=== PATIENT | female | born 1955 | race Caucasian/White ===

== ENCOUNTER 2024-11-13 15:41 | Inpatient (IN) ==
[2024-11-13] MEDS: SODIUM CHLORIDE 0.9% 1,000 ML IV ONE (16:37)
[2024-11-13 16:41] LABS: Base Excess VBG -3.4 mEq/L; HCO3 VBG 21 mmol/L; Oxygen Saturation VBG < 60.0 %; PCO2 VBG 37 mmHg (38-50); PO2 VBG 31 mmHg; pH VBG 7.37 (7.36-7.41)
--- NOTE | 2024-11-13 16:41 | Emergency Department Note ---
Impression & Plan Hyperglycemia due to type 2 diabetes mellitus ED Provider Note Provider: Bhupendra Choe MD CHIEF COMPLAINT: High blood sugar, short of breath HISTORY OF PRESENT ILLNESS: Patient is a 69-year-old female past medical history of stroke, blood clot on Xarelto normally, diabetes on insulin presenting via ambulance from the [facility] due to elevated blood sugar. Patient evidently for the past 3 weeks has been having URI symptoms. Seen in the clinic. Patient reports she has been on 2 courses of prednisone and completed course of Augmentin. States he is having some dyspnea on exertion has been quite thirsty and drinking a lot of water recently. Has not been taking her insulin or other medications again but has been slowly advancing her diet more. Blood sugars have been reading high and they sent her here for further evaluation. States she has been having some dyspnea on exertion even going up a flight of stairs. Has not been using her continuous glucose monitor the past 2 days. Denies significant confusions or hallucinations to me. PAST MEDICAL HISTORY: As noted above MEDICATIONS: Reviewed no medications but not currently taking clear insulin. Has recently been Augmentin/prednisone finished yesterday SOCIAL HISTORY: Lives in her apartment by herself non-smoker PHYSICAL EXAM: GENERAL: alert and oriented in no acute distress on stretcher Head: normocephalic and atraumatic EYES: No injection, discharge or icterus. EOMI. NECK: Trachea midline. ENT: Mucous membranes pink and moist. LUNGS: Airway patent. No retractions. Breath sounds clear with good air entry bilaterally. HEART: Regular rate and rhythm. No chest wall tenderness ABDOMEN: Soft and non-tender, without guarding or rebound. SKIN: Acyanotic, warm, dry, without rashes EXTREMITIES: Without swelling, tenderness or deformity NEUROLOGICAL: No focal deficits moving all extremities. No aphasia. No facial droop or slurred speech.Ambulatory. EK beats minute normal sinus rhythm left axis. No PVC or PAC. No acute ST segment elevation or depression with QTc of 444. CONTINUOUS CARDIAC MONITORING: was ordered and showed a heart rate of 90s-100s bpm in normal sinus rhythm to sinus tachycardia Patient's laboratory studies and imaging reviewed. Differential includes Infection, dehydration, metabolic abnormality, hypo/hyperglycemia, electrolyte disturbance, anemia, hypoxia, cardiac sources, intracerebral event, toxicologic, neurologic, as well as other pathologies. IMPRESSION/MEDICAL DECISION MAKING: Likely combination of stopping her insulin with the prednisone has caused hyperglycemia and symptoms consistent without with polyuria and polydipsia. Electrolytes checked. Lives by herself. Does not appear febrile or tachypneic. Labs including VBG obtained. Chest x-ray as well as COVID swabs obtained to exclude pneumonia and evaluate for underlying viral illness. No significant focal deficits no trauma reported. Not having active chest pain lower suspicion for cardiac injury. Patient states given her history of clots she is post to be on Xarelto but again has not been taking this for several weeks. Blood work here without significant leukocytosis or anemia. No acidosis on VBG and doubt DKA. Normal lactate. Glucose and ketones in the urine with some concentration again receiving IV fluid hydration. Chest x-ray completed and reviewed by myself without findings of pneumonia or fluid overload. Chemistries with some pseudohyponatremia of 128 and no anion gap. No significant transaminitis. Normal troponin here today. Patient again has stopped all of her medications at home and does not know what her continuous blood sugar monitor is at home. Do of concerns about her ability to control and care for self at home specially in this acute setting at this time. Will start insulin drip in discussion with pharmacy for glycemic control. Discussed with patient. She was in agreement and I do have some concerns about ability to manage herself at home at this time. Discussed with the hospitalist team here for further care. Negative respiratory viral panel to explain her recent cough symptoms. Do not believe further antibiotics are indicated at this time. Patient should restart her home medications and anticoagulation but will defer this to the inpatient team. DIAGNOSIS: Hyperglycemia secondary to type 2 diabetes, TARIQ DISPOSITION: Hospitalist will evaluate Patient was agreeable with this plan. Critical Care I have personally spent 32 minutes of critical care time in the direct management of this patient. This includes bedside care, interpretation of diagnostic studies, and testing, discussion with consultants, patient, and other required patient management activities. These 32 minutes is in excess of all separately billable procedures. Past Med/Surg History Problem List (Updated 11/13/24 @ 19:00 by Angel Huynh DO) Moderate persistent asthma Depression Bipolar 1 disorder Insulin-requiring or dependent type II diabetes mellitus Paroxysmal atrial fibrillation Noncompliance with medication treatment due to difficulty with dosing Pseudohyponatremia Hyperglycemia due to type 2 diabetes mellitus (Acute) Social History Smoking Status: Never smoker Preferred Language: Cymro Feels Safe at Home: Yes Allergies Allergies Allergy/AdvReac Type Severity Reaction Status Date / Time apixaban [From Eliquis] Allergy Intermediate Hives Verified 11/13/24 18:26 Sulfa (Sulfonamide Allergy Intermediate Rash Verified 11/13/24 18:26 Antibiotics) codeine AdvReac Intermediate Hallucinati Verified 11/13/24 18:26 ng empagliflozin AdvReac Intermediate Migraine Verified 11/13/24 18:26 [From Jardiance] metformin AdvReac Intermediate Abdominal Verified 11/13/24 21:36 Pain Home Meds Home Medications Medication Instructions Recorded Confirmed atorvastatin 80 mg tablet 80 mg PO DAILY 11/13/24 11/13/24 bupropion HCl 150 mg tablet,12 hr 150 mg PO BID 11/13/24 11/13/24 sustained-release citalopram 40 mg tablet (Celexa) 40 mg PO QAM 11/13/24 11/13/24 ergocalciferol (vitamin D2) 1,250 50,000 unit PO WK 11/13/24 11/13/24 mcg (50,000 unit) capsule ezetimibe 10 mg tablet 10 mg PO DAILY 11/13/24 11/13/24 famotidine 20 mg tablet 20 mg PO DAILY 11/13/24 11/13/24 fluticasone furoate 100 1 inh inhalation DIRECTED 11/13/24 11/13/24 mcg/actuation blister powder for inhalation (Arnuity Ellipta) hydroxyzine HCl 25 mg tablet 25 mg PO DAILY PRN Other 11/13/24 11/13/24 insulin degludec 100 unit/mL (3 0 unit subcut DIRECTED 11/13/24 11/13/24 mL) subcutaneous pen (Tresiba FlexTouch U-100 insulin) loratadine 10 mg tablet 10 mg PO DAILY 11/13/24 11/13/24 omeprazole 40 mg capsule,delayed 40 mg PO DAILY 11/13/24 11/13/24 release semaglutide 2 mg/dose (8 mg/3 mL) 2 mg subcut WK 11/13/24 11/13/24 subcutaneous pen injector (Ozempic) Results & Data (ED) Vital Signs Vital Signs - 24 hr 11/13/24 15:50 11/13/24 16:07 11/13/24 16:19 Temperature 37 C Temperature Source Temporal Artery Scan Pulse Rate 100 H 100 H Pulse Rate from SpO2 Sensor Respiratory Rate 18 Respiratory Effort / Characteristics Non-Labored Spontaneous Respiratory Depth Normal Respiratory Pattern Regular Blood Pressure 163/94 H Blood Pressure Mean 117 Pulse Oximetry 97 98 Oxygen Delivery Method Room Air Room Air Sepsis Recent Fever Within 48 Hours No Sepsis New/Unexplained Change in Mental Status No Sepsis Action Taken by Nursing No Action Required 11/13/24 17:00 11/13/24 18:00 Temperature Temperature Source Pulse Rate 93 H 87 Pulse Rate from SpO2 Sensor 93 H 87 Respiratory Rate 21 21 Respiratory Effort / Characteristics Respiratory Depth Respiratory Pattern Blood Pressure 156/89 H 152/84 H Blood Pressure Mean 137 121 Pulse Oximetry 97 96 Oxygen Delivery Method Sepsis Recent Fever Within 48 Hours Sepsis New/Unexplained Change in Mental Status Sepsis Action Taken by Nursing Laboratory Data 11/13/24 16:25 11/13/24 16:25 Lab Results 11/13/24 11/13/24 11/13/24 Range/Units 15:53 16:12 16:14 WBC (4.8-10.8) K/ul RBC (4.20-5.40) M/uL Hgb (12.0-16.0) g/dl POC Hgb (12.0-16.0) g/dl Hct (37.0-47.0) % POC Hct (37-47) % MCV (80.0-100.0) fL MCH (25.0-34.0) pg MCHC (32.0-36.0) g/dL RDW Std Deviation (36.4-46.3) fL RDW Coeff of Lopez (11.5-14.5) % Plt Count (130-400) K/uL MPV (9.4-12.4) fL Immature Gran % (Auto) % Neut % (Auto) % Lymph % (Auto) % Johnson % (Auto) % Eos % (Auto) % Baso % (Auto) % Neut # (Auto) (1.40-6.50) K/uL Lymph # (Auto) (1.20-3.40) K/uL Johnson # (Auto) (0.11-0.59) K/uL Eos # (Auto) (0.00-0.50) K/uL Baso # (Auto) (0.00-0.20) K/uL Immature Gran # (Auto) (0.01-0.20) K/uL PT (9.0-12.0) Seconds INR (0.9-1.1) VBG pH (7.36-7.41) VBG pCO2 (38-50) mmHg VBG pO2 mmHg VBG HCO3 mmol/L VBG O2 Saturation % VBG Base Excess mEq/L POC Sodium (135-144) mmol/L Sodium (136-145) mmol/L POC Potassium (3.3-5.0) mmol/L Potassium (3.5-5.1) mmol/L POC Chloride (101-112) mmol/L Chloride (98-107) mmol/L Carbon Dioxide (21-32) mmol/L POC Total CO2 (24-31) mmol/L Anion Gap (3-11) POC Anion Gap (16-25) mmol/L POC BUN (7-18) mg/dl BUN (6-23) mg/dl Creatinine (0.6-1.2) mg/dl POC Creatinine (0.6-1.3) mg/dl Est Cr Clr Drug Dosing eGFR BUN/Creatinine Ratio (10-20) Glucose (70-99(Fasting)) mg/dl POC Glucose > 600 H* > 600 H* > 600 H* (70-99) mg/dl POC Glucose (other) (70-99) mg/dl Lactate (0.4-2.0) mmol/L Calcium (8.6-10.3) mg/dl POC Ioniz Calcium Dora (1.12-1.32) mmol/l Magnesium (1.7-2.4) mg/dl Total Bilirubin (0.2-1.0) mg/dl AST (13-39) U/L ALT (7-52) U/L Alkaline Phosphatase (34-104) U/L Troponin I High Sens (0-14) pg/ml Total Protein (6.0-8.3) gm/dl Albumin (3.4-5.0) gm/dl Globulin (2.5-4.0) gm/dl Albumin/Globulin Ratio (0.9-2) TSH (0.300-4.500) uIu/ml Urine Color Urine Appearance (Clear) Urine pH (4.5-7.5) Ur Specific Vanzant (1.000-1.030) Urine Protein (Negative) Urine Glucose (UA) (Negative) Urine Ketones (Negative) Urine Blood (Negative) Urine Nitrite (Negative) Urine Bilirubin (Negative) Urine Urobilinogen (Negative) Ur Leukocyte Esterase (Negative) Adenovirus (PCR) (NotDetected) B. pertussis DNA (PCR) (NotDetected) B.parapertussis DNA PCR (NotDetected) C. pneumoniae DNA (PCR) (NotDetected) Coronavirus OC43 (PCR) (NotDetected) Coronavirus HKU1 (PCR) (NotDetected) Coronavirus 229E (PCR) (NotDetected) SARS-CoV-2 (PCR) (NotDetected) Coronavirus NL63 (PCR) (NotDetected) Human Metapneumovir PCR (NotDetected) Influenza Type A (PCR) (NotDetected) Influenza Type B (PCR) (NotDetected) M. pneumoniae (PCR) (NotDetected) Parainfluenza 1 (PCR) (NotDetected) Parainfluenza 2 (PCR) (NotDetected) Parainfluenza 3 (PCR) (NotDetected) Parainfluenza 4 (PCR) (NotDetected) RSV (PCR) (NotDetected) Entero/Rhino (PCR) (NotDetected) 11/13/24 11/13/24 11/13/24 Range/Units 16:25 16:39 18:20 WBC 8.80 (4.8-10.8) K/ul RBC 4.20 (4.20-5.40) M/uL Hgb 13.3 (12.0-16.0) g/dl POC Hgb 13.9 (12.0-16.0) g/dl Hct 38.4 (37.0-47.0) % POC Hct 41 (37-47) % MCV 91.4 (80.0-100.0) fL MCH 31.7 (25.0-34.0) pg MCHC 34.6 (32.0-36.0) g/dL RDW Std Deviation 41.8 (36.4-46.3) fL RDW Coeff of Lopez 12.7 (11.5-14.5) % Plt Count 347 (130-400) K/uL MPV 10.2 (9.4-12.4) fL Immature Gran % (Auto) 1.0 % Neut % (Auto) 61.7 % Lymph % (Auto) 26.1 % Johnson % (Auto) 9.7 % Eos % (Auto) 0.8 % Baso % (Auto) 0.7 % Neut # (Auto) 5.43 (1.40-6.50) K/uL Lymph # (Auto) 2.30 (1.20-3.40) K/uL Johnson # (Auto) 0.85 H (0.11-0.59) K/uL Eos # (Auto) 0.07 (0.00-0.50) K/uL Baso # (Auto) 0.06 (0.00-0.20) K/uL Immature Gran # (Auto) 0.09 (0.01-0.20) K/uL PT 9.9 (9.0-12.0) Seconds INR 0.9 (0.9-1.1) VBG pH 7.37 (7.36-7.41) VBG pCO2 37 L (38-50) mmHg VBG pO2 31 mmHg VBG HCO3 21 mmol/L VBG O2 Saturation < 60.0 % VBG Base Excess -3.4 mEq/L POC Sodium 130 L (135-144) mmol/L Sodium 128 L (136-145) mmol/L POC Potassium 4.5 (3.3-5.0) mmol/L Potassium 4.4 (3.5-5.1) mmol/L POC Chloride 98 L (101-112) mmol/L Chloride 96 L (98-107) mmol/L Carbon Dioxide 21 (21-32) mmol/L POC Total CO2 21 L (24-31) mmol/L Anion Gap 11 (3-11) POC Anion Gap 16.0 (16-25) mmol/L POC BUN 15 (7-18) mg/dl BUN 16 (6-23) mg/dl Creatinine 0.76 (0.6-1.2) mg/dl POC Creatinine 0.6 (0.6-1.3) mg/dl Est Cr Clr Drug Dosing Not Reportable eGFR 85.30 BUN/Creatinine Ratio 21.1 H (10-20) Glucose 629 H* (70-99(Fasting)) mg/dl POC Glucose 406 H* (70-99) mg/dl POC Glucose (other) 615 H* (70-99) mg/dl Lactate 1.9 (0.4-2.0) mmol/L Calcium 9.5 (8.6-10.3) mg/dl POC Ioniz Calcium Dora 1.18 (1.12-1.32) mmol/l Magnesium 1.8 (1.7-2.4) mg/dl Total Bilirubin 0.4 (0.2-1.0) mg/dl AST 22 (13-39) U/L ALT 22 (7-52) U/L Alkaline Phosphatase 154 H (34-104) U/L Troponin I High Sens 3.9 (0-14) pg/ml Total Protein 6.9 (6.0-8.3) gm/dl Albumin 3.7 (3.4-5.0) gm/dl Globulin 3.2 (2.5-4.0) gm/dl Albumin/Globulin Ratio 1.2 (0.9-2) TSH 2.979 (0.300-4.500) uIu/ml Urine Color Yellow Urine Appearance Clear (Clear) Urine pH 5.0 (4.5-7.5) Ur Specific Vanzant 1.034 H (1.000-1.030) Urine Protein Negative (Negative) Urine Glucose (UA) 3+ H (Negative) Urine Ketones 2+ H (Negative) Urine Blood Negative (Negative) Urine Nitrite Negative (Negative) Urine Bilirubin Negative (Negative) Urine Urobilinogen Negative (Negative) Ur Leukocyte Esterase Negative (Negative) Adenovirus (PCR) Not Detected (NotDetected) B. pertussis DNA (PCR) Not Detected (NotDetected) B.parapertussis DNA PCR Not Detected (NotDetected) C. pneumoniae DNA (PCR) Not Detected (NotDetected) Coronavirus OC43 (PCR) Not Detected (NotDetected) Coronavirus HKU1 (PCR) Not Detected (NotDetected) Coronavirus 229E (PCR) Not Detected (NotDetected) SARS-CoV-2 (PCR) Not Detected (NotDetected) Coronavirus NL63 (PCR) Not Detected (NotDetected) Human Metapneumovir PCR Not Detected (NotDetected) Influenza Type A (PCR) Not Detected (NotDetected) Influenza Type B (PCR) Not Detected (NotDetected) M. pneumoniae (PCR) Not Detected (NotDetected) Parainfluenza 1 (PCR) Not Detected (NotDetected) Parainfluenza 2 (PCR) Not Detected (NotDetected) Parainfluenza 3 (PCR) Not Detected (NotDetected) Parainfluenza 4 (PCR) Not Detected (NotDetected) RSV (PCR) Not Detected (NotDetected) Entero/Rhino (PCR) Not Detected (NotDetected) 11/13/24 Range/Units 18:22 WBC (4.8-10.8) K/ul RBC (4.20-5.40) M/uL Hgb (12.0-16.0) g/dl POC Hgb (12.0-16.0) g/dl Hct (37.0-47.0) % POC Hct (37-47) % MCV (80.0-100.0) fL MCH (25.0-34.0) pg MCHC (32.0-36.0) g/dL RDW Std Deviation (36.4-46.3) fL RDW Coeff of Lopez (11.5-14.5) % Plt Count (130-400) K/uL MPV (9.4-12.4) fL Immature Gran % (Auto) % Neut % (Auto) % Lymph % (Auto) % Johnson % (Auto) % Eos % (Auto) % Baso % (Auto) % Neut # (Auto) (1.40-6.50) K/uL Lymph # (Auto) (1.20-3.40) K/uL Johnson # (Auto) (0.11-0.59) K/uL Eos # (Auto) (0.00-0.50) K/uL Baso # (Auto) (0.00-0.20) K/uL Immature Gran # (Auto) (0.01-0.20) K/uL PT (9.0-12.0) Seconds INR (0.9-1.1) VBG pH (7.36-7.41) VBG pCO2 (38-50) mmHg VBG pO2 mmHg VBG HCO3 mmol/L VBG O2 Saturation % VBG Base Excess mEq/L POC Sodium (135-144) mmol/L Sodium (136-145) mmol/L POC Potassium (3.3-5.0) mmol/L Potassium (3.5-5.1) mmol/L POC Chloride (101-112) mmol/L Chloride (98-107) mmol/L Carbon Dioxide (21-32) mmol/L POC Total CO2 (24-31) mmol/L Anion Gap (3-11) POC Anion Gap (16-25) mmol/L POC BUN (7-18) mg/dl BUN (6-23) mg/dl Creatinine (0.6-1.2) mg/dl POC Creatinine (0.6-1.3) mg/dl Est Cr Clr Drug Dosing eGFR BUN/Creatinine Ratio (10-20) Glucose (70-99(Fasting)) mg/dl POC Glucose 396 H* (70-99) mg/dl POC Glucose (other) (70-99) mg/dl Lactate (0.4-2.0) mmol/L Calcium (8.6-10.3) mg/dl POC Ioniz Calcium Dora (1.12-1.32) mmol/l Magnesium (1.7-2.4) mg/dl Total Bilirubin (0.2-1.0) mg/dl AST (13-39) U/L ALT (7-52) U/L Alkaline Phosphatase (34-104) U/L Troponin I High Sens (0-14) pg/ml Total Protein (6.0-8.3) gm/dl Albumin (3.4-5.0) gm/dl Globulin (2.5-4.0) gm/dl Albumin/Globulin Ratio (0.9-2) TSH (0.300-4.500) uIu/ml Urine Color Urine Appearance (Clear) Urine pH (4.5-7.5) Ur Specific Vanzant (1.000-1.030) Urine Protein (Negative) Urine Glucose (UA) (Negative) Urine Ketones (Negative) Urine Blood (Negative) Urine Nitrite (Negative) Urine Bilirubin (Negative) Urine Urobilinogen (Negative) Ur Leukocyte Esterase (Negative) Adenovirus (PCR) (NotDetected) B. pertussis DNA (PCR) (NotDetected) B.parapertussis DNA PCR (NotDetected) C. pneumoniae DNA (PCR) (NotDetected) Coronavirus OC43 (PCR) (NotDetected) Coronavirus HKU1 (PCR) (NotDetected) Coronavirus 229E (PCR) (NotDetected) SARS-CoV-2 (PCR) (NotDetected) Coronavirus NL63 (PCR) (NotDetected) Human Metapneumovir PCR (NotDetected) Influenza Type A (PCR) (NotDetected) Influenza Type B (PCR) (NotDetected) M. pneumoniae (PCR) (NotDetected) Parainfluenza 1 (PCR) (NotDetected) Parainfluenza 2 (PCR) (NotDetected) Parainfluenza 3 (PCR) (NotDetected) Parainfluenza 4 (PCR) (NotDetected) RSV (PCR) (NotDetected) Entero/Rhino (PCR) (NotDetected) Administered Medications Benzonatate (Benzonatate 100 Mg Capsule) 100 mg PO TID LESLIE Stop: 12/13/24 21:33 Last Admin: 11/13/24 22:21 Dose: 100 mg Documented By: RODERICK Bupropion HCl (Bupropion Hcl 75 Mg Tablet) 75 mg PO BID LESLIE Stop: 12/13/24 21:33 Last Admin: 11/13/24 22:21 Dose: 75 mg Documented By: RODERICK Guaifenesin (Guaifenesin 600 Mg Tabcr) 600 mg PO Q12 LESLIE Stop: 12/13/24 21:33 Last Admin: 11/13/24 22:21 Dose: 600 mg Documented By: RODERICK Sodium Chloride (Nss) 1,000 mls @ 100 mls/hr IV .Q10H LESLIE Stop: 11/15/24 03:44 Last Admin: 11/13/24 22:20 Dose: 100 mls/hr Documented By: RODERICK Rivaroxaban (Rivaroxaban 20 Mg Tab) 20 mg PO DAILY LESLIE Stop: 12/13/24 21:33 Last Admin: 11/13/24 22:21 Dose: 20 mg Documented By: RODERICK Discontinued Medications Sodium Chloride (Nss) 1,000 mls @ 999 mls/hr IV .Q1H1M ONE Stop: 11/13/24 17:32 Last Infusion: 11/13/24 19:21 Dose: Infused Documented By: Admin: 11/13/24 16:37 Dose: 999 mls/hr Documented By: ITALIA Insulin Human Regular 250 (units/ Sodium Chloride) 250 mls @ 1.8 mls/hr IV .Q24H [facility]; Protocol Stop: 11/13/24 23:59 Last Titration: 11/13/24 21:59 Dose: Infused Documented By: RODERICK Co-signed By: YOSSI Titration: 11/13/24 21:25 Dose: 2.2 units/hr, 2.2 mls/hr Documented By: RODERICK Co-signed By: GARRETT Admin: 11/13/24 19:18 Dose: 1.8 units/hr, 1.8 mls/hr Documented By: CANDACE Co-signed By: ROSALIA Insulin Aspart (Insulin Aspart Per Unit Charge) 0 units SC ACHS [facility] Stop: 12/13/24 20:59 Last Admin: 11/13/24 21:26 Dose: Not Given Documented By: RODERICK Insulin Aspart (Insulin Aspart Per Unit Charge) 0 units SC ONE ONE Stop: 11/13/24 21:46 Last Admin: 11/13/24 22:03 Dose: Not Given Documented By: RODERICK Insulin Aspart (Insulin Aspart Per Unit Charge) 0 units SC ONE ONE Stop: 11/13/24 22:16 Last Admin: 11/13/24 22:25 Dose: 5 units Documented By: RODERICK Co-signed By: YOSSI Insulin Glargine (Lantus Per Unit Charge) 20 units SC NOW STA Stop: 11/13/24 18:27 Last Admin: 11/13/24 19:14 Dose: 20 units Documented By: CANDACE Co-signed By: ROSALIA Insulin Human Regular (Novolin-R Bolus From Bag) 2 units IV ONE ONE Stop: 11/13/24 18:31 Last Admin: 11/13/24 19:19 Dose: 2 units Documented By: CANDACE Co-signed By: ROSALIA Graves (Insulin Protocol Goal Range ) 1 each N/A ONE ONE Stop: 11/13/24 17:31 Last Admin: 11/13/24 19:20 Dose: Not Given Documented By: CANDACE Graves (Stat Iv Infusion Titration Per Protocol) 1 each N/A NOW STA Stop: 11/13/24 17:31 Last Admin: 11/13/24 19:21 Dose: Not Given Documented By: CANDACE Imaging Data Radiologist's Impression: Chest X-Ray 11/13/24 16:07 EXAM: XR chest 1V portable CLINICAL HISTORY: SOB. TECHNIQUE: An X-ray image of the chest is obtained in AP portable projection. COMPARISON: No prior studies are available for comparison. FINDINGS: Pulmonary Parenchyma: Mild interstitial markings are identified bilaterally Lungs are clear bilaterally. No evidence of consolidation, collapse, or focal opacities. No pulmonary nodules are identified. No evidence of pleural effusion or pleural thickening. Heart and Mediastinum: Heart size and shape are normal. No mediastinal widening or masses. No hilar or mediastinal lymphadenopathy. Bony Thorax: Sternotomy metallic sutures in the left paramedian location likely due to rotation. Soft Tissues: Soft tissues overlying the chest wall are unremarkable. IMPRESSION: - Mild interstitial markings bilaterally. Clinical correlation is advised - No acute cardiopulmonary abnormalities are identified. Electronically signed by Robert Hall 11-13-2024 10:22 PM Discharge Plan Visit Data Chief Complaint: Hyperglycemia ED Provider: Bhupendra Choe Discharge Problem: Hyperglycemia due to type 2 diabetes mellitus Patient Disposition: Admitted As Inpatient Discharge Instructions Interventions: ED Discharge Assessment Last Done: 11/13/24 20:36
[2024-11-13 16:49] LABS: Appearance Urine Clear (Clear); Bilirubin Urine Negative (Negative); Blood Urine Negative (Negative); Color Urine Yellow; Glucose Urine UA 3+ (Negative); Ketones Urine 2+ (Negative); Leukocyte Esterase Urine Negative (Negative); Nitrite Urine Negative (Negative); Protein Urine Negative (Negative); Specific Gravity Urine 1.034 (1.000-1.030); Urobilinogen Urine Negative (Negative)
[2024-11-13 16:52] LABS: Basophils # (auto) 0.06 K/uL (0.00-0.20); Basophils % (auto) 0.7 %; Eosinophils # (auto) 0.07 K/uL (0.00-0.50); Eosinophils % (auto) 0.8 %; Hematocrit (blood only) 38.4 % (37.0-47.0); Hemoglobin 13.3 g/dl (12.0-16.0); Immature Granulocytes # (auto) 0.09 K/uL (0.01-0.20); Lymphocytes % (auto) 26.1 %; Mean Corpuscular Hemoglobin 31.7 pg (25.0-34.0); Mean Corpuscular Hgb Conc 34.6 g/dL (32.0-36.0); Mean Corpuscular Volume 91.4 fL (80.0-100.0); Mean Platelet Volume 10.2 fL (9.4-12.4); Monocytes # (auto) 0.85 K/uL (0.11-0.59); Monocytes % (auto) 9.7 %; Neutrophils # (auto) 5.43 K/uL (1.40-6.50); Neutrophils % (auto) 61.7 %; Platelet Count 347 K/uL (130-400); RDW Coefficient of Variation 12.7 % (11.5-14.5); RDW Standard Deviation 41.8 fL (36.4-46.3)
[2024-11-13 16:52] LABS: iSTAT Creatinine 0.6 mg/dl (0.6-1.3); iSTAT Hemoglobin 13.9 g/dl (12.0-16.0); iSTAT Ionized Calcium 1.18 mmol/l (1.12-1.32); iSTAT Potassium 4.5 mmol/L (3.3-5.0)
[2024-11-13 17:13] LABS: Alanine Aminotransferase 22 U/L (7-52); Albumin Globulin Ratio 1.2 (0.9-2); Albumin Level 3.7 gm/dl (3.4-5.0); Alkaline Phosphatase 154 U/L (34-104); Anion Gap 11 (3-11); Aspartate Aminotransferase 22 U/L (13-39); BUN Creatinine Ratio 21.1 (10-20); Bilirubin,Total 0.4 mg/dl (0.2-1.0); Blood Urea Nitrogen 16 mg/dl (6-23); Calcium 9.5 mg/dl (8.6-10.3); Carbon Dioxide 21 mmol/L (21-32); Chloride 96 mmol/L (98-107); Globulin 3.2 gm/dl (2.5-4.0); Glucose 629 mg/dl (70-99(Fasting)); Magnesium 1.8 mg/dl (1.7-2.4); Potassium 4.4 mmol/L (3.5-5.1); Sodium 128 mmol/L (136-145); Total Protein 6.9 gm/dl (6.0-8.3)
[2024-11-13 17:17] LABS: INR 0.9 (0.9-1.1); Prothrombin Time 9.9 Seconds (9.0-12.0)
[2024-11-13 17:22] LABS: Troponin I High Sensitivity 3.9 pg/ml (0-14)
[2024-11-13 17:26] LABS: Thyroid Stimulating Hormone 2.979 uIu/ml (0.300-4.500)
[2024-11-13 18:50] LABS: Adenovirus PCR Not Detected (NotDetected); Bordetella parapertussis PCR Not Detected (NotDetected); Bordetella pertussis PCR Not Detected (NotDetected); Chlamydia pneumoniae PCR Not Detected (NotDetected); Coronavirus 229E PCR Not Detected (NotDetected); Coronavirus CoV-2 (COVID19)PCR Not Detected (NotDetected); Coronavirus HKU1 PCR Not Detected (NotDetected); Coronavirus NL63 PCR Not Detected (NotDetected); Coronavirus OC43PCR Not Detected (NotDetected); Human Metapneumovirus PCR Not Detected (NotDetected); Influenza A PCR Not Detected (NotDetected); Influenza B PCR Not Detected (NotDetected); Mycoplasma pneumoniae PCR Not Detected (NotDetected); Parainfluenza Virus 1 PCR Not Detected (NotDetected); Parainfluenza Virus 2 PCR Not Detected (NotDetected); Parainfluenza Virus 3 PCR Not Detected (NotDetected); Parainfluenza Virus 4 PCR Not Detected (NotDetected); Respiratory Syncytial VirusPCR Not Detected (NotDetected); Rhinovirus/Enterovirus PCR Not Detected (NotDetected)
--- NOTE | 2024-11-13 19:03 | History & Physical Report ---
Date of Service November 13, 2024 Assessment & Plan (1) Hyperglycemia due to type 2 diabetes mellitus: (2) Noncompliance with medication treatment due to difficulty with dosing: (3) Pseudohyponatremia: (4) Insulin-requiring or dependent type II diabetes mellitus: (5) Moderate persistent asthma: (6) Paroxysmal atrial fibrillation: (7) Bipolar 1 disorder: (8) Depression: Plan Patient is a 69-year-old female who is severely uncontrolled hyperglycemia due to the fact that she has not been taking her insulin for at least 3 weeks. This is exacerbated by the use of prednisone for exacerbation of her asthma due to probable viral upper respiratory infection. Patient has also not been taking her antidepressants. Patient high risk for severe complications associated with her hyperglycemia including HHNK and DKA. Also risk for significant side effects if she would restart her antidepressants at her usual dose due to the fact that she has been off them for so long. Patient require hospitalization to get her sugars under control and restart some of her needed medications but at lower doses. Admit to a monitored unit Started on IV insulin drip for immediate glucose control Give Lantus 20 units tonight then resume her usual 26 units daily tomorrow Restart her Celexa and bupropion at half dose prior to admission. 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 Approximately 4 weeks ago had an upper respiratory infection and was treated with antibiotics and 2 courses of prednisone in the setting of an exacerbation of her asthma. When she started the antibiotics and prednisone, reportedly patient stopped all of her other medications including her insulin. She was being seen by outpatient nutrition counseling today and sent her to the emergency room for evaluation what is learned that she had stopped all her medications. In the emergency room was noted to be quite hyperglycemic with expected hyponatremia. There is no evidence of DKA. She was referred to our service for further evaluation. Time my evaluation patient states she is feeling better. She readily admits that she has not taking really any of her medications for at least 3 weeks. The only medication she took was the prednisone and antibiotics. This includes all of her antidepressants and anticoagulation medications. She was concerned about restarting her antidepressants at her usual dose. She states that she still has a bit of a cough but her mucus production is now clear. She does not feel tight in her chest or wheezy. She has had no nausea or vomiting. Been is eating and drinking adequately. No new problems with the bowels or bladder. Allergies Allergy/AdvReac Type Severity Reaction Status Date / Time apixaban [From Eliquis] Allergy Intermediate Hives Verified 11/13/24 18:26 Sulfa (Sulfonamide Allergy Intermediate Rash Verified 11/13/24 18:26 Antibiotics) codeine AdvReac Intermediate Hallucinati Verified 11/13/24 18:26 ng empagliflozin AdvReac Intermediate Migraine Verified 11/13/24 18:26 [From Jardiance] metform AdvReac Intermediate Abdominal Uncoded 11/13/24 18:26 Pain Home Medications Medication Instructions Recorded Confirmed Type atorvastatin 80 mg tablet 80 mg PO DAILY 11/13/24 History bupropion HCl 150 mg tablet,12 hr 150 mg PO BID 11/13/24 History sustained-release citalopram 40 mg tablet (Celexa) 40 mg PO QAM 11/13/24 History ergocalciferol (vitamin D2) 1,250 50,000 unit PO WK 11/13/24 History mcg (50,000 unit) capsule ezetimibe 10 mg tablet 10 mg PO DAILY 11/13/24 History famotidine 20 mg tablet 20 mg PO DAILY 11/13/24 History fluticasone furoate 100 1 inh inhalation DIRECTED 11/13/24 History mcg/actuation blister powder for inhalation (Arnuity Ellipta) hydroxyzine HCl 25 mg tablet 25 mg PO DAILY PRN Other 11/13/24 History insulin degludec 100 unit/mL (3 0 unit subcut DIRECTED 11/13/24 History mL) subcutaneous pen (Tresiba FlexTouch U-100 insulin) loratadine 10 mg tablet 10 mg PO DAILY 11/13/24 History omeprazole 40 mg capsule,delayed 40 mg PO DAILY 11/13/24 History release semaglutide 2 mg/dose (8 mg/3 mL) 2 mg subcut WK 11/13/24 History subcutaneous pen injector (Ozempic) Past Med/Surg History Problem List (Updated 11/13/24 @ 19:00 by Angel Huynh DO) Moderate persistent asthma Depression Bipolar 1 disorder Insulin-requiring or dependent type II diabetes mellitus Paroxysmal atrial fibrillation Noncompliance with medication treatment due to difficulty with dosing Pseudohyponatremia Hyperglycemia due to type 2 diabetes mellitus (Acute) Social History Smoking Status: Never smoker Preferred Language: Albanian Feels Safe at Home: Yes Review of Systems Review of Systems: Pertinent positive and negative review of systems as mentioned in the HPI Physical Exam Physical Exam: Constitutional: Alert, ill in appearance, nontoxic HEENT: Mucous membranes moist. Sclera clear Neck: Soft, no adenopathy Lungs: Clear to auscultation, decreased, no wheezes rales or rhonchi CV: S1-S2, regular Abdomen: Soft, nontender, nondistended Extremities: No significant edema Musculoskeletal: No significant joint tenderness Neuro: No focal deficits Psych: Cooperative, normal mood Results & Data Results & Data Vital Signs (Past 12 Hours) Vital Signs Temp Pulse Resp BP Pulse Ox O2 Del Method 11/13/24 16:19 100 H 11/13/24 16:07 98 Room Air 11/13/24 15:50 37 C 100 H 18 163/94 H 97 Room Air Diagnostic Findings Reviewed imaging, laboratory and diagnostic studies. Pertinent findings as below. Personally reviewed EKG, sinus rhythm no acute ST-T wave brain changes Personally reviewed chest x-ray, evidence of previous cardiac surgery, no consolidative infiltrate or pulmonary edema Respiratory viral panel negative Urinalysis negative for signs of infection TSH 2.9 Lactate 1.9 Initial glucose 629 on laboratory testing, Most recent [id number] glucose 396 Anion gap 11 Carbon dioxide 21 Sodium 128 Code Status & VTE Plan VTE Prophylaxis Plan VTE Prophylaxis will be ordered: No Reason for no VTE drug order: Contraindicated
[2024-11-13] MEDS: LANTUS PER UNIT CHARGE SC STA (19:14)
[2024-11-13] MEDS: INSULIN REGULAR 250 UNITS in SODIUM CHLORIDE 0.9% 247.5 ML IV SCH (19:18)
[2024-11-13] MEDS: NovoLIN-R BOLUS FROM BAG IV ONE (19:19)
[2024-11-13] MEDS: INSULIN PROTOCOL GOAL RANGE ONE (19:20)
[2024-11-13] MEDS: STAT IV Infusion **Titration per Protocol STA (19:21)
[2024-11-13] MEDS: INSULIN ASPART PER UNIT CHARGE SC SCH (21:26)
[2024-11-13] MEDS ORDERED: ACETAMINOPHEN 325 MG TAB PO PRN (21:34)
[2024-11-13] MEDS ORDERED: GLUCOSE 10 TAB/TUBE PO PRN (21:34)
[2024-11-13] MEDS ORDERED: DEXTROSE 50% 50 ML SYRINGE IV PRN (21:34)
[2024-11-13] MEDS ORDERED: ALUMINUM/MAGNESIUM SUSP 30 ML UDC PO PRN (21:34)
[2024-11-13] MEDS ORDERED: ONDANSETRON INJ 2 MG/ML 2 ML VIAL IV PRN (21:34)
[2024-11-13] MEDS ORDERED: CARBOHYDRATES FOR HYPOGLYCEMIA PO PRN (21:34)
[2024-11-13] MEDS ORDERED: ALBUTEROL HFA 8 GM INHALER INH PRN (21:34)
[2024-11-13] MEDS ORDERED: GLUCAGON FOR INJ 1 MG VIAL SQ PRN (21:34)
[2024-11-13] MEDS ORDERED: POLYETHYLENE (MIRALAX) 17 GM PACK PO PRN (21:34)
[2024-11-13] MEDS ORDERED: PHARMACY GLYCEMIC MGMT CONSULT PRN (21:34)
[2024-11-13] MEDS ORDERED: GLUCOSE 40% GEL 15 GM TUBE PO PRN (21:34)
[2024-11-13] MEDS: INSULIN ASPART PER UNIT CHARGE SC ONE ×2 (22:03→22:25)
[2024-11-13] MEDS: SODIUM CHLORIDE 0.9% 1,000 ML IV SCH (22:20)
[2024-11-13] MEDS: buPROPion HCl 75 MG TABLET PO SCH (22:21)
[2024-11-13] MEDS: BENZONATATE 100 MG CAPSULE PO SCH (22:21)
[2024-11-13] MEDS: RIVAROXABAN 20 MG TAB PO SCH (22:21)
[2024-11-13] MEDS: guaiFENesin 600 MG TABCR PO SCH (22:21)
--- NOTE | 2024-11-13 22:22 | XRay Report ---
EXAM: XR chest 1V portable CLINICAL HISTORY: SOB. TECHNIQUE: An X-ray image of the chest is obtained in AP portable projection. COMPARISON: No prior studies are available for comparison. FINDINGS: Pulmonary Parenchyma: Mild interstitial markings are identified bilaterally Lungs are clear bilaterally. No evidence of consolidation, collapse, or focal opacities. No pulmonary nodules are identified. No evidence of pleural effusion or pleural thickening. Heart and Mediastinum: Heart size and shape are normal. No mediastinal widening or masses. No hilar or mediastinal lymphadenopathy. Bony Thorax: Sternotomy metallic sutures in the left paramedian location likely due to rotation. Soft Tissues: Soft tissues overlying the chest wall are unremarkable. IMPRESSION: - Mild interstitial markings bilaterally. Clinical correlation is advised - No acute cardiopulmonary abnormalities are identified. Electronically signed by Robert Hall 11-13-2024 10:22 PM
[2024-11-13 22:42] VITALS: RESP 18
[2024-11-14] MEDS: INSULIN ASPART PER UNIT CHARGE SC SCH ×2 (02:09→08:50)
--- OUTSIDE RECORDS SUMMARY | 2024-11-14 06:25 | External Medical Summary | Summary of Care ---
Author Name Unknown Organization [facility] Address [address] [place] [address] Phone [phone] Care Team Providers Care Willow Machine Operator Name Role Phone Pippa Navarro Primary Care Provider Reason for Visit * Reason Onset Date Comments Scheduling 08/15/2024 Reclast, on hold until sep Encounter Details Date Type Department Care Team ([facility] st Contact Info) Description 08/15/2024 Telephone Hematology/Oncology, [facility] [address] [place] [address] Hans Tian PA-C [address] [place] [address] Scheduling (Reclast, on hold until sep) Allergies Active Allergy Reactions Criticality Noted Date Comments Codeine Medium Other reaction(s): Hallucinations Apixaban Hives 09/23/2022 Empagliflozin Other (Please comment) 05/30/2022 migraines Metformin Abdominal pain,Nausea/vomiting Medium 09/02/2023 Consistent with ER formulation even when taken with meals. Soap 12/26/2016 Ivory soap, hives Sulfa Antibiotics Rash Low 03/10/2017 documented as of this encounter (statuses as of 11/09/2024) Medications Triamcinolone Acetonide (NASACORT AQ) 55 MCG/ACT AEROIndications: Allergic rhinitis, unspecified seasonality, unspecified trigger Administer 2 Sprays into each nostril daily. 1 Bottle 1 01/22/20 18 Active Multiple Vitamin (MULTI VITAMIN DAILY) TABS Take 1 Dose(s) by mouth in the morning. Active Cholecalciferol 25 MCG (1000 UT) Oral Capsule Take 5 Capsules by mouth in the morning. 06/29/20 19 Active Refresh 1.4-0.6 % Ophthalmic Solution (polyvinyl alcohol-povidone PF) Instill 1 Drop into both eyes in the morning and 1 Drop at noon and 1 Drop in the evening and 1 Drop before bedtime. Active Acetaminophen 325 MG Oral Tablet (Tylenol) Take 2 Tabs by mouth every 4 hours as needed for Pain, Moderate. 100 Tab 1 06/04/20 21 Active buPROPion HCl ER (SR) 150 MG Oral Tablet Extended Release 12 Hour (Wellbutrin SR) 1 Tablet in the morning and 1 Tablet before bedtime. 07/30/20 22 Active hydrOXYzine HCl 25 MG Oral Tablet TAKE 1 TABLET BY MOUTH ONCE DAILY NEEDED 07/02/20 22 Active Topiramate 25 MG Oral Tablet (topAMAX) Take 1 Tablet by mouth in the morning and 1 Tablet before bedtime. 06/29/20 22 Active Witch Marlys-Glycerin External Pad (Tucks)Indicatio ns:Non-obstetric vaginal laceration without foreign body or perineal laceration, initial encounter Use to soothe vagina for up to 15 minutes at a time. Can use up to 4 times per day. 50 Each 1 10/01/19 23 Active Clobetasol Propionate 0.05 % External SolutionIndicati ons:Seborrheic dermatitis Apply to rash on scalp twice a day as needed 50 mL 5 10/20/19 23 Active Ketoconazole 2 % External Shampoo (Nizoral)Indicat ions:Seborrheic dermatitis Apply to scalp daily as needed 120 mL 5 10/20/19 23 Active Biotene Dry Mouth Mouth/Throat Liquid Apply to the mouth or throat as needed for Dry Mouth. 02/20/20 23 Active OneTouch Ultra 2 w/Device Kit Check glucose up to four times daily. E11.9 1 Kit 06/30/20 23 Active OcuSoft Baby Eyelid & Eyelash External Pad Apply 1 Pad topically to affected area every evening. Active Xarelto 20 MG Oral Tablet (Rivaroxaban) TAKE 1 TABLET BY MOUTH ONCE DAILY WITH SUPPER 30 Tablet 5 07/20/20 23 Active Citalopram Hydrobromide 40 MG Oral Tablet (CeleXA) 07/02/20 23 Active Meclizine HCl 25 MG Oral Tablet (Antivert)Indica tions:Dizziness Take 1 Tablet by mouth 3 times a day as needed for Dizziness. 90 Tablet 2 07/27/20 23 Active Benzonatate 100 MG Oral Capsule (Tessalon Perles)Indicatio ns:Acute cough Take 1 Capsule by mouth 3 times a day as needed for Cough. Do not cut, crush, or chew. 30 Capsule 07/27/20 23 Active Additional Information Patient not taking.Reported on 10/16/2024 BD Pen Needle Mini U/F 31G X 5 MM (Insulin Pen Needle)Indicatio ns:Type 2 diabetes mellitus with hemoglobin A1c goal of less than 7.0% (FORMERLY [facility]) USE TO INJECT INSULIN 4 TIMES DAILY 400 Each 3 10/06/19 24 Active Omeprazole 40 MG Oral Capsule Delayed Release (PriLOSEC)Indica tions:Gastroesop hageal reflux disease without esophagitis Take 1 Capsule by mouth in the morning. 1 hour before the first meal of the day. 90 Capsule 3 11/22/19 24 Active Loratadine 10 MG Oral Tablet (Claritin) Take 1 Tablet by mouth in the morning. 90 Tablet 3 11/22/19 24 Active Famotidine 20 MG Oral Tablet (Pepcid)Indicati ons:Heartburn Take 1 Tablet by mouth in the morning. 90 Tablet 3 11/22/19 24 Active Ezetimibe 10 MG Oral Tablet (Zetia)Indicatio ns:Hyperlipidemi a with target LDL less than 70 Take 1 Tablet by mouth in the morning. 90 Tablet 3 11/22/19 24 Active Atorvastatin Calcium 80 MG Oral Tablet (Lipitor) Take 1 Tablet by mouth in the morning. 90 Tablet 3 11/22/19 24 Active Arnuity Ellipta 100 MCG/ACT Inhalation Aerosol Powder Breath Activated (fluticasone Furoate)Indicati ons:Moderate persistent asthma without complication Inhale 1 Puff by mouth in the morning. 90 Each 3 11/22/19 24 Active Albuterol Sulfate HFA 108 (90 Base) MCG/ACT Inhalation Aerosol SolutionIndicati ons:Moderate persistent asthma without complication Inhale 2 Puffs by mouth every 6 hours as needed for Shortness of Breath or Wheezing. 18 g 02/25/20 24 Active FreeStyle Debbie 3 SensorIndication s:DM type 2 with diabetic peripheral neuropathy (HCC) Use as directed every [address] [facility] mmCHANNEL, [phone]. 04/06/20 24 Active FreeStyle Debbie 3 [place] DeviceIndication s:DM type 2 with diabetic peripheral neuropathy (HCC) Use as directed. Using [facility] mmCHANNEL,[phone]. Debbie 3 reader shipped 03/10/2024 04/06/20 24 Active Ubrelvy 100 MG Oral Tablet (Ubrogepant)Katja cations:Migraine without status migrainosus, not intractable, unspecified migraine type Take 100 mg by mouth as needed for Migraine. Take 1 tablets at onset of migraine and may repeat in 2 hours if needed. Do not exceed 2 tablets in 24 hours. 10 Tablet 1 06/02/20 24 Active Network Foundation TechnologiesStyle Precision Marko Test In Vitro StripIndications :Type 2 diabetes mellitus with hemoglobin A1c goal of less than 7.0% ([facility]) Use up to 3 times daily to confirm sensor readings 300 Strip 3 06/30/20 24 Active NovoLOG FlexPen 100 UNIT/ML Subcutaneous Solution Pen-injector (insulin aspart)Indicatio ns:Type 2 diabetes, HbA1c goal < 7% ([facility]) Inject 15 units with breakfast, 16 units with lunch, 11 units with supper + CF 1:40 over 140 45 mL 3 06/30/20 24 Active OneTouch UltraSoft Lancets MISCIndications: Type 2 diabetes mellitus with hemoglobin A1c goal of less than 7.0% ([facility]) Checking blood sugars four time daily Dx: E11.9 150 Each 05/23/20 20 024 Discontin ued(Refil l) Erythromycin 5 MG/GM Ophthalmic Ointment Instill 0.25 Inches into both eyes at bedtime. 3.5 g 6 10/01/19 24 025 Discontin ued(Refil l) Ozempic (2 MG/DOSE) 8 MG/3ML Subcutaneous Solution Pen-injector (Semaglutide (2 MG/DOSE))Indicat ions:Type 2 diabetes mellitus with hemoglobin A1c goal of less than 7.0% ([facility]) Inject 2mg under the skin once weekly 3 mL 3 11/22/19 24 025 Discontin ued(Refil l) Insulin Glargine Solostar 100 UNIT/ML Subcutaneous Solution Pen-injectorIndi cations:Type 2 diabetes, HbA1c goal < 7% (HCC) Inject 26 Units under the skin daily. 30 mL 3 06/30/20 24 024 Discontin ued(Medic ation List Clean Up) Insulin Glargine Solostar 100 UNIT/ML Subcutaneous Solution Pen-injector (Lantus SoloStar)Indicat ions:Type 2 diabetes, HbA1c goal < 7% (HCC) Inject 26 Units under the skin daily. Brand Lantus Solostar 30 mL 3 07/03/20 24 024 Discontin ued(Medic ation List Clean Up) documented as of this encounter (statuses as of 11/09/2024) Active Problems Problem Noted Date Diagnosed Date Food insecurity 10/23/2024 Overview: Per [facility] Protocol Moderate persistent asthma with exacerbation 11/2024 Assessment & Plan (10/16/2024 2:47 PM EST): Likely viral illness. We discussed testing for flu or COVID but patient declined after discussion. Counseled on reasons call back for antibiotics. Given asthma we will place on a steroid burst. Counseled patient on likely increase in blood glucose and reasons to call for advice regarding changing insulin if needed. Disorder of iron metabolism, unspecified 025 Assessment & Plan (09/28/2024 10:35 AM EST): Last hemoglobin and ferritin are in the normal range, monitor Subcutaneous nodule of right thumb 09/28/2024 Assessment & Plan (09/28/2024 10:35 AM EST): Experiencing thumb pain and swelling since before [place], worsening over the past week, with tenderness on palpation but no numbness, tingling, or catching. Differential diagnosis includes tendon nodule, cyst, or sesamoid bone. An x-ray is ordered to determine the cause, and orthopedics will manage further based on the results. Encounter for long-term (current) insulin use Major depressive disorder, recurrent, in partial remission 11/22/2023 Assessment & Plan (09/28/2024 10:34 AM EST): Stable and followed by hellenen, no changes Generalized anxiety disorder 11/22/2023 Assessment & Plan (09/28/2024 10:34 AM EST): Stable and followed by enlighten, no changes Atherosclerosis of [place] ronary artery without angina pectoris 11/22/2023 Assessment & Plan (09/28/2024 10:34 AM EST): Asymptomatic and being managed medically, follow up with PCP Velez's esophagus 07/27/2023 Atypical squamous cells of u ndetermined significance (ASCUS) on Papanicolaou smear of cervix 06/16/2023 Cervical high risk human pap illomavirus (HPV) DNA test positive 06/16/2023 Subclavian artery stenosis, left 10/01/2022 Paroxysmal atrial fibrillation 09/18/2022 Assessment & Plan (09/28/2024 10:34 AM EST): Rate controlled, no changes Vertigo 05/30/2022 Intracardiac thrombus 05/07/2021 Age-related osteoporosis wit hout current pathological fracture 04/24/2021 Overview (09/19/2021): On Fosamax Assessment & Plan (09/28/2024 10:34 AM EST): Currently on calcium and vitamin-D, is scheduled to have DEXA scan in the near future LGSIL on Pap smear of cervix 09/11/2020 Overview (09/30/2020): Neg hpv Anxiety 08/14/2020 Type 2 diabetes mellitus wit h hemoglobin A1c goal of less than 7.0% 07/05/2020 Assessment & Plan (09/28/2024 10:33 AM EST): Refer to related diagnosis History of stroke 05/10/2020 Bipolar I disorder, most recent episode depresse d 10/30/2019 Assessment & Plan (09/28/2024 10:33 AM EST): Stable and monitored by enlightened, no changes DM type 2 with diabetic peripheral neuropathy Assessment & Plan (09/28/2024 10:33 AM EST): Uncontrolled and has follow up scheduled with clinical pharmacist for adjustments Bilateral bunions 07/06/2018 Hyperlipidemia with target LDL less than 70 02/12 Assessment & Plan (09/28/2024 10:32 AM EST): Last LDL above goal, patient is due for labs in 2 months, we will follow up with PCP Gastroesophageal reflux disease without esophagi tis 03/10/2017 Moderate persistent asthma without complication 03/10/2017 Overview (09/19/2021): 09/19/2021 uses fluticasone Furoate (ARNUITY ELLIPTA) 100 MCG/ACT AEPB inhaler and albuterol Recent covid 08/25/21 -resolved Assessment & Plan (09/28/2024 10:33 AM EST): Stable on current regimen with some shortness of breath on occasion, no changes to regimen at this time Rotator cuff tendinitis, left 06/13/2015 Biceps tendinitis on left 06/13/2015 Migraine Assessment & Plan (09/28/2024 10:32 AM EST): Stable and controlled on current regimen, no changes HTN, goal below 130/80 Assessment & Plan (09/28/2024 10:33 AM EST): Slightly uncontrolled today but usually is controlled. 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 The [facility] program provides food-insecure diabetics with healthy food for their entire household (2 meals/ day X 5 days/week). The program also provides education on food preparation, healthy living, and diabetes self management. The research measures the effects of the program on patient health and wellbeing. Subject will begin the [facility] program November 2020. Contact Information: Clamp Carrier Operator: Dr. Gilberto Nolan ([phone]) CRC: Chioma Dailey ([phone]) RA: Kimberlee Angulo ([phone]) Diagnosis changed due to Research Module. Go to Snapshot for study details. Type 2 diabetes mellitus with pressure callus 07/06/20 18 07/02/2020 Bipolar affective disorder, currently active 7 12/26/2021 History of nonadherence to medical treatment 7 05/28/2022 Mixed hyperlipidemia 09/09/2017 017 Vitamin D deficiency 03/10/2017 021 Controlled type 2 diabetes m ellitus without complication 12/26/2016 07/02/2020 Asthma 12/26/2016 07/02/2020 Type 2 diabetes mellitus 03/11/2016 Overview (07/26/2023): duplicate Leg cramping 09/09/2017 documented as of this encounter (statuses as of 11/09/2024) Immunizations Name Administration Dates Next Due COVID-19 mRNA, LNP-s, No Pre serve, 2-Dose Series ([facility]) 02/01/2021,01/11/2021 COVID-19, LNP-s, No Preserve , Toan-sucrose, Ages 12+ ([facility]) 12/31/2021 COVID-19, MRNA-LNP, PF, 30 M CG/0.3 mL, 12 YRS AND ABOVE, IM ([facility]) 08/15/2024,07/29/2023 Covid-19, Mrna, Lnp-s, Pf, B ivalent, 30 Mcg, IM, 12 yrs and above ([facility]) 05/28/2022 Pneumococcal Conjugate Vacci ne, 20-valent ([id number]) 01/15/2023 Pneumococcal Polysaccharide PPV23 (Pneumovax) 01/09/2017 Seasonal Influenza Virus Vac cine, Unspecified Formulation 06/24/2015 Seasonal Influenza, High Dos e, Trivalent, PF, IM (Fluzone HD) 05/23/2024 Seasonal Influenza, PF, 6 M & above, IM , (FluLaval or Fluzone) 05/23/2020,06/29/2019,07/06/2018,07/05 Seasonal Influenza, Quadriva lent Hd (Fluzone Hd) 05/18/2023,05/28/2022,06/19/2021 Seasonal Influenza, Trivalen t, (IIV3), PF, (Fluzone) 05/31/2014,07/20/2013,07/22/2012 TDAP (age 10 and older)(Boostrix) 07/16/2017 Varicella Zoster Vaccine (Adult) 01/07/2017 Zoster Vaccine Recombinant (Shingrix) 04/07/2022 ,01/29/2022 documented as of this encounter Social History Tobacco Use Types Packs/Day Years Used Date Smoking Tobacco: Never Smokeless Tobacco: Never Alcohol Use Standard Drinks/Week Comments No 0 (1 standard drink = 0.6 oz pur e alcohol) PHQ-2 Answer Date Recorded PHQ Adult Total Score 0 09/27/2024 Hunger Vital Sign Answer Date Recorded Within the past 12 months, y ou worried that your food would run out before you got the money to buy more. Sometimes true Within the past 12 months, t he food you bought just didn't last and you didn't have money to get more. Sometimes true Childcare Answer Date Recorded Do you feel overwhelmed with taking care of a child, family member or friend? No 09/27/2024 Does your family need help f inding childcare? (Household - for ages 0-17 years) Not on file 09/27/2024 Clothing Answer Date Recorded Have you been unable to get clothing when it was really needed? No 09/27/2024 Is your family able to get c lothes or diapers when needed? (Household - for ages 0-17 years) Not on file 09/27/2024 Personal Safety Answer Date Recorded Do you feel unsafe or have concerns for your saf ety? No 09/27/2024 Do you have concerns for you r family's safety? (Household - for ages 0-17 years) Not on file 09/27/2024 Utilities Answer Date Recorded Do you have trouble paying y our heating, water, or electric bill? No 09/27/2024 Is your family able to pay t he heat, water, or electric bill? (Household - for ages 0-17 years) Not on file 09/27/2024 Does your family have access to good internet? (Household - for ages 0-17 years) Not on file 09/27/2024 Employment Status Answer Date Recorded Are you unemployed or without regular income? No 09/27/2024 Does the household have a re lar source of income? (Household - for ages 0-17 years) Not on file 09/27/2024 Social Connections Answer Date Recorded How often do you feel lonely or isolated from th ose around you? Never 09/27/2024 Financial Resource Strain Answer Date R ecorded Do you have any trouble payi ng for your medications, or do you think you might in the future? No 09/27/2024 Does your family have troubl e paying for medicine? (Household - for ages 0-17 years) Not on file 09/27/2024 Transportation Needs Answer Date Record ed READ ONLY Do you have troubl e getting a ride to medical visits or work? Never True 09/27/2024 Does your family have a hard time getting a ride to doctors visits? (Household - for ages 0-17 years) Not on file 09/27/2024 Has lack of transportation k ept you from medical appointments, meetings, work, or from getting things needed for daily living? Check all that apply. No 09/27/2024 Do you (or your family) have trouble finding or paying for a ride (transportation)? (Household - for ages 0-17 years) Not on file 09/27/2024 Housing Stability Answer Date Recorded Do you currently live in a s helter or have no steady place to sleep at night? No 09/27/2024 READ ONLY Do you think you a re at risk of becoming homeless? No 09/27/2024 Does your family worry about paying for your home or becoming homeless? (Household - for ages 0-17 years) Not on file 0 09/27/2024 Are you homeless or worried that you might be in the future? No 09/27/2024 Are you (or your family) raj eless or worried that you might be in the future? (Household - for ages 0-17 years) Not on file Food Insecurity Answer Date Recorded Do you need food for this week? No 09/27/2024 Are you able to get enough f ood for your family? (Household - for ages 0-17 years) Not on file 09/27/2024 Does your family need food t his week? (Household - for ages 0-17 years) Not on file 09/27/2024 Do you always have enough fo od for your family? (Household - for ages 0-17 years) Not on file 09/27/2024 Food Insecurity Answer Date Recorded Within the past 12 months, y ou worried that your food would run out before you got the money to buy more. Sometimes true Within the past 12 months, t he food you bought just didn't last and you didn't have money to get more. Sometimes true Do you need food for this week? No 09/27/2024 Comments No Sex and Gender Information Value Date Recorded Sex Assigned at Female 08/22/2019 11:57 AM EST Legal Sex Female 4:23 PM EDT Gender Identity Female 08/22/2019 11:57 AM EST Sexual Orientation Straight 08/22/2019 11 :57 AM EST documented as of this encounter Functional Status * Are you deaf or do you have serious difficulty hearing? Answer Date of Assessment Author No 05/30/2022 8:15 PM Graciela Martins RN * Are you blind or do you have serious difficulty seeing, even when wearing glasses? Answer Date of Assessment Author No 05/30/2022 8:15 PM Graciela Martins RN * Do you have serious difficulty walking or climbing stairs? (5 years old or older) Answer Date of Assessment Author No 05/30/2022 8:15 PM Graciela Martins RN * Do you have difficulty dressing or bathing? (5 years old or older) Answer Date of Assessment Author Yes 05/30/2022 8:15 PM Graciela Martins RN * Because of a physical, mental, or emotional condition, do you have difficulty doing errands alone such as visiting a doctors office or shopping? (15 years old or older) Answer Date of Assessment Author No 05/30/2022 8:15 PM Graciela Martins RN documented as of this encounter Mental Status * Because of a physical, mental, or emotional condition, do you have serious difficulty concentrating, remembering, or making decisions? (5 years old or older) Answer Entry Date Author No 05/30/2022 8:15 PM Graciela Martins RN documented in this encounter Miscellaneous Notes * Telephone Encounter - Ana María Haley LPN - 11/09/2024 9:06 AM EST Still not done, pt message sent * Telephone Encounter - Molly Haley LPN - 10/23/2024 1:48 PM EST Called to remind pt to get Vit D level checked. She stated that she has an app[facility] on 10[facility] and will get lab work done that day if the weather is okay. * Telephone Encounter - Molly Ta, RN - 08/16/2024 11:58 AM EST Auth back. See MyG Rheum HOLDING Reclast until after repeat labs in 6 weeks. Rheum please make [facility] aware when ready to schedule. * Telephone Encounter - Hans Tian PA-C - 08/16/2024 8:51 AM EST Vit d low. Reschedule for 6 weeks. * Telephone Encounter - Dianna Piña LPN - 08/15/2024 3:07 PM EST When auth/labs are back, please schedule Reclast - 2 hours Hans Tian documented in this encounter Plan of Treatment Upcoming Encounters Date Type Department Care Team (Late st Contact Info) Description 11/13/2024 2:30 PM EST Nutrition Services Nutrition, [facility] [address] [place] [address] Edwina Ware, MICHAEL [address] [place] [address] 12/28/2024 1:00 PM EDT Appointment Cardiac Studies, [facility] [address] [facility] [place] [id number] 01/04/2025 11:00 AM EDT Office Visit Allergy/Immunology State [facility] [address] [place] [address] Guerita Marin PA-C [address] [facility] [place] [address] 02/09/2025 12:30 PM EDT Nurse Only Ancillary 1st Floor, [place] [address] [facility] [place], [place] [id number] [place], [facility] [address] [place] [address] 03/02/2025 12:20 PM EDT Office Visit Family Practice, [place] [address] [phone] Pippa Navarro CRNP [address] [id number] 05/07/2025 2:00 PM EDT Appointment Radiology, [facility] [address] [facility] [place] [address] Scheduled Procedures Name Priority Associated Diagnoses Date/Ti me ESOPHAGOGASTRODUODENOSCOPY ( EGD), FLEXIBLE, TRANSORAL, DIAGNOSTIC Recall Velez esophagus COLONOSCOPY FLEXIBLE PROXIMAL DIAGNOSTIC Recall Encounter for screening colonoscopy Health Maintenance Due Date Last Done Comments Cologuard 2001 Fecal Occult Blood Test 2001 Sigmoidoscopy 2001 B-12 11/16/2024 11/17/2023, 02/2023, 07/09/2021, Additional history exists Albumin/Creatinine Ratio 11/18/2024 024, 06/15/2023, 07/31/2022, Additional history exists Adult Wellness Visit 02/03/2025 02/04/2024 Mammogram 02/03/2025 02/04/2024, 01/11, 12/24/2021, Additional history exists HbA1c 02/06/2025 08/09/2024, 04/13, 11/17/2023, Additional history exists COVID-19 Vaccine ( season) 2025 08/15/2024, 07/29/2023, 05/28/2022, Additional history exists DXA Scan 04/23/2025 04/23/2023, 04/21/2021 Diabetic Eye Exam 06/23/2025 06/23/2024, , 06/23/2024, Additional history exists GFR 08/09/2025 08/09/2024, 03/0 02/2024, 02/19/2023, Additional history exists Diabetic Foot Exam 08/14/2025 08/14/2024, 0 01/06/2024, 10/19/2022, Additional history exists Depression Monitoring 09/27/2025 09/27/2024 , 02/04/2024, 02/04/2024 Velez's Esophagus Surveilance 12/22/2025 12/22/2022, 12/22/2022, 08/04/2022, Additional history exists DTap/Tdap Vaccines (2 - Td or Tdap) 07/16/2027 07/16/2017 Colonoscopy 08/13/2027 08/13/2017, 08/13/2017 Colorectal Cancer Screening 08/13/2027 Zoster Vaccines Completed 04/07/2022, 01/11, 01/07/2017 Pneumococcal Vaccine: 50+ Years Completed 01/15/2023, 01/09/2017 Pap Smear Discontinued 05/05/2023, 08/13, 04/07/2017, Additional history exists Influenza Vaccine (FLU shot) Completed 05/23/2024, 05/18/2023, 05/28/2022, Additional history exists VITAMIN D LEVEL ONCE IN A LIFETIME-USE SMARTSET# [id number] Completed 08/15/2024, 11/17/2023, 02/19/2023, Additional history exists HPV (Gardasil) Vaccine Aged Out No lo nger eligible based on patient's age to complete this topic Hepatitis B Vaccine Aged Out No longe r eligible based on patient's age to complete this topic MENINGOCOCCAL (MENACTRA/MENVEO) Aged Out No longer eligible based on patient's age to complete this topic Meningitis B Vaccine (Bexsero/Trumemba) Aged Out No longer eligible based on patient's age to complete this topic documented as of this encounter Medical Devices Implanted Type Area Funeral Arranger Device Identifier Shelf Expiration Date Model / Serial / Lot Lens 24.5 [facility] [id number] - [id number] Implanted:Qty: 1 on 09/21/2023 by Ray Gonzalez DO at OR [facility] Lens Left: Eye [employer] 03/28/2026 CNA0T0.245 / [id number] / Suture Steel 6 B&S19 M654g - [id number] Implanted:Qty: 7 on 05/07/2021 by Aba Desir MD at OR [facility] N/A: Sternum JNJ : [employer] 01/10/2026 [id number] / / [id number] [place] Lens 24.5 Implanted:Qty: 1 on 08/10/2023 by Ray Gonzalez DO at OR [facility] Right: Eye [employer] 09/15/2025 CNA0T0 / [id number] / documented as of this encounter Advance Directives * Full Code (Latest Code Status on File) Date Activated Date Inactivated Comments 09/21/2023 7:16 AM 09/21/2023 2:10 PM Question Answer Comments Discussion of Advance Direct sonali occurred with: Not Discussed due to patient's condition * Full Code Date Activated Date Inactivated Comments 08/10/2023 7:32 AM 08/10/2023 2:06 PM Question Answer Comments Discussion of Advance Direct sonali occurred with: Not Discussed due to patient's condition * Full Code Date Activated Date Inactivated Comments 07/13/2023 8:48 AM 07/13/2023 2:19 PM Question Answer Comments Discussion of Advance Direct sonali occurred with: Not Discussed due to patient's condition * Full Code Date Activated Date Inactivated Comments 06/29/2023 7:15 AM 06/29/2023 11:48 AM Question Answer Comments Discussion of Advance Direct sonali occurred with: Not Discussed due to patient's condition * Full Code Date Activated Date Inactivated Comments 05/30/2022 6:43 PM 06/01/2022 6:21 PM This order r eflects the patients wishes and were consensually agreed upon. Question Answer Comments Discussion of Advance Directives occurred with: Patient Care Teams Willow Machine Operator Relationship Specialty Start Date End Date Pippa Navarro CRNP [address] [address] PCP - General Nurse Practitioner 02/19/23 documented as of this encounter
--- OUTSIDE RECORDS SUMMARY | 2024-11-14 06:26 | External Medical Summary | Summary of Care ---
Author Name Unknown Organization [facility] Address [address] [place] [address] Phone [phone] Care Team Providers Care Numerical Control Operator Name Role Phone Pippa Navarro Primary Care Provider Encounter Details Date Type Department Care Team ([facility] st Contact Info) Description 10/24/2024 Population Health External Data Unspecified Department Allergies Active Allergy Reactions Criticality Noted Date Comments Codeine Medium Other reaction(s): Hallucinations Apixaban Hives 09/23/2022 Empagliflozin Other (Please comment) 05/30/2022 migraines Metformin Abdominal pain,Nausea/vomiting Medium 09/02/2023 Consistent with ER formulation even when taken with meals. Soap 12/26/2016 Ivory soap, hives Sulfa Antibiotics Rash Low 03/10/2017 documented as of this encounter (statuses as of 10/25/2024) Medications Triamcinolone Acetonide (NASACORT AQ) 55 MCG/ACT AEROIndications: Allergic rhinitis, unspecified seasonality, unspecified trigger Administer 2 Sprays into each nostril daily. 1 Bottle 1 8 Active Multiple Vitamin (MULTI VITAMIN DAILY) TABS Take 1 Dose(s) by mouth in the morning. Active Cholecalciferol 25 MCG (1000 UT) Oral Capsule Take 5 Capsules by mouth in the morning. 9 Active Refresh 1.4-0.6 % Ophthalmic Solution (polyvinyl alcohol-povidone PF) Instill 1 Drop into both eyes in the morning and 1 Drop at noon and 1 Drop in the evening and 1 Drop before bedtime. Active Acetaminophen 325 MG Oral Tablet (Tylenol) Take 2 Tabs by mouth every 4 hours as needed for Pain, Moderate. 100 Tab 1 1 Active buPROPion HCl ER (SR) 150 MG Oral Tablet Extended Release 12 Hour (Wellbutrin SR) 1 Tablet in the morning and 1 Tablet before bedtime. 2 Active hydrOXYzine HCl 25 MG Oral Tablet TAKE 1 TABLET BY MOUTH ONCE DAILY NEEDED 2 Active Topiramate 25 MG Oral Tablet (topAMAX) Take 1 Tablet by mouth in the morning and 1 Tablet before bedtime. 2 Active Witch Marlys-Glycerin External Pad (Tucks)Indicatio ns:Non-obstetric vaginal laceration without foreign body or perineal laceration, initial encounter Use to soothe vagina for up to 15 minutes at a time. Can use up to 4 times per day. 50 Each 1 3 Active Clobetasol Propionate 0.05 % External SolutionIndicati ons:Seborrheic dermatitis Apply to rash on scalp twice a day as needed 50 mL 5 3 Active Ketoconazole 2 % External Shampoo (Nizoral)Indicat ions:Seborrheic dermatitis Apply to scalp daily as needed 120 mL 5 3 Active Biotene Dry Mouth Mouth/Throat Liquid Apply to the mouth or throat as needed for Dry Mouth. 3 Active [email or web address] Ultra 2 w/Device Kit Check glucose up to four times daily. E11.9 1 Kit 3 Active OcuSoft Baby Eyelid & Eyelash External Pad Apply 1 Pad topically to affected area every evening. Active Xarelto 20 MG Oral Tablet (Rivaroxaban) TAKE 1 TABLET BY MOUTH ONCE DAILY WITH SUPPER 30 Tablet 5 3 Active Citalopram Hydrobromide 40 MG Oral Tablet (CeleXA) 3 Active Meclizine HCl 25 MG Oral Tablet (Antivert)Indica tions:Dizziness Take 1 Tablet by mouth 3 times a day as needed for Dizziness. 90 Tablet 2 3 Active Benzonatate 100 MG Oral Capsule (Tessalken Zaldivar)Indicatio ns:Acute cough Take 1 Capsule by mouth 3 times a day as needed for Cough. Do not cut, crush, or chew. 30 Capsule 3 Active Additional Information Patient not taking.Reported on 10/16/2024 BD Pen Needle Mini U/F 31G X 5 MM (Insulin Pen Needle)Indicatio ns:Type 2 diabetes mellitus with hemoglobin A1c goal of less than 7.0% ([facility]) USE TO INJECT INSULIN 4 TIMES DAILY 400 Each 3 4 Active Omeprazole 40 MG Oral Capsule Delayed Release (PriLOSEC)Indica tions:Gastroesop hageal reflux disease without esophagitis Take 1 Capsule by mouth in the morning. 1 hour before the first meal of the day. 90 Capsule 3 4 Active Loratadine 10 MG Oral Tablet (Claritin) Take 1 Tablet by mouth in the morning. 90 Tablet 3 4 Active Famotidine 20 MG Oral Tablet (Pepcid)Indicati ons:Heartburn Take 1 Tablet by mouth in the morning. 90 Tablet 3 4 Active Ezetimibe 10 MG Oral Tablet (Zetia)Indicatio ns:Hyperlipidemi a with target LDL less than 70 Take 1 Tablet by mouth in the morning. 90 Tablet 3 4 Active Atorvastatin Calcium 80 MG Oral Tablet (Lipitor) Take 1 Tablet by mouth in the morning. 90 Tablet 3 4 Active Arnuity Ellipta 100 MCG/ACT Inhalation Aerosol Powder Breath Activated (fluticasone Furoate)Indicati ons:Moderate persistent asthma without complication Inhale 1 Puff by mouth in the morning. 90 Each 3 4 Active Albuterol Sulfate HFA 108 (90 Base) MCG/ACT Inhalation Aerosol SolutionIndicati ons:Moderate persistent asthma without complication Inhale 2 Puffs by mouth every 6 hours as needed for Shortness of Breath or Wheezing. 18 g 4 Active FreeStyle Debbie 3 SensorIndication s:DM type 2 with diabetic peripheral neuropathy (HCC) Use as directed every 14 days. Using [employer], [phone]. 4 Active FreeStyle Debbie 3 [place] DeviceIndication s:DM type 2 with diabetic peripheral neuropathy (HCC) Use as directed. Using [employer],1-223-. Debbie 3 reader shipped 03/10/2024 4 Active Ubrelvy 100 MG Oral Tablet (Ubrogepant)Katja cations:Migraine without status migrainosus, not intractable, unspecified migraine type Take 100 mg by mouth as needed for Migraine. Take 1 tablets at onset of migraine and may repeat in 2 hours if needed. Do not exceed 2 tablets in 24 hours. 10 Tablet 1 4 Active FreeStyle Precision Marko Test In Vitro StripIndications :Type 2 diabetes mellitus with hemoglobin A1c goal of less than 7.0% (HCC) Use up to 3 times daily to confirm sensor readings 300 Strip 3 4 Active NovoLOG FlexPen 100 UNIT/ML Subcutaneous Solution Pen-injector (insulin aspart)Indicatio ns:Type 2 diabetes, HbA1c goal < 7% (HCC) Inject 15 units with breakfast, 16 units with lunch, 11 units with supper + CF 1:40 over 140 45 mL 3 4 Active Vitamin D (Ergocalciferol) 1.25 MG (33332 UT) Oral Capsule (Drisdol)Indicat ions:Age-related osteoporosis without current pathological fracture,Vitamin D deficiency Take 1 Capsule by mouth once a week. 15 Capsule 4 11/20/19 25 Active Tresiba FlexTouch 100 UNIT/ML Subcutaneous Solution Pen-injector (Insulin Degludec)Indicat ions:DM type 2 with diabetic peripheral neuropathy (HCC),Type 2 diabetes mellitus with hemoglobin A1c goal of less than 7.0% (HCC),Insulin long-term use (HCC) Inject 26 Units under the skin in the morning. 30 mL 3 4 Active LancetsIndicatio ns:DM type 2 with diabetic peripheral neuropathy (HCC),Type 2 diabetes mellitus with hemoglobin A1c goal of less than 7.0% (HCC),Insulin long-term use (HCC) Use as directed. Lancets to fit fishfishmeon brand lancet device. 100 Each 11 4 Active Ozempic (2 MG/DOSE) 8 MG/3ML Subcutaneous Solution Pen-injector (Semaglutide (2 MG/DOSE))Indicat ions:Type 2 diabetes mellitus with hemoglobin A1c goal of less than 7.0% (HCC) Inject 2mg under the skin once weekly 3 mL 3 5 Active Erythromycin 5 MG/GM Ophthalmic Ointment Instill 0.25 Inches into both eyes at bedtime. 3.5 g 6 5 Active Amoxicillin-Pot Clavulanate 875-125 MG Oral Tablet (Augmentin) Take 1 Tablet by mouth in the morning and 1 Tablet before bedtime. Do all this for 7 days. 14 Tablet 5 10/30/19 25 Active predniSONE 20 MG Oral Tablet (Deltasone) Take 2 Tablets by mouth in the morning. 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 Age-related osteoporosis jennifer anderson current pathological fracture 04/24/2021 Overview (09/19/2021): On [...] 10:33 AM EST): Stable and monitored by enlbradley, no changes DM type 2 with diabetic [...] as of this encounter (statuses as of 10/25/2024) Resolved Problems Problem Noted Date Diagnosed Date Resolved Date Food insecurity 11/22/2023 08/28/2024 Overview: Per [facility] Protocol Occlusion of left subclavian artery 05/30/2022 06/15/2023 Vertigo 05/30/2022 06/05/2022 Uncomplicated asthma 05/28/2022 022 Hyperlipidemia 05/28/2022 05/28/2022 Atrial fibrillation 11/25/2021 12/03/19 22 Current use of insulin 11/11/202112/15 Personal history of atrial fibrillation 05/26/2021 12/15/2022 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 The [employer] program provides food-insecure diabetics with healthy food for their entire household (2 meals/ day X 5 days/week). The program also provides education on food preparation, healthy living, and diabetes self management. The research measures the effects of the program on patient health and wellbeing. Subject will begin the FFF program November 2020. Contact Information: Hydrometeorologist: Dr. Gilberto Nolan ([phone]) CRC: Chioma Dailey ([phone]) RA: Kimberlee Angulo ([phone]) Diagnosis changed due to Research Module. Go [...] as of this encounter (statuses as of 10/25/2024) Immunizations Name Administration Dates Next Due COVID-19 mRNA, LNP-s, No Pre serve, 2-Dose Series ([employer]) 02/01/2021,01/11/2021 COVID-19, LNP-s, No Preserve , Toan-sucrose, Ages 12+ ([employer]) 12/31/2021 COVID-19, MRNA-LNP, PF, 30 M CG/0.3 mL, 12 YRS AND ABOVE, IM ([facility] 08/15/2024,07/29/2023 Covid-19, Mrna, Lnp-s, Pf, B ivalent, 30 Mcg, IM, 12 yrs and above ([employer]) 05/28/2022 Pneumococcal Conjugate Vacci ne, 20-valent (Fvlsecs10) 01/15/2023 Pneumococcal Polysaccharide PPV23 (Pneumovax) 01/09/2017 Seasonal [...] 09/27/2024 Does the household have a re gular source of income? (Household - for ages [...] of Assessment Author No 05/30/2022 8:15 PM EDT Graciela Reynolds RN * Are you blind or do you have serious difficulty seeing, even when wearing glasses? Answer Date of Assessment Author No 05/30/2022 8:15 PM EDT Graciela Reynolds RN * Do you have serious difficulty walking or climbing stairs? (5 years old or older) Answer Date of Assessment Author No 05/30/2022 8:15 PM EDT Graciela Reynolds RN * Do you have difficulty dressing or bathing? (5 years old or older) Answer Date of Assessment Author Yes 05/30/2022 8:15 PM EDT Graciela Reynolds RN * Because of a physical, mental, or emotional condition, do you have difficulty doing errands alone such as visiting a doctors office or shopping? (15 years old or older) Answer Date of Assessment Author No 05/30/2022 8:15 PM EDT Graciela Reynolds RN documented as of this encounter Mental Status * Because of a physical, mental, or emotional condition, do you have serious difficulty concentrating, remembering, or making decisions? (5 years old or older) Answer Entry Date Author No 05/30/2022 8:15 PM SHERWINT Graciela Reynolds RN documented in this encounter Plan of Treatment Upcoming Encounters Date Type Department Care Team (Late st Contact Info) Description 11/02/2024 3:00 PM EST [address] [address] Pharmacist1, [facility] [place] [address] [facility] [address] [place] [address] 11/13/2024 2:30 PM EST Nutrition Services Nutrition, [facility] [address] [address] Edwina Ware RDN [address] [place] [address] 12/28/2024 1:00 PM EDT Appointment Cardiac Studies, [address] [place] [address] 01/04/2025 11:00 AM EDT Office Visit Allergy/Immunology [employer] [address] [facility] [place] [address] Guerita Marin PA-C [address] [facility] [place] [address] 02/09/2025 12:30 PM EDT Nurse Only Ancillary 1st Floor, [place] [facility] [address] [facility] 2 [address] [facility] [address] [place] [address] 03/02/2025 12:20 PM EDT Office Visit [facility] [place] [address] [facility] [phone] Pippa Navarro CRNP [address] [facility] [address] 05/07/2025 2:00 PM EDT Appointment Radiology, [facility] [address] [place] [address] Scheduled Procedures Name Priority Associated Diagnoses Date/Ti me ESOPHAGOGASTRODUODENOSCOPY ( EGD), FLEXIBLE, TRANSORAL, DIAGNOSTIC Recall Velez esophagus COLONOSCOPY FLEXIBLE PROXIMAL DIAGNOSTIC Recall Encounter for screening colonoscopy Health Maintenance Due Date Last Done Comments Cologuard 2001 Fecal Occult Blood Test 2001 Sigmoidoscopy 2001 B-12 11/16/2024 11/17/2023, 02/0 02/2023, 07/09/2021, Additional history exists Albumin/Creatinine Ratio 11/18/2024 024, 06/15/2023, 07/31/2022, Additional history exists Adult Wellness Visit 02/03/2025 02/04/2024 Mammogram 02/03/2025 02/04/2024, 01/11, 12/24/2021, Additional history exists HbA1c 02/06/2025 08/09/2024, 04/13, 11/17/2023, Additional history exists DXA Scan 04/23/2025 04/23/2023, [...] Completed 05/23/2024, 05/18/2023, 05/28/2022, Additional history exists COVID-19 Vaccine Completed 08/15/2024, , 05/28/2022, Additional history exists VITAMIN D LEVEL ONCE IN A LIFETIME-USE SMARTSET# [id number] Completed 08/15/2024, 11/17/2023, 02/19/2023, Additional history exists [...] this encounter Medical Devices Implanted Type Area Chair Springer Device Identifier Shelf Expiration Date Model / Serial / Lot Lens 24.5 [place] - [id number] - [id number] Implanted:Qty: 1 on 09/21/2023 by Ray Gonzalez DO at OR [facility] Lens Left: Eye [employer] 03/28/2026 CNA0T0.245 / [id number] / Suture Steel 6 B&S19 M654g - [id number] Implanted:Qty: 7 on 05/07/2021 by Aba Desir MD [place] [facility] N/A: Sternum JNJ : [employer] 01/10/2026 M654G / / [id number] [place] Lens 24.5 Implanted:Qty: 1 on 08/10/2023 by Ray Gonzalez DO at OR [facility] Right: Eye [employer] 09/15/2025 CNA0T0 / [id number] / documented as of this encounter [...] Advance Directives occurred with: Patient Care Teams Numerical Control Operator Relationship Specialty Start Date End Date Pippa Navarro CRNP [address] [address] PCP - General Nurse Practitioner 02/19/23 documented as of this encounter
--- OUTSIDE RECORDS SUMMARY | 2024-11-14 06:26 | External Medical Summary | Summary of Care ---
Author Name Unknown Organization [facility] Address [address] [place] [address] Phone [phone] Care Team Providers Care Daycare Worker Name Role Phone Pippa Navarro Primary Care Provider Reason for Visit * Reason Onset Date Comments Scheduling 08/15/2024 Reclast, on hold until sep Encounter Details Date Type Department Care Team ([facility] st Contact Info) Description 08/15/2024 Telephone Hematology/Oncology, [facility] [address] [place] [address] Hans Tian PA-C [address] [place] [address] Scheduling (Reclast, on hold until sep) Allergies Active Allergy Reactions Criticality Noted Date Comments Codeine Medium Other reaction(s): Hallucinations Apixaban Hives 09/23/2022 Empagliflozin Other (Please comment) 05/30/2022 migraines Metformin Abdominal pain,Nausea/vomiting Medium 09/02/2023 Consistent with ER formulation even when taken with meals. Soap 12/26/2016 Ivory soap, hives Sulfa Antibiotics Rash Low 03/10/2017 documented as of this encounter (statuses as of 10/26/2024) Medications Triamcinolone Acetonide (NASACORT AQ) 55 MCG/ACT [...] hemoglobin A1c goal of less than 7.0% ([facility]) USE TO INJECT INSULIN 4 TIMES DAILY [...] Use as directed every 14 days. Using [facility] [employer], [phone]. 04/06/20 24 Active FreeStyle Debbie 3 [place] DeviceIndication s:DM type 2 with diabetic peripheral neuropathy (HCC) Use as directed. Using [facility] [employer],[phone]. Debbie 3 reader shipped 03/10/2024 04/06/20 24 Active Ubrelvy 100 MG Oral Tablet (Ubrogepant)Katja cations:Migraine without status migrainosus, not intractable, unspecified migraine type Take 100 mg by mouth as needed for Migraine. Take 1 tablets at onset of migraine and may repeat in 2 hours if needed. Do not exceed 2 tablets in 24 hours. 10 Tablet 1 06/02/20 24 Active PowerPracticalStyle Precision Marko Test In Vitro StripIndications :Type 2 diabetes mellitus with hemoglobin A1c goal of less than 7.0% ([facility]) Use up to 3 times daily to confirm sensor readings 300 Strip 3 06/30/20 24 Active NovoLOG FlexPen 100 UNIT/ML Subcutaneous Solution Pen-injector (insulin aspart)Indicatio ns:Type 2 diabetes, HbA1c goal < 7% ([facility]) Inject 15 units with breakfast, 16 units with lunch, 11 units with supper + CF 1:40 over 140 45 mL 3 06/30/20 24 Active OneTouch UltraSoft Lancets MISCIndications: Type 2 diabetes mellitus with hemoglobin A1c goal of less than 7.0% ([facility]) Checking blood sugars four time daily Dx: E11.9 150 Each 05/23/20 20 024 Discontin ued(Refil l) Erythromycin 5 MG/GM Ophthalmic Ointment Instill 0.25 Inches into both eyes at bedtime. 3.5 g 6 10/01/19 24 025 Discontin ued(Refil l) Ozempic (2 MG/DOSE) 8 MG/3ML Subcutaneous Solution Pen-injector (Semaglutide (2 MG/DOSE))Indicat ions:Type 2 diabetes mellitus with hemoglobin A1c goal of less than 7.0% ([facility]) Inject 2mg under the skin once weekly [...] as of this encounter (statuses as of 10/26/2024) Active Problems Problem Noted Date Diagnosed Date [...] Experiencing thumb pain and swelling since before [place], worsening over the past week, with tenderness [...] followed by enlighten, no changes Atherosclerosis of [place] ronary artery without angina pectoris 11/22/2023 [...] as of this encounter (statuses as of 10/26/2024) Resolved Problems Problem Noted Date Diagnosed Date Resolved Date Food insecurity 11/22/2023 08/28/2024 Overview: Per [facility] Protocol Occlusion of left subclavian artery 05/30/2022 06/15/2023 Vertigo 05/30/2022 06/05/2022 Uncomplicated asthma 05/28/2022 022 Hyperlipidemia 05/28/2022 05/28/2022 Atrial fibrillation 11/25/2021 12/03/19 Current use of insulin 11/11/202112/15 Personal history of atrial fibrillation 05/26/2021 12/15/2022 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 The [employer] program provides food-insecure diabetics with healthy food for their entire household (2 meals/ day X 5 days/week). The program also provides education on food preparation, healthy living, and diabetes self management. The research measures the effects of the program on patient health and wellbeing. Subject will begin the FFF program November 2020. Contact Information: Inspection Supervisor: Dr. Gilberto Nolan ([phone]) CRC: Chioma Dailey ([phone]) RA: Kimberlee Angulo ([phone]) Diagnosis changed due to Research Module. Go [...] as of this encounter (statuses as of 10/26/2024) Immunizations Name Administration Dates Next Due COVID-19 mRNA, LNP-s, No Pre serve, 2-Dose Series ([facility]) 02/01/2021,01/11/2021 COVID-19, LNP-s, No Preserve , Toan-sucrose, Ages 12+ ([employer]) 12/31/2021 COVID-19, MRNA-LNP, PF, 30 M CG/0.3 mL, 12 YRS AND ABOVE, IM ([facility]) 08/15/2024,07/29/2023 Covid-19, Mrna, Lnp-s, Pf, B ivalent, 30 Mcg, IM, 12 yrs and above ([employer]) 05/28/2022 Pneumococcal Conjugate Vacci ne, 20-valent ([id number]) 01/15/2023 Pneumococcal Polysaccharide PPV23 (Pneumovax) 01/09/2017 Seasonal [...] of Assessment Author No 05/30/2022 8:15 PM Graceila Martins RN * Are you blind or [...] encounter Miscellaneous Notes * Telephone Encounter - Molly Haley LPN - 10/23/2024 1:48 PM EST Called to remind pt to get Vit D level checked. She stated that she has an appt on 10/25/24 at [facility] and will get lab work done that day if the weather is okay. * Telephone Encounter - Molly Ta RN - 08/16/2024 11:58 AM EST Auth [...] 11/02/2024 3:00 PM EST Office [address] [address] Pharmacist1, [facility] [place] [address] [facility] [address] 11/13/2024 2:30 PM EST Nutrition Services Nutrition, [facility] [address] [facility] [place] [address] Edwina Ware, MICHAEL [address] [facility] [place] [address] 12/28/2024 1:00 PM EDT Appointment Cardiac Studies, [facility] [address] [facility] [place] [address] 01/04/2025 11:00 AM EDT Office Visit Allergy/Immunology [facility] [address] [place] [address] Guerita Marin PA-C [address] [place] [address] [address] 02/09/2025 12:30 PM EDT Nurse Only Ancillary 1st Floor, [place] [address] [facility] [phone] [place], [facility] Wellness [address] [place] [address] 03/02/2025 12:20 PM EDT Office Visit Family Practice, [place] [address] [facility] [phone] Pippa Navarro CRNP [address] [place] [address] [id number] 05/07/2025 2:00 PM EDT Appointment Radiology, [address] [place] [phone] Scheduled Procedures Name Priority Associated Diagnoses Date/Ti me ESOPHAGOGASTRODUODENOSCOPY ( EGD), FLEXIBLE, TRANSORAL, DIAGNOSTIC Recall Velez esophagus COLONOSCOPY FLEXIBLE PROXIMAL DIAGNOSTIC Recall Encounter for screening colonoscopy Health Maintenance Due Date Last Done Comments Cologuard 2001 Fecal Occult Blood Test 2001 Sigmoidoscopy 2001 B-12 11/16/2024 11/17/2023, 020 02/2023, 07/09/2021, Additional history exists Albumin/Creatinine Ratio [...] D LEVEL ONCE IN A LIFETIME-USE SMARTSET# [id number] Completed 08/15/2024, 11/17/2023, 02/19/2023, Additional history exists [...] this encounter Medical Devices Implanted Type Area Cost Manager Device Identifier Shelf Expiration Date Model / Serial / Lot Lens 24.5 [place] - [id number] - [id number] Implanted:Qty: 1 on 09/21/2023 by Ray Gonzalez DO at OR [facility] Lens Left: Eye [employer] 03/28/2026 CNA0T0.245 / [id number] / Suture Steel 6 B&S19 M654g - [id number] Implanted:Qty: 7 on 05/07/2021 by Aba Desir MD at OR [facility] N/A: Sternum JNJ : [employer] 01/10/2026 [id number] / / [id number] Clareon Lens 24.5 Implanted:Qty: 1 on 08/10/2023 by Ray Gonzalez DO at OR [facility] Right: Eye [employer] 09/15/2025 CNA0T0 / [id number] / documented as of this encounter [...] Advance Directives occurred with: Patient Care Teams Daycare Worker Relationship Specialty Start Date End Date Pippa Navarro CRNP [address] [place] [address] PCP - General Nurse Practitioner 02/19/23 documented as of this encounter
--- OUTSIDE RECORDS SUMMARY | 2024-11-14 06:26 | External Medical Summary | Summary of Care ---
Author Name Unknown Organization [facility] Address [address] [place] [address] Phone [phone] Care Team Providers Care Implementation Project Manager Name Role Phone Pippa Navarro Primary Care Provider Reason for Visit * Reason Onset Date Comments Scheduling 08/15/2024 Reclast, on hold until sep Encounter Details Date Type Department Care Team ([facility] st Contact Info) Description 08/15/2024 Telephone Hematology/Oncology, [facility] [address] [place] [address] Hans Tian PA-C [address] [place] [address] Scheduling (Reclast, on hold until sep) Allergies Active Allergy Reactions Criticality Noted Date Comments Codeine Medium Other reaction(s): Hallucinations Apixaban Hives 09/23/2022 Empagliflozin Other (Please comment) 05/30/2022 migraines Metformin Abdominal pain,Nausea/vomiting Medium 09/02/2023 Consistent with ER formulation even when taken with meals. Soap 12/26/2016 Ivory soap, hives Sulfa Antibiotics Rash Low 03/10/2017 documented as of this encounter (statuses as of 10/23/2024) Medications Triamcinolone Acetonide (NASACORT AQ) 55 MCG/ACT [...] hemoglobin A1c goal of less than 7.0% ([facility]) USE TO INJECT INSULIN 4 TIMES [...] Use as directed every 14 days. Using [facility] [employer], [phone]. 04/06/20 24 Active FreeStyle Debbie 3 [place] DeviceIndication s:DM type 2 with diabetic peripheral neuropathy (HCC) Use as directed. Using [facility] [employer],[phone]. Debbie 3 reader shipped 03/10/2024 04/06/20 24 Active Ubrelvy 100 MG Oral Tablet (Ubrogepant)Katja cations:Migraine without status migrainosus, not intractable, unspecified migraine type Take 100 mg by mouth as needed for Migraine. Take 1 tablets at onset of migraine and may repeat in 2 hours if needed. Do not exceed 2 tablets in 24 hours. 10 Tablet 1 06/02/20 24 Active SalonBookrStyle Precision Marko Test In Vitro StripIndications :Type 2 diabetes mellitus with hemoglobin A1c goal of less than 7.0% ([facility]) Use up to 3 times daily to confirm sensor readings 300 Strip 3 06/30/20 24 Active NovoLOG FlexPen 100 UNIT/ML Subcutaneous Solution Pen-injector (insulin aspart)Indicatio ns:Type 2 diabetes, HbA1c goal < 7% ([facility]) Inject 15 units with breakfast, 16 units with lunch, 11 units with supper + CF 1:40 over 140 45 mL 3 06/30/20 24 Active OneTouch UltraSoft Lancets MISCIndications: Type 2 diabetes mellitus with hemoglobin A1c goal of less than 7.0% ([facility]) Checking blood sugars four time daily Dx: E11.9 150 Each 05/23/20 20 024 Discontin ued(Refil l) Erythromycin 5 MG/GM Ophthalmic Ointment Instill 0.25 Inches into both eyes at bedtime. 3.5 g 6 10/01/19 24 025 Discontin ued(Refil l) Ozempic (2 MG/DOSE) 8 MG/3ML Subcutaneous Solution Pen-injector (Semaglutide (2 MG/DOSE))Indicat ions:Type 2 diabetes mellitus with hemoglobin A1c goal of less than 7.0% ([facility]) Inject 2mg under the skin once [...] as of this encounter (statuses as of 10/23/2024) Active Problems Problem Noted Date Diagnosed Date Moderate persistent asthma with exacerbation 11/2024 Assessment [...] Experiencing thumb pain and swelling since before [place], worsening over the past week, with tenderness [...] 10:34 AM EST): Stable and followed by shannno, no changes Generalized anxiety disorder 11/22/2023 Assessment & Plan (09/28/2024 10:34 AM EST): Stable and followed by shannon, no changes Atherosclerosis 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 pectoris 11/22/2023 [...] as of this encounter (statuses as of 10/23/2024) Resolved Problems Problem Noted Date Diagnosed Date Resolved Date Food insecurity 11/22/2023 08/28/2024 Overview: Per [facility] Protocol Occlusion of left subclavian artery 05/30/2022 06/15/2023 Vertigo 05/30/2022 06/05/2022 Uncomplicated asthma 05/28/2022 022 Hyperlipidemia 05/28/2022 05/28/2022 Atrial fibrillation 11/25/2021 12/03/19 Current use of insulin 11/11/202112/15 Personal history of atrial fibrillation 05/26/2021 12/15/2022 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 The [employer] program provides food-insecure diabetics with healthy food for their entire household (2 meals/ day X 5 days/week). The program also provides education on food preparation, healthy living, and diabetes self management. The research measures the effects of the program on patient health and wellbeing. Subject will begin the FFF program November 2020. Contact Information: Supervisor Pre Wave: Dr. Gilberto Nolan ([phone]) CRC: Chioma Dailey ([phone]) RA: Kimberlee Angulo ([phone]) Diagnosis changed due to Research Module. Go [...] as of this encounter (statuses as of 10/23/2024) Immunizations Name Administration Dates Next Due COVID-19 mRNA, LNP-s, No Pre serve, 2-Dose Series ([facility]) 02/01/2021,01/11/2021 COVID-19, LNP-s, No Preserve , Toan-sucrose, Ages 12+ ([employer]) 12/31/2021 COVID-19, MRNA-LNP, PF, 30 M CG/0.3 mL, 12 YRS AND ABOVE, IM ([facility]) 08/15/2024,07/29/2023 Covid-19, Mrna, Lnp-s, Pf, B ivalent, 30 Mcg, IM, 12 yrs and above ([employer]) 05/28/2022 Pneumococcal Conjugate Vacci ne, 20-valent ([id number]) 01/15/2023 Pneumococcal Polysaccharide PPV23 (Pneumovax) 01/09/2017 Seasonal [...] she has an appt on 10/25/24 at [facility] and will get lab work done that day if the weather is okay. * Telephone Encounter - Molly Ta RN - 08/16/2024 11:58 AM EST Auth back. See MyG Rheum HOLDING Reclast until after repeat labs in 6 weeks. Rheum please make [facility]Infusion [facility] aware when ready to schedule. * Telephone Encounter - Hans Tian PA-C - 08/16/2024 8:51 AM EST Patrizia mcdowell. Reschedule for 6 weeks. * Telephone Encounter - Dianna Piña LPN - 08/15/2024 3:07 PM EST When auth/labs are back, please schedule Reclast - 2 hours Hans Tian documented in this encounter Plan of Treatment Upcoming Encounters Date Type Department Care Team (Late st Contact Info) Description 10/25/2024 12:30 PM EST Office Visit Orthopaedics [facility] [address] [place] [phone] Bhupendra Barragan MD [address] [place] [phone] 11/13/2024 2:30 PM EST Nutrition Services Nutrition, [facility] [address] [place] [address] Edwina Ware RDN [address] [place] [address] 11/21/2024 1:30 PM EDT Office Visit Sleep Disorders Ctr [facility] [address] [place] [phone] Victoria Mcintosh CRNP [address] [place] [address] 12/28/2024 1:00 PM EDT Appointment Cardiac Studies, [address] [place] [address] 01/04/2025 11:00 AM EDT Office Visit Allergy/Immunology [employer] [address] [place], [place] [address] Guerita Marin PA-C [address] [place], [place] [address] 02/09/2025 12:30 PM EDT Nurse Only Ancillary 1st Floor, [place] [facility] [address] [place], [facility] Wellness 2 [address] [facility] [address] 03/02/2025 12:20 PM EDT Office Visit Family [facility], [place] [address] [facility] [phone] Pippa Navarro CRNP [address] [place] [address] 05/07/2025 2:00 PM EDT Appointment Radiology, [facility] [address] [facility] [address] [phone] Scheduled Procedures Name Priority Associated Diagnoses Date/Ti me ESOPHAGOGASTRODUODENOSCOPY ( EGD), FLEXIBLE, TRANSORAL, DIAGNOSTIC Recall Velez esophagus COLONOSCOPY FLEXIBLE PROXIMAL DIAGNOSTIC Recall Encounter for screening colonoscopy Health Maintenance Due Date Last Done Comments Cologuard 2001 Fecal Occult Blood Test 2001 Sigmoidoscopy 2001 B-12 11/16/2024 11/17/2023, 020 02/2023, 07/09/2021, Additional history exists Albumin/Creatinine Ratio 11/18/20242 024, 06/15/2023, 07/31/2022, Additional history exists Adult [...] D LEVEL ONCE IN A LIFETIME-USE SMARTSET# [id number] Completed 08/15/2024, 11/17/2023, 02/19/2023, Additional history exists [...] this encounter Medical Devices Implanted Type Area Mail Order Clerk Device Identifier Shelf Expiration Date Model / Serial / Lot Lens 24.5 [place] - [id number] - [id number] Implanted:Qty: 1 on 09/21/2023 by Ray Gonzalez DO at OR [facility] Lens Left: Eye [employer] 03/28/2026 CNA0T0.245 / [id number] / Suture Steel 6 B&S19 M654g - [id number] Implanted:Qty: 7 on 05/07/2021 by Aba Desir MD at OR [facility] N/A: Sternum JNJ : [employer] 01/10/2026 [id number] / / [id number] [place] Lens 24.5 Implanted:Qty: 1 on 08/10/2023 by Ray Gonzalez DO at OR [facility] Right: Eye [employer] 09/15/2025 CNA0T0 / [id number] / documented as of this encounter [...] Advance Directives occurred with: Patient Care Teams Implementation Project Manager Relationship Specialty Start Date End Date Pippa Navarro CRNP [address] [place] [address] PCP - General Nurse Practitioner 02/19/23 documented as of this encounter
--- OUTSIDE RECORDS SUMMARY | 2024-11-14 06:26 | External Medical Summary | Summary of Care ---
Author Name Unknown Organization [facility] Address [address] [place] [address] Phone [phone] Care Team Providers Care Administrative Services Assistant Name Role Phone Pippa Navarro Primary Care Provider Reason for Visit * Reason Onset Date Comments Scheduling 08/15/2024 Reclast, on hold until sep Encounter Details Date Type Department Care Team ([facility] st Contact Info) Description 08/15/2024 Telephone Hematology/Oncology, [facility] [address] [place] [address] Hans Tian PA-C [address] [place] [address] Scheduling (Reclast, on hold until sep) Allergies Active Allergy Reactions Criticality Noted Date Comments Codeine Medium Other reaction(s): Hallucinations Apixaban Hives 09/23/2022 Empagliflozin Other (Please comment) 05/30/2022 migraines Metformin Abdominal pain,Nausea/vomiting Medium 09/02/2023 Consistent with ER formulation even when taken with meals. Soap 12/26/2016 Ivory soap, hives Sulfa Antibiotics Rash Low 03/10/2017 documented as of this encounter (statuses as of 11/02/2024) Medications Triamcinolone Acetonide (NASACORT AQ) 55 MCG/ACT [...] hemoglobin A1c goal of less than 7.0% ([facility]) USE TO INJECT INSULIN 4 TIMES DAILY [...] Use as directed every 14 days. Using [facility], [phone]. 04/06/20 24 Active FreeStyle Debbie 3 [place] DeviceIndication s:DM type 2 with diabetic peripheral neuropathy (HCC) Use as directed. Using [facility],[phone]. Debbie 3 reader shipped 03/10/2024 04/06/20 24 Active Ubrelvy 100 MG Oral Tablet (Ubrogepant)Katja cations:Migraine without status migrainosus, not intractable, unspecified migraine type Take 100 mg by mouth as needed for Migraine. Take 1 tablets at onset of migraine and may repeat in 2 hours if needed. Do not exceed 2 tablets in 24 hours. 10 Tablet 1 06/02/20 24 Active Meriton NetworksStyle Precision Marko Test In Vitro StripIndications :Type 2 diabetes mellitus with hemoglobin A1c goal of less than 7.0% ([facility]) Use up to 3 times daily to confirm sensor readings 300 Strip 3 06/30/20 24 Active NovoLOG FlexPen 100 UNIT/ML Subcutaneous Solution Pen-injector (insulin aspart)Indicatio ns:Type 2 diabetes, HbA1c goal < 7% ([facility]) Inject 15 units with breakfast, 16 units with lunch, 11 units with supper + CF 1:40 over 140 45 mL 3 06/30/20 24 Active OneTouch UltraSoft Lancets MISCIndications: Type 2 diabetes mellitus with hemoglobin A1c goal of less than 7.0% ([facility]) Checking blood sugars four time daily Dx: E11.9 150 Each 05/23/20 20 024 Discontin ued(Refil l) Erythromycin 5 MG/GM Ophthalmic Ointment Instill 0.25 Inches into both eyes at bedtime. 3.5 g 6 10/01/19 24 025 Discontin ued(Refil l) Ozempic (2 MG/DOSE) 8 MG/3ML Subcutaneous Solution Pen-injector (Semaglutide (2 MG/DOSE))Indicat ions:Type 2 diabetes mellitus with hemoglobin A1c goal of less than 7.0% ([facility]) Inject 2mg under the skin once weekly [...] as of this encounter (statuses as of 11/02/2024) Active Problems Problem Noted Date Diagnosed Date [...] Experiencing thumb pain and swelling since before [place], worsening over the past week, with tenderness [...] followed by enlighten, no changes Atherosclerosis of klet[place] de[place] co ronary artery without angina pectoris 11/22/2023 [...] as of this encounter (statuses as of 11/02/2024) Resolved Problems Problem Noted Date Diagnosed Date Resolved Date Food insecurity 11/22/2023 08/28/2024 Overview: Per [facility] Protocol Occlusion of left subclavian artery 05/30/2022 06/15/2023 Vertigo 05/30/2022 06/05/2022 Uncomplicated asthma 05/28/2022 022 Hyperlipidemia 05/28/2022 05/28/2022 Atrial fibrillation 11/25/2021 12/03/19 Current use of insulin 11/11/202112/15 Personal history of atrial fibrillation 05/26/2021 12/15/2022 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 The [employer] program provides food-insecure diabetics with healthy food for their entire household (2 meals/ day X 5 days/week). The program also provides education on food preparation, healthy living, and diabetes self management. The research measures the effects of the program on patient health and wellbeing. Subject will begin the FFF program November 2020. Contact Information: Revenue Stamp Clerk: Dr. Gilberto Nolan ([phone]) CRC: Chioma Dailey ([phone]) RA: Kimberlee Angulo ([phone]) Diagnosis changed due to Research Module. Go [...] as of this encounter (statuses as of 11/02/2024) Immunizations Name Administration Dates Next Due COVID-19 mRNA, LNP-s, No Pre serve, 2-Dose Series ([employer]) 02/01/2021,01/11/2021 COVID-19, LNP-s, No Preserve , Toan-sucrose, Ages 12+ ([employer]) 12/31/2021 COVID-19, MRNA-LNP, PF, 30 M CG/0.3 mL, 12 YRS AND ABOVE, IM ([facility]) 08/15/2024,07/29/2023 Covid-19, Mrna, Lnp-s, Pf, B ivalent, 30 Mcg, IM, 12 yrs and above ([employer]) 05/28/2022 Pneumococcal Conjugate Vacci ne, 20-valent ([id number]) 01/15/2023 Pneumococcal Polysaccharide PPV23 (Pneumovax) 01/09/2017 Seasonal [...] she has an appt on 10/25/24 at [facility] and will get lab work done that [...] 11/13/2024 2:30 PM EST Nutrition Services Nutrition, [facility] [address] [facility] [place] [address] Edwina Ware RDN [address] [facility] [place] [address] 12/28/2024 1:00 PM EDT Appointment Cardiac Studies, [facility] [address] [facility] [place] [address] 01/04/2025 11:00 AM EDT Office Visit Allergy/Immunology [facility] [place] [address] [facility] [place] [address] Guerita Marin PA-C [address] [facility] [place] [address] 02/09/2025 12:30 PM EDT Nurse Only Ancillary 1st Floor, [place] [address] [facility] [place] [address] [facility] Wellness 2 [address] [facility] [place] [address] 03/02/2025 12:20 PM EDT Office Visit [facility] [place] [facility] [phone] Pippa Navarro CRNP [address] [facility] [place] [address] 05/07/2025 2:00 PM EDT Appointment Radiology, [facility] [address] [place] [address] Scheduled Procedures Name Priority Associated Diagnoses Date/Ti [...] D LEVEL ONCE IN A LIFETIME-USE SMARTSET# 76099 Completed 08/15/2024, 11/17/2023, 02/19/2023, Additional history exists [...] this encounter Medical Devices Implanted Type Area Slitter Helper Device Identifier Shelf Expiration Date Model / Serial / Lot Lens 24.5 [employer]on - [id number] - [id number] Implanted:Qty: 1 on 09/21/2023 by Ray Gonzalez DO at OR [facility] Lens Left: Eye [employer] 03/28/2026 CNA0T0.245 / [id number] / Suture Steel 6 B&S19 M654g - [id number] Implanted:Qty: 7 on 05/07/2021 by Aba Desir MD [place] [facility] [place]A: Sternum JNJ : [employer] 01/10/2026 M654G / / [id number] Clareon Lens 24.5 Implanted:Qty: 1 on 08/10/2023 by Ray Gonzalez DO at OR [facility] Right: Eye [employer] 09/15/2025 CNA0T0 / [id number] / documented as of this encounter [...] Advance Directives occurred with: Patient Care Teams Administrative Services Assistant Relationship Specialty Start Date End Date Pippa Navarro CRNP [address] [place] [address] PCP - General Nurse Practitioner 02/19/23 documented as of this encounter
--- OUTSIDE RECORDS SUMMARY | 2024-11-14 06:26 | External Medical Summary | Summary of Care ---
Author Name Unknown Organization [facility] Address [address] [place] [address] Phone [phone] Care Team Providers Care Purchasing Manager Name Role Phone Pippa Navarro Primary Care Provider Reason for Visit * Reason Onset Date Comments Advice 10/23/2024 Encounter Details Date Type Department Care Team ([facility] Contact Info) Description 10/23/2024 Telephone [facility] [address] [place] [phone] Pippa Navarro CRNP [address] [place] [address] Advice Allergies Active Allergy Reactions Criticality Noted Date Comments Codeine Medium Other reaction(s): Hallucinations Apixaban Hives 09/23/2022 Empagliflozin Other (Please comment) 05/30/2022 migraines Metformin Abdominal pain,Nausea/vomiting Medium 09/02/2023 Consistent with ER formulation even when taken with meals. Soap 12/26/2016 Ivory soap, hives Sulfa Antibiotics Rash Low 03/10/2017 documented as of this encounter (statuses as of 10/24/2024) Medications Triamcinolone Acetonide (NASACORT AQ) 55 MCG/ACT [...] Active Benzonatate 100 MG Oral Capsule (Tessalon Perlchristiano)Indicatio ns:Acute cough Take 1 Capsule by mouth 3 times a day as needed for Cough. Do not cut, crush, or chew. 30 Capsule 07/27/20 23 Active Additional Information Patient not taking.Reported on 10/16/2024 BD Pen Needle Mini U/F 31G X 5 MM (Insulin Pen Needle)Indicatio ns:Type 2 diabetes mellitus with hemoglobin A1c goal of less than 7.0% ([facility]) USE TO INJECT INSULIN 4 TIMES DAILY [...] Use as directed every 14 days. Using [facility] [employer] [facility], [phone]. 04/06/20 24 Active FreeStyle Debbie 3 [place] DeviceIndication s:DM type 2 with diabetic peripheral neuropathy (HCC) Use as directed. Using [facility] [employer] [facility],[phone]. Debbie 3 reader shipped 03/10/2024 04/06/20 24 Active Ubrelvy 100 MG Oral Tablet (Ubrogepant)Katja cations:Migraine without status migrainosus, not intractable, unspecified migraine type Take 100 mg by mouth as needed for Migraine. Take 1 tablets at onset of migraine and may repeat in 2 hours if needed. Do not exceed 2 tablets in 24 hours. 10 Tablet 1 06/02/20 24 Active FreeStyle Precision Marko Test In Vitro [...] 140 45 mL 3 06/30/20 24 Active Vitamin D (Ergocalciferol) 1.25 MG (97004 UT) Oral Capsule (Drisdol)Indicat ions:Age-related osteoporosis without current pathological fracture,Vitamin D deficiency Take 1 Capsule by mouth once a week. 15 Capsule 08/16/20 24 025 Active Tresiba FlexTouch 100 UNIT/ML Subcutaneous Solution Pen-injector (Insulin Degludec)Indicat ions:DM type 2 with diabetic peripheral neuropathy (HCC),Type 2 diabetes mellitus with hemoglobin A1c goal of less than 7.0% (HCC),Insulin long-term use (HCC) Inject 26 Units under the skin in the morning. 30 mL 3 08/29/20 24 Active LancetsIndicatio ns:DM type 2 with diabetic peripheral neuropathy (HCC),Type 2 diabetes mellitus with hemoglobin A1c goal of less than 7.0% (HCC),Insulin long-term use (HCC) Use as directed. Lancets to fit Polantis lancet device. 100 Each 11 08/29/20 24 Active Ozempic (2 MG/DOSE) 8 MG/3ML Subcutaneous Solution Pen-injector (Semaglutide (2 MG/DOSE))Indicat ions:Type 2 diabetes mellitus with hemoglobin A1c goal of less than 7.0% ([facility]) Inject 2mg under the skin once weekly 3 mL 3 09/28/19 25 Active Erythromycin 5 MG/GM Ophthalmic Ointment Instill 0.25 Inches into both eyes at bedtime. 3.5 g 6 09/28/19 25 Active Amoxicillin-Pot Clavulanate 875-125 MG Oral Tablet (Augmentin) Take 1 Tablet by mouth in the morning and 1 Tablet before bedtime. Do all this for 7 days. 14 Tablet 10/23/19 25 025 Active predniSONE 20 MG Oral Tablet (Deltasone) Take 2 Tablets by mouth in the morning. 14 Tablet 10/23/19 25 Active predniSONE 20 MG Oral Tablet (Deltasone) Take 2 Tablets by mouth in the morning for 7 days. 14 Tablet 10/16/19 25 025 Discontin ued(Refil l) documented as of this encounter (statuses as of 10/24/2024) Active Problems Problem Noted Date Diagnosed Date [...] Experiencing thumb pain and swelling since before [place], worsening over the past week, with tenderness [...] Stable and followed by shannon, no changes Generalized anxiety disorder 11/22/2023 Assessment & Plan (09/28/2024 10:34 AM EST): Stable and followed by shannon, no changes Atherosclerosis of pala co ronary artery without angina pectoris 11/22/2023 [...] as of this encounter (statuses as of 10/24/2024) Resolved Problems Problem Noted Date Diagnosed Date Resolved Date Food insecurity 11/22/2023 08/28/2024 Overview: Per [facility] Protocol Occlusion of left subclavian artery 05/30/2022 06/15/2023 Vertigo 05/30/2022 06/05/2022 Uncomplicated asthma 05/28/2022 022 Hyperlipidemia 05/28/2022 05/28/2022 Atrial fibrillation 11/25/2021 12/03/19 Current use of insulin 11/11/202112/15 Personal history of atrial fibrillation 05/26/2021 12/15/2022 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 The [employer] program provides food-insecure diabetics with healthy food for their entire household (2 meals/ day X 5 days/week). The program also provides education on food preparation, healthy living, and diabetes self management. The research measures the effects of the program on patient health and wellbeing. Subject will begin the FFF program November 2020. Contact Information: Animal Care Giver: Dr. Gilberto Nolan ([phone]) CRC: Chioma Dailey ([phone]) RA: Kimberlee Angulo ([phone]) Diagnosis changed due to Research Module. Go [...] as of this encounter (statuses as of 10/24/2024) Immunizations Name Administration Dates Next Due COVID-19 mRNA, LNP-s, No Pre serve, 2-Dose Series ([employer].) 02/01/2021,01/11/2021 COVID-19, LNP-s, No Preserve , Toan-sucrose, Ages 12+ ([employer].) 12/31/2021 COVID-19, MRNA-LNP, PF, 30 M CG/0.3 mL, 12 YRS AND ABOVE, IM ([facility] [facility]) 08/15/2024,07/29/2023 Covid-19, Mrna, Lnp-s, Pf, B ivalent, 30 Mcg, IM, 12 yrs and above ([employer].) 05/28/2022 Pneumococcal Conjugate Vacci ne, 20-valent ([id number]) 01/15/2023 Pneumococcal Polysaccharide PPV23 (Pneumovax) 01/09/2017 Seasonal [...] of Assessment Author No 05/30/2022 8:15 PM SHERWINT Graciela Reynolds RN documented as of this encounter Mental Status * Because of a physical, mental, or emotional condition, do you have serious difficulty concentrating, remembering, or making decisions? (5 years old or older) Answer Entry Date Author No 05/30/2022 8:15 PM EDT Graciela Reynolds RN documented in this encounter Miscellaneous Notes * Telephone Encounter - Victoria Charles OSA - 10/23/2024 1:23 PM EST Patient states she was seen for illness recently with Dr. Szymanski. She finished the prednisone and is taking the cough medicine. She states her cough is still very bad, coughed the entire time of the phone call.. she states it is productive. She is very congested, nausea as well. Asking for advice. documented in this encounter Plan of Treatment Upcoming Encounters Date Type Department Care Team (Late st Contact Info) Description 10/25/2024 12:30 PM EST Office Visit Orthopaedics [facility] [address] [place] [phone] Bhupendra Barragan MD [address] [facility] [place] [phone] 11/13/2024 2:30 PM EST Nutrition Services Nutrition, [facility] [address] [facility] [place] [address] Edwina Ware RDN [address] [facility] [place] [address] 11/21/2024 1:30 PM EDT Office Visit [facility] [address] [place] [phone] Victoria Mcintosh CRNP [address] [place] [address] 12/28/2024 1:00 PM EDT Appointment Cardiac Studies, [address] [place] [address] 01/04/2025 11:00 AM EDT Office Visit Allergy/Immunology [facility] [place] [address] [place] [address] Guerita Marin PA-C [address] [place] [address] 02/09/2025 12:30 PM EDT Nurse Only Ancillary 1st Floor, [place] [facility] [address] [facility] Well[facility] 2 [facility] [address] 03/02/2025 12:20 PM EDT Office Visit Family [facility], [place] [address] [place] [phone] Pippa Navarro CRNP [address] [place] [address] 05/07/2025 2:00 PM EDT Appointment Radiology, [facility] [address] [facility] [place] [address] Scheduled Procedures Name Priority Associated Diagnoses Date/Ti [...] D LEVEL ONCE IN A LIFETIME-USE SMARTSET# 11393 Completed 08/15/2024, 11/17/2023, 02/19/2023, Additional history exists [...] this encounter Medical Devices Implanted Type Area Emergency Medical Technician/Driver Device Identifier Shelf Expiration Date Model / Serial / Lot Lens 24.5 [facility] - [id number] - [id number] Implanted:Qty: 1 on 09/21/2023 by Ray Gonzalez DO at OR [facility] Lens Left: Eye [employer] 03/28/2026 CNA0T0.245 / [id number] / Suture Steel 6 B&S19 M654g - [id number] Implanted:Qty: 7 on 05/07/2021 by Aba Desir [place] [facility] [place]: Sternum SMITA : [employer] 01/10/2026 M654G / / [id number] Clareon Lens 24.5 Implanted:Qty: 1 on 08/10/2023 by Ray Gonzalez DO at OR [facility] Right: Eye [employer] 09/15/2025 CNA0T0 / [id number] / documented as of this encounter [...] Advance Directives occurred with: Patient Care Teams Purchasing Manager Relationship Specialty Start Date End Date Pippa Navarro CRNP [address] [place] [address] PCP - General Nurse Practitioner 02/19/23 documented as of this encounter
--- OUTSIDE RECORDS SUMMARY | 2024-11-14 06:26 | External Medical Summary | Summary of Care ---
Author Name Unknown Organization [facility] Address [address] [place] [address] Phone [phone] Care Team Providers Care Dye Weigher Helper Name Role Phone Pippa Navarro Primary Care Provider Reason for Visit * Reason Onset Date Comments Scheduling 08/15/2024 Reclast, on hold until sep Encounter Details Date Type Department Care Team ([facility] st Contact Info) Description 08/15/2024 Telephone Hematology/Oncology, [facility] [address] [place] [address] Hans Tian PA-C [address] [place] [address] Scheduling (Reclast, on hold until sep) Allergies Active Allergy Reactions Criticality Noted Date Comments Codeine Medium Other reaction(s): Hallucinations Apixaban Hives 09/23/2022 Empagliflozin Other (Please comment) 05/30/2022 migraines Metformin Abdominal pain,Nausea/vomiting Medium 09/02/2023 Consistent with ER formulation even when taken with meals. Soap 12/26/2016 Ivory soap, hives Sulfa Antibiotics Rash Low 03/10/2017 documented as of this encounter (statuses as of 10/31/2024) Medications Triamcinolone Acetonide (NASACORT AQ) 55 MCG/ACT [...] hemoglobin A1c goal of less than 7.0% ([facility]) USE TO INJECT INSULIN 4 [...] Use as directed every 14 days. Using [facility] [employer], [phone]. 04/06/20 24 Active FreeStyle Debbie 3 [place] DeviceIndication s:DM type 2 with diabetic peripheral neuropathy (HCC) Use as directed. Using [facility] [employer],[phone]. Debbie 3 reader shipped 03/10/2024 04/06/20 24 Active Ubrelvy 100 MG Oral Tablet (Ubrogepant)Katja cations:Migraine without status migrainosus, not intractable, unspecified migraine type Take 100 mg by mouth as needed for Migraine. Take 1 tablets at onset of migraine and may repeat in 2 hours if needed. Do not exceed 2 tablets in 24 hours. 10 Tablet 1 06/02/20 24 Active GucashStyle Precision Marko Test In Vitro StripIndications :Type 2 diabetes mellitus with hemoglobin A1c goal of less than 7.0% ([facility]) Use up to 3 times daily to confirm sensor readings 300 Strip 3 06/30/20 24 Active NovoLOG FlexPen 100 UNIT/ML Subcutaneous Solution Pen-injector (insulin aspart)Indicatio ns:Type 2 diabetes, HbA1c goal < 7% ([facility]) Inject 15 units with breakfast, 16 units with lunch, 11 units with supper + CF 1:40 over 140 45 mL 3 06/30/20 24 Active OneTouch UltraSoft Lancets MISCIndications: Type 2 diabetes mellitus with hemoglobin A1c goal of less than 7.0% ([facility]) Checking blood sugars four time daily Dx: E11.9 150 Each 05/23/20 20 024 Discontin ued(Refil l) Erythromycin 5 MG/GM Ophthalmic Ointment Instill 0.25 Inches into both eyes at bedtime. 3.5 g 6 10/01/19 24 025 Discontin ued(Refil l) Ozempic (2 MG/DOSE) 8 MG/3ML Subcutaneous Solution Pen-injector (Semaglutide (2 MG/DOSE))Indicat ions:Type 2 diabetes mellitus with hemoglobin A1c goal of less than 7.0% ([facility]) Inject 2mg under the skin [...] as of this encounter (statuses as of 10/31/2024) Active Problems Problem Noted Date Diagnosed Date [...] Experiencing thumb pain and swelling since before [place], worsening over the past week, with tenderness [...] as of this encounter (statuses as of 10/31/2024) Resolved Problems Problem Noted Date Diagnosed Date Resolved Date Food insecurity 11/22/2023 08/28/2024 Overview: Per [facility] Protocol Occlusion of left subclavian artery 05/30/2022 06/15/2023 Vertigo 05/30/2022 06/05/2022 Uncomplicated asthma 05/28/2022 022 Hyperlipidemia 05/28/2022 05/28/2022 Atrial fibrillation 11/25/2021 12/03/19 Current use of insulin 11/11/202112/15 Personal history of atrial fibrillation 05/26/2021 12/15/2022 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 The [employer] program provides food-insecure diabetics with healthy food for their entire household (2 meals/ day X 5 days/week). The program also provides education on food preparation, healthy living, and diabetes self management. The research measures the effects of the program on patient health and wellbeing. Subject will begin the FFF program November 2020. Contact Information: Trade Sales Assistant: Dr. Gilberto Nolan ([phone]) CRC: Chioma Dailey ([phone]) RA: Kimberlee Angulo ([phone]) Diagnosis changed due to Research Module. Go [...] as of this encounter (statuses as of 10/31/2024) Immunizations Name Administration Dates Next Due COVID-19 mRNA, LNP-s, No Pre serve, 2-Dose Series (vushaper) 02/01/2021,01/11/2021 COVID-19, LNP-s, No Preserve , Toan-sucrose, Ages 12+ (vushaper) 12/31/2021 COVID-19, MRNA-LNP, PF, 30 M CG/0.3 mL, 12 YRS AND ABOVE, IM ([facility]) 08/15/2024,07/29/2023 Covid-19, Mrna, Lnp-s, Pf, B ivalent, 30 Mcg, IM, 12 yrs and above (vushaper) 05/28/2022 Pneumococcal Conjugate Vacci ne, 20-valent ([id number]) 01/15/2023 Pneumococcal Polysaccharide PPV23 (Pneumovax) 01/09/2017 Seasonal [...] she has an appt on 10/25/[facility] and will get lab work done [...] 11/02/2024 3:00 PM EST [address] [address] Pharmacist1, [facility] [place] [address] [facility] [address] [phone] 11/13/2024 2:30 PM EST Nutrition Services Nutrition, [facility] [address] [facility] [place] [address] Edwina Ware, MICHAEL [facility] [address] 12/28/2024 1:00 PM EDT Appointment Cardiac Studies, [facility] [address] [facility] [place] [address] 01/04/2025 11:00 AM EDT Office Visit Allergy/Immunology [facility] [address] [place] [address] Guerita Marin PA-C [address] [place] [address] 02/09/2025 12:30 PM EDT Nurse Only Ancillary 1st Floor, [place] [address] [facility] [place], [place] [phone] [place], [facility] Wellness 2 [address] [place] [address] 03/02/2025 12:20 PM EDT Office Visit [facility], [place] [facility] [phone] Pippa Navarro CRNP [facility] [place] [phone] 05/07/2025 2:00 PM EDT Appointment Radiology, [facility] [address] [facility] [place] [phone] Scheduled Procedures Name Priority Associated Diagnoses Date/Ti [...] D LEVEL ONCE IN A LIFETIME-USE SMARTSET# 84234 Completed 08/15/2024, 11/17/2023, 02/19/2023, Additional history exists [...] this encounter Medical Devices Implanted Type Area Tank Tender Device Identifier Shelf Expiration Date Model / Serial / Lot Lens 24.5 [facility] - [id number] - [id number] Implanted:Qty: 1 on 09/21/2023 by Ray Gonzalez DO at OR [facility] Lens Left: Eye [employer] 03/28/2026 CNA0T0.245 / [id number] / Suture Steel 6 B&S19 M654g - [id number] Implanted:Qty: 7 on 05/07/2021 by Aba Desir MD at [place] [facility] N/A: Sternum JNJ : [employer] 01/10/2026 [id number] / / [id number] Clareon Lens 24.5 Implanted:Qty: 1 on 08/10/2023 by Ray Gonzalez DO at OR [facility] Right: Eye [employer] 09/15/2025 CNA0T0 / [id number] / documented as of this encounter [...] Advance Directives occurred with: Patient Care Teams Dye Weigher Helper Relationship Specialty Start Date End Date Pippa Navarro CRNP [address] [phone] PCP - General Nurse Practitioner 02/19/23 documented as of this encounter
--- OUTSIDE RECORDS SUMMARY | 2024-11-14 06:26 | External Medical Summary | Summary of Care ---
Author Name Unknown Organization [facility] Address [address] [place] [address] Phone [phone] Care Team Providers Care Adjutant General Name Role Phone Pippa Navarro Primary Care Provider Reason for Visit * Reason Onset Date Comments Advice 10/23/2024 Encounter Details Date Type Department Care Team ([facility] Contact Info) Description 10/23/2024 Telephone [facility] [address] [facility] [phone] Pippa Navarro CRNP [address] [place] [address] Advice Allergies Active Allergy Reactions [...] goal of less than 7.0% ([facility]) USE TO INJECT INSULIN 4 TIMES DAILY [...] Use as directed every 14 days. Using [facility] [employer], [phone]. 04/06/20 24 Active FreeStyle Debbie 3 [place] DeviceIndication s:DM type 2 with diabetic peripheral neuropathy (HCC) Use as directed. Using [facility] [employer],[phone]. Debbie 3 reader shipped 03/10/2024 04/06/20 24 [...] 24 Active Vitamin D (Ergocalciferol) 1.25 MG (45619 UT) Oral Capsule (Drisdol)Indicat ions:Age-related osteoporosis without [...] (HCC) Use as directed. Lancets to fit Quarterly lancet device. 100 Each 11 08/29/20 24 Active Ozempic (2 MG/DOSE) 8 MG/3ML Subcutaneous Solution Pen-injector (Semaglutide (2 MG/DOSE))Indicat ions:Type 2 diabetes mellitus with hemoglobin A1c goal of less than 7.0% ([facility]) Inject 2mg under the skin once weekly [...] Experiencing thumb pain and swelling since before [place], worsening over the past week, with tenderness [...] followed by shannon, no changes Atherosclerosis of [place] co ronary artery without angina pectoris 11/22/2023 [...] 11/27/2021 Food insecurity 04/21/2021 09/25/2021 Overview: Per [facility] Protocol Vertigo 07/05/2020 12/26/2021 Nausea and vomiting 07/05/2020 07/10/20 Encounter for examination fo r normal comparison and control in clinical research program 05/28/2020 12/02/2021 Overview (12/30/2020): [employer]: A Randomized Controlled Trial (Project # [id number]). The [employer] program provides food-insecure diabetics with healthy food for their entire household (2 meals/ day X 5 days/week). The program also provides education on food preparation, healthy living, and diabetes self management. The research measures the effects of the program on patient health and wellbeing. Subject will begin the FFF program November 2020. Contact Information: Director Aeronautics Commission: Dr. Gilberto Nolan ([phone]) CRC: Chioma Dailey ([phone]) RA: Kimberlee Angulo ([phone]) Diagnosis changed due to Research Module. Go [...] mRNA, LNP-s, No Pre serve, 2-Dose Series ([employer]out) 02/01/2021,01/11/2021 COVID-19, LNP-s, No Preserve , Toan-sucrose, Ages 12+ ([employer]) 12/31/2021 COVID-19, MRNA-LNP, PF, 30 M CG/0.3 mL, 12 YRS AND ABOVE, IM ([facility]) 08/15/2024,07/29/2023 Covid-19, Mrna, Lnp-s, Pf, B ivalent, 30 Mcg, IM, 12 yrs and above ([employer]) 05/28/2022 Pneumococcal Conjugate Vacci ne, 20-valent ([id number]) 01/15/2023 Pneumococcal Polysaccharide PPV23 (Pneumovax) 01/09/2017 Seasonal [...] 10/25/2024 12:30 PM EST Office Visit Orthopaedics [facility] [address] [place] [phone] Bhupendra Barragan MD 132 [facility] [place] [phone] 11/13/2024 2:30 PM EST Nutrition Services Nutrition, [facility] [address] [facility] [place] [address] Edwina Ware RDN [address] [facility] [place] [address] 11/21/2024 1:30 PM EDT Office Visit [facility] [address] [place] [phone] Victoria Mcintosh CRNP [address] [place] [address] 12/28/2024 1:00 PM EDT Appointment Cardiac Studies, [address] [place] [address] 01/04/2025 11:00 AM EDT Office Visit Allergy/Immunology [place] [facility] [place] [address] [place] [address] Guerita Marin PA-C [address] [place] [address] 02/09/2025 12:30 PM EDT Nurse Only Ancillary 1st Floor, [place] [facility] [phone] [facility] Well[facility] 2 21 [facility] [address] 03/02/2025 12:20 PM EDT Office Visit Family [facility], [place] [address] [place] [address] [phone] Pippa Navarro CRNP [address] [address] 05/07/2025 2:00 PM EDT Appointment Radiology, [facility] 400 [facility] [place] [address] Scheduled Procedures Name Priority Associated Diagnoses Date/Ti [...] D LEVEL ONCE IN A LIFETIME-USE SMARTSET# 84309 Completed 08/15/2024, 11/17/2023, 02/19/2023, Additional history exists [...] this encounter Medical Devices Implanted Type Area Farmer And Grazier Device Identifier Shelf Expiration Date Model / Serial / Lot Lens 24.5 [facility] - [id number] - [id number] Implanted:Qty: 1 on 09/21/2023 by Ray Gonzalez DO at OR [facility] Lens Left: Eye [employer] 03/28/2026 CNA0T0.245 / [id number] / Suture Steel 6 B&S19 M654g - [id number] Implanted:Qty: 7 on 05/07/2021 by Aba Desir MD at OR [facility] N/A: Sternum SMITA : [employer] 01/10/2026 M654G / / [id number] Clareon Lens 24.5 Implanted:Qty: 1 on 08/10/2023 by Ray Gonzalez DO at OR [facility] Right: Eye [employer] 09/15/2025 CNA0T0 / [id number] / documented as of this encounter [...] Advance Directives occurred with: Patient Care Teams Adjutant General Relationship Specialty Start Date End Date Pippa Navarro CRNP [address] [place] [address] PCP - General Nurse Practitioner 02/19/23 documented as of this encounter
--- OUTSIDE RECORDS SUMMARY | 2024-11-14 06:27 | External Medical Summary | Summary of Care ---
Author Name Unknown Organization [facility] Address [address] [place] [address] Phone [phone] Care Team Providers Care Cabinet Mounter Name Role Phone Pippa Navarro Primary Care Provider Reason for Referral * Evaluate & Treat - Unlimited Visits (Within 10 days (routine)) - Authorized Specialty Diagnoses / Procedures Referred By Rasta nobles Referred To Contact Orthopaedic Surgery / Orthopedics Diagnoses Thumb lesion Dale Vera MD [address] [place] [address] Phone: tel: fax: Referral ID Status Reason Start Date Expiration Date Visits Requested Visits Authorized [id number] Authorized Specialty Services Required 10/09/2024 [id number] Question Answer Referral Priority Within 10 days (routine) Where should this appointment be scheduled? [facility] What body part is the patient being seen for? Hand What condition is the patient being seen for? Sprain/Strain/Tear/Other Comments Volar mass at MCP joint Referred to Dr. Barragan (orthopaedics surgery, hand) Reason for Visit * Reason Comments Follow Up R thumb nodule * Evaluate & Treat - Unlimited Visits (Within 10 days (routine)) - Authorized Specialty Diagnoses / Procedures Referred By Rasta nobles Referred To Contact Orthopaedic Surgery / Orthopedics Diagnoses Subcutaneous nodule of right thumb Aidan Szymanski MD [address] [place] [address] Phone: tel: fax: Referral ID Status Reason Start Date Expiration Date Visits Requested Visits Authorized [id number] Authorized Specialty Services Required 09/28/2024 [id number] Encounter Details Date Type Department Care Team (Late st Contact Info) Description 10/09/2024 11:00 AM EST Office Visit Orthopaedics [facility] [address] [place] [phone] Dale Vera MD [address] [place] [phone] Thumb lesion* Allergies Active Allergy Reactions Criticality Noted Date Comments Codeine Medium Other reaction(s): Hallucinations Apixaban Hives 09/23/2022 Empagliflozin Other (Please comment) 05/30/2022 migraines Metformin Abdominal pain,Nausea/vomiting Medium 09/02/2023 Consistent with ER formulation even when taken with meals. Soap 12/26/2016 Ivory soap, hives Sulfa Antibiotics Rash Low 03/10/2017 documented as of this encounter (statuses as of 10/09/2024) Medications Triamcinolone Acetonide (NASACORT AQ) 55 MCG/ACT AEROIndications:A llergic rhinitis, unspecified seasonality, unspecified trigger Administer 2 [...] bedtime. 2 Active Witch Marlys-Glycerin External Pad (Tucks)Indication s:Non-obstetric vaginal laceration without foreign body or perineal laceration, initial encounter Use to soothe vagina for up to 15 minutes at a time. Can use up to 4 times per day. 50 Each 1 3 Active Clobetasol Propionate 0.05 % External SolutionIndicatio ns:Seborrheic dermatitis Apply to rash on scalp twice a day as needed 50 mL 5 3 Active Ketoconazole 2 % External Shampoo (Nizoral)Indicati ons:Seborrheic dermatitis Apply to scalp daily as needed 120 mL 5 3 Active Biotene Dry Mouth Mouth/Throat Liquid Apply to the mouth or throat as needed for Dry Mouth. 3 Active OneTouch Ultra 2 w/Device Kit Check [...] Active Meclizine HCl 25 MG Oral Tablet (Antivert)Indicat ions:Dizziness Take 1 Tablet by mouth 3 times a day as needed for Dizziness. 90 Tablet 2 3 Active Benzonatate 100 MG Oral Capsule (Tessalon Perles)Indication s:Acute cough Take 1 Capsule by mouth 3 times a day as needed for Cough. Do not cut, crush, or chew. 30 Capsule 3 Active BD Pen Needle Mini U/F 31G X 5 MM (Insulin Pen Needle)Indication s:Type 2 diabetes mellitus with hemoglobin A1c goal of less than 7.0% ([facility]) USE TO INJECT INSULIN 4 TIMES DAILY 400 Each 3 4 Active Omeprazole 40 MG Oral Capsule Delayed Release (PriLOSEC)Indicat ions:Gastroesopha geal reflux disease without esophagitis Take 1 Capsule by mouth in the morning. 1 hour before the first meal of the day. 90 Capsule 3 4 Active Loratadine 10 MG Oral Tablet (Claritin) Take 1 Tablet by mouth in the morning. 90 Tablet 3 4 Active Famotidine 20 MG Oral Tablet (Pepcid)Indicatio ns:Heartburn Take 1 Tablet by mouth in the morning. 90 Tablet 3 4 Active Ezetimibe 10 MG Oral Tablet (Zetia)Indication s:Hyperlipidemia with target LDL less than 70 Take 1 Tablet by mouth in the morning. 90 Tablet 3 4 Active Atorvastatin Calcium 80 MG Oral Tablet (Lipitor) Take 1 Tablet by mouth in the morning. 90 Tablet 3 4 Active Arnuity Ellipta 100 MCG/ACT Inhalation Aerosol Powder Breath Activated (fluticasone Furoate)Indicatio ns:Moderate persistent asthma without complication Inhale 1 Puff by mouth in the morning. 90 Each 3 4 Active Albuterol Sulfate HFA 108 (90 Base) MCG/ACT Inhalation Aerosol SolutionIndicatio ns:Moderate persistent asthma without complication Inhale 2 Puffs by mouth every 6 hours as needed for Shortness of Breath or Wheezing. 18 g 4 Active FreeStyle Debbie 3 SensorIndications :DM type 2 with diabetic peripheral neuropathy (HCC) Use as directed every 14 days. Using iwi, [phone]. 4 Active FreeStyle Debbie 3 [place] DeviceIndications :DM type 2 with diabetic peripheral neuropathy (HCC) Use as directed. Using iwi,. Debbie 3 reader shipped 03/10/2024 4 Active Ubrelvy 100 MG Oral Tablet (Ubrogepant)Indic ations:Migraine without status migrainosus, not intractable, unspecified migraine type Take 100 mg by mouth as needed for Migraine. Take 1 tablets at onset of migraine and may repeat in 2 hours if needed. Do not exceed 2 tablets in 24 hours. 10 Tablet 1 4 Active FreeStyle Precision Marko Test In Vitro StripIndications: Type 2 diabetes mellitus with hemoglobin A1c goal of less than 7.0% (HCC) Use up to 3 times daily to confirm sensor readings 300 Strip 3 4 Active NovoLOG FlexPen 100 UNIT/ML Subcutaneous Solution Pen-injector (insulin aspart)Indication s:Type 2 diabetes, HbA1c goal < 7% (HCC) Inject 15 units with breakfast, 16 units with lunch, 11 units with supper + CF 1:40 over 140 45 mL 3 4 Active Vitamin D (Ergocalciferol) 1.25 MG (41635 UT) Oral Capsule (Drisdol)Indicati ons:Age-related osteoporosis without current pathological fracture,Vitamin D deficiency Take 1 Capsule by mouth once a week. 15 Capsule 4 11/20/19 25 Active Tresiba FlexTouch 100 UNIT/ML Subcutaneous Solution Pen-injector (Insulin Degludec)Indicati ons:DM type 2 with diabetic peripheral neuropathy (HCC),Type 2 diabetes mellitus with hemoglobin A1c goal of less than 7.0% (HCC),Insulin long-term use (HCC) Inject 26 Units under the skin in the morning. 30 mL 3 4 Active LancetsIndication s:DM type 2 with diabetic peripheral neuropathy (HCC),Type 2 diabetes mellitus with hemoglobin A1c goal of less than 7.0% (HCC),Insulin long-term use (HCC) Use as directed. Lancets to fit Uanbai brand lancet device. 100 Each 11 4 Active Ozempic (2 MG/DOSE) 8 MG/3ML Subcutaneous Solution Pen-injector (Semaglutide (2 MG/DOSE))Indicati ons:Type 2 diabetes mellitus with hemoglobin A1c goal of less than 7.0% (HCC) Inject 2mg under the skin once weekly 3 mL 3 5 Active Erythromycin 5 MG/GM Ophthalmic Ointment Instill 0.25 Inches into both eyes at bedtime. 3.5 g 6 5 Active documented as of this encounter (statuses as of 10/09/2024) Active Problems Problem Noted Date Diagnosed Date Disorder of iron metabolism, unspecified 025 Assessment & Plan (09/28/2024 10:35 AM EST): Last hemoglobin and ferritin are in the normal range, monitor Subcutaneous nodule of right thumb 09/28/2024 Assessment & Plan (09/28/2024 10:35 AM EST): Experiencing thumb pain and swelling since before Var[place]ner, worsening over the past week, with tenderness [...] followed by shannon, no changes Atherosclerosis of [place] co ronary artery without angina pectoris 11/22/2023 [...] as of this encounter (statuses as of 10/09/2024) Resolved Problems Problem Noted Date Diagnosed Date Resolved Date Food insecurity 11/22/2023 08/28/2024 Overview: Per [facility] Protocol Occlusion of left subclavian artery 05/30/2022 06/15/2023 Vertigo 05/30/2022 06/05/2022 Uncomplicated asthma 05/28/2022 022 Hyperlipidemia 05/28/2022 05/28/2022 Atrial fibrillation 11/25/2021 12/03/19 Current use of insulin 11/11/202112/15 Personal history of atrial fibrillation 05/26/2021 12/15/2022 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 The [employer] program provides food-insecure diabetics with healthy food for their entire household (2 meals/ day X 5 days/week). The program also provides education on food preparation, healthy living, and diabetes self management. The research measures the effects of the program on patient health and wellbeing. Subject will begin the FFF program November 2020. Contact Information: Jackhammer Splitter Operator: Dr. Gilberto Nolan ([phone]) CRC: Chioma Dailey ([phone]) RA: Kimberlee Angulo ([phone]) Diagnosis changed due to Research Module. Go [...] as of this encounter (statuses as of 10/09/2024) Immunizations Name Administration Dates Next Due COVID-19 mRNA, LNP-s, No Pre serve, 2-Dose Series ([employer]) 02/01/2021,01/11/2021 COVID-19, LNP-s, No Preserve , Toan-sucrose, Ages 12+ ([employer]) 12/31/2021 COVID-19, MRNA-LNP, PF, 30 M CG/0.3 mL, 12 YRS AND ABOVE, IM ([employer]) 08/15/2024,07/29/2023 Covid-19, Mrna, Lnp-s, Pf, B ivalent, 30 Mcg, IM, 12 yrs and above ([employer]) 05/28/2022 Pneumococcal Conjugate Vacci ne, 20-valent (Xuniofs16) 01/15/2023 Pneumococcal Polysaccharide PPV23 (Pneumovax) 01/09/2017 Seasonal [...] ages 0-17 years) Not on file 09/27/2024 Comments No Sex and Gender Information [...] Graciela Reynolds RN documented in this encounter Progress Notes * Dale Vera MD - 10/09/2024 11:00 AM EST Vanna Acevedo [id number] Vanna Acevedo is a 69 year old female who presents for consultation to [facility] for right hand injury/pain. Consult requested by Aidan Szymanski MD. Vanna Acevedo is here unaccompanied History: Severity: reviewed and agree with Nursing Notes for HPI elements History - NEW Pt R Thumb nodule Pt denies pain Pt noticed just before 2023 xray 09/28/24 ROS: ROS per HPI otherwise non-contributory Past Medical History: Diagnosis Date Anxiety Asthma Bipolar disorder ([facility]) Cataract incipient, senile Cupping of optic disc 0.6 OU (05/30); FH+;steroid use;VF/HRT 07/30 Diabetes mellitus type 2, uncomplicated ([facility]) 1998 DM type 2 with diabetic peripheral neuropathy ([facility]) 07/06/2018 Fibromyalgia syndrome GERD (gastroesophageal reflux disease) Habit chorea HTN (hypertension) HTN, goal below 130/80 Hyperlipidemia Hyperlipidemia with target LDL less than 70 03/10/2017 Leg cramping Migraine Moderate persistent asthma without complication 03/10/2017 09/19/2021 uses fluticasone Furoate (ARNUITY ELLIPTA) 100 MCG/ACT AEPB inhaler and albuterol Recent covid 08/25/21 -resolved Motion sickness Paroxysmal atrial fibrillation ([facility]) 09/18/2022 Subclavian artery stenosis, left ([facility]) 10/01/2022 Type 2 diabetes mellitus with hemoglobin A1c goal of less than 7.0% ([facility]) 07/05/2020 Family History Problem Relation Name Age of Onset Diabetes Mother Stroke Mother Diabetes Father Hypertension Father Stroke Father Depression Father Aortic stenosis Father Diabetes Sister shea Depression Sister shea Migraines Sister shea Diabetes Brother Migraines Brother Glaucoma Grandmother (Maternal) No Known Problems Grandfather (Maternal) No Known Problems Grandmother (Paternal) No Known Problems Grandfather (Paternal) Social History Socioeconomic History Marital status: Spouse name: Not on file Number of children: Not on file Years of education: Not on file Highest education level: Not on file Occupational History Not on file Tobacco Use Smoking status: Never Smokeless tobacco: Never Vaping Use Vaping status: Never Used Substance and Sexual Activity Alcohol use: No Drug use: No Sexual activity: Not Currently Other Topics Concern Not on file Social History Narrative Works for [employer] 04/07/2017 Social Needs Financial Resource Strain: Low Risk (09/27/2024) Financial Resource Strain Do you have any trouble paying for your medications, or do you think you might in the future? (Adult - for ages 18 years and over): No Does your family have trouble paying for medicine? (Household - for ages 0-17 years): Not on file Food Insecurity: No Food Insecurity (09/27/2024) Food Insecurity Do you need food for this week? (Adult - for ages 18 years and over): No Are you able to get enough food for your family? (Household - for ages 0-17 years): Not on file Does your family need food this week? (Household - for ages 0-17 years): Not on file Do you always have enough food for your family? (Household - for ages 0-17 years): Not on file Recent Concern: Food Insecurity - Food Insecurity Present (09/27/2024) Hunger Vital Sign Worried About Running Out of Food in the Last Year: Sometimes true Ran Out of Food in the Last Year: Sometimes true Transportation Needs: No Transportation Needs (09/27/2024) Transportation Needs Do you have trouble getting a ride to medical visits or work? (Adult - for ages 18 years and over):Never True Does your family have a hard time getting a ride to doctors visits? (Household - for ages 0-17 years): Not on file Has lack of transportation kept you from medical appointments, meetings, work, or from getting things needed for daily living? Check all that apply. (Adult - for ages 18 years and over): No Do you (or your family) have trouble finding or paying for a ride (transportation)? (Household - for ages 0-17 years): Not on file Social Connections: Socially Integrated (09/27/2024) Social Connections How often do you feel lonely or isolated from those around you? (Adult - for ages 18 years and over): Never Housing Stability: Low Risk (09/27/2024) Housing Stability Do you currently live in a group home or have no steady place to sleep at night? (Adult - for ages 18 years and over): No Do you think you are at risk of becoming homeless? (Adult - for ages 18 years and over): No Does your family worry about paying for your home or becoming homeless? (Household - for ages 0-17 years): Not on file Are you homeless or worried that you might be in the future? (Adult - for ages 18 years and over): No Are you (or your family) homeless or worried that you might be in the future? (Household - for ages0-17 years): Not on file Physical Exam Constitutional: Generally well-nourished and in no acute distress Psychiatric: Mood and Affect normal Eyes: EOMI Respiratory: Normal respiratory effort with regular rate and rhythm Cardiovascular: No edema in the affected extremity (s) Hand Exam: Inspection: On the volar aspect overlying the MCP joint there is a nodule which is visual, on palpation it is firm but slightly mobile It was tender to palpate. Radiology: 09/28/2024: Three-view x-ray of the right thumb FINDINGS / IMPRESSION: No acute displaced fracture or dislocation. No joint space narrowing or erosion Assessment and Plan: 1) right thumb nodule Exact etiology uncertain. 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 Referred to Dr. Barragan (orthopaedics surgery, hand) Pt is diabetic; A1c 9.3 on 08/09/24 Dale Vera MD Primary Care Sports Medicine Orthopaedics [facility] [address] [facility] [phone] documented in this encounter Nursing Notes * Cara Lewis LPN - 10/09/2024 11:13 AM EST NEW Pt R Thumb nodule Pt denies pain Pt noticed just before 2023 PCP referral Xray 09/28/24 Pt is unaccompanied Pt is diabetic; A1c 9.3 on 08/09/24 Cristina Zacarias LPN documented in this encounter Plan of Treatment Upcoming Encounters Date Type Department Care Team (Late st Contact Info) Description 10/20/2024 11:00 AM EST Office Visit Pharmacy, [address] [place] [address] Pharmacist1, [facility] [address] [place] [address] 10/25/2024 12:30 PM EST Office Visit [facility]ed[facility] [place] [phone] Bhupendra Barragan MD [address] [place] [phone] 11/13/2024 2:30 PM EST Nutrition Services Nutrition, [facility] [address] [facility] [place] [address] Edwina Ware RDN [facility] [address] 11/21/2024 1:30 PM EDT Office Visit Sleep Disorders Ctr [facility] [address] [facility] [place] [phone] Victoria Mcintosh CRNP 132 [facility] [place] [address] 12/28/2024 1:00 PM EDT Appointment Cardiac Studies, [address] [place] [address] 01/04/2025 11:00 AM EDT Office Visit Allergy/Immunology [facility] [place] [address] Guerita Marin PA-C [address] [facility] [place] [address] 02/09/2025 12:30 PM EDT Nurse Only Ancillary 1st Floor, [place] [facility] [place] [address] [place], [facility] [place] [address] 03/02/2025 12:20 PM EDT Office Visit Family Practice, [place] [address] [place] [phone] Pippa Navarro CRNP 21 [facility] [place] [address] 05/07/2025 2:00 PM EDT Appointment Radiology, [facility] [address] [place] [address] Scheduled Procedures Name Priority Associated Diagnoses Date/Ti me ESOPHAGOGASTRODUODENOSCOPY ( EGD), FLEXIBLE, TRANSORAL, DIAGNOSTIC Recall Velez esophagus COLONOSCOPY FLEXIBLE PROXIMAL DIAGNOSTIC Recall Encounter for screening colonoscopy Scheduled Referrals Name Type Priority Associated Diagnoses Order Schedule ORTHOPAEDICS REFERRAL OP Referral Within 10 days (routine) Thumb lesion Ordered: 10/09/2024 Health Maintenance Due Date Last Done Comments Cologuard 2001 Fecal Occult Blood Test 2001 Sigmoidoscopy 2001 B-12 11/16/2024 11/17/2023, 0 02/2023, 07/09/2021, Additional history exists Albumin/Creatinine Ratio 11/18/20242 024, 06/15/2023, 07/31/2022, Additional history exists Adult Wellness Visit 02/03/2025 02/04/2024 Mammogram 02/03/2025 02/04/2024, 01/11, 12/24/2021, Additional history exists HbA1c 02/06/2025 08/09/2024, 04/13, 11/17/2023, Additional history exists DXA Scan 04/23/2025 04/23/2023, 04/21/2021 Diabetic Eye Exam 06/23/2025 06/23/2024, , 06/23/2024, Additional history exists GFR 08/09/2025 08/09/2024, 030 02/2024, 02/19/2023, Additional history exists Diabetic Foot [...] D LEVEL ONCE IN A LIFETIME-USE SMARTSET# [id number] Completed 08/15/2024, 11/17/2023, 02/19/2023, Additional history exists [...] this encounter Medical Devices Implanted Type Area Manager Travel Device Identifier Shelf Expiration Date Model / Serial / Lot Lens 24.5 [place] - [id number] - [id number] Implanted:Qty: 1 on 09/21/2023 by Ray Gonzalez DO at OR [facility] Lens Left: Eye [employer] 03/28/2026 CNA0T0.245 / [id number] / Suture Steel 6 B&S19 M654g - [id number] Implanted:Qty: 7 on 05/07/2021 by Aba Desir MD at OR [facility] N/A: Sternum JNJ : [employer] 01/10/2026 M654G / / PAOLA [place] Lens 24.5 Implanted:Qty: 1 on 08/10/2023 by Ray Gonzalez DO at OR [facility] Right: Eye [employer] 09/15/2025 CNA0T0 / [id number] / documented as of this encounter Visit Diagnoses Diagnosis Subcutaneous nodule of right thumb- Primary Type 2 diabetes mellitus with hemoglobin A1c goal of less than 7.0% (HCC) Bipolar I disorder, most recent episode depressed (HCC) Bipolar I disorder, most recent episode (or current) depressed, unspecified Paroxysmal atrial fibrillation (HCC) Atrial fibrillation DM type 2 with diabetic peripheral neuropathy (HCC) Type II or unspecified type diabetes mellitus with neurological manifestations, not stated as uncontrolled Major depressive disorder, recurrent, in partial remission (HCC) Major depressive disorder, recurrent episode, in partial or unspecified remission Generalized anxiety disorder HTN, goal below 130/80 Unspecified essential hypertension Atherosclerosis of [place] coronary artery without angina pectoris, unspecified whether [place] or transplanted heart Hyperlipidemia with target LDL less than 70 Other and unspecified hyperlipidemia Disorder of iron metabolism, unspecified Age-related osteoporosis without current pathological fracture Senile osteoporosis Migraine without status migrainosus, not intractable, unspecified migraine type Moderate persistent asthma without complication Unspecified asthma Thumb lesion- Primary Unspecified disorder of skin and subcutaneous tissue documented in this encounter Advance Directives * Full Code [...] Advance Directives occurred with: Patient Care Teams Cabinet Mounter Relationship Specialty Start Date End Date Pippa Navarro CRNP [address] [place] [address] PCP - General Nurse Practitioner 02/19/23 documented as of this encounter
--- OUTSIDE RECORDS SUMMARY | 2024-11-14 06:27 | External Medical Summary | Summary of Care ---
Author Name Unknown Organization [facility] Address [address] [place] [address] Phone [phone] Care Team Providers Care Head Waitress Name Role Phone Pippa Navarro Primary Care Provider Reason for Visit * Reason Comments Congestion Encounter Details Date Type Department Care Team ([facility] st Contact Info) Description 10/16/2024 2:00 PM EST Office Visit [facility] [address] [place] [phone] Aidan Szymanski MD [address], [place] [phone] Moderate persistent asthma with exacerbation* Allergies Active Allergy Reactions Criticality Noted Date Comments Codeine Medium Other reaction(s): Hallucinations Apixaban Hives 09/23/2022 Empagliflozin Other (Please comment) 05/30/2022 migraines Metformin Abdominal pain,Nausea/vomiting Medium 09/02/2023 Consistent with ER formulation even when taken with meals. Soap 12/26/2016 Ivory soap, hives Sulfa Antibiotics Rash Low 03/10/2017 documented as of this encounter (statuses as of 10/17/2024) Medications Triamcinolone Acetonide (NASACORT AQ) 55 MCG/ACT [...] goal of less than 7.0% ([facility]) USE TO INJECT INSULIN 4 TIMES [...] Use as directed every 14 days. Using [facility] Project [employer], [phone]. 4 Active FreeStyle Debbie 3 [place] DeviceIndication s:DM type 2 with diabetic peripheral neuropathy (HCC) Use as directed. Using [facility] Project [employer],[phone] . Debbie 3 reader shipped 03/10/2024 4 Active [...] 4 Active Vitamin D (Ergocalciferol) 1.25 MG (69797 UT) Oral Capsule (Drisdol)Indicat ions:Age-related osteoporosis without [...] (HCC) Use as directed. Lancets to fit [employer] lancet device. 100 Each 11 4 Active Ozempic (2 MG/DOSE) 8 MG/3ML Subcutaneous Solution Pen-injector (Semaglutide (2 MG/DOSE))Indicat ions:Type 2 diabetes mellitus with hemoglobin A1c goal of less than 7.0% ([facility]) Inject 2mg under the skin once weekly 3 mL 3 5 Active Erythromycin 5 MG/GM Ophthalmic Ointment Instill 0.25 Inches into both eyes at bedtime. 3.5 g 6 5 Active predniSONE 20 MG Oral Tablet (Deltasone) Take 2 Tablets by mouth in the morning for 7 days. 14 Tablet 5 10/23/19 25 Active documented as of this encounter (statuses as of 10/17/2024) Active Problems Problem Noted Date Diagnosed Date [...] Experiencing thumb pain and swelling since before [place], worsening over the past week, with tenderness [...] followed by shannon, no changes Atherosclerosis of [place] co ronary artery without angina pectoris 11/22/2023 [...] 10:33 AM EST): Stable and monitored by facundo, no changes DM type 2 with diabetic [...] as of this encounter (statuses as of 10/17/2024) Resolved Problems Problem Noted Date Diagnosed Date [...] 11/27/2021 Food insecurity 04/21/2021 09/25/2021 Overview: Per [facility] Protocol Vertigo 07/05/2020 12/26/2021 Nausea and vomiting 07/05/2020 07/10/20 Encounter for examination fo r normal comparison and control in clinical research program 05/28/2020 12/02/2021 Overview (12/30/2020): [facility]: A Randomized Controlled Trial (Project # [id number]). The [employer] program provides food-insecure diabetics with healthy food for their entire household (2 meals/ day X 5 days/week). The program also provides education on food preparation, healthy living, and diabetes self management. The research measures the effects of the program on patient health and wellbeing. Subject will begin the FFF program November 2020. Contact Information: Disbursing Officer: Dr. Gilberto Nolan ([phone]) CRC: Chioma Dailey ([phone]) RA: Kimberlee Angulo ([phone]) Diagnosis changed due to Research Module. Go [...] as of this encounter (statuses as of 10/17/2024) Immunizations Name Administration Dates Next Due COVID-19 mRNA, LNP-s, No Pre serve, 2-Dose Series ([employer]) 02/01/2021,01/11/2021 COVID-19, LNP-s, No Preserve , Toan-sucrose, Ages 12+ ([employer]) 12/31/2021 COVID-19, MRNA-LNP, PF, 30 M CG/0.3 mL, 12 YRS AND ABOVE, IM ([facility]) 08/15/2024,07/29/2023 Covid-19, Mrna, Lnp-s, Pf, B ivalent, 30 Mcg, IM, 12 yrs and above ([employer]) 05/28/2022 Pneumococcal Conjugate Vacci ne, 20-valent ([id number]) 01/15/2023 Pneumococcal Polysaccharide PPV23 (Pneumovax) 01/09/2017 Seasonal [...] Date Smoking Tobacco: Never Smokeless Tobacco: Never Tobacco Cessation:Counseling Given: Not Answered Alcohol Use Standard Drinks/Week Comments No 0 [...] AM EST documented as of this encounter Last Filed Vital Signs Vital Sign Reading Time Taken Comments Blood Pressure 129/82 10/16/2024 2:14 PM EST Pulse 96 10/16/2024 2:14 PM EST Temperature 37.7 C (99.9 F) 10/16/2024 2:14 PM ES T Respiratory Rate 18 10/16/2024 2:14 PM EST Oxygen Saturation 97% 10/16/2024 2:14 PM EST Inhaled Oxygen Concentration - - Weight 70.9 kg (156 lb 4.8 oz) 10/16/2024 2:14 P M EST Height - - Body Mass Index 30.53 07/14/2024 1:15 PM EDT documented in this encounter Functional Status * Are you [...] documented in this encounter Progress Notes * Aidan Szymanski MD - 10/16/2024 2:34 PM EST Subjective Vanna Acevedo is a 69 year old female that presents for Congestion History of Present Illness Vanna Acevedo is a 69 year old female with asthma who presents with fever, sore throat, and cough. She has been experiencing fever, sore throat, and cough for four days, with a recorded fever of 101.3F. She feels achy and notes nasal drainage. No rash, nausea, vomiting, or diarrhea. Her temperature is beginning to decrease. 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 She is unsure of any COVID exposure and does not believe she has been exposed. She has a history of asthma and is currently using inhalers. She experiences occasional wheezing orshortness of breath, which she attributes to her asthma. She monitors her glucose levels continuously with sensors and mentions that her cat alerts her if her glucose levels are abnormal. Objective BP 129/82 | Pulse 96 | Temp 99.9 F (37.7 C) (Tympanic) | Resp 18 | Wt 156 lb 4.8 oz (70.9 kg) |LMP (LMP Unknown) | SpO2 97% | BMI 30.53 kg/m | BSA 1.73 m Body mass index is 30.53 kg/m. BP Readings from Last 3 Encounters: 10/16/24 129/82 09/28/24 146/80 08/15/24 122/64 Wt Readings from Last 3 Encounters: 10/16/24 156 lb 4.8 oz (70.9 kg) 09/28/24 162 lb 14.4 oz (73.9 kg) 08/14/24 161 lb 14.4 oz (73.4 kg) Physical Exam Constitutional: Appearance: Normal appearance. HENT: Head: Normocephalic and atraumatic. Right Ear: Tympanic membrane, ear canal and external ear normal. Left Ear: Tympanic membrane, ear canal and external ear normal. Mouth/Throat: Mouth: Mucous membranes are moist. Pharynx: No oropharyngeal exudate or posterior oropharyngeal erythema. Eyes: Extraocular Movements: Extraocular movements intact. Conjunctiva/sclera: Conjunctivae normal. Pupils: Pupils are equal, round, and reactive to light. Cardiovascular: Rate and Rhythm: Normal rate and regular rhythm. Heart sounds: No murmur heard. No friction rub. No gallop. Pulmonary: Effort: Pulmonary effort is normal. Breath sounds: Normal breath sounds. Lymphadenopathy: Cervical: Cervical adenopathy (pre and post cervical lymphadenopathy bilaterally) present. Skin: Findings: No rash. Neurological: Mental Status: She is alert and oriented to person, place, and time. Psychiatric: Mood and Affect: Mood normal. Behavior: Behavior normal. Assessment and plan: Problem List Items Addressed This Visit Moderate persistent asthma with exacerbation - Primary Likely viral illness. We discussed testing for flu or COVID but patient declined after discussion. Counseled on reasons call back for antibiotics. Given asthma we will place on a steroid burst. Counseled patient on likely increase in blood glucose and reasons to call for advice regarding changing insulin if needed. Follow up Follow Up: Return if symptoms worsen or fail to improve. Based on the problems addressed, the amount and complexity of data, and the risk of patient management; the medical decision making for this visit is Low Total time today including reviewing chart before the visit, pertinent labs, imaging reports, face to face time, and documentation time was 13 minutes. The above was discussed and understanding was expressed. Text in this note was generated using an App[employer] documentation service. I discussed the use of a device to record and summarize our discussion today. All persons present during the encounter consented to its use. Aidan Szymanski MD documented in this encounter Nursing Notes * Leisa Ireland LPN - 10/16/2024 2:13 PM EST Chief Complaint Patient presents with Congestion Pt states she started Wednesday with cough, ST, body aches, headache and fever 101.3 developed Wednesday. documented in this encounter Miscellaneous Notes * Assessment & Plan Note - Aidan Szymanski MD - 10/16/2024 2:47 PM EST Associated Problem(s): Moderate persistent asthma with exacerbation Likely viral illness. We discussed testing for flu or COVID but patient declined after discussion. Counseled on reasons call back for antibiotics. Given asthma we will place on a steroid burst. Counseled patient on likely increase in blood glucose and reasons to call for advice regarding changing insulin if needed. documented in this encounter Plan of Treatment Upcoming Encounters Date Type Department Care Team (Late st Contact Info) Description 10/20/2024 11:00 AM EST [facility] [address] [place] [address] [place] [address] Pharmacist1, [facility] [place] [address] [facility] [place] [phone] 10/25/2024 12:30 PM EST Office Visit [facility]opa[facility] [place] [phone] Bhupendra Barragan MD 132 [facility] [place] [phone] 11/13/2024 2:30 PM EST Nutrition Services Nutrition, [facility] 132 [facility] [place] [address] Edwina Ware RDN 132 [facility] [place] [address] 11/21/2024 1:30 PM EDT Office Visit [facility] 132 [facility] [place] [phone] Victoria Mcintosh CRNP 132 [facility] [place] [address] 12/28/2024 1:00 PM EDT Appointment Card[facility] Studies, [facility] [phone] 01/04/2025 11:00 AM EDT Office Visit Allergy/Immunology [facility] [place] [address] [facility] [place] [address] Guerita Marin PA-C 200 [facility] [place] [address] 02/09/2025 12:30 PM EDT Nurse Only Ancillary 1st Floor, [place] 21 [facility] [place] [address] [facility] 2 [facility] [phone] 03/02/2025 12:20 PM EDT Office Visit [facility], [place] [facility] [phone] Pippa Navarro CRNP [address] [place] [address] 05/07/2025 2:00 PM EDT Appointment Radiology, [facility] [address] [place] [address] Scheduled Procedures Name Priority Associated Diagnoses Date/Ti [...] D LEVEL ONCE IN A LIFETIME-USE SMARTSET# 27334 Completed 08/15/2024, 11/17/2023, 02/19/2023, Additional history exists [...] this encounter Medical Devices Implanted Type Area Mill Laborer Device Identifier Shelf Expiration Date Model / Serial / Lot Lens 24.5 Clareon - [id number] - [id number] Implanted:Qty: 1 on 09/21/2023 by Ray Gonzalez DO at OR [facility] Lens Left: Eye [employer] 03/28/2026 CNA0T0.245 / [id number] / Suture Steel 6 B&S19 M654g - [id number] Implanted:Qty: 7 on 05/07/2021 by Aba Desir MD at OR [facility] N/A: Sternum JNJ : [employer] 01/10/2026 M654G / / PAOLA Clareon Lens 24.5 Implanted:Qty: 1 on 08/10/2023 by Ray Gonzalez DO at OR [facility] Right: Eye [employer] 09/15/2025 CNA0T0 / [id number] / documented as of this encounter [...] below 130/80 Unspecified essential hypertension Atherosclerosis of [place] coronary artery without angina pectoris, unspecified whether [place] or transplanted heart Hyperlipidemia with target LDL less than 70 Other and unspecified hyperlipidemia Disorder of iron metabolism, unspecified Age-related osteoporosis without current pathological fracture Senile osteoporosis Migraine without status migrainosus, not intractable, unspecified migraine type Moderate persistent asthma without complication Unspecified asthma Moderate persistent asthma with exacerbation- Primary Unspecified asthma, with exacerbation documented in this encounter Advance Directives * [...] Advance Directives occurred with: Patient Care Teams Head Waitress Relationship Specialty Start Date End Date Pippa Navarro CRNP [address] [place] [address] PCP - General Nurse Practitioner 02/19/23 documented as of this encounter"
--- OUTSIDE RECORDS SUMMARY | 2024-11-14 06:27 | External Medical Summary | Summary of Care ---
Author Name Unknown Organization [facility] Address [address] [place] [address] Phone [phone] Care Team Providers Care Clerical Specialist Name Role Phone Pippa Navarro Primary Care Provider Reason for Visit * Reason Onset Date Comments Appointment 10/23/2024 Encounter Details Date Type Department Care Team ([facility] st Contact Info) Description 10/23/2024 Telephone Orthopaedics [facility] [address] [place] [phone] Bhupendra Barragan MD [address] [place] [phone] Appointment Allergies Active Allergy Reactions Criticality Noted Date [...] hemoglobin A1c goal of less than 7.0% ([facility]) USE TO INJECT INSULIN 4 [...] Use as directed every 14 days. Using [facility] [employer], [phone]. 4 Active FreeStyle Debbie 3 [place] DeviceIndication s:DM type 2 with diabetic peripheral neuropathy (HCC) Use as directed. Using [facility] [employer],. Debbie 3 reader shipped 03/10/2024 4 Active [...] 4 Active Vitamin D (Ergocalciferol) 1.25 MG (75941 UT) Oral Capsule (Drisdol)Indicat ions:Age-related osteoporosis without [...] (HCC) Use as directed. Lancets to fit [employer] brand lancet device. 100 Each 11 4 Active Ozempic (2 MG/DOSE) 8 MG/3ML Subcutaneous Solution Pen-injector (Semaglutide (2 MG/DOSE))Indicat ions:Type 2 diabetes mellitus with hemoglobin A1c goal of less than 7.0% ([facility]) Inject 2mg under the skin [...] followed by shannon, no changes Atherosclerosis of [place] co ronary artery without angina pectoris 11/22/2023 [...] 11/27/2021 Food insecurity 04/21/2021 09/25/2021 Overview: Per [facility] Protocol Vertigo 07/05/2020 12/26/2021 Nausea and vomiting 07/05/2020 07/10/20 Encounter for examination fo r normal comparison and control in clinical research program 05/28/2020 12/02/2021 Overview (12/30/2020): [facility]: A Randomized Controlled Trial (Project # [id number]). The [employer] program provides food-insecure diabetics with healthy food for their entire household (2 meals/ day X 5 days/week). The program also provides education on food preparation, healthy living, and diabetes self management. The research measures the effects of the program on patient health and wellbeing. Subject will begin the FFF program November 2020. Contact Information: Nurse Consultant: Dr. Gilberto Nolan ([phone]) CRC: Chioma Dailey ([phone]) RA: Kimberlee Angulo ([phone]) Diagnosis changed due to Research Module. Go [...] mRNA, LNP-s, No Pre serve, 2-Dose Series ([employer]) 02/01/2021,01/11/2021 COVID-19, LNP-s, No Preserve , Toan-sucrose, Ages 12+ ([employer]) 12/31/2021 COVID-19, MRNA-LNP, PF, 30 M CG/0.3 mL, 12 YRS AND ABOVE, IM ([facility]) 08/15/2024,07/29/2023 Covid-19, Mrna, Lnp-s, Pf, B ivalent, 30 Mcg, IM, 12 yrs and above ([employer]) 05/28/2022 Pneumococcal Conjugate Vacci ne, 20-valent ([id number]) 01/15/2023 Pneumococcal Polysaccharide PPV23 (Pneumovax) 01/09/2017 Seasonal [...] Author No 05/30/2022 8:15 PM EDT Graciela More RN documented as of this encounter Mental Status * Because of a physical, mental, or emotional condition, do you have serious difficulty concentrating, remembering, or making decisions? (5 years old or older) Answer Entry Date Author No 05/30/2022 8:15 PM SHER[place] Graciela Reynolds RN documented in this encounter Miscellaneous Notes * Telephone Encounter - Mariana Sanz OSA - 10/23/2024 8:03 AM EST Called pt to move appt from 12:[address] Barragan will be in the OR. Left voicemail, template is in process of getting changed, messaged overbook to move. documented in this encounter Plan of Treatment Upcoming Encounters Date Type Department Care Team (Late st Contact Info) Description 10/25/2024 12:30 PM EST Office Visit Orthopaedics [facility] [address] [place] [phone] Bhupendra Barragan MD [address] [place] [phone] 11/13/2024 2:30 PM EST Nutrition Services Nutrition, [facility] [address] [place] [address] Edwina Ware, RDN [address] [place] [address] 11/21/2024 1:30 PM EDT [facility] [place] [phone] Victoria Mcintosh CRNP [address] [place] [address] 12/28/2024 1:00 PM EDT Appointment [address] Studies, [address] [address] 01/04/2025 11:00 AM EDT Office Visit Allergy/Immunology [facility] 200 [facility] [place] [address] Guerita Marin PA-C 200 [facility] [place] [address] 02/09/2025 12:30 PM EDT Nurse Only Ancillary 1st Floor, [place] [facility] [address] [place], [facility] Well[facility] 2 [facility] [address] 03/02/2025 12:20 PM EDT Office Visit Family [facility], [place] [facility] [phone] Pippa Navarro CRNP 21 [facility] [phone] 05/07/2025 2:00 PM EDT Appointment Radiology, [address] [place] [address] Scheduled Procedures Name Priority Associated Diagnoses Date/Ti [...] D LEVEL ONCE IN A LIFETIME-USE SMARTSET# [id number] Completed 08/15/2024, 11/17/2023, 02/19/2023, Additional history exists [...] this encounter Medical Devices Implanted Type Area Hot Dog Vender Device Identifier Shelf Expiration Date Model / Serial / Lot Lens 24.5 Clareon - [id number] - [id number] Implanted:Qty: 1 on 09/21/2023 by Ray Gonzalez DO at OR [facility] Lens Left: Eye [employer] 03/28/2026 CNA0T0.245 / [id number] / Suture Steel 6 B&S19 M654g - [id number] Implanted:Qty: 7 on 05/07/2021 by Aba Desir MD at OR [facility] N/A: Sternum JNJ : [employer] 01/10/2026 M654G / / [id number] Clareon Lens 24.5 Implanted:Qty: 1 on 08/10/2023 by Ray Gonzalez DO at OR [facility] Right: Eye [employer] 09/15/2025 CNA0T0 / [id number] / documented as of this encounter [...] Advance Directives occurred with: Patient Care Teams Clerical Specialist Relationship Specialty Start Date End Date Pippa Navarro CRNP 21 [place] [address] PCP - General Nurse Practitioner 02/19/23 documented as of this encounter
--- OUTSIDE RECORDS SUMMARY | 2024-11-14 06:27 | External Medical Summary | Summary of Care ---
Author Name Unknown Organization [facility] Address [address] [place] [address] Phone [phone] Care Team Providers Care Patient Accounts Manager Name Role Phone Pippa Navarro Primary Care Provider Reason for Visit * Reason Onset Date Comments Scheduling 08/15/2024 Reclast, on hold until sep Encounter Details Date Type Department Care Team ([facility] st Contact Info) Description 08/15/2024 Telephone Hematology/Oncology, [facility] [address] [place] [address] Hans Tian PA-C [address] [place] [address] Scheduling (Reclast, on hold until [...] Use as directed every 14 days. Using [facility] Azoi, [phone]. 4 Active FreeStyle Debbie 3 [place] DeviceIndication s:DM type 2 with diabetic peripheral neuropathy (HCC) Use as directed. Using [facility] [employer],. Debbie 3 reader shipped 03/10/2024 4 Active [...] over 140 45 mL 3 4 Active OneTouch UltraSoft Lancets MISCIndications: Type 2 diabetes mellitus with hemoglobin A1c goal of less than 7.0% ([facility]) Checking blood sugars four time daily Dx: E11.9 150 Each 11 0 024 Discontin ued(Refil l) Erythromycin 5 MG/GM Ophthalmic Ointment Instill 0.25 Inches into both eyes at bedtime. 3.5 g 6 4 025 Discontin ued(Refil l) Ozempic (2 MG/DOSE) 8 MG/3ML Subcutaneous Solution Pen-injector (Semaglutide (2 MG/DOSE))Indicat ions:Type 2 diabetes mellitus with hemoglobin A1c goal of less than 7.0% ([facility]) Inject 2mg under the skin once weekly 3 mL 3 4 025 Discontin ued(Refil l) Insulin Glargine Solostar 100 UNIT/ML Subcutaneous Solution Pen-injectorIndi cations:Type 2 diabetes, HbA1c goal < 7% (HCC) Inject 26 Units under the skin daily. 30 mL 3 4 024 Discontin ued(Medic ation List Clean Up) Insulin Glargine Solostar 100 UNIT/ML Subcutaneous Solution Pen-injector (Lantus SoloStar)Indicat ions:Type 2 diabetes, HbA1c goal < 7% (HCC) Inject 26 Units under the skin daily. 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 11/22/2023 [...] Date Food insecurity 11/22/2023 08/28/2024 Overview: Per [facility] Protocol Occlusion of left subclavian artery 05/30/2022 06/15/2023 Vertigo 05/30/2022 06/05/2022 Uncomplicated asthma 05/28/2022 022 Hyperlipidemia 05/28/2022 05/28/2022 Atrial fibrillation 11/25/2021 12/03/19 Current use of insulin 11/11/202112/15 Personal history of atrial fibrillation 05/26/2021 12/15/2022 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 The Fresh Food Farmacy program provides food-insecure diabetics with healthy food for their entire household (2 meals/ day X 5 days/week). The program also provides education on food preparation, healthy living, and diabetes self management. The research measures the effects of the program on patient health and wellbeing. Subject will begin the FFF program November 2020. Contact Information: Circus Performer: Dr. Gilberto Nolan ([phone]) CRC: Chioma Dailey ([phone]) RA: Kimberlee Angulo ([phone]) Diagnosis changed due to Research Module. Go [...] mRNA, LNP-s, No Pre serve, 2-Dose Series (250ok) 02/01/2021,01/11/2021 COVID-19, LNP-s, No Preserve , Toan-sucrose, Ages 12+ (250ok) 12/31/2021 COVID-19, MRNA-LNP, PF, 30 M CG/0.3 mL, 12 YRS AND ABOVE, IM ([facility]) 08/15/2024,07/29/2023 Covid-19, Mrna, Lnp-s, Pf, B ivalent, 30 Mcg, IM, 12 yrs and above (250ok) 05/28/2022 Pneumococcal Conjugate Vacci ne, 20-valent ([id number]) 01/15/2023 Pneumococcal Polysaccharide PPV23 (Pneumovax) 01/09/2017 Seasonal [...] Answer Date Recorded PHQ Adult Total Score 11 02/04/2024 Hunger Vital Sign Answer Date Recorded Within the past 12 months, y ou worried that your food would run out before you got the money to buy more. Never true 08/14/20 24 Within the past 12 months, t he food you bought just didn't last and you didn't have money to get more. Never true 08/14/2024 Childcare Answer Date Recorded Do you feel overwhelmed with taking care of a child, family member or friend? No 08/14/2024 Does your family need help f inding childcare? (Household - for ages 0-17 years) Not on file 08/14/2024 Clothing Answer Date Recorded Have you been unable to get clothing when it was really needed? No 08/14/2024 Is your family able to get c lothes or diapers when needed? (Household - for ages 0-17 years) Not on file 08/14/2024 Personal Safety Answer Date Recorded Do you feel unsafe or have concerns for your saf ety? No 08/14/2024 Do you have concerns for you r family's safety? (Household - for ages 0-17 years) Not on file 08/14/2024 Utilities Answer Date Recorded Do you have trouble paying y our heating, water, or electric bill? No 08/14/2024 Is your family able to pay t he heat, water, or electric bill? (Household - for ages 0-17 years) Not on file 08/14/2024 Does your family have access to good internet? (Household - for ages 0-17 years) Not on file 08/14/2024 Employment Status Answer Date Recorded Are you unemployed or without regular income? No 08/14/2024 Does the household have a re gular source of income? (Household - for ages 0-17 years) Not on file 08/14/2024 Social Connections Answer Date Recorded How often do you feel lonely or isolated from th ose around you? Never 08/14/2024 Financial Resource Strain Answer Date R ecorded Do you have any trouble payi ng for your medications, or do you think you might in the future? No 08/14/2024 Does your family have troubl e paying for medicine? (Household - for ages 0-17 years) Not on file 08/14/2024 Transportation Needs Answer Date Record ed READ ONLY Do you have troubl e getting a ride to medical visits or work? Never True 08/14/2024 Does your family have a hard time getting a ride to doctors visits? (Household - for ages 0-17 years) Not on file 08/14/2024 Has lack of transportation k ept you from medical appointments, meetings, work, or from getting things needed for daily living? Check all that apply. No 08/14/2024 Do you (or your family) have trouble finding or paying for a ride (transportation)? (Household - for ages 0-17 years) Not on file 08/14/2024 Housing Stability Answer Date Recorded Do you currently live in a s helter or have no steady place to sleep at night? No 08/14/2024 READ ONLY Do you think you a re at risk of becoming homeless? No 08/14/2024 Does your family worry about paying for your home or becoming homeless? (Household - for ages 0-17 years) Not on file 1 10/15/2023 Are you homeless or worried that you might be in the future? No 08/14/2024 Are you (or your family) raj eless or worried that you might be in the future? (Household - for ages 0-17 years) Not on file Food Insecurity Answer Date Recorded Do you need food for this week? No 08/14/2024 Are you able to get enough f ood for your family? (Household - for ages 0-17 years) Not on file 08/14/2024 Does your family need food t his week? (Household - for ages 0-17 years) Not on file 08/14/2024 Do you always have enough fo od for your family? (Household - for ages 0-17 years) Not on file 08/14/2024 Comments No Sex and Gender Information Value [...] Miscellaneous Notes * Telephone Encounter - Molly Ta RN [...] 10/20/2024 11:00 AM EST [address] [phone] Pharmac[address], [facility] [place] [address] [place] [address] 10/25/2024 12:30 PM EST Office Visit Orthopaedics [facility] [address] [phone] Bhupendra Barragan MD [address] [place] [phone] 11/13/2024 2:30 PM EST Nutrition Services Nutrition, [facility] [address] [address] Edwina Ware RDN [address] [place] [address] 11/21/2024 1:30 PM EDT Office Visit Sleep Disorders Ctr [facility] [address] [phone] Victoria Mcintosh CRNP [address] [address] 12/28/2024 1:00 PM EDT Appointment Cardiac Studies, [address] [place] [phone] 01/04/2025 11:00 AM EDT Office Visit Allergy/Immunology [facility] [place] [address] [place] [address] Guerita Marin PA-C 200 [facility] [place] [address] 02/09/2025 12:30 PM EDT Nurse Only Ancillary 1st Floor, [place] [facility] [phone] [place] [phone] 03/02/2025 12:20 PM EDT Office Visit [facility], [place] [facility] [phone] Pippa Navarro CRNP [address] [facility] [address] 05/07/2025 2:00 PM EDT Appointment Radiology, [address] [address] Scheduled Procedures Name Priority Associated Diagnoses Date/Ti me ESOPHAGOGASTRODUODENOSCOPY ( EGD), FLEXIBLE, TRANSORAL, DIAGNOSTIC Recall Velez esophagus COLONOSCOPY FLEXIBLE PROXIMAL DIAGNOSTIC Recall Encounter for screening colonoscopy Health Maintenance Due Date Last Done Comments Cologuard 2001 Fecal Occult Blood Test 2001 Sigmoidoscopy 2001 B-12 11/16/2024 11/17/2023, 020 02/2023, 07/09/2021, Additional history exists Albumin/Creatinine Ratio 11/18/2024 03/2 024, 06/15/2023, 07/31/2022, Additional history exists Adult [...] D LEVEL ONCE IN A LIFETIME-USE SMARTSET# [id number] Completed 08/15/2024, 11/17/2023, 02/19/2023, Additional history exists [...] this encounter Medical Devices Implanted Type Area Equipment Cleaner Device Identifier Shelf Expiration Date Model / Serial / Lot Lens 24.5 [place] - [id number] - [id number] Implanted:Qty: 1 on 09/21/2023 by Ray Gonzalez DO at OR [facility] Lens Left: Eye [employer] 03/28/2026 CNA0T0.245 / [id number] / Suture Steel 6 B&S19 M654g - [id number] Implanted:Qty: 7 on 05/07/2021 by Aba Desir MD at OR [facility] N/A: Sternum JNJ : [employer] 01/10/2026 [id number] / / [id number] [place] Lens 24.5 Implanted:Qty: 1 on 08/10/2023 by Ray Gonzalez DO at OR [facility] Right: Eye [employer] 09/15/2025 CNA0T0 / [id number] / documented as of this encounter [...] Advance Directives occurred with: Patient Care Teams Patient Accounts Manager Relationship Specialty Start Date End Date Pippa Navarro CRNP [address] [place] [address] [phone] PCP - General Nurse Practitioner 02/19/23 documented as of this encounter
--- OUTSIDE RECORDS SUMMARY | 2024-11-14 06:28 | External Medical Summary | Summary of Care ---
Author Name Unknown Organization [facility] Address [address] [place] [address] Phone [phone] Care Team Providers Care Manager Of Compliance Name Role Phone Pippa Navarro Primary Care Provider Encounter Details Date Type Department Care Team (Latest Contact Info) Description 09/28/2024 10:29 AM EST - 09/28/2024 11:59 PM EST Hospital Encounter Radiology, [place] 21 [place] [address] Arrived Discharge Disposition: Home - Self Care Allergies Active Allergy Reactions Criticality Noted Date Comments Codeine Medium Other reaction(s): Hallucinations Apixaban Hives 09/23/2022 Empagliflozin Other (Please comment) 05/30/2022 migraines Metformin Abdominal pain,Nausea/vomiting Medium 09/02/2023 Consistent with ER formulation even when taken with meals. Soap 12/26/2016 Ivory soap, hives Sulfa Antibiotics Rash Low 03/10/2017 documented as of this encounter (statuses as of 09/29/2024) Medications Triamcinolone Acetonide (NASACORT AQ) 55 MCG/ACT [...] A1c goal of less than 7.0% (HCC) USE TO INJECT INSULIN 4 TIMES DAILY [...] Use as directed every 14 days. Using [facility] [email or web address], [phone]. 4 Active FreeStyle Debbie 3 [place] DeviceIndications :DM type 2 with diabetic peripheral neuropathy (HCC) Use as directed. Using [facility] Medical,. Debbie 3 reader shipped 03/10/2024 4 Active [...] 4 Active Vitamin D (Ergocalciferol) 1.25 MG (91490 UT) Oral Capsule (Drisdol)Indicati ons:Age-related osteoporosis without [...] as of this encounter (statuses as of 09/29/2024) Active Problems Problem Noted Date Diagnosed Date [...] followed by shannon, no changes Atherosclerosis of [place] co ronary artery without angina pectoris 11/22/2023 [...] as of this encounter (statuses as of 09/29/2024) Resolved Problems Problem Noted Date Diagnosed Date Resolved Date Food insecurity 11/22/2023 08/28/2024 Overview: Per [facility] Protocol Occlusion of left subclavian artery 05/30/2022 06/15/2023 Vertigo 05/30/2022 06/05/2022 Uncomplicated asthma 05/28/2022 022 Hyperlipidemia 05/28/2022 05/28/2022 Atrial fibrillation 11/25/2021 12/03/19 Current use of insulin 11/11/202112/15 Personal history of atrial fibrillation 05/26/2021 12/15/2022 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 The Fresh Food Farm[employer] Medicine program provides food-insecure diabetics with healthy food for their entire household (2 meals/ day X 5 days/week). The program also provides education on food preparation, healthy living, and diabetes self management. The research measures the effects of the program on patient health and wellbeing. Subject will begin the FFF program November 2020. Contact Information: Horse Racing Manager: Dr. Gilberto Nolan ([phone]) CRC: Chioma Dailey ([phone]) RA: Kimberlee Angulo ([phone]) Diagnosis changed due to Research Module. Go [...] as of this encounter (statuses as of 09/29/2024) Immunizations Name Administration Dates Next Due COVID-19 mRNA, LNP-s, No Pre serve, 2-Dose Series (Right Hemisphere) 02/01/2021,01/11/2021 COVID-19, LNP-s, No Preserve , Toan-sucrose, Ages 12+ (Right Hemisphere) 12/31/2021 COVID-19, MRNA-LNP, PF, 30 M CG/0.3 mL, 12 YRS AND ABOVE, IM ([facility]) 08/15/2024,07/29/2023 Covid-19, Mrna, Lnp-s, Pf, B ivalent, 30 Mcg, IM, 12 yrs and above (Right Hemisphere) 05/28/2022 Pneumococcal Conjugate Vacci ne, 20-valent ([id number]) 01/15/2023 Pneumococcal Polysaccharide PPV23 (Pneumovax) 01/09/2017 Seasonal [...] 10/09/2024 11:00 AM EST Office Visit Orthopaedics [facility] 132 [facility] [place] [phone] Dale Vera MD 132 [facility] [place] [address] 10/20/2024 11:00 AM EST Office Visit [facility]acy, [place] [facility] [address] Pharmacist1, [facility] [phone] 11/13/2024 2:30 PM EST Nutrition Services Nutrition, [facility] 132 [facility] [place] [address] Edwina Ware RDN 132 [facility] [place] [address] 11/21/2024 1:30 PM EDT Office Visit Sleep Disorders Ctr [facility] 132 [facility] [place] [phone] Victoria Mcintosh CRNP 132 [facility] [place] [address] 12/28/2024 1:00 PM EDT Appointment Cardiac Studies, [facility] 400 [facility] [place] [phone] 01/04/2025 11:00 AM EDT Office Visit Allergy/Immunology [place] [facility] [place] [address] [place] [address] Guerita Marin PA-C [address] [place] [address] [address] 02/09/2025 12:30 PM EDT Nurse Only Ancillary 1st Floor, [place] [facility] [phone] [place], [facility] [address] [place] [address] 03/02/2025 12:20 PM EDT Office Visit Family Practice, [place] [address] [place] [address] [phone] Pippa Navarro CRNP [address] [place] [address] [address] 05/07/2025 2:00 PM EDT Appointment Radiology, [facility] [address] [facility] [place] [phone] Scheduled Procedures Name Priority Associated Diagnoses Date/Ti [...] 06/23/2024, Additional history exists GFR 08/09/2025 08/09/2024, 0302/2024, 02/19/2023, Additional history exists Diabetic Foot Exam [...] D LEVEL ONCE IN A LIFETIME-USE SMARTSET# [id number] Completed 08/15/2024, 11/17/2023, 02/19/2023, Additional history exists [...] this encounter Medical Devices Implanted Type Area Offset Second Press Operator Device Identifier Shelf Expiration Date Model / Serial / Lot Lens 24.5 [place] - [id number] - [id number] Implanted:Qty: 1 on 09/21/2023 by Ray Gonzalez DO at OR [facility] Lens Left: Eye [employer] 03/28/2026 CNA0T0.245 / [id number] / Suture Steel 6 B&S19 M654g - [id number] Implanted:Qty: 7 on 05/07/2021 by Aba Desir MD at [place] [facility] N/A: Sternum JNJ : [employer] 01/10/2026 M654G / / [id number] [place] Lens 24.5 Implanted:Qty: 1 on 08/10/2023 by Ray Gonzalez DO at OR [facility] Right: Eye [employer] 09/15/2025 CNA0T0 / [id number] / documented as of this encounter Procedures Procedure Name Priority Date/Time Associated Diagnosis Comments XR FINGERS 2 OR MORE VIEWS Routine 09/28/2024 10:38 AM EST Subcutaneous nodule of right thumb documented in this encounter Results * XR FINGERS 2 OR MORE VIEWS (09/28/2024 10:38 AM EST) Anatomical Region Laterality Modality Upper Extremity Computed Radiogr aphy 09/28/2024 8:37 PM EST Narrative 09/28/2024 8:35 PM EST EXAM: RT XR FINGERS 2 OR MORE VIEWS HISTORY: Nodule of proximal thumb COMPARISON:- FINDINGS / IMPRESSION: No acute displaced fracture or dislocation. No joint space narrowing or erosion. Procedure Note Gomez Cr MD - 09/28/2024 EXAM: RT XR FINGERS 2 OR MORE VIEWS HISTORY: Nodule of proximal thumb COMPARISON:- FINDINGS / IMPRESSION: No acute displaced fracture or dislocation. No joint space narrowing orerosion. Aidan Szymanski MD RADIOLOGY ([facility]) Final Result documented in this encounter Advance Directives * [...] Advance Directives occurred with: Patient Care Teams Manager Of Compliance Relationship Specialty Start Date End Date Pippa Navarro CRNP [address] [address] [address] PCP - General Nurse Practitioner 02/19/23 documented as of this encounter
--- OUTSIDE RECORDS SUMMARY | 2024-11-14 06:28 | External Medical Summary | Summary of Care ---
Author Name Unknown Organization [facility] Address [address] [place] [address] Phone [phone] Care Team Providers Care Industrial Boilermaker Name Role Phone Pippa Navarro Primary Care Provider Encounter Details Date Type Department Care Team ([facility] st Contact Info) Description 09/26/2024 Population Health External Data Unspecified Department Allergies Active Allergy Reactions Criticality Noted Date Comments Codeine Medium Other reaction(s): Hallucinations Apixaban Hives 09/23/2022 Empagliflozin Other (Please comment) 05/30/2022 migraines Metformin Abdominal pain,Nausea/vomiting Medium 09/02/2023 Consistent with ER formulation even when taken with meals. Soap 12/26/2016 Ivory soap, hives Sulfa Antibiotics Rash Low 03/10/2017 documented as of this encounter (statuses as of 09/27/2024) Medications Triamcinolone Acetonide (NASACORT AQ) 55 MCG/ACT [...] Active Benzonatate 100 MG Oral Capsule (Tessalon Perlchristiano)Indication s:Acute cough Take 1 Capsule by mouth 3 times a day as needed for Cough. Do not cut, crush, or chew. 30 Capsule 3 Active Erythromycin 5 MG/GM Ophthalmic Ointment Instill 0.25 Inches into both eyes at bedtime. 3.5 g 6 4 Active BD Pen Needle Mini U/F 31G X 5 MM (Insulin Pen Needle)Indication s:Type 2 diabetes mellitus with hemoglobin A1c goal of less than 7.0% ([facility]) USE TO INJECT INSULIN 4 TIMES DAILY 400 Each 3 4 Active Ozempic (2 MG/DOSE) 8 MG/3ML Subcutaneous Solution Pen-injector (Semaglutide (2 MG/DOSE))Indicati ons:Type 2 diabetes mellitus with hemoglobin A1c goal of less than 7.0% ([facility]) Inject 2mg under the skin once weekly 3 mL 3 4 Active Omeprazole 40 MG Oral [...] Use as directed every 14 days. Using [employer], [phone]. 4 Active FreeStyle Debbie 3 Castor DeviceIndications :DM type 2 with diabetic peripheral neuropathy (HCC) Use as directed. Using [employer],. Debbie 3 reader shipped 03/10/2024 4 Active [...] 4 Active Vitamin D (Ergocalciferol) 1.25 MG (93624 UT) Oral Capsule (Drisdol)Indicati ons:Age-related osteoporosis without [...] Relion brand lancet device. 100 Each 11 Active documented as of this encounter (statuses as of 09/27/2024) Active Problems Problem Noted Date Diagnosed Date Encounter for long-term (current) insulin use Major depressive disorder, recurrent, in partial remission 11/22/2023 Generalized anxiety disorder 11/22/2023 Atherosclerosis of [place] ronary artery without angina pectoris 11/22/2023 Velez's esophagus 07/27/2023 Atypical squamous cells of u ndetermined significance (ASCUS) on Papanicolaou smear of cervix 06/16/2023 Cervical high risk human pap illomavirus (HPV) DNA test positive 06/16/2023 Subclavian artery stenosis, left 10/01/2022 Paroxysmal atrial fibrillation 09/18/2022 Vertigo 05/30/2022 Intracardiac thrombus 05/07/2021 Age-related osteoporosis wit hout current pathological fracture 04/24/2021 Overview (09/19/2021): On Fosamax LGSIL on Pap smear of cervix 09/11/2020 Overview (09/30/2020): Neg hpv Anxiety 08/14/2020 Type 2 diabetes mellitus wit h hemoglobin A1c goal of less than 7.0% 07/05/2020 History of stroke 05/10/2020 Bipolar I disorder, most recent episode depresse d 10/30/2019 DM type 2 with diabetic peripheral neuropathy Bilateral bunions 07/06/2018 Hyperlipidemia with target LDL less than 70 02/12 Gastroesophageal reflux disease without esophagi tis 03/10/2017 Moderate persistent asthma without complication 03/10/2017 Overview (09/19/2021): 09/19/2021 uses fluticasone Furoate (ARNUITY ELLIPTA) 100 MCG/ACT AEPB inhaler and albuterol Recent covid 08/25/21 -resolved Rotator cuff tendinitis, left 06/13/2015 Biceps tendinitis on left 06/13/2015 Migraine HTN, goal below 130/80 documented as of this encounter (statuses as of 09/27/2024) Resolved Problems Problem Noted Date Diagnosed Date Resolved Date Food insecurity 11/22/2023 08/28/2024 Overview: Per [facility] Protocol Occlusion of left subclavian artery 05/30/2022 06/15/2023 Vertigo 05/30/2022 06/05/2022 Uncomplicated asthma 05/28/2022 022 Hyperlipidemia 05/28/2022 05/28/2022 Atrial fibrillation 11/25/2021 12/03/19 Current use of insulin 11/11/202112/15 Personal history of atrial fibrillation 05/26/2021 12/15/2022 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 The [employer] program provides food-insecure diabetics with healthy food for their entire household (2 meals/ day X 5 days/week). The program also provides education on food preparation, healthy living, and diabetes self management. The research measures the effects of the program on patient health and wellbeing. Subject will begin the [facility] program November 2020. Contact Information: Chief Counsel: Dr. Gilberto Nolan ([phone]) CRC: Chioma Dailey ([phone]) RA: Kimberlee Angulo ([phone]) Diagnosis changed due to Research Module. Go [...] as of this encounter (statuses as of 09/27/2024) Immunizations Name Administration Dates Next Due COVID-19 mRNA, LNP-s, No Pre serve, 2-Dose Series ([facility]) 02/01/2021,01/11/2021 COVID-19, LNP-s, No Preserve , Toan-sucrose, Ages 12+ ([facility]) 12/31/2021 COVID-19, MRNA-LNP, PF, 30 M CG/0.3 mL, 12 YRS AND ABOVE, IM ([facility]) 08/15/2024,07/29/2023 Covid-19, Mrna, Lnp-s, Pf, B ivalent, 30 Mcg, IM, 12 yrs and above ([facility]) 05/28/2022 Pneumococcal Conjugate Vacci ne, 20-valent ([id number]) 01/15/2023 Pneumococcal Polysaccharide PPV23 (Pneumovax) 01/09/2017 Seasonal [...] 05/30/2022 8:15 PM SHERWINT Graciela Reynolds RN * Do you have serious difficulty walking or climbing stairs? (5 years old or older) Answer Date of Assessment Author No 05/30/2022 8:15 PM SHERWINT Graciela Reynolds RN * Do you have [...] Graciela Martins RN documented in this encounter Plan of Treatment Upcoming Encounters Date Type Department Care Team (Late st Contact Info) Description 09/28/2024 10:00 AM EST Office Visit Family [facility], [place] [address] [place] [phone] Aidan Szymanski MD [address] [place] [address] 10/20/2024 11:00 AM EST Office Visit Pharmacy, [place] [id number] Pharmacist1, [facility] [place] [phone] 11/13/2024 2:30 PM EST Nutrition Services Nutrition, [facility] [address] [facility] [facility] [place] [address] Edwina Ware, MICHAEL [address] [place] [address] 11/21/2024 1:30 PM EDT Office Visit Sleep Disorders Ctr [facility] [place] [address] [facility] [place] [phone] Victoria Mcintosh CR[facility] [place] [address] 12/28/2024 1:00 PM EDT [address] [address] 01/04/2025 11:00 AM EDT Office Visit Allergy/Immunology [facility] [place] [address] [place] [address] Guerita Marin PA-C [address] [facility] [place] [address] 02/09/2025 12:30 PM EDT Nurse Only Ancillary 1st Floor, [place] [facility] [phone] [place], [facility] [address] [phone] 03/02/2025 12:20 PM EDT Office Visit Family [facility], [place] [address] [facility] [place] [phone] Pippa Navarro [facility]NP [address] [facility] [phone] 05/07/2025 2:00 PM EDT [address] [address] Scheduled Procedures Name Priority Associated Diagnoses Date/Ti [...] history exists Adult Wellness Visit 02/03/2025 02/04/2024 Depression Monitoring 02/03/2025 02/04/2024, 024 Mammogram 02/03/2025 02/04/2024, 01/11, 12/24/2021, Additional history exists HbA1c 02/06/2025 08/09/2024, 04/13, 11/17/2023, Additional history exists DXA Scan 04/23/2025 04/23/2023, 04/21/2021 Diabetic Eye Exam 06/23/2025 06/23/2024, , 06/23/2024, Additional history exists GFR 08/09/2025 08/09/2024, 030 02/2024, 02/19/2023, Additional history exists Diabetic Foot Exam 08/14/2025 08/14/2024, 0 01/06/2024, 10/19/2022, Additional history exists Velez's Esophagus Surveilance 12/22/2025 12/22/2022, 12/22/2022, 08/04/2022, [...] D LEVEL ONCE IN A LIFETIME-USE SMARTSET# [id number] Completed 08/15/2024, 11/17/2023, 02/19/2023, Additional history exists [...] this encounter Medical Devices Implanted Type Area Bin Piler Device Identifier Shelf Expiration Date Model / Serial / Lot Lens 24.5 [place] - [id number] - [id number] Implanted:Qty: 1 on 09/21/2023 by Ray Gonzalez DO at OR [facility] Lens Left: Eye [employer] 03/28/2026 CNA0T0.245 / [id number] / Suture Steel 6 B&S19 M654g - [id number] Implanted:Qty: 7 on 05/07/2021 by Aba Desir MD at OR [facility] N/A: Sternum JNJ : [employer] 01/10/2026 [id number] / / [id number] [place] Lens 24.5 Implanted:Qty: 1 on 08/10/2023 by Ray Gonzalez DO at OR [facility] Right: Eye [employer] 09/15/2025 CNA0T0 / [id number] / documented as of this encounter [...] Advance Directives occurred with: Patient Care Teams Industrial Boilermaker Relationship Specialty Start Date End Date Pippa Navarro CRNP [address] [place] [address] PCP - General Nurse Practitioner 02/19/23 documented as of this encounter
--- OUTSIDE RECORDS SUMMARY | 2024-11-14 06:28 | External Medical Summary | Summary of Care ---
Author Name Unknown Organization [facility] Address [address] [place] [address] Phone [phone] Care Team Providers Care Fish Conservationist Name Role Phone Pippa Navarro Primary Care Provider Reason for Referral * Evaluate & Treat - Unlimited Visits (Within 10 days (routine)) - Authorized Specialty Diagnoses / Procedures Referred By Rasta nobles Referred To Contact Orthopaedic Surgery / Orthopedics Diagnoses Subcutaneous nodule of right thumb Aidan Szymanski MD [address] [place] [address] Phone: tel: fax: Referral ID Status Reason Start Date Expiration Date Visits Requested Visits Authorized [id number] Authorized Specialty Services Required 09/28/[phone] Question Answer Referral Priority Within 10 days (routine) Where should this appointment be scheduled? [facility] What body part is the patient being seen for? Hand What condition is the patient being seen for? Sprain/Strain/Tear/Other - nodule Reason for Visit * Reason Comments Hand Pain Right thumb and hand pain, sometimes shoots into the wrist. There is a hard lump at the base of the thumb x 3-4 weeks Encounter Details Date Type Department Care Team ([facility] Contact Info) Description 09/28/2024 10:00 AM EST Office Visit [facility] [place] [phone] Aidan Szymanski MD [address] [place] [id number] Subcutaneous nodule of right thumb*; Type 2 diabetes mellitus with hemoglobin A1c goal of less than 7.0% ([facility]); Bipolar I disorder, most recent episode depressed ([facility]); Paroxysmal atrial fibrillation ([facility]); DM type 2 with diabetic peripheral neuropathy ([facility]); Major depressive disorder, recurrent, in partial remission ([facility]); Generalized anxiety disorder; HTN, goal below 130/80; Atherosclerosis of [place] coronary artery without angina pectoris, unspecified whether [place] or transplanted heart; Hyperlipidemia with target LDL less than 70; Disorder of iron metabolism, unspecified; Age-related osteoporosis without current pathological fracture; Migraine without status migrainosus, not intractable, unspecified migraine type; Moderate persistent asthma without complication Allergies Active Allergy Reactions Criticality Noted Date Comments Codeine Medium Other reaction(s): Hallucinations Apixaban Hives 09/23/2022 Empagliflozin Other (Please comment) 05/30/2022 migraines Metformin Abdominal pain,Nausea/vomiting Medium 09/02/2023 Consistent with ER formulation even when taken with meals. Soap 12/26/2016 Ivory soap, hives Sulfa Antibiotics Rash Low 03/10/2017 documented as of this encounter (statuses as of 09/28/2024) Medications Triamcinolone Acetonide (NASACORT AQ) 55 MCG/ACT [...] as needed for Dry Mouth. 3 Active Catalyst MobileTouch Ultra 2 w/Device Kit Check glucose up [...] goal of less than 7.0% ([facility]) USE TO INJECT INSULIN 4 TIMES [...] Use as directed every 14 days. Using [employer], [phone]. 4 Active FreeStyle Debbie 3 [place] DeviceIndication s:DM type 2 with diabetic peripheral neuropathy (HCC) Use as directed. Using [employer],. Debbie 3 reader shipped 03/10/2024 4 Active [...] 4 Active Vitamin D (Ergocalciferol) 1.25 MG (00239 UT) Oral Capsule (Drisdol)Indicat ions:Age-related osteoporosis without current pathological fracture,Vitamin D deficiency Take 1 Capsule by mouth once a week. 15 Capsule 4 025 Active Tresiba FlexTouch 100 UNIT/ML Subcutaneous [...] (HCC) Use as directed. Lancets to fit [employer] brand lancet device. 100 Each 11 4 Active Ozempic (2 MG/DOSE) 8 MG/3ML Subcutaneous Solution Pen-injector (Semaglutide (2 MG/DOSE))Indicat ions:Type 2 diabetes mellitus with hemoglobin A1c goal of less than 7.0% (HCC) Inject 2mg under the skin once weekly 3 mL 3 5 Active Erythromycin 5 MG/GM Ophthalmic Ointment Instill 0.25 Inches into both eyes at bedtime. 3.5 g 6 5 Active Erythromycin 5 MG/GM Ophthalmic Ointment Instill 0.25 Inches into both eyes at bedtime. 3.5 g 6 4 025 Discontin ued(Refil l) Ozempic (2 MG/DOSE) 8 MG/3ML Subcutaneous Solution Pen-injector (Semaglutide (2 MG/DOSE))Indicat ions:Type 2 diabetes mellitus with hemoglobin A1c goal of less than 7.0% ([facility]) Inject 2mg under the skin once weekly 3 mL 3 4 025 Discontin ued(Refil l) documented as of this encounter (statuses as of 09/28/2024) Active Problems Problem Noted Date Diagnosed Date [...] followed by shannon, no changes Atherosclerosis of [place] co ronary artery without angina pectoris 11/22/2023 [...] as of this encounter (statuses as of 09/28/2024) Resolved Problems Problem Noted Date Diagnosed Date Resolved Date Food insecurity 11/22/2023 08/28/2024 Overview: Per [facility] Protocol Occlusion of left subclavian [...] program 05/28/2020 12/02/2021 Overview (12/30/2020): Fresh Food Bar Pass: A Randomized Controlled Trial (Project # [id number]). The Fresh Food FarmSmart Panel program provides food-insecure diabetics with healthy food for their entire household (2 meals/ day X 5 days/week). The program also provides education on food preparation, healthy living, and diabetes self management. The research measures the effects of the program on patient health and wellbeing. Subject will begin the FFF program November 2020. Contact Information: Critical Care Transport Nurse: Dr. Gilberto Nolan ([phone]) CRC: Chioma Dailey ([phone]) RA: Kimberlee Angulo ([phone]) Diagnosis changed due to Research Module. Go [...] as of this encounter (statuses as of 09/28/2024) Immunizations Name Administration Dates Next Due COVID-19 mRNA, LNP-s, No Pre serve, 2-Dose Series (Enteye) 02/01/2021,01/11/2021 COVID-19, LNP-s, No Preserve , Toan-sucrose, Ages 12+ (Pfizer) 12/31/2021 COVID-19, MRNA-LNP, PF, 30 M CG/0.3 mL, 12 YRS AND ABOVE, IM (PFIZER-Comirnat) 08/15/2024,07/29/2023 Covid-19, Mrna, Lnp-s, Pf, B ivalent, 30 Mcg, IM, 12 yrs and above (Enteye) 05/28/2022 Pneumococcal Conjugate Vacci ne, 20-valent ([id number]) 01/15/2023 Pneumococcal Polysaccharide PPV23 (Pneumovax) 01/09/2017 Seasonal [...] No 09/27/2024 Does the household have a [facility] source of income? (Household - for ages [...] Sign Reading Time Taken Comments Blood Pressure 146/80 09/28/2024 10:06 AM EST Pulse 80 09/28/2024 10:06 AM EST Temperature 36.4 C (97.5 F) 09/28/2024 1 0:06 AM EST Respiratory Rate 12 09/28/2024 10:0 6 AM EST Oxygen Saturation 97% 09/28/2024 10: 06 AM EST Inhaled Oxygen Concentration - - Weight 73.9 kg (162 lb 14.4 oz) 025 10:06 AM EST Height - - Body Mass Index 31.81 07/14/2024 1:15 PM EDT documented in this encounter Functional Status * Are you deaf or do you have serious difficulty hearing? Answer Date of Assessment Author No 05/30/2022 8:15 PM EDT Graciela Reynolds RN * Are you blind or do you have serious difficulty seeing, even when wearing glasses? Answer Date of Assessment Author No 05/30/2022 8:15 PM EDT Graicela Reynolds RN * Do you have serious [...] Graciela Martins RN documented in this encounter Progress Notes * Aidan Szymanski MD - 09/28/2024 10:14 AM EST Subjective Vanna Acevedo is a 69 year old female that presents for Hand Pain (Right thumb and hand pain, sometimes shoots into the wrist. There is a hard lump at the base of the thumb x 3-4 weeks) History of Present Illness The patient presents with a chief complaint of a hard, painful swelling in the thumb, which has been present since a little before . The swelling has increased over the past week and is described as feeling like the end of a chicken bone. The patient denies any numbness or tingling in the hand and has full range of motion, but reports tenderness upon touch. The patient has been managing the discomfort by avoiding pressure on the thumb and using a bubble wrap-like device to immobilize the hand at night, which seems to provide some relief. In addition to the thumb issue, the patient is on Celexa, Wellbutrin, and Hydroxyzine for mood management, [facility] The patient reports being at her midline mood-saldaña, with a slight increase in anxiety attributed to watching too much news. The patient denies any thoughts of s elf-harm. The patient also has a history of migraines, but reports not having had a migraine in several weeks, despite weather changes. The patient is also being managed for diabetes by a pharmacist in [place]. The patient has a history of atrial fibrillation but denies any recent palpitations. The patient is on a high dose of Vitamin D once a week in preparation for a DEXA scan and uses a SAD light for about two hours in the morning. The patient also has a history of respiratory issues and is on an inhaler. The patient reports occasional shortness of breath, particularly when climbing the fourteen steps to her apartment. Objective BP 146/80 | Pulse 80 | Temp 97.5 F (36.4 C) (Tympanic) | Resp 12 | Wt 162 lb 14.4 oz (73.9 kg) | LMP (LMP Unknown) | SpO2 97% | BMI 31.81 kg/m | BSA 1.77 m Body mass index is 31.81 kg/m. BP Readings from Last 3 Encounters: 09/28/24 146/80 08/15/24 122/64 08/14/24 128/76 Wt Readings from Last 3 Encounters: 09/28/24 162 lb 14.4 oz (73.9 kg) 08/14/24 161 lb 14.4 oz (73.4 kg) 07/14/24 160 lb 6.4 oz (72.8 kg) Physical Exam Constitutional: Appearance: She is obese. Eyes: Extraocular Movements: Extraocular movements intact. Conjunctiva/sclera: Conjunctivae normal. Pupils: Pupils are equal, round, and reactive to light. Cardiovascular: Rate and Rhythm: Normal rate and regular rhythm. Heart sounds: No murmur heard. No friction rub. No gallop. Pulmonary: Breath sounds: Normal breath sounds. No wheezing, rhonchi or rales. Musculoskeletal: Comments: Near the base of the right thumb volar side there is a 3 mm nodule subcutaneously that seems to move with flexion and extension of the thumb. Tender to touch. Skin: Findings: No rash. Neurological: Mental Status: She is alert. Psychiatric: Comments: Mood "midline with some anxiety", normal affect, no SI Assessment and plan: Problem List Items Addressed This Visit Hyperlipidemia with target LDL less than 70 Last LDL above goal, patient is due for labs in 2 months, we will follow up with PCP Migraine Stable and controlled on current regimen, no changes HTN, goal below 130/80 Slightly uncontrolled today but usually is controlled. This may be attributed to pain, recheck nextvisit Moderate persistent asthma without complication Stable on current regimen with some shortness of breath on occasion, no changes to regimen at this time DM type 2 with diabetic peripheral neuropathy (HCC) (Chronic) Uncontrolled and has follow up scheduled with clinical pharmacist for adjustments Bipolar I disorder, most recent episode depressed (HCC) Stable and monitored by [facility], no changes Type 2 diabetes mellitus with hemoglobin A1c goal of less than 7.0% (HCC) (Chronic) Refer to related diagnosis Relevant Medications Ozempic (2 MG/DOSE) 8 MG/3ML Subcutaneous Solution Pen-injector (Semaglutide (2 MG/DOSE)) Age-related osteoporosis without current pathological fracture Currently on calcium and vitamin-D, is scheduled to have DEXA scan in the near future Paroxysmal atrial fibrillation (HCC) Rate controlled, no changes Major depressive disorder, recurrent, in partial remission (HCC) Stable and followed by [facility], no changes Generalized anxiety disorder Stable and followed by [facility], no changes Atherosclerosis of [place] coronary artery without angina pectoris Asymptomatic and being managed medically, follow up with PCP Disorder of iron metabolism, unspecified Last hemoglobin and ferritin are in the normal range, monitor Subcutaneous nodule of right thumb - Primary Experiencing thumb pain and swelling since before Varinder, worsening over the past week, with tenderness on palpation but no numbness, tingling, or catching. Differential diagnosis includes tendon nodule, cyst, or sesamoid bone. An x-ray is ordered to determine the cause, and orthopedics will manage further based on the results. Relevant Orders XR FINGERS 2 OR MORE VIEWS ORTHOPAEDICS REFERRAL OP Follow up Follow-up: Return if symptoms worsen or fail to improve. | Check-out note: XR today Ortho referral Based on the problems addressed, the amount and complexity of data, and the risk of patient management; the medical decision making for this visit is Moderate Total time today including reviewing chart before the visit, pertinent labs, imaging reports, face to face time, and documentation time was 20 minutes. The above was discussed and understanding was expressed. Text in this note was generated using an [employer] documentation service. I discussed the use of a device to record and summarize our discussion today. All persons present during the encounter consented to its use. Aidan Szymanski MD documented in this encounter Nursing Notes * Cara Stevenson NRVirgil - 09/28/2024 10:01 AM EST Chief Complaint Patient presents with Hand Pain Right thumb and hand pain, sometimes shoots into the wrist. There is a hard lump at the base of thethumb x 3-4 weeks documented in this encounter Miscellaneous Notes * Assessment & Plan Note - Aidan Szymanski MD - 09/28/2024 10:35 AM EST Associated Problem(s): Subcutaneous nodule of right thumb Experiencing thumb pain and swelling since before Ira, worsening over the past week, with tenderness on palpation but no numbness, tingling, or catching. Differential diagnosis includes tendon nodule, cyst, or sesamoid bone. An x-ray is ordered to determine the cause, and orthopedics will manage further based on the results. * Assessment & Plan Note - Aidan Szymanski MD - 09/28/2024 10:35 AM EST Associated Problem(s): Disorder of iron metabolism, unspecified Last hemoglobin and ferritin are in the normal range, monitor * Assessment & Plan Note - Aidan Szymanski MD - 09/28/2024 10:34 AM EST Associated Problem(s): Atherosclerosis of [place] coronary artery without angina pectoris Asymptomatic and being managed medically, follow up with PCP * Assessment & Plan Note - Aidan Szymanski MD - 09/28/2024 10:34 AM EST Associated Problem(s): Generalized anxiety disorder Stable and followed by shannon, no changes * Assessment & Plan Note - Aidan Szymanski MD - 09/28/2024 10:34 AM EST Associated Problem(s): Major depressive disorder, recurrent, in partial remission (HCC) Stable and followed by shannon, no changes * Assessment & Plan Note - Aidan Szymanski MD - 09/28/2024 10:34 AM EST Associated Problem(s): Paroxysmal atrial fibrillation (HCC) Rate controlled, no changes * Assessment & Plan Note - Aidan Szymanski MD - 09/28/2024 10:34 AM EST Associated Problem(s): Age-related osteoporosis without current pathological fracture Currently on calcium and vitamin-D, is scheduled to have DEXA scan in the near future * Assessment & Plan Note - Aidan Szymanski MD - 09/28/2024 10:33 AM EST Associated Problem(s): Type 2 diabetes mellitus with hemoglobin A1c goal of less than 7.0% (HCC) Refer to related diagnosis * Assessment & Plan Note - Aidan Szymanski MD - 09/28/2024 10:33 AM EST Associated Problem(s): Bipolar I disorder, most recent episode depressed (HCC) Stable and monitored by [facility], no changes * Assessment & Plan Note - Aidan Szymanski MD - 09/28/2024 10:33 AM EST Associated Problem(s): DM type 2 with diabetic peripheral neuropathy (HCC) Uncontrolled and has follow up scheduled with clinical pharmacist for adjustments * Assessment & Plan Note - Aidan Szymanski MD - 09/28/2024 10:33 AM EST Associated Problem(s): Moderate persistent asthma without complication Stable on current regimen with some shortness of breath on occasion, no changes to regimen at this time * Assessment & Plan Note - Aidan Szymanski MD - 09/28/2024 10:33 AM EST Associated Problem(s): HTN, goal below 130/80 Slightly uncontrolled today but usually is controlled. This may be attributed to pain, recheck nextvisit * Assessment & Plan Note - Aidan Szymanski MD - 09/28/2024 10:32 AM EST Associated Problem(s): Migraine Stable and controlled on current regimen, no changes * Assessment & Plan Note - Aidan Szymanski MD - 09/28/2024 10:32 AM EST Associated Problem(s): Hyperlipidemia with target LDL less than 70 Last LDL above goal, patient is due for labs in 2 months, we will follow up with PCP documented in this encounter Plan of Treatment Upcoming Encounters Date Type Department Care Team (Late st Contact Info) Description 10/09/2024 11:00 AM EST Office Visit Orthopaedics [facility] [address] [place] [phone] Dale Vera MD 132 [facility] [place] [address] 10/20/2024 11:00 AM EST [facility] [place] [facility] [address] [facility]1, [facility] [place] [facility] [address] 11/13/2024 2:30 PM EST Nutrition Services Nutrition, [facility] 132 [facility] [place] [address] Edwina Ware RDN 132 [facility] [place] [address] 11/21/2024 1:30 PM EDT Office Visit Sleep Disorders [facility] 132 [facility] [place] [phone] Victoria Mcintosh CRNP 132 [facility] [place] [address] 12/28/2024 1:00 PM EDT Appointment [facility] [place] [address] 01/04/2025 11:00 AM EDT Office Visit Allergy/Immunology [facility] [place] [address] [facility] [place] [address] Guerita Marin PA-C 200 [facility] [place] [address] 02/09/2025 12:30 PM EDT Nurse Only Ancillary 1st Floor, [place] 21 [facility] [address] [place] [address] [place], [facility] 2 [facility] [address] 03/02/2025 12:20 PM EDT Office Visit [facility] [place], [place] 21 [facility] [place] [phone] Pippa Navarro CRNP 21 [place] [address] 05/07/2025 2:00 PM EDT Appointment Radiology, [address] [place] [address] Pending Results Name Type Priority Associated Diagnoses Date /Time XR FINGERS 2 OR MORE VIEWS Medical Imaging Routine Subcutaneous nodule of right thumb 09/28/2024 10:38 AM EST Scheduled Procedures Name Priority Associated Diagnoses Date/Ti nc ESOPHAGOGASTRODUODENOSCOPY ( EGD), FLEXIBLE, TRANSORAL, DIAGNOSTIC Recall Velez esophagus COLONOSCOPY FLEXIBLE PROXIMAL DIAGNOSTIC Recall Encounter for screening colonoscopy Scheduled Referrals Name Type Priority Associated Diagnoses Order Schedule ORTHOPAEDICS REFERRAL OP Referral Within 10 days (routine) Subcutaneous nodule of right thumb Ordered: 09/28/2024 Health Maintenance Due Date Last Done Comments [...] D LEVEL ONCE IN A LIFETIME-USE SMARTSET# [id number] Completed 08/15/2024, 11/17/2023, 02/19/2023, Additional history exists [...] this encounter Medical Devices Implanted Type Area Back Hoe Machine Operator Device Identifier Shelf Expiration Date Model / Serial / Lot Lens 24.5 [place] - [id number] - [id number] Implanted:Qty: 1 on 09/21/2023 by Ray Gonzalez DO at OR [facility] Lens Left: Eye [employer] 03/28/2026 CNA0T0.245 / [id number] / Suture Steel 6 B&S19 M654g - [id number] Implanted:Qty: 7 on 05/07/2021 by Aba Desir MD at [facility] N/A: Sternum JNJ : [employer] 01/10/2026 [id number] / / PAOLA [place] Lens 24.5 Implanted:Qty: 1 on 08/10/2023 by Ray Gonzalez DO at OR [facility] Right: Eye [employer] 09/15/2025 CNA0T0 / [id number] / documented as of this encounter [...] below 130/80 Unspecified essential hypertension Atherosclerosis of [place] coronary artery without angina pectoris, unspecified whether [place] or transplanted heart Hyperlipidemia with target LDL less than 70 Other and unspecified hyperlipidemia Disorder of iron metabolism, unspecified Age-related osteoporosis without current pathological fracture Senile osteoporosis Migraine without status migrainosus, not intractable, unspecified migraine type Moderate persistent asthma without complication Unspecified asthma documented in this encounter Advance Directives * [...] Advance Directives occurred with: Patient Care Teams Fish Conservationist Relationship Specialty Start Date End Date Pippa Navarro CRNP [address] [place] [id number] PCP - General Nurse Practitioner 02/19/23 documented as of this encounter
--- OUTSIDE RECORDS SUMMARY | 2024-11-14 06:28 | External Medical Summary | Summary of Care ---
Author Name Unknown Organization [facility] Address [address] [place] [address] Phone [phone] Care Team Providers Care Panel Fitter Name Role Phone Pippa Navarro Primary Care Provider Encounter Details Date Type Department Care Team (Late st Contact Info) Description 09/14/2024 Population Health External Data Unspecified Department Allergies Active Allergy Reactions Criticality Noted Date Comments Codeine Medium Other reaction(s): Hallucinations Apixaban Hives 09/23/2022 Empagliflozin Other (Please comment) 05/30/2022 migraines Metformin Abdominal pain,Nausea/vomiting Medium 09/02/2023 Consistent with ER formulation even when taken with meals. Soap 12/26/2016 Ivory soap, hives Sulfa Antibiotics Rash Low 03/10/2017 documented as of this encounter (statuses as of 09/19/2024) Medications Triamcinolone Acetonide (NASACORT AQ) 55 MCG/ACT [...] goal of less than 7.0% ([facility]) USE TO INJECT INSULIN 4 TIMES DAILY 400 Each 3 4 Active Ozempic (2 MG/DOSE) 8 MG/3ML Subcutaneous Solution Pen-injector (Semaglutide (2 MG/DOSE))Indicati ons:Type 2 diabetes mellitus with hemoglobin A1c goal of less than 7.0% ([facility]) Inject 2mg under the skin once weekly [...] Use as directed every 14 days. Using [employer], [phone]. 4 Active FreeStyle Debbie 3 [place] DeviceIndications :DM type 2 with diabetic peripheral neuropathy (HCC) Use as directed. Using [employer],. Debbie 3 reader shipped 03/10/2024 4 Active [...] 4 Active Vitamin D (Ergocalciferol) 1.25 MG (43763 UT) Oral Capsule (Drisdol)Indicati ons:Age-related osteoporosis without [...] as of this encounter (statuses as of 09/19/2024) Active Problems Problem Noted Date Diagnosed Date Encounter for long-term (current) insulin use Major depressive disorder, recurrent, in partial remission 11/22/2023 Generalized anxiety disorder 11/22/2023 Atherosclerosis of [place] co ronary artery without angina pectoris 11/22/2023 [...] as of this encounter (statuses as of 09/19/2024) Resolved Problems Problem Noted Date Diagnosed Date Resolved Date Food insecurity 11/22/2023 08/28/2024 Overview: Per [facility] Protocol Occlusion of left subclavian artery 05/30/2022 06/15/2023 Vertigo 05/30/2022 06/05/2022 Uncomplicated asthma 05/28/2022 022 Hyperlipidemia 05/28/2022 05/28/2022 Atrial fibrillation 11/25/2021 12/03/19 Current use of insulin 11/11/202112/15 Personal history of atrial fibrillation 05/26/2021 12/15/2022 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 The [employer] program provides food-insecure diabetics with healthy food for their entire household (2 meals/ day X 5 days/week). The program also provides education on food preparation, healthy living, and diabetes self management. The research measures the effects of the program on patient health and wellbeing. Subject will begin the FFF program November 2020. Contact Information: Mainframe Developer: Dr. Gilberto Nolan ([phone]) CRC: Chioma Dailey ([phone]) RA: Kimberlee Angulo ([phone]) Diagnosis changed due to Research Module. Go [...] as of this encounter (statuses as of 09/19/2024) Immunizations Name Administration Dates Next Due COVID-19 mRNA, LNP-s, No Pre serve, 2-Dose Series ([employer]) 02/01/2021,01/11/2021 COVID-19, LNP-s, No Preserve , Toan-sucrose, Ages 12+ ([employer]) 12/31/2021 COVID-19, MRNA-LNP, PF, 30 M CG/0.3 mL, 12 YRS AND ABOVE, IM ([facility]) 08/15/2024,07/29/2023 Covid-19, Mrna, Lnp-s, Pf, B ivalent, 30 Mcg, IM, 12 yrs and above ([employer]) 05/28/2022 Pneumococcal Conjugate Vacci ne, 20-valent ([id number]) 01/15/2023 Pneumococcal Polysaccharide PPV23 (Pneumovax) 01/09/2017 Seasonal [...] Author Yes 05/30/2022 8:15 PM EDT Graciela Reyonlds RN * Because of a physical, mental, [...] 10/20/2024 11:00 AM EST Office Visit Pharmacy, [place] [address] [address] [address] Pharmacist1, [facility] [place] [address] [address] 11/13/2024 2:30 PM EST Nutrition Services Nutrition, [facility] [address] [address] Edwina Ware RDN [address] [address] 11/21/2024 1:30 PM EDT Office Visit Sleep Disorders Ctr Chela Kaur [place] [address] [phone] Victoria Mcintosh CRNP [address] [address] 12/28/2024 1:00 PM EDT Appointment Cardiac Studies, [address] [address] 01/04/2025 11:00 AM EDT Office Visit Allergy/Immunology Mitchel Mcdonough [place] [facility] [place] [address] Guerita Marin PA-C [facility] [place] [address] 02/09/2025 12:30 PM EDT Nurse Only Ancillary 1st Floor, [place] [facility] [phone] [facility] 2 [facility] [address] 03/02/2025 12:20 PM EDT Office Visit [facility] [phone] Pippa Navarro CR[facility] [address] 05/07/2025 2:00 PM EDT Appointment Radiology, [facility] [address] [address] [phone] Scheduled Procedures Name Priority Associated Diagnoses Date/Ti [...] D LEVEL ONCE IN A LIFETIME-USE SMARTSET# [id number] Completed 08/15/2024, 11/17/2023, 02/19/2023, Additional history exists [...] this encounter Medical Devices Implanted Type Area Tool Profiling Machine Set Up Operator Device Identifier Shelf Expiration Date Model / Serial / Lot Lens 24.5 [place] - [id number] - [id number] Implanted:Qty: 1 on 09/21/2023 by Ray Gonzalez DO at OR [facility] Lens Left: Eye [employer] 03/28/2026 CNA0T0.245 / [id number] / Suture Steel 6 B&S19 M654g - [id number] Implanted:Qty: 7 on 05/07/2021 by Aba Desir MD at [place] [facility] N/A: Sternum JNJ : [employer] 01/10/2026 [id number] / / [id number] [place] Lens 24.5 Implanted:Qty: 1 on 08/10/2023 by Ray Gonzalez DO at OR [facility] Right: Eye [employer] 09/15/2025 CNA0T0 / [id number] / documented as of this encounter [...] Advance Directives occurred with: Patient Care Teams Panel Fitter Relationship Specialty Start Date End Date Pippa Navarro CRNP [address] [address] PCP - General Nurse Practitioner 02/19/23 documented as of this encounter
--- OUTSIDE RECORDS SUMMARY | 2024-11-14 06:28 | External Medical Summary | Summary of Care ---
Author Name Unknown Organization [facility] Address [address] [place] [address] Phone [phone] Care Team Providers Care Manager Specialty Name Role Phone Pippa Navarro Primary Care Provider Reason for Visit * Reason Onset Date Comments Diabetes 09/18/2024 Encounter Details Date Type Department Care Team ([facility] st Contact Info) Description 09/18/2024 3:00 PM EST Scheduled Telephone Chela Walker [address] [place] [address] Edwina Ware RDN [address] [facility] [place] [address] Allergies Active Allergy Reactions Criticality Noted Date Comments Codeine Medium Other reaction(s): Hallucinations Apixaban Hives 09/23/2022 Empagliflozin Other (Please comment) 05/30/2022 migraines Metformin Abdominal pain,Nausea/vomiting Medium 09/02/2023 Consistent with ER formulation even when taken with meals. Soap 12/26/2016 Ivory soap, hives Sulfa Antibiotics Rash Low 03/10/2017 documented as of this encounter (statuses as of 09/18/2024) Medications Triamcinolone Acetonide (NASACORT AQ) 55 MCG/ACT [...] as needed for Dry Mouth. 3 Active GemvaraTouch Ultra 2 w/Device Kit Check glucose up [...] Use as directed every 14 days. Using [employer], [phone]. 4 Active FreeStyle Debbie 3 [place] DeviceIndications :DM type 2 with diabetic peripheral neuropathy (HCC) Use as directed. Using [employer],. Debbie 3 reader shipped 03/10/2024 4 Active Ubrelvy 100 MG Oral Tablet (Ubrogepant)Indic ations:Migraine without status migrainosus, not intractable, unspecified migraine type Take 100 mg by mouth as needed for Migraine. Take 1 tablets at onset of migraine and may repeat in 2 hours if needed. Do not exceed 2 tablets in 24 hours. 10 Tablet 1 4 Active IndexTank Precision Marko Test In Vitro StripIndications: Type 2 diabetes mellitus with hemoglobin A1c goal of less than 7.0% ([facility]) Use up to 3 times daily to confirm sensor readings 300 Strip 3 4 Active NovoLOG FlexPen 100 UNIT/ML Subcutaneous Solution Pen-injector (insulin aspart)Indication s:Type 2 diabetes, HbA1c goal < 7% ([facility]) Inject 15 units with breakfast, 16 units with lunch, 11 units with supper + CF 1:40 over 140 45 mL 3 4 Active Vitamin D (Ergocalciferol) 1.25 MG (23984 UT) Oral Capsule (Drisdol)Indicati ons:Age-related osteoporosis without current pathological fracture,Vitamin D deficiency Take 1 Capsule by mouth once a week. 15 Capsule 4 11/20/19 25 Active Tresiba FlexTouch 100 UNIT/ML Subcutaneous Solution Pen-injector (Insulin Degludec)Indicati ons:DM type 2 with diabetic peripheral neuropathy (HCC),Type 2 diabetes mellitus with hemoglobin A1c goal of less than 7.0% ([facility]),Insulin long-term use (HCC) Inject 26 Units under the skin in the morning. 30 mL 3 4 Active LancetsIndication s:DM type 2 with diabetic peripheral neuropathy (HCC),Type 2 diabetes mellitus with hemoglobin A1c goal of less than 7.0% (HCC),Insulin long-term use (HCC) Use as directed. Lancets to fit Relion brand lancet device. 100 Each 11 4 Active documented as of this encounter (statuses as of 09/18/2024) Active Problems Problem Noted Date Diagnosed Date Encounter for long-term (current) insulin use Major depressive disorder, recurrent, in partial remission 11/22/2023 Generalized anxiety disorder 11/22/2023 Atherosclerosis of [place] co ronary artery without angina pectoris 11/22/2023 [...] as of this encounter (statuses as of 09/18/2024) Resolved Problems Problem Noted Date Diagnosed Date Resolved Date Food insecurity 11/22/2023 08/28/2024 Overview: Per [facility] Protocol Occlusion of left subclavian artery 05/30/2022 06/15/2023 Vertigo 05/30/2022 06/05/2022 Uncomplicated asthma 05/28/2022 022 Hyperlipidemia 05/28/2022 05/28/2022 Atrial fibrillation 11/25/2021 12/03/19 Current use of insulin 11/11/202112/15 Personal history of atrial fibrillation 05/26/2021 12/15/2022 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 The [employer] program provides food-insecure diabetics with healthy food for their entire household (2 meals/ day X 5 days/week). The program also provides education on food preparation, healthy living, and diabetes self management. The research measures the effects of the program on patient health and wellbeing. Subject will begin the FFF program November 2020. Contact Information: [employer]im [employer] Crown Laminating Operator: Dr. Gilberto Nolan ([phone]) CRC: Chioma Dailey ([phone]) RA: Kimberlee Angulo ([phone]) Diagnosis changed due to Research Module. Go [...] as of this encounter (statuses as of 09/18/2024) Immunizations Name Administration Dates Next Due COVID-19 mRNA, LNP-s, No Pre serve, 2-Dose Series ([employer]) 02/01/2021,01/11/2021 COVID-19, LNP-s, No Preserve , Toan-sucrose, Ages 12+ ([employer]) 12/31/2021 COVID-19, MRNA-LNP, PF, 30 M CG/0.3 mL, 12 YRS AND ABOVE, IM ([employer]) 08/15/2024,07/29/2023 Covid-19, Mrna, Lnp-s, Pf, B ivalent, 30 Mcg, IM, 12 yrs and above ([employer]) 05/28/2022 Pneumococcal Conjugate Vacci ne, 20-valent ([email or web address]) 01/15/2023 Pneumococcal Polysaccharide PPV23 (Pneumovax) 01/09/2017 Seasonal [...] encounter Miscellaneous Notes * Telephone Encounter - Edwina Ware RDN - 09/18/2024 10:16 AM EST Attempted to contact pt to follow-up after initial diabetes visit from July 14. Left message on pt's voicemail encouraging her to contact me if any questions or concerns arise. Edwina Ware RDN, Clinical Dietitian II, [facility] Clinical Nutrition Services [facility] [address] [address] Available via Dpivision Portal documented in this encounter Plan of Treatment Upcoming Encounters Date Type Department Care Team (Late st Contact Info) Description 10/20/2024 11:00 AM EST Office Visit Pharmacy, [address] [place] [address] Pharmacist1, [facility] [place] [facility] [phone] 11/13/2024 2:30 PM EST Nutrition Services Nutrition, [facility] 132 [facility] [place] [address] Edwina Waer RDN 132 [facility] [place] [address] 11/21/2024 1:30 PM EDT Office Visit Sleep Disorders Ctr [facility] 132 [facility] [place] [phone] Victoria Mcintosh CRNP 132 [facility] [place] [address] 12/28/2024 1:00 PM EDT Appointment Cardiac Studies, [facility] [address] [place] [address] 01/04/2025 11:00 AM EDT Office Visit Allergy/Immunology Mitchel Mcdonough [place] [address] [place] [address] Guerita Marin PA-C 200 [facility] [place] [address] 02/09/2025 12:30 PM EDT Nurse Only Ancillary 1st Floor, [place] 21 [facility] [place] [address] [place] [address] [address] [address] 03/02/2025 12:20 PM EDT Office Visit [facility] [place] [address] [phone] Pippa Navarro CRNP [address] [address] 05/07/2025 2:00 PM EDT Appointment Radiology, [facility] [address] [place] [address] Scheduled Procedures Name Priority Associated Diagnoses Date/Ti [...] D LEVEL ONCE IN A LIFETIME-USE SMARTSET# [id number] Completed 08/15/2024, 11/17/2023, 02/19/2023, Additional history exists [...] this encounter Medical Devices Implanted Type Area Procurement Agent Device Identifier Shelf Expiration Date Model / Serial / Lot Lens 24.5 [facility] - [id number] - [id number] Implanted:Qty: 1 on 09/21/2023 by Ray Gonzalez DO at OR [facility] Lens Left: Eye [employer] 03/28/2026 CNA0T0.245 / [id number] / Suture Steel 6 B&S19 M654g - [id number] Implanted:Qty: 7 on 05/07/2021 by Aba Desir MD at OR [facility] N/A: Sternum JNAllie : [employer] 01/10/2026 M654G / / [id number] [place] Lens 24.5 Implanted:Qty: 1 on 08/10/2023 by Ray Gonzalez DO at OR [facility] Right: Eye [employer] 09/15/2025 CNA0T0 / [id number] / documented as of this encounter [...] Directives occurred with: Patient Care Teams Manager Specialty Relationship Specialty Start Date End Date Pippa Navarro CRNP [address] [address] PCP - General Nurse Practitioner 02/19/23 documented as of this encounter
--- OUTSIDE RECORDS SUMMARY | 2024-11-14 06:28 | External Medical Summary | Summary of Care ---
Author Name Unknown Organization [facility] Address [address] [place] [address] Phone [phone] Care Team Providers Care Aviation Maintenance Instructor Name Role Phone Pippa Navarro Primary Care Provider Reason for Visit * Reason Comments Dosage Adjustment In Person (Anticoag Cl inic) Diabetes Follow-Up Encounter Details Date Type Department Care Team ([facility] Contact Info) Description 09/01/2024 11:00 AM EST Office Visit Pharmacy, [address] [address] Pharmacist1, [facility] [address] [address] Type 2 diabetes mellitus with hemoglobin A1c goal of less than 7.0% ([facility])* Allergies Active Allergy Reactions Criticality Noted Date Comments Codeine Medium Other reaction(s): Hallucinations Apixaban Hives 09/23/2022 Empagliflozin Other (Please comment) 05/30/2022 migraines Metformin Abdominal pain,Nausea/vomiting Medium 09/02/2023 Consistent with ER formulation even when taken with meals. Soap 12/26/2016 Ivory soap, hives Sulfa Antibiotics Rash Low 03/10/2017 documented as of this encounter (statuses as of 09/01/2024) Medications Triamcinolone Acetonide (NASACORT AQ) 55 MCG/ACT [...] Use as directed every 14 days. Using Celaton, [phone]. 4 Active FreeStyle Debbie 3 [place] DeviceIndication s:DM type 2 with diabetic peripheral neuropathy (HCC) Use as directed. Using Celaton,. Debbie 3 reader shipped 03/10/2024 4 Active Ubrelvy 100 MG Oral Tablet (Ubrogepant)Katja cations:Migraine without status migrainosus, not intractable, unspecified migraine type Take 100 mg by mouth as needed for Migraine. Take 1 tablets at onset of migraine and may repeat in 2 hours if needed. Do not exceed 2 tablets in 24 hours. 10 Tablet 1 4 Active Listen UpStyle Precision Marko Test In Vitro StripIndications :Type 2 diabetes mellitus with hemoglobin A1c goal of less than 7.0% ([facility]) Use up to 3 times daily to confirm sensor readings 300 Strip 3 4 Active NovoLOG FlexPen 100 UNIT/ML Subcutaneous Solution Pen-injector (insulin aspart)Indicatio ns:Type 2 diabetes, HbA1c goal < 7% ([facility]) Inject 15 units with breakfast, 16 units with lunch, 11 units with supper + CF 1:40 over 140 45 mL 3 4 Active Vitamin D (Ergocalciferol) 1.25 MG (38446 UT) Oral Capsule (Drisdol)Indicat ions:Age-related osteoporosis without [...] lancet device. 100 Each 11 4 Active Insulin Glargine Solostar 100 UNIT/ML Subcutaneous Solution [...] as of this encounter (statuses as of 09/01/2024) Active Problems Problem Noted Date Diagnosed Date Encounter for long-term (current) insulin use Major depressive disorder, recurrent, in partial remission 11/22/2023 Generalized anxiety disorder 11/22/2023 Atherosclerosis of [place] ronary artery without angina pectoris 11/22/2023 [...] as of this encounter (statuses as of 09/01/2024) Resolved Problems Problem Noted Date Diagnosed Date [...] program 05/28/2020 12/02/2021 Overview (12/30/2020): [employer]: A Randomized Controlled Trial (Project # [id number]). The [employer] program provides food-insecure diabetics with healthy food for their entire household (2 meals/ day X 5 days/week). The program also provides education on food preparation, healthy living, and diabetes self management. The research measures the effects of the program on patient health and wellbeing. Subject will begin the FFF program November 2020. Contact Information: Loading Dock Hand: Dr. Gilberto Nolan ([phone]) CRC: Chioma Dailey ([phone]) RA: Kimberlee Angulo ([phone]) Diagnosis changed due to Research Module. Go [...] as of this encounter (statuses as of 09/01/2024) Immunizations Name Administration Dates Next Due COVID-19 mRNA, LNP-s, No Pre serve, 2-Dose Series ([employer]) 02/01/2021,01/11/2021 COVID-19, LNP-s, No Preserve , Toan-sucrose, Ages 12+ (Pfizer) 12/31/2021 COVID-19, MRNA-LNP, PF, 30 M CG/0.3 mL, 12 YRS AND ABOVE, IM ([facility]) 08/15/2024,07/29/2023 Covid-19, Mrna, Lnp-s, Pf, B ivalent, 30 Mcg, IM, 12 yrs and above ([employer]) 05/28/2022 Pneumococcal Conjugate Vacci ne, 20-valent ([id number]) 01/15/2023 Pneumococcal Polysaccharide PPV23 (Pneumovax) 01/09/2017 Seasonal [...] No 08/14/2024 Does the household have a [facility] health care facility[facility] source of income? (Household - for ages [...] of Assessment Author No 05/30/2022 8:15 PM EDGraciela Reid RN documented as of this encounter Mental Status * Because of a physical, mental, or emotional condition, do you have serious difficulty concentrating, remembering, or making decisions? (5 years old or older) Answer Entry Date Author No 05/30/2022 8:15 PM Graciela Martins RN documented in this encounter Progress Notes * Adina Scott, [facility] - 09/01/2024 11:01 AM EST Images from the original note were not included. Medication Therapy Disease Management [facility] - Diabetes Management Progress Note Vanna Acevedo, identified by name and date of , is a 69 year old female being seen for diabetes management/education. Patient presents for return diabetic visit. DIABETES: Current diabetic medications: Ozempic: inject 2mg weekly on Tresiba: inject 26 units daily in the morning Novolog: inject 15 units with breakfast, 16 units with lunch, 11 units with supper + CF 1:40 over 140 with meals - increased by caseworker protective services to units GFR 73 on 11/17/23 Medication Injection Site: Abdomen Lifestyle: Diet: unchanged Glucose Review/SMBG: Readings obtained from patient device Hypoglycemia: Does your blood sugar go below 70 mg/dL? No Hyperglycemia symptoms present: none Recent Labs Units 08/09/24 0704 04/29/24 0950 11/17/23 1208 HEMOGLOBIN A1C - [facility] % 9.3* 8.0* 7.4* Recent Labs Units 08/09/24 0704 11/17/23 1208 02/19/23 1018 ESTIMATED GLOMERULAR FILTRATION RATE - [facility] mL/min 81 73 77 CREATININE - [facility] mg/dL 0.8 0.9 0.8 HYPERTENSION: Patient on ACEi/ARB: no, UAC < 9 on 11/19/23 BP Readings from Last 3 Encounters: 08/15/24 122/64 08/14/24 128/76 07/06/24 104/70 Blood pressure at goal: yes HYPERLIPIDEMIA: Recent Labs Units 11/17/23 1208 06/15/23 1340 12/15/22 1657 LDL CHOLESTEROL (CALCULATED) - [facility] mg/dL -- 115 -- LDL CHOLESTEROL (DIRECT MEASURE) - [facility] mg/dL 103 -- 55 Does patient have clinical ASCVD? Yes, is patient LDL less than 55 mg/dL? No: taking atorvastatin 80mg and zetia 10mg HEALTH MAINTENANCE REVIEW: Health Maintenance Due Topic Date Due Albumin/Creatinine Ratio 11/18/2024 ASSESSMENT & PLAN: ICD-10-CM 1. Type 2 diabetes mellitus with hemoglobin A1c goal of less than 7.0% (HCC) E11.9 BG Readings - Blood sugars uncontrolled. Debbie data shows overall elevations in BG throughout the day/overnight. Looking at daily report, BG is rising with each meal, and when elevated, CF is not bringing BG back to goal. No hypoglycemia reported. Medications - Reviewed current regimen, patient is adherent to regimen. Patient was in seeing CM during FFF food fruit or nut picker on 08/29. CM instructed patient to increase Novolog by 1 unit with breakfast and lunch, and changed Lantus to Tresiba. Patient is finishing the remaining Lantus she has, then will change to Tresiba. Updating Novolog chart to increase all 3 meal doses of Novolog by 1 unit and strengthening correction. Diet, Exercise, Lifestyle - No significant lifestyle changes since last visit. Patient is agreeable to continue Libre3 use. Patient aware to contact clinic if any hypoglycemia before next visit. MEDICATION CHANGES: yes, see below; preferred pharmacy: [facility] Medications: Ozempic: inject 2mg weekly on Lantus: inject 26 units daily in the morning INC/STR: Novolog: inject 16 units with breakfast, 17 units with lunch, 12 units with supper + CF 1:35 over 145 with meals GFR 73 on 11/17/23 HEALTH MAINTENANCE INTERVENTIONS: Labs: Up to Date Immunizations: Up to Date Foot Exam: Up to Date Eye Exam: Up to Date Annual Wellness Visit: Up to Date FOLLOW UP: Return to clinic in 7 weeks 10/20/2024 I spent a total of 20-29 minutes (exact time 29 mins) on the date of service in preparation, delivery, and documentation of the care provided to Vanna Acevedo excluding any time spent in the performance of separately billed services. Adina Scott [facility] Clinical Pharmacist - Child Care Nurse Medication Therapy Management Clinic 09/01/2024, 11:01 AM Novolog Doses 09/01/2024 Blood Sugar levels Breakfast Lunch Dinner NO FOOD 70 to 74 14 15 10 0 75 to 109 15 16 11 0 110 to 144 16 17 12 0 145 to 179 16 17 12 0 180 to 214 17 18 13 1 215 to 249 18 19 14 2 250 to 284 19 20 15 3 285 to 319 20 21 16 4 320 to 354 21 22 17 5 355 to 389 22 23 18 6 390 to 424 23 24 19 7 425 to 459 24 25 20 8 460 to 494 25 26 21 9 495 to 529 26 27 22 10 530 to 564 27 28 23 11 565 to 599 28 29 24 12 documented in this encounter Plan of Treatment Upcoming Encounters Date Type Department Care Team (Late st Contact Info) Description 10/20/2024 11:00 AM EST Office Visit Pharmacy, [address] [place] [address] Pharmacist1, [facility] [place] [address] [place] [address] 11/13/2024 2:30 PM EST Nutrition Services Nutrition, [facility] [address] [facility] [place] [address] Edwina Ware RDN [address] [facility] [place] [address] 11/21/2024 1:30 PM EDT Office Visit Sleep Disorders Ctr [employer] [address] [place] [phone] Victoria Mcintosh CRNP 132 [facility] [place] [address] 12/28/2024 1:00 PM EDT Appointment Cardiac Studies, [facility] [address] [place] [address] 01/04/2025 11:00 AM EDT Office Visit Allergy/Immunology [facility] [address] [place] [address] Guerita Marin PA-C [address] [place] [address] 02/09/2025 12:30 PM EDT Nurse Only Ancillary 1st Floor, [place] [address] [facility] [address] [phone] [place], [facility] Wellness 2 [address] [place] [address] 03/02/2025 12:20 PM EDT Office Visit Family Practice, [place] [address] [place] [phone] Pippa Navarro CRNP [address] [facility] [place] [address] 05/07/2025 2:00 PM EDT Appointment Radiology, [facility] [address] [facility] [place] [phone] Scheduled Procedures Name Priority Associated Diagnoses Date/Ti [...] 06/23/2024, Additional history exists GFR 08/09/2025 08/09/2024, 03/02/2024, 02/19/2023, Additional history exists Diabetic Foot Exam 08/14/2025 08/14/2024, 0 01/06/2024, 10/19/2022, Additional history exists Velez's Esophagus Surveilance 12/22/2025 12/22/2022, 12/22/2022, 08/04/2022, Additional history exists DTap/Tdap Vaccines (2 - Td or Tdap) 07/16/2027 07/16/2017 Colonoscopy 08/13/2027 08/13/2017, 08/13/2017 Colorectal Cancer Screening 08/13/2027 Zoster Vaccines Completed 04/07/2022, 01/11, 01/07/2017 Pneumococcal Vaccine: 65+ Years Completed 01/15/2023, 01/09/2017 Pap Smear Discontinued 05/05/2023, 08/13, 04/07/2017, Additional history exists Influenza Vaccine (FLU shot) Completed 05/23/2024, 05/18/2023, 05/28/2022, Additional history exists COVID-19 Vaccine Completed 08/15/2024, , 05/28/2022, Additional history exists VITAMIN D LEVEL ONCE IN A LIFETIME-USE SMARTSET# [id number] Completed 08/15/2024, 11/17/2023, 02/19/2023, Additional history exists [...] this encounter Medical Devices Implanted Type Area System Administrator Device Identifier Shelf Expiration Date Model / Serial / Lot Lens 24.5 [place] - [id number] - [id number] Implanted:Qty: 1 on 09/21/2023 by Ray Gonzalez DO at OR [facility] Lens Left: Eye [employer] 03/28/2026 CNA0T0.245 / [id number] / Suture Steel 6 B&S19 M654g - [id number] Implanted:Qty: 7 on 05/07/2021 by Aba Desir MD at OR [facility] N/A: Sternum JNJ : [employer] 01/10/2026 M654G / / PAOLA Clareon Lens 24.5 Implanted:Qty: 1 on 08/10/2023 by Ray Gonzalez DO at OR [facility] Right: Eye [employer] 09/15/2025 CNA0T0 / [id number] / documented as of this encounter Visit Diagnoses Diagnosis Type 2 diabetes mellitus with hemoglobin A1c goal of less than 7.0% ([facility])- Primary documented in this encounter Advance Directives * [...] Advance Directives occurred with: Patient Care Teams Aviation Maintenance Instructor Relationship Specialty Start Date End Date Pippa Navarro CRNP [address] [place] [address] PCP - General Nurse Practitioner 02/19/23 documented as of this encounter
--- OUTSIDE RECORDS SUMMARY | 2024-11-14 06:28 | External Medical Summary | Summary of Care ---
Author Name Unknown Organization [facility] Address [address] [place] [address] Phone [phone] Care Team Providers Care Veterinary Technician Name Role Phone Pippa Navarro Primary Care Provider Encounter Details Date Type Department Care Team ([facility] st Contact Info) Description 10/02/2024 Population Health External Data Unspecified Department Allergies Active Allergy Reactions Criticality Noted Date Comments Codeine Medium Other reaction(s): Hallucinations Apixaban Hives 09/23/2022 Empagliflozin Other (Please comment) 05/30/2022 migraines Metformin Abdominal pain,Nausea/vomiting Medium 09/02/2023 Consistent with ER formulation even when taken with meals. Soap 12/26/2016 Ivory soap, hives Sulfa Antibiotics Rash Low 03/10/2017 documented as of this encounter (statuses as of 10/02/2024) Medications Triamcinolone Acetonide (NASACORT AQ) 55 MCG/ACT [...] Use as directed every 14 days. Using Jamplify, [phone]. 4 Active FreeStyle Debbie 3 [place] DeviceIndications :DM type 2 with diabetic peripheral neuropathy (HCC) Use as directed. Using Jamplify,[phone]. Debbie 3 reader shipped 03/10/2024 4 Active [...] 4 Active Vitamin D (Ergocalciferol) 1.25 MG (09471 UT) Oral Capsule (Drisdol)Indicati ons:Age-related osteoporosis without [...] both eyes at bedtime. 3.5 g 6 Active documented as of this encounter (statuses as of 10/02/2024) Active Problems Problem Noted Date Diagnosed Date Disorder of iron metabolism, unspecified 025 Assessment & Plan (09/28/2024 10:35 AM EST): Last hemoglobin and ferritin are in the normal range, monitor Subcutaneous nodule of right thumb 09/28/2024 Assessment & Plan (09/28/2024 10:35 AM EST): Experiencing thumb pain and swelling since before [place], worsening over the past week, with tenderness [...] followed by shannon, no changes Atherosclerosis of [place] co ronary artery without angina pectoris 11/22/2023 [...] as of this encounter (statuses as of 10/02/2024) Resolved Problems Problem Noted Date Diagnosed Date Resolved Date Food insecurity 11/22/2023 08/28/2024 Overview: Per [facility] Protocol Occlusion of left subclavian artery 05/30/2022 06/15/2023 Vertigo 05/30/2022 06/05/2022 Uncomplicated asthma 05/28/2022 022 Hyperlipidemia 05/28/2022 05/28/2022 Atrial fibrillation 11/25/2021 12/03/19 Current use of insulin 11/11/202112/15 Personal history of atrial fibrillation 05/26/2021 12/15/2022 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 The [employer] program provides food-insecure diabetics with healthy food for their entire household (2 meals/ day X 5 days/week). The program also provides education on food preparation, healthy living, and diabetes self management. The research measures the effects of the program on patient health and wellbeing. Subject will begin the FFF program November 2020. Contact Information: Assembler: Dr. Gilberto Nolan ([phone]) CRC: Chioma Dailey ([phone]) RA: Kimberlee Angulo ([phone]) Diagnosis changed due to Research Module. Go [...] as of this encounter (statuses as of 10/02/2024) Immunizations Name Administration Dates Next Due COVID-19 mRNA, LNP-s, No Pre serve, 2-Dose Series ([employer]) 02/01/2021,01/11/2021 COVID-19, LNP-s, No Preserve , Toan-sucrose, Ages 12+ (Pfizer) 12/31/2021 COVID-19, MRNA-LNP, PF, 30 M CG/0.3 mL, 12 YRS AND ABOVE, IM ([facility] [facility]) 08/15/2024,07/29/2023 Covid-19, Mrna, Lnp-s, Pf, B ivalent, 30 Mcg, IM, 12 yrs and above (Pfizer) 05/28/2022 Pneumococcal Conjugate Vacci ne, 20-valent ([id number]) 01/15/2023 Pneumococcal Polysaccharide PPV23 (Pneumovax) 01/09/2017 Seasonal [...] 10/09/2024 11:00 AM EST Office Visit Orthopaedics [facility] [address] [place] [phone] Dale Vera MD [address] [place] [address] 10/20/2024 11:00 AM EST Office Visit Pharmacy, [place] [address] [facility] [place] [address] Pharmacist1, [facility] [place] [address] [facility] [place] [phone] 11/13/2024 2:30 PM EST Nutrition Services Nutrition, [facility] [address] [facility] [place] [address] Edwina Ware RDN 132 [facility] [place] [address] 11/21/2024 1:30 PM EDT Office Visit Sleep Disorders Ctr [facility] [address] [facility] [place] [phone] Victoria Mcintosh CRNP 132 [facility] [place] [address] 12/28/2024 1:00 PM EDT Appointment Cardiac Studies, [address] [place] [address] 01/04/2025 11:00 AM EDT Office Visit Allergy/Immunology [facility] [place] [address] [place] [address] Guerita Marin PA-C [address] [place] [address] 02/09/2025 12:30 PM EDT Nurse Only Ancillary 1st Floor, [place] [address] [facility] [place] [address] [place] [address] [address] [place] [address] 03/02/2025 12:20 PM EDT [facility] [address] [place] [phone] Pippa Navarro CRNP [address] [place] [address] 05/07/2025 2:00 PM EDT Appointment Radiology, [facility] [address] [place] [phone] Scheduled Procedures Name Priority Associated Diagnoses Date/Ti [...] D LEVEL ONCE IN A LIFETIME-USE SMARTSET# [id number] Completed 08/15/2024, 11/17/2023, 02/19/2023, Additional history exists [...] this encounter Medical Devices Implanted Type Area Transformer Mechanic Device Identifier Shelf Expiration Date Model / Serial / Lot Lens 24.5 [place] Hospit[employer] - [id number] - [id number] Implanted:Qty: 1 on 09/21/2023 by Ray Gonzalez DO at OR [facility] Lens Left: Eye [employer] 03/28/2026 CNA0T0.245 / [id number] / Suture Steel 6 B&S19 M654g - [id number] Implanted:Qty: 7 on 05/07/2021 by Aba Desir MD at [place] [facility] N/A: Sternum JNJ : [employer] 01/10/2026 M654G / / [id number] Clareon Lens 24.5 Implanted:Qty: 1 on 08/10/2023 by Ray Gonzalez DO at OR [facility] Right: Eye [employer] 09/15/2025 CNA0T0 / [id number] / documented as of this encounter [...] Advance Directives occurred with: Patient Care Teams Veterinary Technician Relationship Specialty Start Date End Date Pippa Navarro CRNP [address] [place] [address] PCP - General Nurse Practitioner 02/19/23 documented as of this encounter
--- OUTSIDE RECORDS SUMMARY | 2024-11-14 06:29 | External Medical Summary | Summary of Care ---
Author Name Unknown Organization [facility] Address [address] [place] [address] Phone [phone] Care Team Providers Care Emulsion Operator Name Role Phone Pippa Navarro Primary Care Provider Reason for Visit * Reason Onset Date Comments Scheduling 08/15/2024 Reclast, on hold until sep Encounter Details Date Type Department Care Team ([facility] st Contact Info) Description 08/15/2024 Telephone Hematology/Oncology, [facility] [address] [place] [address] Hans Tian PA-C [address] [place] [address] Scheduling (Reclast, on hold until sep) Allergies Active Allergy Reactions Criticality Noted Date Comments Codeine Medium Other reaction(s): Hallucinations Apixaban Hives 09/23/2022 Empagliflozin Other (Please comment) 05/30/2022 migraines Metformin Abdominal pain,Nausea/vomiting Medium 09/02/2023 Consistent with ER formulation even when taken with meals. Soap 12/26/2016 Ivory soap, hives Sulfa Antibiotics Rash Low 03/10/2017 documented as of this encounter (statuses as of 08/17/2024) Medications Triamcinolone Acetonide (NASACORT AQ) 55 MCG/ACT AEROIndications:A llergic rhinitis, unspecified seasonality, unspecified trigger Administer 2 Sprays into each nostril daily. 1 Bottle 1 8 Active Multiple Vitamin (MULTI VITAMIN DAILY) TABS Take 1 Dose(s) by mouth in the morning. Active Cholecalciferol 25 MCG (1000 UT) Oral Capsule Take 5 Capsules by mouth in the morning. 9 Active OneTouch UltraSoft Lancets MISCIndications:T ype 2 diabetes mellitus with hemoglobin A1c goal of less than 7.0% ([facility]) Checking blood sugars four time daily Dx: E11.9 150 Each 11 0 Active Refresh 1.4-0.6 % Ophthalmic Solution (polyvinyl [...] Use as directed every 14 days. Using Ifeelgoods, [phone]. 4 Active CondoGalae 3 [place] DeviceIndications :DM type 2 with diabetic peripheral neuropathy (HCC) Use as directed. Using Ifeelgoods,. Debbie 3 reader shipped 03/10/2024 4 Active Ubrelvy 100 MG Oral Tablet (Ubrogepant)Indic ations:Migraine without status migrainosus, not intractable, unspecified migraine type Take 100 mg by mouth as needed for Migraine. Take 1 tablets at onset of migraine and may repeat in 2 hours if needed. Do not exceed 2 tablets in 24 hours. 10 Tablet 1 4 Active Sagoonyle Precision Marko Test In Vitro StripIndications: Type 2 diabetes mellitus with hemoglobin A1c goal of less than 7.0% ([facility]) Use up to 3 times daily to confirm sensor readings 300 Strip 3 4 Active Insulin Glargine Solostar 100 UNIT/ML Subcutaneous Solution Pen-injectorIndic ations:Type 2 diabetes, HbA1c goal < 7% ([facility]) Inject 26 Units under the skin daily. 30 mL 3 4 Active NovoLOG FlexPen 100 UNIT/ML Subcutaneous Solution Pen-injector (insulin aspart)Indication s:Type 2 diabetes, HbA1c goal < 7% ([facility]) Inject 15 units with breakfast, 16 units with lunch, 11 units with supper + CF 1:40 over 140 45 mL 3 4 Active Insulin Glargine Solostar 100 UNIT/ML Subcutaneous Solution Pen-injector (Lantus SoloStar)Indicati ons:Type 2 diabetes, HbA1c goal < 7% ([facility]) Inject 26 Units under the skin daily. Brand Lantus Solostar 30 mL 3 4 Active documented as of this encounter (statuses as of 08/17/2024) Active Problems Problem Noted Date Diagnosed Date Encounter for long-term (current) insulin use Major depressive disorder, recurrent, in partial remission 11/22/2023 Generalized anxiety disorder 11/22/2023 Atherosclerosis of [place] co ronary artery without angina pectoris 11/22/2023 Food insecurity 11/22/2023 Overview: Per [facility] Protocol Velez's esophagus 07/27/2023 Atypical squamous cells of [...] as of this encounter (statuses as of 08/17/2024) Resolved Problems Problem Noted Date Diagnosed Date Resolved Date 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 The [employer] Farm[employer] program provides food-insecure diabetics with healthy food for their entire household (2 meals/ day X 5 days/week). The program also provides education on food preparation, healthy living, and diabetes self management. The research measures the effects of the program on patient health and wellbeing. Subject will begin the FFF program November 2020. Contact Information: Room Attendant: Dr. Gilberto Nolan ([phone]) CRC: Chioma Dailey ([phone]) RA: Kimberlee Angulo ([phone]) Diagnosis changed due to Research Module. Go to Snapshot for study details. Type 2 diabetes mellitus with pressure callus 07/06/20 18 07/02/2020 Bipolar affective disorder, currently active 7 12/26/2021 History of nonadherence to medical treatment 7 05/28/2022 Mixed hyperlipidemia 09/09/2017 017 Vitamin D deficiency 03/10/2017 021 Controlled type 2 diabetes m vishal without complication 12/26/2016 07/02/2020 Asthma 12/26/2016 07/02/2020 Type 2 diabetes mellitus 03/11/2016 Overview (07/26/2023): duplicate Leg cramping 09/09/2017 documented as of this encounter (statuses as of 08/17/2024) Immunizations Name Administration Dates Next Due COVID-19 mRNA, LNP-s, No Pre serve, 2-Dose Series (Textbroker) 02/01/2021,01/11/2021 COVID-19, LNP-s, No Preserve , Toan-sucrose, Ages 12+ (Textbroker) 12/31/2021 COVID-19, MRNA-LNP, PF, 30 M CG/0.3 mL, 12 YRS AND ABOVE, IM ([employer]Comirnat) 08/15/2024,07/29/2023 Covid-19, Mrna, Lnp-s, Pf, B ivalent, 30 Mcg, IM, 12 yrs and above (Textbroker) 05/28/2022 Pneumococcal Conjugate Vacci ne, 20-valent ([id number]) 01/15/2023 Pneumococcal Polysaccharide PPV23 (Pneumovax) 01/09/2017 Seasonal [...] PA-C - 08/16/2024 8:51 AM EST Vit chirag low. Reschedule for 6 weeks. * Telephone Encounter - Dianna Piña LPN - 08/15/2024 3:07 PM EST When auth/labs are back, please schedule Reclast - 2 hours Hans Tian documented in this encounter Plan of Treatment Upcoming Encounters Date Type Department Care Team (Late st Contact Info) Description 09/01/2024 11:00 AM EST Office Visit Pharmacy, [place] [address] [facility] [address] [place] [address] [phone] Pharmacist1, [facility] [place] [address] [place] [address] 11/13/2024 2:30 PM EST Nutrition Services Nutrition, [facility] [address] [facility] [place] [address] Edwina Ware RDN [address] [place] [address] 11/21/2024 1:30 PM EDT Office Visit Sleep Disorders Ctr Chel[facility] [place] [address] [place] [phone] Victoria Mcintosh CRNP [address] [place] [address] 12/28/2024 1:00 PM EDT Appointment Cardiac Studies, [facility] [address] [place] [address] 01/04/2025 11:00 AM EDT Office Visit Allergy/Immunology State [place]yn [place] [address] [place] [address] Guerita Marin PA-C 200 [facility] [place] [address] 02/09/2025 12:30 PM EDT Nurse Only Ancillary 1st Floor, [place] [address] [facility] [address] [place] [address] [place], [facility] Wellness [address] [place] [address] 03/02/2025 12:20 PM EDT Office Visit Family Practice, [place] [address] [facility] [address] [place] [phone] Pippa Navarro CRNP 21 [facility] [place] [address] 05/07/2025 2:00 PM EDT Appointment Radiology, [address] [place] [address] 06/29/2025 2:00 PM EDT Office Visit Ophthalmology, [place] [address] [facility] [address] [place] [address] Ray Gonzalez DO [facility] [phone] Scheduled Procedures Name Priority Associated Diagnoses Date/Ti me ESOPHAGOGASTRODUODENOSCOPY ( EGD), FLEXIBLE, TRANSORAL, DIAGNOSTIC Recall Velez esophagus COLONOSCOPY FLEXIBLE PROXIMAL DIAGNOSTIC Recall Encounter for screening colonoscopy Health Maintenance Due Date Last Done Comments Cologuard 2001 Fecal Occult Blood Test 2001 Sigmoidoscopy 2001 B-12 11/16/2024 11/17/2023, 02/02/2023, 07/09/2021, Additional history exists Albumin/Creatinine Ratio 11/18/2024 [...] D LEVEL ONCE IN A LIFETIME-USE SMARTSET# 89919 Completed 08/15/2024, 11/17/2023, 02/19/2023, Additional history exists [...] this encounter Medical Devices Implanted Type Area Vehicle Delivery Worker Device Identifier Shelf Expiration Date Model / Serial / Lot Lens 24.5 Tianaeon - [id number] - [id number] Implanted:Qty: 1 on 09/21/2023 by Ray Gonzalez DO at OR [facility] Lens Left: Eye [employer] 03/28/2026 CNA0T0.245 / [id number] / Suture Steel 6 B&S19 M654g - [id number] Implanted:Qty: 7 on 05/07/2021 by Aba Desir MD at [place] [facility] [place] N/A: Sternum JNJ : [employer] 01/10/2026 M654G / / [id number] Clareon Lens 24.5 Implanted:Qty: 1 on 08/10/2023 by Ray Gonzalez DO at OR [facility] Right: Eye [employer] 09/15/2025 CNA0T0 / [id number] / documented as of this encounter [...] Advance Directives occurred with: Patient Care Teams Emulsion Operator Relationship Specialty Start Date End Date Pippa Navarro CRNP [address] [place] [address] PCP - General Nurse Practitioner 02/19/23 documented as of this encounter
--- OUTSIDE RECORDS SUMMARY | 2024-11-14 06:29 | External Medical Summary | Summary of Care ---
Author Name Unknown Organization [facility] Address [address] [place] [address] Phone [phone] Care Team Providers Care Manager Managing Name Role Phone Pippa Navarro Primary Care Provider Encounter Details Date Type Department Care Team ([facility] st Contact Info) Description 08/29/2024 Orders Only [facility] [address] [place] [address] Pippa Navarro CRNP [address] [place] [address] Type 2 diabetes mellitus with hemoglobin A1c goal of less than 7.0% ([facility]; DM type 2 with diabetic peripheral neuropathy (HCC); Insulin long-term use ([facility]) Allergies Active Allergy Reactions Criticality Noted Date Comments Codeine Medium Other reaction(s): Hallucinations Apixaban Hives 09/23/2022 Empagliflozin Other (Please comment) 05/30/2022 migraines Metformin Abdominal pain,Nausea/vomiting Medium 09/02/2023 Consistent with ER formulation even when taken with meals. Soap 12/26/2016 Ivory soap, hives Sulfa Antibiotics Rash Low 03/10/2017 documented as of this encounter (statuses as of 08/29/2024) Medications Triamcinolone Acetonide (NASACORT AQ) 55 MCG/ACT [...] Use as directed every 14 days. Using [employer]kin Web [employer], [phone]. 4 Active FreeStyle Debbie 3 [place] DeviceIndication s:DM type 2 with diabetic peripheral neuropathy (HCC) Use as directed. Using [employer] Web Solution,. Debbie 3 reader shipped 03/10/2024 4 Active [...] than 7.0% ([facility]) Use up to 3 times daily to [...] Lantus Solostar 30 mL 3 4 Active Vitamin D (Ergocalciferol) 1.25 MG (46472 UT) Oral Capsule (Drisdol)Indicat ions:Age-related osteoporosis without [...] lancet device. 100 Each 11 4 Active OneTouch UltraSoft Lancets MISCIndications: Type 2 diabetes mellitus with hemoglobin A1c goal of less than 7.0% (HCC) Checking blood sugars four time daily Dx: E11.9 150 Each 11 0 024 Discontin ued(Refil l) documented as of this encounter (statuses as of 08/29/2024) Active Problems Problem Noted Date Diagnosed Date Encounter for long-term (current) insulin use Major depressive disorder, recurrent, in partial remission 11/22/2023 Generalized anxiety disorder 11/22/2023 Atherosclerosis of [place] co ronary artery without angina pectoris 11/22/2023 [...] as of this encounter (statuses as of 08/29/2024) Resolved Problems Problem Noted Date Diagnosed Date [...] program 05/28/2020 12/02/2021 Overview (12/30/2020): [employer]: A Randomized Controlled Trial (Project # [id number]). The [employer] FarmwatAgame program provides food-insecure diabetics with healthy food for their entire household (2 meals/ day X 5 days/week). The program also provides education on food preparation, healthy living, and diabetes self management. The research measures the effects of the program on patient health and wellbeing. Subject will begin the FFF program November 2020. Contact Information: Diplomatic Interpreter/Translator: Dr. Gilberto Nolan ([phone]) CRC: Chioma Dailey ([phone]) RA: Kimberlee Angulo ([phone]) Diagnosis changed due to Research Module. Go [...] as of this encounter (statuses as of 08/29/2024) Immunizations Name Administration Dates Next Due COVID-19 mRNA, LNP-s, No Pre serve, 2-Dose Series (W[employer]elo) 02/01/2021,01/11/2021 COVID-19, LNP-s, No Preserve , Toan-sucrose, Ages 12+ (Wanelo) 12/31/2021 COVID-19, MRNA-LNP, PF, 30 M CG/0.3 mL, 12 YRS AND ABOVE, IM ([facility]) 08/15/2024,07/29/2023 Covid-19, Mrna, Lnp-s, Pf, B ivalent, 30 Mcg, IM, 12 yrs and above (Pfizer) 05/28/2022 Pneumococcal Conjugate Vacci ne, 20-valent ([id number]) 01/15/2023 Pneumococcal Polysaccharide PPV23 (Pneumovax) 01/09/2017 Seasonal [...] No 08/14/2024 Does the household have a [facility] hospit[facility] source of income? (Household - for [...] 09/01/2024 11:00 AM EST [facility] [place] [facility] [address] Pharmac[facility]1, [facility] [place] [facility] [place] [address] 11/13/2024 2:30 PM EST Nutrition Services Nutrition, [facility] 132 [facility] [place] [address] Edwina Ware RDN 132 [facility] [place] [address] 11/21/2024 1:30 PM EDT Office Visit Sleep Disorders Ctr [facility] [place] 132 [facility] [place] [phone] Victoria Mcintosh CRNP 132 [facility] [place] [address] 12/28/2024 1:00 PM EDT Appointment Cardiac Studies, [facility] 400 [facility] [place] [address] 01/04/2025 11:00 AM EDT Office Visit Allergy/Immunology State [facility] [place]div[place] [address] [place] [address] [address] Guerita Marin PA-C [address] [place] [address] [address] 02/09/2025 12:30 PM EDT Nurse Only Ancillary 1st Floor, [place] [facility] [place] [address] [facility] Wellness 2 [address] [place] [address] 03/02/2025 12:20 PM EDT Office Visit Family Practice, [place] 21 [facility] [place] [phone] Pippa Navarro CRNP 21 [facility] [place] [address] 05/07/2025 2:00 PM EDT Appointment Radiology, [facility] [address] [place] [address] 06/29/2025 2:00 PM EDT Office Visit Ophthalmology, [place] 21 [facility] [place] [address] Ray Gonzalez DO 21 [facility] [place] [address] Scheduled Procedures Name Priority Associated Diagnoses Date/Ti [...] D LEVEL ONCE IN A LIFETIME-USE SMARTSET# [id number] Completed 08/15/2024, 11/17/2023, 02/19/2023, Additional history exists [...] this encounter Medical Devices Implanted Type Area Hand Glass Cutter Device Identifier Shelf Expiration Date Model / Serial / Lot Lens 24.5 Clareon - [id number] - [id number] Implanted:Qty: 1 on 09/21/2023 by Ray Gonzalez DO at OR [facility] Lens Left: Eye [employer] 03/28/2026 CNA0T0.245 / [id number] / Suture Steel 6 B&S19 M654g - [id number] Implanted:Qty: 7 on 05/07/2021 by Aba Desir MD [place] [facility] [place]A: Sternum JNJ : [employer] 01/10/2026 M654G / / [id number] Clareon Lens 24.5 Implanted:Qty: 1 on 08/10/2023 by Ray Gonzalez DO at OR [facility] Right: Eye [employer] 09/15/2025 CNA0T0 / [id number] / documented as of this encounter Visit Diagnoses Diagnosis Type 2 diabetes mellitus with hemoglobin A1c goal of less than 7.0% (HCC)- Primary DM type 2 with diabetic peripheral neuropathy (HCC) Type II or unspecified type diabetes mellitus with neurological manifestations, not stated as uncontrolled Insulin long-term use (HCC) Encounter for long-term (current) use of insulin documented in this encounter Advance Directives * [...] Directives occurred with: Patient Care Teams Manager Managing Relationship Specialty Start Date End Date Pippa Navarro CRNP [address] [place] [address] PCP - General Nurse Practitioner 02/19/23 documented as of this encounter
--- OUTSIDE RECORDS SUMMARY | 2024-11-14 06:29 | External Medical Summary | Summary of Care ---
Author Name Unknown Organization [facility] Address [address] [place] [address] Phone [phone] Care Team Providers Care Communication Skills Instructor Name Role Phone Pippa Navarro Primary Care Provider Reason for Visit * Reason Onset Date Comments Scheduling 08/15/2024 Reclast, on hold until sep Encounter Details Date Type Department Care Team ([facility] st Contact Info) Description 08/15/2024 Telephone Hematology/Oncology, [facility] [address] [place] [address] Hans Tian PA-C [address] [place] [address] Scheduling (Reclast, on hold [...] Use as directed every 14 days. Using RNDOMN, [phone]. 4 Active Liquid Enginese 3 [place] DeviceIndications :DM type 2 with diabetic peripheral neuropathy (HCC) Use as directed. Using RNDOMN,. Debbie 3 reader shipped 03/10/2024 4 Active Ubrelvy 100 MG Oral Tablet (Ubrogepant)Indic ations:Migraine without status migrainosus, not intractable, unspecified migraine type Take 100 mg by mouth as needed for Migraine. Take 1 tablets at onset of migraine and may repeat in 2 hours if needed. Do not exceed 2 tablets in 24 hours. 10 Tablet 1 4 Active Locationyle Precision Marko Test In Vitro StripIndications: Type [...] 11/22/2023 Generalized anxiety disorder 11/22/2023 Atherosclerosis of [place] co ronary artery without angina pectoris 11/22/2023 [...] clinical research program 05/28/2020 12/02/2021 Overview (12/30/2020): [employer]: A Randomized Controlled Trial (Project # [id number]). The Fresh Food [employer]well [employer] program provides food-insecure diabetics with healthy food for their entire household (2 meals/ day X 5 days/week). The program also provides education on food preparation, healthy living, and diabetes self management. The research measures the effects of the program on patient health and wellbeing. Subject will begin the FFF program November 2020. Contact Information: Hand Fabric Cutter: Dr. Gilberto Nolan ([phone]) CRC: Chioma Dailey ([phone]) RA: Kimberlee Angulo ([phone]) Diagnosis changed due to Research Module. Go [...] mRNA, LNP-s, No Pre serve, 2-Dose Series ([employer]) 02/01/2021,01/11/2021 COVID-19, LNP-s, No Preserve , Toan-sucrose, Ages 12+ ([employer]) 12/31/2021 COVID-19, MRNA-LNP, PF, 30 M CG/0.3 mL, 12 YRS AND ABOVE, IM ([employer]) 08/15/2024,07/29/2023 Covid-19, Mrna, Lnp-s, Pf, B ivalent, 30 Mcg, IM, 12 yrs and above ([employer]) 05/28/2022 Pneumococcal Conjugate Vacci ne, 20-valent ([id number]) 01/15/2023 Pneumococcal Polysaccharide PPV23 (Pneumovax) 01/09/2017 Seasonal [...] 09/01/2024 11:00 AM EST Office Visit Pharmacy, [place] 21 [facility] [address] [place] [address] [phone] Pharmacist1, [facility] [place] [address] [place] [address] 11/13/2024 2:30 PM EST Nutrition Services Nutrition, [facility] 132 [facility] [place] [address] Edwina Ware RDN [address] [place] [address] 11/21/2024 1:30 PM EDT Office Visit Sleep Disorders Ctr Chela Kaur [place] [address] [place] [phone] Victoria Mcintosh CRNP [address] [place] [address] 12/28/2024 1:00 PM EDT Appointment Cardiac Studies, [facility] [address] [place] [address] 01/04/2025 11:00 AM EDT Office Visit Allergy/Immunology State [place] [address] [place] [address] Guerita Marin PA-C 200 [facility] [place] [address] 02/09/2025 12:30 PM EDT Nurse Only Ancillary 1st Floor, [place] 21 [place] [address] [place], [facility] Wellness 2 [address] [place] [address] 03/02/2025 12:20 PM EDT Office Visit Family Practice, [place] [facility] [phone] Pippa Navarro CRNP 21 [facility] [place] [address] 05/07/2025 2:00 PM EDT Appointment Radiology, [address] [place] [address] 06/29/2025 2:00 PM EDT Office Visit Ophthalmology, [place] 21 [place] [address] Ray Gonzalez DO [facility] [phone] Scheduled Procedures Name Priority Associated Diagnoses Date/Ti [...] D LEVEL ONCE IN A LIFETIME-USE SMARTSET# 75453 Completed 08/15/2024, 11/17/2023, 02/19/2023, Additional history exists [...] this encounter Medical Devices Implanted Type Area Information Clerk Cashier Device Identifier Shelf Expiration Date Model / Serial / Lot Lens 24.5 Tianaeon - [id number] - [id number] Implanted:Qty: 1 on 09/21/2023 by Ray Gonzalez DO at OR [facility] Lens Left: Eye [employer] 03/28/2026 CNA0T0.245 / [id number] / Suture Steel 6 B&S19 M654g - [id number] Implanted:Qty: 7 on 05/07/2021 by Aba Desir MD at OR [facility] [place] N/A: Sternum JNJ : [employer] 01/10/2026 M654G / / [id number] Clareon Lens 24.5 Implanted:Qty: 1 on 08/10/2023 by Ray Gonzalez DO at OR [facility] Right: Eye [employer] 09/15/2025 CNA0T0 / [id number] / documented as of this encounter [...] Advance Directives occurred with: Patient Care Teams Communication Skills Instructor Relationship Specialty Start Date End Date Pippa Navarro CRNP [address] [place] [address] PCP - General Nurse Practitioner 02/19/23 documented as of this encounter
--- OUTSIDE RECORDS SUMMARY | 2024-11-14 06:30 | External Medical Summary | Summary of Care ---
Author Name Unknown Organization [facility] Address [address] [place] [address] Phone [phone] Care Team Providers Care Planning And Analysis Manager Name Role Phone Pippa Navarro Primary Care Provider Reason for Visit * Reason Onset Date Comments Scheduling 08/15/2024 reclast Encounter Details Date Type Department Care Team ([facility] Contact Info) Description 08/15/2024 Telephone Hematology/Oncology, [facility] [address] [place] [address] Hans Tian PA-C [address] [place] [address] Scheduling (reclast) Allergies Active Allergy Reactions Criticality Noted Date [...] A1c goal of less than 7.0% ([facility]) Checking blood sugars four time [...] Use as directed every 14 days. Using [employer], [phone]. 4 Active FreeStyle Debbie 3 [place] DeviceIndications :DM type 2 with diabetic peripheral neuropathy (HCC) Use as directed. Using [employer],. Debbie 3 reader shipped 03/10/2024 4 Active [...] A1c goal of less than 7.0% ([facility]) Use up to 3 times daily to confirm sensor readings 300 Strip 3 4 Active Insulin Glargine Solostar 100 UNIT/ML Subcutaneous Solution Pen-injectorIndic ations:Type 2 diabetes, HbA1c goal < 7% ([facility]) Inject 26 Units under the skin daily. 30 mL 3 4 Active NovoLOG FlexPen 100 UNIT/ML Subcutaneous Solution Pen-injector (insulin aspart)Indication s:Type 2 diabetes, HbA1c goal < 7% ([facility]) Inject 15 units with breakfast, 16 units with lunch, 11 units with supper + CF 1:40 over 140 45 mL 3 4 Active Insulin Glargine Solostar 100 UNIT/ML Subcutaneous Solution Pen-injector (Lantus SoloStar)Indicati ons:Type 2 diabetes, HbA1c goal < 7% ([facility]) Inject 26 Units under the skin daily. Brand Lantus Solostar 30 mL 3 4 Active documented as of this encounter (statuses as of 08/17/2024) Active Problems Problem Noted Date Diagnosed Date Encounter for long-term (current) insulin use Major depressive disorder, recurrent, in partial remission 11/22/2023 Generalized anxiety disorder 11/22/2023 Atherosclerosis of [place] co ronary artery without angina pectoris 11/22/2023 [...] clinical research program 05/28/2020 12/02/2021 Overview (12/30/2020): [employer]: A Randomized Controlled Trial (Project # [id number]). The [employer] program provides food-insecure diabetics with healthy food for their entire household (2 meals/ day X 5 days/week). The program also provides education on food preparation, healthy living, and diabetes self management. The research measures the effects of the program on patient health and wellbeing. Subject will begin the FFF program November 2020. Contact Information: Staff Climate Scientist: Dr. Gilberto Nolan ([phone]) CRC: Chioma Dailey ([phone]) RA: Kimberlee Angulo ([phone]) Diagnosis changed due to Research Module. Go [...] mRNA, LNP-s, No Pre serve, 2-Dose Series ([employer]) 02/01/2021,01/11/2021 COVID-19, LNP-s, No Preserve , Toan-sucrose, Ages 12+ ([employer]) 12/31/2021 COVID-19, MRNA-LNP, PF, 30 M CG/0.3 mL, 12 YRS AND ABOVE, IM ([facility]) 08/15/2024,07/29/2023 Covid-19, Mrna, Lnp-s, Pf, B ivalent, 30 Mcg, IM, 12 yrs and above ([employer]) 05/28/2022 Pneumococcal Conjugate Vacci ne, 20-valent ([email or web address]) 01/15/2023 Pneumococcal Polysaccharide PPV23 (Pneumovax) 01/09/2017 Seasonal [...] Miscellaneous Notes * Telephone Encounter - Molly Ta, RN [...] 09/01/2024 11:00 AM EST [facility] [place] [facility] [address] Pharmacist1, [facility] [place] [facility] [address] [address] [phone] 11/13/2024 2:30 PM EST Nutrition Services Nutrition, [facility] [address] [facility] [place] [address] Edwina Ware RDN 132 [facility] [place] [address] 11/21/2024 1:30 PM EDT Office Visit Sleep Disorders Ctr [facility] [place] [address] [facility] [place] [phone] Victoria Mcintosh CRNP 132 [facility] [place] [address] 12/28/2024 1:00 PM EDT Appointment Cardiac Studies, [facility] [address] [facility] [place] [address] 01/04/2025 11:00 AM EDT Office Visit Allergy/Immunology [facility] [address] [place] [address] Guerita Marin PA-C [address] [place] [address] [address] 02/09/2025 12:30 PM EDT Nurse Only Ancillary 1st Floor, [place] [facility] [address] [place], [facility] Wellness [address] [place] [address] 03/02/2025 12:20 PM EDT Office Visit Family Practice, [place] 21 [facility] [place] [phone] Pippa Navarro CRNP 21 [facility] [place] [address] 05/07/2025 2:00 PM EDT Appointment Radiology, [address] [place] [address] 06/29/2025 2:00 PM EDT Office Visit Ophthalmology, [place] 21 [facility] [place] [address] Ray Gonzalez DO 21 [facility] [place] [address] Scheduled Procedures Name Priority Associated Diagnoses Date/Ti me ESOPHAGOGASTRODUODENOSCOPY ( EGD), FLEXIBLE, TRANSORAL, DIAGNOSTIC Recall Velez esophagus COLONOSCOPY FLEXIBLE PROXIMAL DIAGNOSTIC Recall Encounter for screening colonoscopy Health Maintenance Due Date Last Done Comments Cologuard 2001 Fecal Occult Blood Test 2001 Sigmoidoscopy 2001 B-12 11/16/2024 11/17/2023, 0202/2023, 07/09/2021, Additional history exists Albumin/Creatinine Ratio 11/18/2024 024, 06/15/2023, 07/31/2022, Additional history exists Adult Wellness Visit 02/03/2025 02/04/2024 Depression Monitoring 02/03/2025 02/04/2024, 024 Mammogram 02/03/2025 02/04/2024, 05, 12/24/2021, Additional history exists HbA1c 02/06/2025 08/09/2024, [...] D LEVEL ONCE IN A LIFETIME-USE SMARTSET# [id number] Completed 08/15/2024, 11/17/2023, 02/19/2023, Additional history exists [...] this encounter Medical Devices Implanted Type Area Activity Director Device Identifier Shelf Expiration Date Model / Serial / Lot Lens 24.5 Palomaon - [id number] - [id number] Implanted:Qty: 1 on 09/21/2023 by Ray Gonzalez DO at OR [facility] Lens Left: Eye [employer] 03/28/2026 CNA0T0.245 / [id number] / Suture Steel 6 B&S19 M654g - [id number] Implanted:Qty: 7 on 05/07/2021 by Aba Desir MD at OR [facility] N/A: Sternum JNJ : [employer] 01/10/2026 M654G / / [id number] Clareon Lens 24.5 Implanted:Qty: 1 on 08/10/2023 by Ray Gonzalez DO at OR [facility] Right: Eye [employer] 09/15/2025 CNA0T0 / [id number] / documented as of this encounter [...] Advance Directives occurred with: Patient Care Teams Planning And Analysis Manager Relationship Specialty Start Date End Date Pippa Navarro CRNP [address] [address] PCP - General Nurse Practitioner 02/19/23 documented as of this encounter
--- OUTSIDE RECORDS SUMMARY | 2024-11-14 06:30 | External Medical Summary | Summary of Care ---
Author Name Unknown Organization [facility] Address [address] [place] [address] Phone [phone] Care Team Providers Care Tribal Council Member Name Role Phone Pippa Navarro Primary Care Provider Reason for Visit * Reason Onset Date Comments Scheduling 08/15/2024 reclast Encounter Details Date Type Department Care Team ([facility] Contact Info) Description 08/15/2024 Telephone Hematology/Oncology, [facility] [address] [place] [address] Hans Tian PA-C [address] [place] [address] Scheduling (reclast) Allergies Active Allergy Reactions Criticality Noted Date Comments Codeine Medium Other reaction(s): Hallucinations Apixaban Hives 09/23/2022 Empagliflozin Other (Please comment) 05/30/2022 migraines Metformin Abdominal pain,Nausea/vomiting Medium 09/02/2023 Consistent with ER formulation even when taken with meals. Soap 12/26/2016 Ivory soap, hives Sulfa Antibiotics Rash Low 03/10/2017 documented as of this encounter (statuses as of 08/16/2024) Medications Triamcinolone Acetonide (NASACORT AQ) 55 MCG/ACT [...] less than 7.0% ([facility]) Checking blood sugars four time daily [...] Use as directed every 14 days. Using [employer], [phone]. 4 Active FreeStyle Debbie 3 [place] DeviceIndications :DM type 2 with diabetic peripheral neuropathy (HCC) Use as directed. Using [employer],. Debbie 3 reader shipped 03/10/2024 4 Active [...] < 7% ([facility]) Inject 26 Units under the skin [...] < 7% ([facility]) Inject 26 Units under the skin daily. Brand Lantus Solostar 30 mL 3 4 Active documented as of this encounter (statuses as of 08/16/2024) Active Problems Problem Noted Date Diagnosed Date Encounter for long-term (current) insulin use Major depressive disorder, recurrent, in partial remission 11/22/2023 Generalized anxiety disorder 11/22/2023 Atherosclerosis of [place] co ronary artery without angina pectoris 11/22/2023 [...] as of this encounter (statuses as of 08/16/2024) Resolved Problems Problem Noted Date Diagnosed Date [...] clinical research program 05/28/2020 12/02/2021 Overview (12/30/2020): [employer]: A Randomized Controlled Trial (Project # [id number]). The [employer] program provides food-insecure diabetics with healthy food for their entire household (2 meals/ day X 5 days/week). The program also provides education on food preparation, healthy living, and diabetes self management. The research measures the effects of the program on patient health and wellbeing. Subject will begin the FFF program November 2020. Contact Information: Burling And Joining Supervisor: Dr. Gilberto Nolan ([phone]) CRC: Chioma Dailey ([phone]) RA: Kimberlee Angulo ([phone]) Diagnosis changed due to Research Module. Go [...] as of this encounter (statuses as of 08/16/2024) Immunizations Name Administration Dates Next Due COVID-19 mRNA, LNP-s, No Pre serve, 2-Dose Series ([employer]) 02/01/2021,01/11/2021 COVID-19, LNP-s, No Preserve , Toan-sucrose, Ages 12+ ([employer]) 12/31/2021 COVID-19, MRNA-LNP, PF, 30 M CG/0.3 mL, 12 YRS AND ABOVE, IM ([facility]) 08/15/2024,07/29/2023 Covid-19, Mrna, Lnp-s, Pf, B ivalent, 30 Mcg, IM, 12 yrs and above ([employer]) 05/28/2022 Pneumococcal Conjugate Vacci ne, 20-valent ([email or web address]) 01/15/2023 Pneumococcal Polysaccharide PPV23 (Pneumovax) 01/09/2017 Seasonal [...] 09/01/2024 11:00 AM EST [facility] [place] [facility] [address] Pharmacist1, [facility] [place] 21 [facility] [place] [address] [phone] 11/13/2024 2:30 PM EST Nutrition Services Nutrition, [facility] 132 [facility] [place] [address] Edwina Ware RDN 132 [facility] [place] [address] 11/21/2024 1:30 PM EDT Office Visit Sleep Disorders Ctr [facility] [place] [address] [facility] [place] [phone] Victoria Mcintosh CRNP 132 [facility] [place] [address] 12/28/2024 1:00 PM EDT Appointment Cardiac Studies, [facility] 400 [facility] [place] [address] 01/04/2025 11:00 AM EDT Office Visit Allergy/Immunology [facility] [place] [address] [place] [address] Guerita Marin PA-C [address] [place] [address] 02/09/2025 12:30 PM EDT Nurse Only Ancillary 1st Floor, [place] [facility] [address] [place], [facility] Wellness [address] [place] [address] 03/02/2025 12:20 PM EDT Office Visit Family Practice, [place] [address] [facility] [place] [phone] Pippa Navarro CRNP 21 [facility] [place] [address] 05/07/2025 2:00 PM EDT Appointment Radiology, [address] [place] [address] 06/29/2025 2:00 PM EDT Office Visit Ophthalmology, [place] [address] [facility] [place] [address] Ray Gonzalez DO 21 [facility] [place] [address] Scheduled Procedures Name Priority Associated Diagnoses Date/Ti [...] D LEVEL ONCE IN A LIFETIME-USE SMARTSET# [id number] Completed 08/15/2024, 11/17/2023, 02/19/2023, Additional history exists [...] this encounter Medical Devices Implanted Type Area Rn Managed Care Device Identifier Shelf Expiration Date Model / Serial / Lot Lens 24.5 Palomaon - [id number] - [id number] Implanted:Qty: 1 on 09/21/2023 by Ray Gonzalez DO at OR [facility] Lens Left: Eye [employer] 03/28/2026 CNA0T0.245 / [id number] / Suture Steel 6 B&S19 M654g - [id number] Implanted:Qty: 7 on 05/07/2021 by Aba Desir MD at OR [facility] N/A: Sternum JNJ : [employer] 01/10/2026 M654G / / [id number] [place] Lens 24.5 Implanted:Qty: 1 on 08/10/2023 by Ray Gonzalez DO at OR [facility] Right: Eye [employer] 09/15/2025 CNA0T0 / [id number] / documented as of this encounter [...] Advance Directives occurred with: Patient Care Teams Tribal Council Member Relationship Specialty Start Date End Date Pippa Navarro CRNP [address] [address] PCP - General Nurse Practitioner 02/19/23 documented as of this encounter
--- OUTSIDE RECORDS SUMMARY | 2024-11-14 06:30 | External Medical Summary | Summary of Care ---
Author Name Unknown Organization [facility] Address [address] [place] [address] Phone [phone] Care Team Providers Care Metal Bonding Press Operator Name Role Phone Pippa Navarro Primary Care Provider Reason for Visit * Reason Comments Rheum Follow Up [facility]OC Encounter Details Date Type Department Care Team ([facility] st Contact Info) Description 08/15/2024 2:30 PM EST Office Visit Rheumatology, [address] [address] Hans Tian PA-C [address] [place] [address] Age-related osteoporosis without current pathological fracture* Allergies Active Allergy Reactions Criticality Noted Date Comments Codeine Medium Other reaction(s): Hallucinations Apixaban Hives 09/23/2022 Empagliflozin Other (Please comment) 05/30/2022 migraines Metformin Abdominal pain,Nausea/vomiting Medium 09/02/2023 Consistent with ER formulation even when taken with meals. Soap 12/26/2016 Ivory soap, hives Sulfa Antibiotics Rash Low 03/10/2017 documented as of this encounter (statuses as of 08/15/2024) Medications Triamcinolone Acetonide (NASACORT AQ) 55 MCG/ACT [...] hemoglobin A1c goal of less than 7.0% ([facility]) Checking blood sugars four time daily [...] Use as directed every 14 days. Using CloudDock, [phone]. 4 Active FreeStyle Debbie 3 [place] DeviceIndications :DM type 2 with diabetic peripheral neuropathy (HCC) Use as directed. Using CloudDock,. Debbie 3 reader shipped 03/10/2024 4 Active [...] hemoglobin A1c goal of less than 7.0% ([facility]) Use up to 3 times daily to confirm sensor readings 300 Strip 3 4 Active Insulin Glargine Solostar 100 UNIT/ML Subcutaneous Solution Pen-injectorIndic ations:Type 2 diabetes, HbA1c goal < 7% ([facility]) Inject 26 Units under the skin daily. 30 mL 3 4 Active NovoLOG FlexPen 100 UNIT/ML Subcutaneous Solution Pen-injector (insulin aspart)Indication s:Type 2 diabetes, HbA1c goal < 7% ([facility]) Inject 15 units with breakfast, 16 units with lunch, 11 units with supper + CF 1:40 over 140 45 mL 3 4 Active Insulin Glargine Solostar 100 UNIT/ML Subcutaneous Solution Pen-injector (Lantus SoloStar)Indicati ons:Type 2 diabetes, HbA1c goal < 7% ([facility]) Inject 26 Units under the skin daily. Brand Lantus Solostar 30 mL 3 4 Active documented as of this encounter (statuses as of 08/15/2024) Active Problems Problem Noted Date Diagnosed Date Encounter for long-term (current) insulin use Major depressive disorder, recurrent, in partial remission 11/22/2023 Generalized anxiety disorder 11/22/2023 Atherosclerosis of [place] ronary artery without angina pectoris 11/22/2023 [...] as of this encounter (statuses as of 08/15/2024) Resolved Problems Problem Noted Date Diagnosed Date [...] clinical research program 05/28/2020 12/02/2021 Overview (12/30/2020): [employer] Food [employer]: A Randomized Controlled Trial (Project # [id number]). The Fresh Food [employer] program provides food-insecure diabetics with healthy food for their entire household (2 meals/ day X 5 days/week). The program also provides education on food preparation, healthy living, and diabetes self management. The research measures the effects of the program on patient health and wellbeing. Subject will begin the FFF program November 2020. Contact Information: Trust Manager: Dr. Gilberto Nolan ([phone]) CRC: Chioma Dailey ([phone]) RA: Kimberlee Angulo ([phone]) Diagnosis changed due to Research Module. Go to Snapshot for study details. Type 2 diabetes mellitus with pressure callus 07/06/20 18 07/02/2020 Bipolar affective disorder, currently active 7 12/26/2021 History of nonadherence to medical treatment 7 05/28/2022 Mixed hyperlipidemia 09/09/2017 017 Vitamin D deficiency 03/10/2017 021 Controlled type 2 diabetes fernando rodgers without complication 12/26/2016 07/02/2020 Asthma 12/26/2016 07/02/2020 Type 2 diabetes mellitus 03/11/2016 Overview (07/26/2023): duplicate Leg cramping 09/09/2017 documented as of this encounter (statuses as of 08/15/2024) Immunizations Name Administration Dates Next Due COVID-19 mRNA, LNP-s, No Pre serve, 2-Dose Series ([employer]) 02/01/2021,01/11/2021 COVID-19, LNP-s, No Preserve , Toan-sucrose, Ages 12+ (S[employer] IO) 12/31/2021 COVID-19, MRNA-LNP, PF, 30 M CG/0.3 mL, 12 YRS AND ABOVE, IM ([employer]) 08/15/2024,07/29/2023 Covid-19, Mrna, Lnp-s, Pf, B ivalent, 30 Mcg, IM, 12 yrs and above (S[employer] IO) 05/28/2022 Pneumococcal Conjugate Vacci ne, 20-valent ([id number]) 01/15/2023 Pneumococcal Polysaccharide PPV23 (Pneumovax) 01/09/2017 Seasonal [...] Sign Reading Time Taken Comments Blood Pressure 122/64 08/15/2024 2:51 PM EST Pulse - - Temperature - - Respiratory Rate - - Oxygen Saturation - - Inhaled Oxygen Concentration - - Weight - - Height - - Body Mass Index - - documented in this encounter Functional Status * [...] documented in this encounter Progress Notes * Hans Tian PA-C - 08/15/2024 2:37 PM EST [facility] ([facility]): follow up Supervised by: Dr. Napoleon Damon Previous Visit Plan from 02/19/2023 reviewed. Reason for visit: Patient seen today for further follow-up/evaluation of osteoporosis. Bone Health Summary: Reclast 03/02/23 Fosamax for 1.5 years and stopped secondary to gastritis. Risks: Falls since last [facility] visit: yes. Missed last step of outside stairs. No injury Personal History of Fx since last [facility] Visit: no Prevention: Exercise : 3 or more times weekly: No Nutrition: eats calcium rich foods, Yes Gait: unsteady with walking, No, use of cane/walker, No, Calcium and Vitamin D supplements in adequate doses: Yes Current Smoker: No Chronic Glucocorticoid use: No Rheumatoid Arthritis: No Alcohol 3 or more per day: No ROS: All other review of systems reviewed and negative other than mentioned in HPI. Medications: Current Outpatient Medications Medication Sig Dispense Refill Triamcinolone Acetonide (NASACORT AQ) 55 MCG/ACT AERO Administer 2 Sprays into each nostril daily. 1 Bottle 1 Multiple Vitamin (MULTI VITAMIN DAILY) TABS Take 1 Dose(s) by mouth in the morning. Cholecalciferol 25 MCG (1000 UT) Oral Capsule Take 5 Capsules by mouth in the morning. OneTouch UltraSoft Lancets [facility] Checking blood sugars four time daily Dx: E11.9 150 Each 11 Refresh 1.4-0.6 % Ophthalmic Solution (polyvinyl alcohol-povidone PF) Instill 1 Drop into both eyesin the morning and 1 Drop at noon and 1 Drop in the evening and 1 Drop before bedtime. Acetaminophen 325 MG Oral Tablet (Tylenol) Take 2 Tabs by mouth every 4 hours as needed for Pain, Moderate. 100 Tab 1 buPROPion HCl ER (SR) 150 MG Oral Tablet Extended Release 12 Hour (Wellbutrin SR) 1 Tablet in the morning and 1 Tablet before bedtime. hydrOXYzine HCl 25 MG Oral Tablet TAKE 1 TABLET BY MOUTH ONCE DAILY NEEDED Topiramate 25 MG Oral Tablet (topAMAX) Take 1 Tablet by mouth in the morning and 1 Tablet before bedtime. Witch Marlys-Glycerin External Pad (Tucks) Use to soothe vagina for up to 15 minutes at a time. Can use up to 4 times per day. 50 Each 1 Clobetasol Propionate 0.05 % External Solution Apply to rash on scalp twice a day as needed 50 mL 5 Ketoconazole 2 % External Shampoo (Nizoral) Apply to scalp daily as needed 120 mL 5 Biotene Dry Mouth Mouth/Throat Liquid Apply to the mouth or throat as needed for Dry Mouth. Rue La La 2 w/Device Kit Check glucose up to four times daily. E11.9 1 Kit 0 OcuSoft Baby Eyelid & Eyelash External Pad Apply 1 Pad topically to affected area every evening. Xarelto 20 MG Oral Tablet (Rivaroxaban) TAKE 1 TABLET BY MOUTH ONCE DAILY WITH SUPPER 30 Tablet 5 Citalopram Hydrobromide 40 MG Oral Tablet (CeleXA) Meclizine HCl 25 MG Oral Tablet (Antivert) Take 1 Tablet by mouth 3 times a day as needed for Dizziness. 90 Tablet 2 Benzonatate 100 MG Oral Capsule (Tessalon Perles) Take 1 Capsule by mouth 3 times a day as needed for Cough. Do not cut, crush, or chew. 30 Capsule 0 Erythromycin 5 MG/GM Ophthalmic Ointment Instill 0.25 Inches into both eyes at bedtime. 3.5 g 6 BD Pen Needle Mini U/F 31G X 5 MM (Insulin Pen Needle) USE TO INJECT INSULIN 4 TIMES DAILY 400 Each3 Ozempic (2 MG/DOSE) 8 MG/3ML Subcutaneous Solution Pen-injector (Semaglutide (2 MG/DOSE)) Inject 2mg under the skin once weekly 3 mL 3 Omeprazole 40 MG Oral Capsule Delayed Release (PriLOSEC) Take 1 Capsule by mouth in the morning. 1 hour before the first meal of the day. 90 Capsule 3 Loratadine 10 MG Oral Tablet (Claritin) Take 1 Tablet by mouth in the morning. 90 Tablet 3 Famotidine 20 MG Oral Tablet (Pepcid) Take 1 Tablet by mouth in the morning. 90 Tablet 3 Ezetimibe 10 MG Oral Tablet (Zetia) Take 1 Tablet by mouth in the morning. 90 Tablet 3 Atorvastatin Calcium 80 MG Oral Tablet (Lipitor) Take 1 Tablet by mouth in the morning. 90 Tablet 3 Arnuity Ellipta 100 MCG/ACT Inhalation Aerosol Powder Breath Activated (fluticasone Furoate) Inhale1 Puff by mouth in the morning. 90 Each 3 Albuterol Sulfate HFA 108 (90 Base) MCG/ACT Inhalation Aerosol Solution Inhale 2 Puffs by mouth every 6 hours as needed for Shortness of Breath or Wheezing. 18 g 0 Zhanzuo Debbie 3 Sensor Use as directed every 14 days. Using CloudDock, . Matrimony.come 3 [place] Device Use as directed. Using CloudDock, . Debbie 3 reader shipped 03/10/2024 Ubrelvy 100 MG Oral Tablet (Ubrogepant) Take 100 mg by mouth as needed for Migraine. Take 1 tabletsat onset of migraine and may repeat in 2 hours if needed. Do not exceed 2 tablets in 24 hours. 10 Tablet 1 Zhanzuo Precision Marko Test In Vitro Strip Use up to 3 times daily to confirm sensor readings 300 Strip 3 Insulin Glargine Solostar 100 UNIT/ML Subcutaneous Solution Pen-injector Inject 26 Units under the skin daily. 30 mL 3 NovoLOG FlexPen 100 UNIT/ML Subcutaneous Solution Pen-injector (insulin aspart) Inject 15 units with breakfast, 16 units with lunch, 11 units with supper + CF 1:40 over 140 45 mL 3 Insulin Glargine Solostar 100 UNIT/ML Subcutaneous Solution Pen-injector (Lantus SoloStar) Inject 26 Units under the skin daily. Brand Lantus Solostar 30 mL 3 COVID-19 mRNA Vac-Toan(Symbolic IO) 30 MCG/0.3ML Intramuscular Suspension Prefilled Syringe (Intelomed) Inject 0.3 mL into a large muscle once for 1 dose. 0.3 mL 0 No current facility-administered medications for this visit. Social History: Social History Tobacco Use Smoking status: Never Smokeless tobacco: Never Vaping Use Vaping status: Never Used Substance Use Topics Alcohol use: No Drug use: No PHYSICAL EXAM: General appearance: NAD Eyes: Normal Heme/Lymph: goiter: No Musculoskeletal: Kyphosis No Heart: normal Lungs: normal Diagnostic Testing: Results of labs and DXA were reviewed and discussed with the patient. Labs: Component Latest Ref Rng 11/17/2023 08/09/2024 BUN 6 - 20 mg/dL 15 CREATININE 0.5 - 1.0 mg/dL 0.8 EGFR >=60 mL/min 81 SODIUM 135 - 146 mmol/L 140 POTASSIUM 3.5 - 5.1 mmol/L 4.6 CHLORIDE 98 - 107 mmol/L 103 CO2 22 - 32 mmol/L 22 ANION GAP 7 - 15 mmol/L 15 GLUCOSE 70 - 120 mg/dL 146 (H) Albumin 3.8 - 5.0 g/dL 4.2 AST 10 - 35 U/L 29 Alkaline Phosphatase 35 - 130 U/L 80 Bilirubin, Total <=1.2 mg/dL 0.3 CALCIUM 8.4 - 10.2 mg/dL 9.6 Protein 6.0 - 8.3 g/dL 6.6 ALT 10 - 35 U/L 32 25-Hydroxy Vitamin D >19 ng/mL 25 DXA - Vertebral Fracture Assessment: Date: 04/23/23 DXA Result: RESULTS: Lumbar spine: 0.728 gms/cm2 T-score: -3.4 Z-score: -1.4 Left femoral neck: 0.674 gms/cm2 T-score: -1.6 Assessment: 69 year old female with osteoporosis who has no signs or symptoms.. Plan: The following items are ordered or are in progress: 1. Education: Osteoporosis education was provided by the [facility] team (topics included disease process, DXA, calcium/vitamin D, osteoporosis medications - including administration instructions and risks/benefits, weight bearing exercise, fall prevention/safety). . 2. Prevention: . Eye Examination recommended annually, as good vision may help to prevent falls . Exercise recommended: standing, walking, light lifting . Fall Prevention/Safety Education recommended and discussed . Continue calcium rich foods (goal of 3 servings daily) 3. Osteoporosis Medications : Continue 5mg Reclast IV once yearly 4. Bone Density Testing: due 2 year(s) from previous 04/2025 5. Laboratory: 25-OH Vitamin D Recheck vitamin D. Is taking 5000 units daily. 6. Followup: Return to [facility] clinic in 1 year Hans Tian PA-C [facility] Team The patient was discussed with me. I agree with the findings and plan as documented by /Hans Dave in this note. Napoleon Damon MD Rheumatology Department documented in this encounter Nursing Notes * Ana María Haley LPN - 08/15/2024 2:53 PM EST Chief Complaint Patient presents with Rheum Follow Up [facility] documented in this encounter Plan of Treatment Upcoming Encounters Date Type Department Care Team (Late st Contact Info) Description 09/01/2024 11:00 AM EST Office Visit Pharmacy, [address] [place] [address] Pharmacist1, [facility] [place] 21 [facility] [place] [phone] 11/13/2024 2:30 PM EST Nutrition Services [facility], [facility] [place] [address] Edwina Ware RDN 132 [facility] [place] [address] 11/21/2024 1:30 PM EDT Office Visit Sleep Disorders Ctr [place] [facility] [address] [facility] [place] [phone] Victoria Mcintosh CRNP [address] [place] [address] 12/28/2024 1:00 PM EDT Appointment Cardiac Studies, [address] [place] [address] 01/04/2025 11:00 AM EDT Office Visit Allergy/Immunology [facility] [place] [address] [facility] [place] [address] Guerita Mairn PA-C 200 [facility] [place] [address] 02/09/2025 12:30 PM EDT Nurse Only Ancillary 1st Floor, [place] [address] [address] [place], [facility] 2 [address] [address] [phone] 03/02/2025 12:20 PM EDT Office Visit Family [facility], [place] [address] [place] [phone] Pippa Navarro CRNP [address] [place] [address] 05/07/2025 2:00 PM EDT Appointment [address], [address] [phone] 06/29/2025 2:00 PM EDT Office Visit Ophthalmology, [place] [address] [place] [address] Ray Gonzalez DO [address] [place] [address] Pending Results Name Type Priority Associated Diagnoses Date /Time 25-HYDROXY VITAMIN D Lab Routine Age-related osteoporosis without current pathological fracture 08/15/2024 3:32 PM EST Scheduled Orders Name Type Priority Associated Diagnoses Orde r Schedule 25-HYDROXY VITAMIN D Lab Routine Age-related osteoporosis without current pathological fracture Expected: 08/15/2024, Expires: 08/15/2025 DEXA SCAN/BONE MINERAL AXIAL Medical Imaging Routine Age-related osteoporosis without current pathological fracture Expected: 04/24/2025, Expires: 09/15/2025 Scheduled Procedures Name Priority Associated Diagnoses Date/Ti ct ESOPHAGOGASTRODUODENOSCOPY ( EGD), FLEXIBLE, TRANSORAL, DIAGNOSTIC Recall [...] Discontinued 05/05/2023, 08/13, 04/07/2017, Additional history exists VITAMIN D LEVEL ONCE IN A LIFETIME-USE SMARTSET# 31490 Completed 11/17/2023, 02/19/2023, 05/11/2019, Additional history exists Influenza Vaccine (FLU shot) Completed 05/23/2024, 05/18/2023, 05/28/2022, Additional history exists COVID-19 Vaccine Completed 08/15/2024, , 05/28/2022, Additional history exists HPV (Gardasil) Vaccine Aged Out No lo nger eligible based on patient's age to complete this topic Hepatitis B Vaccine Aged Out No longe r eligible based on patient's age to complete this topic MENINGOCOCCAL (MENACTRA/MENVEO) Aged Out No longer eligible based on patient's age to complete this topic documented as of this encounter Medical Devices Implanted Type Area Control Engineer Device Identifier Shelf Expiration Date Model / Serial / Lot Lens 24.5 [place] - [id number] - [id number] Implanted:Qty: 1 on 09/21/2023 by Ray Gonzalez DO at OR [facility] Lens Left: Eye [employer] 03/28/2026 CNA0T0.245 / [id number] / Suture Steel 6 B&S19 M654g - [id number] Implanted:Qty: 7 on 05/07/2021 by Aba Desir MD at OR [facility] N/A: Sternum JNJ : [employer] 01/10/2026 M654G / / PAOLA [place] Lens 24.5 Implanted:Qty: 1 on 08/10/2023 by Ray Gonzalez DO at OR [facility] Right: Eye [employer] 09/15/2025 CNA0T0 / [id number] / documented as of this encounter Visit Diagnoses Diagnosis Age-related osteoporosis without current pathological fracture- Primary Senile osteoporosis documented in this encounter Advance Directives * [...] Advance Directives occurred with: Patient Care Teams Metal Bonding Press Operator Relationship Specialty Start Date End Date Pippa Navarro CRNP [address] [place] [address] PCP - General Nurse Practitioner 02/19/23 documented as of this encounter
--- OUTSIDE RECORDS SUMMARY | 2024-11-14 06:30 | External Medical Summary | Summary of Care ---
Author Name Unknown Organization [facility] Address [address] [place] [address] Phone [phone] Care Team Providers Care Cookie Padder Name Role Phone Pippa Navarro Primary Care Provider Reason for Visit * Reason Onset Date Comments Scheduling 08/15/2024 reclast Encounter Details Date Type Department Care Team ([facility] Contact Info) Description 08/15/2024 Telephone Hematology/Oncology, [facility] [address] [place] [address] Hans Tian PA-C [address] [place] [address] Scheduling (reclast) Allergies Active Allergy [...] hemoglobin A1c goal of less than 7.0% ([facility]) Checking blood sugars four time [...] Use as directed every 14 days. Using StopTheHacker, [phone]. 4 Active FreeStyle Debbie 3 [place] DeviceIndications :DM type 2 with diabetic peripheral neuropathy (HCC) Use as directed. Using StopTheHacker,. Debbie 3 reader shipped 03/10/2024 4 Active [...] hemoglobin A1c goal of less than 7.0% ([facility]) Use up to 3 times daily to confirm sensor readings 300 Strip 3 4 Active Insulin Glargine Solostar 100 UNIT/ML Subcutaneous Solution Pen-injectorIndic ations:Type 2 diabetes, HbA1c goal < 7% ([facility]) Inject 26 Units under the skin daily. 30 mL 3 4 Active NovoLOG FlexPen 100 UNIT/ML Subcutaneous Solution Pen-injector (insulin aspart)Indication s:Type 2 diabetes, HbA1c goal < 7% ([facility]) Inject 15 units with breakfast, 16 units with lunch, 11 units with supper + CF 1:40 over 140 45 mL 3 4 Active Insulin Glargine Solostar 100 UNIT/ML Subcutaneous Solution Pen-injector (Lantus SoloStar)Indicati ons:Type 2 diabetes, HbA1c goal < 7% ([facility]) Inject 26 Units under the skin daily. Brand Lantus Solostar 30 mL 3 4 Active documented as of this encounter (statuses as of 08/16/2024) Active Problems Problem Noted Date Diagnosed Date Encounter for long-term (current) insulin use Major depressive disorder, recurrent, in partial remission 11/22/2023 Generalized anxiety disorder 11/22/2023 Atherosclerosis of [place] ronary artery without angina pectoris 11/22/2023 [...] clinical research program 05/28/2020 12/02/2021 Overview (12/30/2020): [employer] Food [employer]: A Randomized Controlled Trial (Project # [id number]). The Fresh Food [employer] program provides food-insecure diabetics with healthy food for their entire household (2 meals/ day X 5 days/week). The program also provides education on food preparation, healthy living, and diabetes self management. The research measures the effects of the program on patient health and wellbeing. Subject will begin the FFF program November 2020. Contact Information: Fountain Pen Turner: Dr. Gilberto Nolan ([phone]) CRC: Chioma Dailey ([phone]) RA: Kimberlee Angulo ([phone]) Diagnosis changed due to Research Module. Go [...] mRNA, LNP-s, No Pre serve, 2-Dose Series ([employer]) 02/01/2021,01/11/2021 COVID-19, LNP-s, No Preserve , Toan-sucrose, Ages 12+ ([employer]) 12/31/2021 COVID-19, MRNA-LNP, PF, 30 M CG/0.3 mL, 12 YRS AND ABOVE, IM ([employer]) 08/15/2024,07/29/2023 Covid-19, Mrna, Lnp-s, Pf, B ivalent, 30 Mcg, IM, 12 yrs and above ([employer]) 05/28/2022 Pneumococcal Conjugate Vacci ne, 20-valent ([id number]) 01/15/2023 Pneumococcal Polysaccharide PPV23 (Pneumovax) 01/09/2017 Seasonal [...] encounter Miscellaneous Notes * Telephone Encounter - Hans Tian PA-C [...] 09/01/2024 11:00 AM EST Office Visit Pharmacy, [place] [facility] [phone] Pharmacist1, [facility] [place] [facility] [phone] 11/13/2024 2:30 PM EST Nutrition Services Nutrition, [facility] [address] [facility] [place] [address] Edwina Ware RDN 132 [facility] [place] [address] 11/21/2024 1:30 PM EDT Office Visit Sleep Disorders Ctr [facility] [place] 132 [facility] [place] [phone] Victoria Mcintosh CRNP 132 [facility] [address] 12/28/2024 1:00 PM EDT Appointment Cardiac Studies, [facility] 400 [facility] [place] [phone] 01/04/2025 11:00 AM EDT Office Visit Allergy/Immunology [facility] [place] [address] [place] [address] Guerita Marin PA-C [address] [place] [address] 02/09/2025 12:30 PM EDT Nurse Only Ancillary 1st Floor, [place] 21 [facility] [place] [address] [place], [facility] [phone] 03/02/2025 12:20 PM EDT Office Visit Family [facility], [place] [address] [place] [phone] Pippa Navarro CRNP [address] [place] [address] 05/07/2025 2:00 PM EDT Appointment Radiology, [address] [place] [address] 06/29/2025 2:00 PM EDT Office Visit Ophthalmology, [place] [address] [place] [address] Ray Gonzalez DO [address] [place] [address] Scheduled Procedures Name Priority Associated Diagnoses Date/Ti [...] D LEVEL ONCE IN A LIFETIME-USE SMARTSET# 64914 Completed 08/15/2024, 11/17/2023, 02/19/2023, Additional history exists [...] this encounter Medical Devices Implanted Type Area Blanket Binder Device Identifier Shelf Expiration Date Model / Serial / Lot Lens 24.5 [place] - [id number] - [id number] Implanted:Qty: 1 on 09/21/2023 by Ray Gonzalez DO at OR [facility] Lens Left: Eye [employer] 03/28/2026 CNA0T0.245 / [id number] / Suture Steel 6 B&S19 M654g - [id number] Implanted:Qty: 7 on 05/07/2021 by Aba Desir MD at OR [facility] N/A: Sternum JNJ : [employer] 01/10/2026 M654G / / PAOLA [place] Lens 24.5 Implanted:Qty: 1 on 08/10/2023 by Ray Gonzalez DO at OR [facility] Right: Eye [employer] 09/15/2025 CNA0T0 / [id number] / documented as of this encounter [...] Advance Directives occurred with: Patient Care Teams Cookie Padder Relationship Specialty Start Date End Date Pippa Navarro CRNP [address] [place] [phone] PCP - General Nurse Practitioner 02/19/23 documented as of this encounter
--- OUTSIDE RECORDS SUMMARY | 2024-11-14 06:30 | External Medical Summary | Summary of Care ---
Author Name Unknown Organization [facility] Address [address] [place] [address] Phone [phone] Care Team Providers Care Business Process Architect Name Role Phone Pippa Navarro Primary Care Provider Reason for Visit * Reason Comments Outpatient Testing Encounter Details Date Type Department Care Team ([facility] st Contact Info) Description 08/15/2024 3:40 PM EST Laboratory Laboratory, [facility] [address] [place] [id number] [facility], Lab [address] [place], [place] [id number] Age-related osteoporosis without current pathological fracture Allergies Active Allergy Reactions Criticality Noted Date [...] goal of less than 7.0% ([facility]) Checking blood sugars four time daily Dx: [...] Use as directed every 14 days. Using LIFE INTERACTION, [phone]. 4 Active FreeStyle Debbie 3 [place] DeviceIndications :DM type 2 with diabetic peripheral neuropathy (HCC) Use as directed. Using LIFE INTERACTION,. Debbie 3 reader shipped 03/10/2024 4 Active Ubrelvy 100 MG Oral Tablet (Ubrogepant)Indic ations:Migraine without status migrainosus, not intractable, unspecified migraine type Take 100 mg by mouth as needed for Migraine. Take 1 tablets at onset of migraine and may repeat in 2 hours if needed. Do not exceed 2 tablets in 24 hours. 10 Tablet 1 4 Active PayNearMeStyle Precision Marko Test In Vitro StripIndications: Type 2 diabetes mellitus with hemoglobin A1c goal of less than 7.0% ([facility]) Use up to 3 times daily to confirm sensor readings 300 Strip 3 4 Active Insulin Glargine Solostar 100 UNIT/ML Subcutaneous Solution Pen-injectorIndic ations:Type 2 diabetes, HbA1c goal < 7% ([facility]) Inject 26 Units under the skin daily. 30 mL 3 4 Active NovoLOG FlexPen 100 UNIT/ML Subcutaneous Solution Pen-injector (insulin aspart)Indication s:Type 2 diabetes, HbA1c goal < 7% ([facility]) Inject 15 units with breakfast, 16 units with lunch, 11 units with supper + CF 1:40 over 140 45 mL 3 4 Active Insulin Glargine Solostar 100 UNIT/ML Subcutaneous Solution Pen-injector (Lantus SoloStar)Indicati ons:Type 2 diabetes, HbA1c goal < 7% ([facility]) Inject 26 Units under the skin daily. Brand Lantus Solostar 30 mL 3 4 Active documented as of this encounter (statuses as of 08/15/2024) Active Problems Problem Noted Date Diagnosed Date Encounter for long-term (current) insulin use Major depressive disorder, recurrent, in partial remission 11/22/2023 Generalized anxiety disorder 11/22/2023 Atherosclerosis of [place] ronary artery without angina pectoris 11/22/2023 [...] program 05/28/2020 12/02/2021 Overview (12/30/2020): Fresh Food Membersuite: A Randomized Controlled Trial (Project # [id number]). The Fresh Food [employer] program provides food-insecure diabetics with healthy food for their entire household (2 meals/ day X 5 days/week). The program also provides education on food preparation, healthy living, and diabetes self management. The research measures the effects of the program on patient health and wellbeing. Subject will begin the FFF program November 2020. Contact Information: Food Cooking Machine Operator: Dr. Gilberto Nolan ([phone]) CRC: Chioma Dailey ([phone]) RA: Kimberlee Angulo ([phone]) Diagnosis changed due to Research Module. Go to Snapshot for study details. Type 2 diabetes mellitus with pressure callus 07/06/20 18 07/02/2020 Bipolar affective disorder, currently active 7 12/26/2021 History of nonadherence to medical treatment 7 05/28/2022 Mixed hyperlipidemia 09/09/2017 017 Vitamin D deficiency 03/10/2017 021 Controlled type 2 diabetes m kwadwoitus without complication 12/26/2016 07/02/2020 Asthma 12/26/2016 07/02/2020 Type 2 diabetes mellitus 03/11/2016 Overview (07/26/2023): duplicate Leg cramping 09/09/2017 documented as of this encounter (statuses as of 08/15/2024) Immunizations Name Administration Dates Next Due COVID-19 mRNA, LNP-s, No Pre serve, 2-Dose Series (Legal Shine) 02/01/2021,01/11/2021 COVID-19, LNP-s, No Preserve , Toan-sucrose, Ages 12+ (Pfizer) 12/31/2021 COVID-19, MRNA-LNP, PF, 30 M CG/0.3 mL, 12 YRS AND ABOVE, IM ([facility]) 08/15/2024,07/29/2023 Covid-19, Mrna, Lnp-s, Pf, B ivalent, 30 Mcg, IM, 12 yrs and above (Legal Shine) 05/28/2022 Pneumococcal Conjugate Vacci ne, 20-valent ([id number]) 01/15/2023 Pneumococcal Polysaccharide PPV23 (Pneumovax) 01/09/2017 Seasonal [...] 09/01/2024 11:00 AM EST Office Visit Pharmacy, [place] [address] [address] [address] Pharmacist1, [facility] [place] [address] [address] 11/13/2024 2:30 PM EST Nutrition Services Nutrition, [facility] [address] [address] Edwina Ware RDN [address] [address] 11/21/2024 1:30 PM EDT Office Visit Sleep Disorders Ctr [facility] [address] [phone] Victoria Mcintosh CRNP [address] [address] 12/28/2024 1:00 PM EDT Appointment Cardiac Studies, [address] [place] [address] 01/04/2025 11:00 AM EDT Office Visit Allergy/Immunology [facility] [place] [address] [place] [address] Guerita Marin PA-C [address] [place] [address] 02/09/2025 12:30 PM EDT Nurse Only Ancillary 1st Floor, [place] [facility] [phone] [place], [facility] Well[facility] 2 [facility] [phone] 03/02/2025 12:20 PM EDT Office Visit Family Practice, [place] 21 [facility] [place] [phone] Pippa Navarro CRNP [address] [facility] [phone] 05/07/2025 2:00 PM EDT Appointment Radiology, [facility] 400 [facility] [address] 06/29/2025 2:00 PM EDT Office Visit Ophthalmology, [place] 21 [facility] [place] [address] Ray Gonzalez DO [address] [place] [address] Pending Results Name Type Priority Associated Diagnoses Date /Time 25-HYDROXY VITAMIN D Lab Routine Age-related osteoporosis without current pathological fracture 08/15/2024 3:32 PM EST Scheduled Procedures Name Priority Associated Diagnoses Date/Ti hi ESOPHAGOGASTRODUODENOSCOPY ( EGD), FLEXIBLE, TRANSORAL, DIAGNOSTIC Recall [...] D LEVEL ONCE IN A LIFETIME-USE SMARTSET# 13072 Completed 11/17/2023, 02/19/2023, 05/11/2019, Additional history exists [...] this encounter Medical Devices Implanted Type Area Field Interviewer Device Identifier Shelf Expiration Date Model / Serial / Lot Lens 24.5 [place] - [id number] - [id number] Implanted:Qty: 1 on 09/21/2023 by Ray Gonzalez DO at OR [facility] Lens Left: Eye [employer] 03/28/2026 CNA0T0.245 / [id number] / Suture Steel 6 B&S19 M654g - [id number] Implanted:Qty: 7 on 05/07/2021 [place] Aba Desir [place] [facility]: Sternum JNJ : [employer] 01/10/2026 [id number] / / [id number] [place] Lens 24.5 Implanted:Qty: 1 on 08/10/2023 by Ray Gonzalez DO at OR [facility] Right: Eye [employer] 09/15/2025 CNA0T0 / [id number] / documented as of this encounter Visit Diagnoses Diagnosis Age-related osteoporosis without current pathological fracture Senile osteoporosis documented in this encounter Advance [...] Advance Directives occurred with: Patient Care Teams Business Process Architect Relationship Specialty Start Date End Date Pippa Navarro CRNP [address] [address] PCP - General Nurse Practitioner 02/19/23 documented as of this encounter
--- OUTSIDE RECORDS SUMMARY | 2024-11-14 06:30 | External Medical Summary | Summary of Care ---
Author Name Unknown Organization [facility] Address [address] [place] [address] Phone [phone] Care Team Providers Care Preform Machine Operator Name Role Phone Pippa Navarro Primary Care Provider Reason for Visit * Reason Comments Rheum Follow Up [facility] Encounter Details Date Type Department Care Team ([facility] st Contact Info) Description 08/15/2024 2:30 PM EST Office Visit Rheumatology, [address] [address] Tristian Tarango PA-C [address] [place] [address] Age-related osteoporosis without current pathological fracture*; Vitamin D deficiency Allergies Active Allergy Reactions Criticality Noted Date [...] goal of less than 7.0% ([facility]) Checking blood sugars four time [...] Use as directed every 14 days. Using Proformative, [phone]. 4 Active FreeStyle Debbie 3 [place] DeviceIndications :DM type 2 with diabetic peripheral neuropathy (HCC) Use as directed. Using Proformative,. Debbie 3 reader shipped 03/10/2024 4 Active [...] goal of less than 7.0% ([facility]) Use up to 3 times daily to confirm sensor readings 300 Strip 3 4 Active Insulin Glargine Solostar 100 UNIT/ML Subcutaneous Solution Pen-injectorIndic ations:Type 2 diabetes, HbA1c goal < 7% ([facility]) Inject 26 Units under the skin daily. 30 mL 3 4 Active NovoLOG FlexPen 100 UNIT/ML Subcutaneous Solution Pen-injector (insulin aspart)Indication s:Type 2 diabetes, HbA1c goal < 7% ([facility]) Inject 15 units with breakfast, 16 units with lunch, 11 units with supper + CF 1:40 over 140 45 mL 3 4 Active Insulin Glargine Solostar 100 UNIT/ML Subcutaneous Solution Pen-injector (Lantus SoloStar)Indicati ons:Type 2 diabetes, HbA1c goal < 7% ([facility]) Inject 26 Units under the skin daily. Brand Lantus Solostar 30 mL 3 4 Active Vitamin D (Ergocalciferol) 1.25 MG (22552 UT) Oral Capsule (Drisdol)Indicati ons:Age-related osteoporosis without current pathological fracture,Vitamin D deficiency Take 1 Capsule by mouth once a week. 15 Capsule 4 11/20/19 25 Active documented as of this encounter (statuses as of 08/16/2024) Active Problems Problem Noted Date Diagnosed Date Encounter for long-term (current) insulin use Major depressive disorder, recurrent, in partial remission 11/22/2023 Generalized anxiety disorder 11/22/2023 Atherosclerosis of [place] co ronary artery without angina pectoris 11/22/2023 [...] program 05/28/2020 12/02/2021 Overview (12/30/2020): Fresh Food [employer]: A Randomized Controlled Trial (Project # [id number]). The Fresh Food [employer] program provides food-insecure diabetics with healthy food for their entire household (2 meals/ day X 5 days/week). The program also provides education on food preparation, healthy living, and diabetes self management. The research measures the effects of the program on patient health and wellbeing. Subject will begin the FFF program November 2020. Contact Information: Fiber Technician: Dr. Gilberto Nolan ([phone]) CRC: Chioma Dailey ([phone]) RA: Kimberlee Angulo ([phone]) Diagnosis changed due to Research Module. Go [...] mRNA, LNP-s, No Pre serve, 2-Dose Series (SkillBoost) 02/01/2021,01/11/2021 COVID-19, LNP-s, No Preserve , Toan-sucrose, Ages 12+ (SkillBoost) 12/31/2021 COVID-19, MRNA-LNP, PF, 30 M CG/0.3 mL, 12 YRS AND ABOVE, IM (inDegree-Comirnat) 08/15/2024,07/29/2023 Covid-19, Mrna, Lnp-s, Pf, B ivalent, 30 Mcg, IM, 12 yrs and above (SkillBoost) 05/28/2022 Pneumococcal Conjugate Vacci ne, 20-valent ([id number]) 01/15/2023 Pneumococcal Polysaccharide PPV23 (Pneumovax) 01/09/2017 Seasonal [...] money to buy more. Never true 08/14/20 Within the past 12 months, t he [...] documented in this encounter Progress Notes * Tristian Tarango PA-C - 08/15/2024 2:37 PM EST High [...] mouth in the morning. OneTouch UltraSoft Lancets MISC Checking blood sugars four time daily Dx: [...] the morning and 1 Tablet before bedtime. WitGravity Marlys-Glycerin External Pad (Tucks) Use to soothe [...] or throat as needed for Dry Mouth. Tracks.by 2 w/Device Kit Check glucose up to [...] of Breath or Wheezing. 18 g 0 EntomoPharm Debbie 3 Sensor Use as directed every 14 days. Using Proformative, . EntomoPharm Edbbie 3 Au Train Device Use as directed. Using Proformative, . Debbie 3 reader shipped 03/10/2024 Ubrelvy 100 MG Oral Tablet (Ubrogepant) Take 100 mg by mouth as needed for Migraine. Take 1 tabletsat onset of migraine and may repeat in 2 hours if needed. Do not exceed 2 tablets in 24 hours. 10 Tablet 1 Ascalon InternationalStFoxwordy Precision Marko Test In Vitro Strip Use [...] Lantus Solostar 30 mL 3 COVID-19 mRNA Vac-Toan(SkillBoost) 30 MCG/0.3ML Intramuscular Suspension Prefilled Syringe (Wildfire, a division of Google) Inject 0.3 mL into a large muscle [...] Return to [facility] clinic in 1 year Tristian Tarango PA-C [facility] Team The patient was discussed with me. I agree with the findings and plan as documented by /Tristian Dave in this note. Napoleon Damon MD Rheumatology Department documented in this encounter Nursing Notes * Ana María Haley LPN - 08/15/2024 2:53 PM EST Chief Complaint Patient presents with Rheum Follow Up [facility] documented in this encounter Miscellaneous Notes * Addendum Note - Tristian Tarango PA-C - 08/16/2024 8:53 AM ESTAddended by: TRISTIAN TARANGO on: 08/16/2024 08:53 AM Modules accepted: Orders documented in this encounter Plan of Treatment Upcoming Encounters Date Type Department Care Team (Late st Contact Info) Description 09/01/2024 11:00 AM EST Office Visit Pharmacy, [place] [address] [place] [address] [address] [address] Pharmacist1, [facility] [phone] 11/13/2024 2:30 PM EST Nutrition Services Nutrition, [facility] 132 [facility] [place] [address] Edwina Ware, RDN 132 [facility] [place] [address] 11/21/2024 1:30 PM EDT Office Visit Sleep Disorders Ctr [facility] 132 [facility] [place] [phone] Victoria Mcintosh CRNP 132 [facility] [place] [address] 12/28/2024 1:00 PM EDT Appointment Cardiac Studies, [address] [place] [phone] 01/04/2025 11:00 AM EDT Office Visit Allergy/Immunology [facility] [place] 200 [facility] [place] [address] Guerita Marin PA-C 200 [facility] [place] [address] 02/09/2025 12:30 PM EDT Nurse Only Ancillary 1st Floor, [place] [facility] [address] [place], [facility] Wellness [address] [facility] [address] 03/02/2025 12:20 PM EDT Office Visit Family [facility], [place] [facility] [phone] Pippa Navarro CRNP [facility] [address] 05/07/2025 2:00 PM EDT Appointment Radiology, [facility] [address] [place] [address] [place] [address] 06/29/2025 2:00 PM EDT Office Visit Ophthalmology, [place] [address] [address] Ray Gonzalez DO [address] [address] Scheduled Orders Name Type Priority Associated Diagnoses Orde r Schedule DEXA SCAN/BONE MINERAL AXIAL Medical Imaging Routine Age-related osteoporosis without current pathological fracture Expected: 04/24/2025, Expires: 09/15/2025 25-HYDROXY VITAMIN D Lab Routine Age-related osteoporosis without current pathological fracture Vitamin D deficiency Expected: 09/27/2024, Expires: 08/16/2025 Scheduled Procedures Name Priority Associated Diagnoses Date/Ti [...] D LEVEL ONCE IN A LIFETIME-USE SMARTSET# 36305 Completed 08/15/2024, 11/17/2023, 02/19/2023, Additional history exists [...] this encounter Medical Devices Implanted Type Area Night Monitor Device Identifier Shelf Expiration Date Model / Serial / Lot Lens 24.5 [place] - [id number] - [id number] Implanted:Qty: 1 on 09/21/2023 by Ray Gonzalez DO at OR [facility] Lens Left: Eye [employer] 03/28/2026 CNA0T0.245 / [id number] / Suture Steel 6 B&S19 M654g - [id number] Implanted:Qty: 7 on 05/07/2021 by Aba Desir MD at [place] [facility] [place] N/A: Sternum JNJ : [employer] 01/10/2026 [id number] / / PAOLA [place] Lens 24.5 Implanted:Qty: 1 on 08/10/2023 by Ray Gonzalez DO at OR [facility] Right: Eye [employer] 09/15/2025 CNA0T0 / [id number] / documented as of this encounter Results * 25-HYDROXY VITAMIN D (08/15/2024 3:32 PM EST) 25-Hydroxy Vitamin D 23 >19 ng/mL 08/15/2024 10:39 PM EST [facility] Blood Venous blood specimen / Unknown Venipuncture / Unknown 08/15/2024 3:32 PM EST 08/15/2024 3:32 PM EST Narrative [facility] - 08/15/2024 10:39 PM EST Deficient: <20 ng/mL Insufficient: 20-29 ng/mL Recommended/Optimum:30-50 ng/mL Vitamin D intoxication is rare. If suspicious of Vitamin D toxicity, evaluation of serum Calcium and PTH is recommended. Tristian Tarango PA-C LAB BLOOD ORDERABLES Final Result [facility] [address] [place] [address] documented in this encounter Visit Diagnoses Diagnosis Age-related osteoporosis without current pathological fracture- Primary Senile osteoporosis Vitamin D deficiency Unspecified vitamin D deficiency documented in this encounter Advance Directives * [...] Advance Directives occurred with: Patient Care Teams Preform Machine Operator Relationship Specialty Start Date End Date Pippa Navarro CRNP [address] [address] PCP - General Nurse Practitioner 02/19/23 documented as of this encounter
--- OUTSIDE RECORDS SUMMARY | 2024-11-14 06:31 | External Medical Summary | Summary of Care ---
Author Name Unknown Organization [facility] Address [address] [place] [address] Phone [phone] Care Team Providers Care Cafeteria Assistant Name Role Phone Pippa Navarro Primary Care Provider Reason for Visit * Reason Comments Outpatient Testing Encounter Details Date Type Department Care Team ([facility] st Contact Info) Description 08/09/2024 7:00 AM EST Laboratory Laboratory, [place] [address] [place] [phone] [place], [facility] [address] [place], [place] [id number] Type 2 diabetes mellitus with hemoglobin A1c goal of less than 7.0% ([facility]) Allergies Active Allergy Reactions Criticality Noted Date Comments Codeine Medium Other reaction(s): Hallucinations Apixaban Hives 09/23/2022 Empagliflozin Other (Please comment) 05/30/2022 migraines Metformin Abdominal pain,Nausea/vomiting Medium 09/02/2023 Consistent with ER formulation even when taken with meals. Soap 12/26/2016 Ivory soap, hives Sulfa Antibiotics Rash Low 03/10/2017 documented as of this encounter (statuses as of 08/09/2024) Medications Triamcinolone Acetonide (NASACORT AQ) 55 MCG/ACT [...] A1c goal of less than 7.0% ([facility]) Checking blood sugars four time daily [...] Use as directed every 14 days. Using [employer], [phone]. 4 Active FreeStyle Debbie 3 [place] DeviceIndications :DM type 2 with diabetic peripheral neuropathy (HCC) Use as directed. Using Enliken,. Debbie 3 reader shipped 03/10/2024 4 Active [...] A1c goal of less than 7.0% ([facility]) Use up to 3 times daily to confirm sensor readings 300 Strip 3 4 Active Insulin Glargine Solostar 100 UNIT/ML Subcutaneous Solution Pen-injectorIndic ations:Type 2 diabetes, HbA1c goal < 7% ([facility]) Inject 26 Units under the skin daily. 30 mL 3 4 Active NovoLOG FlexPen 100 UNIT/ML Subcutaneous Solution Pen-injector (insulin aspart)Indication s:Type 2 diabetes, HbA1c goal < 7% ([facility]) Inject 15 units with breakfast, 16 units with lunch, 11 units with supper + CF 1:40 over 140 45 mL 3 4 Active Insulin Glargine Solostar 100 UNIT/ML Subcutaneous Solution Pen-injector (Lantus SoloStar)Indicati ons:Type 2 diabetes, HbA1c goal < 7% ([facility]) Inject 26 Units under the skin daily. Brand Lantus Solostar 30 mL 3 4 Active documented as of this encounter (statuses as of 08/09/2024) Active Problems Problem Noted Date Diagnosed Date Encounter for long-term (current) insulin use Major depressive disorder, recurrent, in partial remission 11/22/2023 Generalized anxiety disorder 11/22/2023 Atherosclerosis of [place] co ronary artery without angina pectoris 11/22/2023 [...] as of this encounter (statuses as of 08/09/2024) Resolved Problems Problem Noted Date Diagnosed Date [...] clinical research program 05/28/2020 12/02/2021 Overview (12/30/2020): [employer]: A Randomized Controlled Trial (Project # [id number]). The Fresh Food Acupera program provides food-insecure diabetics with healthy food for their entire household (2 meals/ day X 5 days/week). The program also provides education on food preparation, healthy living, and diabetes self management. The research measures the effects of the program on patient health and wellbeing. Subject will begin the FFF program November 2020. Contact Information: Neurodiagnostic Technician: Dr. Gilberto Nolan ([phone]) CRC: Chioma Dailey ([phone]) RA: Kimberlee Angulo ([phone]) Diagnosis changed due to Research Module. Go [...] as of this encounter (statuses as of 08/09/2024) Immunizations Name Administration Dates Next Due COVID-19 mRNA, LNP-s, No Pre serve, 2-Dose Series ([employer]) 02/01/2021,01/11/2021 COVID-19, LNP-s, No Preserve , Toan-sucrose, Ages 12+ (Pfizer) 12/31/2021 COVID-19, MRNA-LNP, PF, 30 M CG/0.3 mL, 12 YRS AND ABOVE, IM [facility] 07/29/2023 Covid-19, Mrna, Lnp-s, Pf, B ivalent, 30 Mcg, IM, 12 yrs and above ([employer]) 05/28/2022 Pneumococcal Conjugate Vacci ne, 20-valent ([id number]) 01/15/2023 Pneumococcal Polysaccharide PPV23 (Pneumovax) 01/09/2017 Seasonal [...] you got the money to buy more. Often true 12/08/19 24 Within the past 12 months, t he food you bought just didn't last and you didn't have money to get more. Often true 12/08/2023 Childcare Answer Date Recorded Do you feel overwhelmed with taking care of a child, family member or friend? No 12/08/2023 Does your family need help f inding childcare? (Household - for ages 0-17 years) Not on file 12/08/2023 Clothing Answer Date Recorded Have you been unable to get clothing when it was really needed? No 12/08/2023 Is your family able to get c lothes or diapers when needed? (Household - for ages 0-17 years) Not on file 12/08/2023 Personal Safety Answer Date Recorded Do you feel unsafe or have concerns for your saf ety? No 12/08/2023 Do you have concerns for you r family's safety? (Household - for ages 0-17 years) Not on file 12/08/2023 Utilities Answer Date Recorded Do you have trouble paying y our heating, water, or electric bill? No 12/08/2023 Is your family able to pay t he heat, water, or electric bill? (Household - for ages 0-17 years) Not on file 12/08/2023 Does your family have access to good internet? (Household - for ages 0-17 years) Not on file 12/08/2023 Employment Status Answer Date Recorded Are you unemployed or without regular income? No 12/08/2023 Does the household have a re gular source of income? (Household - for ages 0-17 years) Not on file 12/08/2023 Social Connections Answer Date Recorded How often do you feel lonely or isolated from th ose around you? Rarely 12/08/2023 Financial Resource Strain Answer Date R ecorded Do you have any trouble payi ng for your medications, or do you think you might in the future? No 12/08/2023 Does your family have troubl e paying for medicine? (Household - for ages 0-17 years) Not on file 12/08/2023 Transportation Needs Answer Date Record ed READ ONLY Do you have troubl e getting a ride to medical visits or work? Never True 12/08/2023 Does your family have a hard time getting a ride to doctors visits? (Household - for ages 0-17 years) Not on file 12/08/2023 Has lack of transportation k ept you from medical appointments, meetings, work, or from getting things needed for daily living? Check all that apply. (Adult - for ages 18 years and over) Not on file 12/08/2023 Do you (or your family) have trouble finding or paying for a ride (transportation)? (Household - for ages 0-17 years) Not on file 12/08/2023 Housing Stability Answer Date Recorded Do you currently live in a s helter or have no steady place to sleep at night? No 12/08/2023 READ ONLY Do you think you a re at risk of becoming homeless? No 12/08/2023 Does your family worry about paying for your home or becoming homeless? (Household - for ages 0-17 years) Not on file 0 12/08/2023 Are you homeless or worried that you might be in the future? (Adult - for ages 18 years and over) Not on file Are you (or your family) raj eless or worried that you might be in the future? (Household - for ages 0-17 years) Not on file Food Insecurity Answer Date Recorded Do you need food for this week? Yes 12/08/2023 Are you able to get enough f ood for your family? (Household - for ages 0-17 years) Not on file 12/08/2023 Does your family need food t his week? (Household - for ages 0-17 years) Not on file 12/08/2023 Do you always have enough fo od for your family? (Household - for ages 0-17 years) Not on file 12/08/2023 Comments No Sex and Gender Information Value [...] of Assessment Author No 05/30/2022 8:15 PM Ilya Martin RN * Are you blind or do you have serious difficulty seeing, even when wearing glasses? Answer Date of Assessment Author No 05/30/2022 8:15 PM Ilya Martin RN * Do you have serious difficulty walking or climbing stairs? (5 years old or older) Answer Date of Assessment Author No 05/30/2022 8:15 PM Ilya Martin RN * Do you have difficulty dressing or bathing? (5 years old or older) Answer Date of Assessment Author Yes 05/30/2022 8:15 PM Ilya Martin RN * Because of a physical, mental, or emotional condition, do you have difficulty doing errands alone such as visiting a doctors office or shopping? (15 years old or older) Answer Date of Assessment Author No 05/30/2022 8:15 PM Ilya Martin RN documented as of this encounter Mental Status * Because of a physical, mental, or emotional condition, do you have serious difficulty concentrating, remembering, or making decisions? (5 years old or older) Answer Entry Date Author No 05/30/2022 8:15 PM Ilya Martin RN documented in this encounter Plan of Treatment Upcoming Encounters Date Type Department Care Team (Late st Contact Info) Description 08/14/2024 10:00 AM EST Office Visit Family Practice, [place] [phone] Pippa Navarro CRNP [address] [address] 09/01/2024 11:00 AM EST Office Visit Pharmacy, [place] [address] [place] [address] [address] Pharmacist1, [facility] [place] [address] [place] [address] 09/26/2024 9:40 AM EST Office Visit Rheumatology [facility] [address] [facility] [place] [address] Napoleon Damon MD [address] [place] [address] [place] [address] 11/13/2024 2:30 PM EST Nutrition Services Nutrition, [facility] [address] [facility] [place] [address] Edwina Ware RDN 132 [facility] [place] [address] 11/21/2024 1:30 PM EDT Office Visit Sleep Disorders Ctr [facility] [address] [facility] [place] [phone] Victoria Mcintosh CRNP [address] [facility] [address] 01/04/2025 11:00 AM EDT Office Visit Allergy/Immunology [facility] [address] [facility] [place] [address] Guerita Marin PA-C [address] [facility] [place] [address] 02/09/2025 12:30 PM EDT Nurse Only Ancillary 1st Floor, [place] [address] [place] [address] [address] [place], [facility] 2 [address] [place] [address] 06/29/2025 2:00 PM EDT Office Visit Ophthalmology, [place] [address] [place] [address] Ray Gonzalez, DO [address] [facility] [address] [place] [address] Pending Results Name Type Priority Associated Diagnoses Date /Time HEMOGLOBIN A1C Lab Routine Type 2 diabetes mellitus with hemoglobin A1c goal of less than 7.0% ([facility]) 08/09/2024 7:04 AM EST COMPREHENSIVE METABOLIC PANEL Lab Routine Type 2 diabetes mellitus with hemoglobin A1c goal of less than 7.0% ([facility]) 08/09/2024 7:04 AM EST Scheduled Procedures Name Priority Associated Diagnoses Date/Ti ms ESOPHAGOGASTRODUODENOSCOPY ( EGD), FLEXIBLE, TRANSORAL, DIAGNOSTIC Recall Velez esophagus COLONOSCOPY FLEXIBLE PROXIMAL DIAGNOSTIC Recall Encounter for screening colonoscopy Health Maintenance Due Date Last Done Comments Cologuard 2001 Fecal Occult Blood Test 2001 Sigmoidoscopy 2001 COVID-19 Vaccine ( season) 2024 07/29/2023, 05/28/2022, 12/31/2021, Additional history exists HbA1c 10/30/2024 04/29/2024, 03/0 02/2024, 06/15/2023, Additional history exists B-12 11/16/2024 11/17/2023, 02/0 02/2023, 07/09/2021, Additional history exists GFR 11/16/2024 11/17/2023, 06/0 05/2023, 12/15/2022, Additional history exists Albumin/Creatinine Ratio 11/18/2024 024, 06/15/2023, 07/31/2022, Additional history exists Diabetic Foot Exam 01/05/2025 01/06/2024, 0 10/19/2022, 09/19/2021, Additional history exists Adult Wellness Visit 02/03/2025 02/04/2024 Depression Monitoring 02/03/2025 02/04/2024, 024 Mammogram 02/03/2025 02/04/2024, 05, 12/24/2021, Additional history exists DXA Scan 04/23/2025 04/23/2023, 04/21/2021 Diabetic Eye Exam 06/23/2025 06/23/2024, , 06/23/2024, Additional history exists Velez's Esophagus Surveilance 12/22/2025 12/22/2022, 12/22/2022, 08/04/2022, Additional history exists DTap/Tdap Vaccines (2 - Td or Tdap) 07/16/2027 07/16/2017 Colonoscopy 08/13/2027 08/13/2017, 08/13/2017 Colorectal Cancer Screening 08/13/2027 Zoster Vaccines Completed 04/07/2022, 01/11, 01/07/2017 Pneumococcal Vaccine: 65+ Years Completed 01/15/2023, 01/09/2017 Pap Smear Discontinued 05/05/2023, 08/13, 04/07/2017, Additional history exists VITAMIN D LEVEL ONCE IN A LIFETIME-USE SMARTSET# [id number] Completed 11/17/2023, 02/19/2023, 05/11/2019, Additional history exists Influenza Vaccine (FLU shot) Completed 05/23/2024, 05/18/2023, 05/28/2022, Additional history exists HPV (Gardasil) Vaccine [...] encounter Medical Devices Implanted Type Area Field Cashier Device Identifier Shelf Expiration Date Model / Serial / Lot Lens 24.5 Clareon - [id number] - [id number] Implanted:Qty: 1 on 09/21/2023 by Ray Gonzalez DO at OR [facility] Lens Left: Eye [employer] 03/28/2026 CNA0T0.245 / [id number] / Suture Steel 6 B&S19 M654g - [id number] Implanted:Qty: 7 on 05/07/2021 by Aba Desir MD at OR [facility] N/A: Sternum JNJ : [employer] 01/10/2026 [id number] / / [id number] Clareon Lens 24.5 Implanted:Qty: 1 on 08/10/2023 by Ray Gonzalez, DO at OR [facility] Right: Eye [employer] 09/15/2025 CNA0T0 / [id number] / documented as of this encounter Visit Diagnoses Diagnosis Type 2 diabetes mellitus with hemoglobin A1c goal of less than 7.0% ([facility]) documented in this encounter Advance Directives * [...] Advance Directives occurred with: Patient Care Teams Cafeteria Assistant Relationship Specialty Start Date End Date Pippa Navarro CRNP [address] [place] [address] PCP - General Nurse Practitioner 02/19/23 documented as of this encounter
--- OUTSIDE RECORDS SUMMARY | 2024-11-14 06:31 | External Medical Summary | Summary of Care ---
Author Name Unknown Organization [facility] Address [address] [place] [address] Phone [phone] Care Team Providers Care Environmental Field Services Technician Name Role Phone Pippa Navarro Primary Care Provider Encounter Details Date Type Department Care Team (Late st Contact Info) Description 08/15/2024 Orders Only Hematology/Oncology, [facility] [address] [place] [address] Hans Tian PA-C [address] [place] [address] Allergies Active Allergy Reactions Criticality Noted Date [...] hemoglobin A1c goal of less than 7.0% ([facility]) Checking blood sugars four time daily Dx: [...] bedtime. 2 Active Witch Marlys-Glycerin External Pad (Amparo)Indication s:Non-obstetric vaginal laceration without foreign body or [...] Use as directed every 14 days. Using [employer], [phone]. 4 Active FreeStyle Debbie 3 [place] DeviceIndications :DM type 2 with diabetic peripheral neuropathy (HCC) Use as directed. Using [employer],. Debbie 3 reader shipped 03/10/2024 4 Active [...] ations:Type 2 diabetes, HbA1c goal < 7% (HCC) [...] ons:Type 2 diabetes, HbA1c goal < 7% ([facility]) Inject 26 Units under the skin daily. Brand Lantus Solostar 30 mL 3 4 Active documented as of this encounter (statuses as of 08/15/2024) Active Problems Problem Noted Date Diagnosed Date Encounter for long-term (current) insulin use Major depressive disorder, recurrent, in partial remission 11/22/2023 Generalized anxiety disorder 11/22/2023 Atherosclerosis of [place] co ronary artery without angina pectoris 11/22/2023 [...] clinical research program 05/28/2020 12/02/2021 Overview (12/30/2020): [employer]: A Randomized Controlled Trial (Project # [id number]). The Fresh Food [employer] program provides food-insecure diabetics with healthy food for their entire household (2 meals/ day X 5 days/week). The program also provides education on food preparation, healthy living, and diabetes self management. The research measures the effects of the program on patient health and wellbeing. Subject will begin the FFF program November 2020. Contact Information: Dramatic Director: Dr. Gilberto Nolan ([phone]) CRC: Chioma Dailey ([phone]) RA: Kimberlee Angulo ([phone]) Diagnosis changed due to Research Module. Go [...] mRNA, LNP-s, No Pre serve, 2-Dose Series ([employer]) 02/01/2021,01/11/2021 COVID-19, LNP-s, No Preserve , Toan-sucrose, Ages 12+ ([employer]) 12/31/2021 COVID-19, MRNA-LNP, PF, 30 M CG/0.3 mL, 12 YRS AND ABOVE, IM ([facility]) 08/15/2024,07/29/2023 Covid-19, Mrna, Lnp-s, Pf, B ivalent, 30 Mcg, IM, 12 yrs and above ([employer]) 05/28/2022 Pneumococcal Conjugate Vacci ne, 20-valent ([id number]) 01/15/2023 Pneumococcal Polysaccharide PPV23 (Pneumovax) 01/09/2017 Seasonal [...] No 05/30/2022 8:15 PM EDGraciela Reid RN * Are you blind or do [...] 09/01/2024 11:00 AM EST Office Visit Pharmacy, [place] [address] [place] [address] Pharmacist1, [facility] [place] [address] [place] [address] 11/13/2024 2:30 PM EST Nutrition Services Nutrition, [facility] [address] [place] [address] Edwina Ware RDN [address] [place] [address] 11/21/2024 1:30 PM EDT [facility] [address] [place] [phone] Victoria Mcintosh CRNP [address] [place] [address] 12/28/2024 1:00 PM EDT [address]ointment [address], [address] [address] 01/04/2025 11:00 AM EDT Office Visit Allergy/Immunology [facility] [place] [address] [facility] [place] [address] Guerita Marin PA-C [address] [facility] [place] [address] 02/09/2025 12:30 PM EDT Nurse Only Ancillary 1st Floor, [place] [facility] [address] [place], [facility] 2 [facility] [phone] 03/02/2025 12:20 PM EDT Office Visit Family [facility], [place] [facility] [phone] Pippa Navarro CRNP [address] [facility] [address] 05/07/2025 2:00 PM EDT Appointment Radiology, [address] [place] [phone] 06/29/2025 2:00 PM EDT Office Visit Ophthalmology, [place] 21 [facility] [address] Ray Gonzalez DO [facility] [phone] Scheduled Procedures Name Priority Associated Diagnoses Date/Ti [...] D LEVEL ONCE IN A LIFETIME-USE SMARTSET# [id number] Completed 11/17/2023, 02/19/2023, 05/11/2019, Additional history exists [...] this encounter Medical Devices Implanted Type Area Assurance Senior Manager Device Identifier Shelf Expiration Date Model / Serial / Lot Lens 24.5 Clareon - [id number] - [id number] Implanted:Qty: 1 on 09/21/2023 by Ray Gonzalez DO at OR [facility] Lens Left: Eye [employer] 03/28/2026 CNA0T0.245 / [id number] / Suture Steel 6 B&S19 M654g - [id number] Implanted:Qty: 7 on 05/07/2021 by Aba Desir MD at [place] [facility] N/A: Sternum JNJ : [employer] 01/10/2026 [id number] / / [id number] Clareon Lens 24.5 Implanted:Qty: 1 on 08/10/2023 by Ray Gonzalez DO at OR [facility] Right: Eye [employer] 09/15/2025 CNA0T0 / [id number] / documented as of this encounter [...] Advance Directives occurred with: Patient Care Teams Environmental Field Services Technician Relationship Specialty Start Date End Date Pippa Navarro CRNP [address] [place] [address] PCP - General Nurse Practitioner 02/19/23 documented as of this encounter
--- OUTSIDE RECORDS SUMMARY | 2024-11-14 06:31 | External Medical Summary | Summary of Care ---
Author Name Unknown Organization [facility] Address [address] [place] [address] Phone [phone] Care Team Providers Care Banana Ripening Room Supervisor Name Role Phone Pippa Navarro Primary Care Provider Reason for Visit * Reason Comments Rheum Follow Up HIROC Encounter Details Date Type Department Care Team ([facility] st Contact Info) Description 08/15/2024 2:30 PM EST Office Visit Rheumatology, [address] [address] Hans Tian PA-C [address] [place] [address] Age-related osteoporosis without current pathological [...] hemoglobin A1c goal of less than 7.0% ([facility]) Checking blood sugars four time [...] Use as directed every 14 days. Using [employer], [phone]. 4 Active FreeStyle Debbie 3 [place] DeviceIndications :DM type 2 with diabetic peripheral neuropathy (HCC) Use as directed. Using [employer],. Debbie 3 reader shipped 03/10/2024 4 Active [...] hemoglobin A1c goal of less than 7.0% ([facility]) Use up to 3 times daily to confirm sensor readings 300 Strip 3 4 Active Insulin Glargine Solostar 100 UNIT/ML Subcutaneous Solution Pen-injectorIndic ations:Type 2 diabetes, HbA1c goal < 7% ([facility]) Inject 26 Units under the skin daily. 30 mL 3 4 Active NovoLOG FlexPen 100 UNIT/ML Subcutaneous Solution Pen-injector (insulin aspart)Indication s:Type 2 diabetes, HbA1c goal < 7% ([facility]) Inject 15 units with breakfast, 16 units with lunch, 11 units with supper + CF 1:40 over 140 45 mL 3 4 Active Insulin Glargine Solostar 100 UNIT/ML Subcutaneous Solution Pen-injector (Lantus SoloStar)Indicati ons:Type 2 diabetes, HbA1c goal < 7% ([facility]) Inject 26 Units under the skin daily. 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 The Fresh [employer] program provides food-insecure diabetics with healthy food for their entire household (2 meals/ day X 5 days/week). The program also provides education on food preparation, healthy living, and diabetes self management. The research measures the effects of the program on patient health and wellbeing. Subject will begin the FFF program November 2020. Contact Information: Flash Drier Operator: Dr. Gilberto Nolan ([phone]) CRC: Chioma Dailey ([phone]) RA: Kimberlee Angulo ([phone]) Diagnosis changed due to Research Module. Go [...] mRNA, LNP-s, No Pre serve, 2-Dose Series ([employer]) 02/01/2021,01/11/2021 COVID-19, LNP-s, No Preserve , Toan-sucrose, Ages 12+ ([employer]) 12/31/2021 COVID-19, MRNA-LNP, PF, 30 M CG/0.3 mL, 12 YRS AND ABOVE, IM ([employer]) 08/15/2024,07/29/2023 Covid-19, Mrna, Lnp-s, Pf, B ivalent, 30 Mcg, IM, 12 yrs and above ([employer]) 05/28/2022 Pneumococcal Conjugate Vacci ne, 20-valent ([id number]) 01/15/2023 Pneumococcal Polysaccharide PPV23 (Pneumovax) 01/09/2017 Seasonal [...] Graciela Martins RN documented in this encounter Nursing Notes * Ana María Haley LPN - 08/15/2024 2:53 PM EST Chief Complaint Patient presents with Rheum Follow Up HIROC documented in this encounter Plan of Treatment Upcoming Encounters Date Type Department Care Team (Late st Contact Info) Description 09/01/2024 11:00 AM EST Office Visit Pharmacy, [place] 21 [facility] [place] [address] Pharmacist1, [facility] [place] 21 [facility] [place] [address] 11/13/2024 2:30 PM EST Nutrition Services Nutrition, [facility] 132 [facility] [place] [address] Edwina Ware, MICHAEL 132 [facility] [place] [address] 11/21/2024 1:30 PM EDT Office Visit Sleep Disorders Ctr [facility] [place] 132 [facility] [place] [phone] Victoria Mcintosh CRNP 132 [facility] [place] [address] 12/28/2024 1:00 PM EDT Appointment Cardiac Studies, [facility] [place] [address] 01/04/2025 11:00 AM EDT Office Visit Allergy/Immunology [facility] [place] [address] [place] [address] Guerita Marin PA-C 200 [facility] [place] [address] 02/09/2025 12:30 PM EDT Nurse Only Ancillary 1st Floor, [place] [address] [place] [address] [place], [facility] Wellness 2 [address] [place] [address] 03/02/2025 12:20 PM EDT Office Visit Family Practice, [place] [address] [place] [phone] Pippa Navarro CRNP 21 [facility] [place] [address] 05/07/2025 2:00 PM EDT Appointment Radiology, [facility] [address] [place] [address] 06/29/2025 2:00 PM EDT Office Visit Ophthalmology, [place] 21 [facility] [place] [address] Ray Gonzalez DO 21 [facility] [place] [address] Scheduled Orders Name Type Priority Associated Diagnoses [...] D LEVEL ONCE IN A LIFETIME-USE SMARTSET# 05152 Completed 11/17/2023, 02/19/2023, 05/11/2019, Additional history exists [...] this encounter Medical Devices Implanted Type Area Switchboard Wirer Device Identifier Shelf Expiration Date Model / Serial / Lot Lens 24.5 [place] - [id number] - [id number] Implanted:Qty: 1 on 09/21/2023 by Ray Gonzalez DO at OR [facility] Lens Left: Eye [employer] 03/28/2026 CNA0T0.245 / [id number] / Suture Steel 6 B&S19 M654g - [id number] Implanted:Qty: 7 on 05/07/2021 by Aba Desir MD at OR [facility] N/A: Sternum JNJ : [employer] 01/10/2026 [id number] / / [id number] Clareon Lens 24.5 Implanted:Qty: 1 on 08/10/2023 by Ray Gonzalez DO at OR [facility] Right: Eye [employer] 09/15/2025 CNA0T0 / [id number] / documented as of this encounter [...] Advance Directives occurred with: Patient Care Teams Banana Ripening Room Supervisor Relationship Specialty Start Date End Date Pippa Navarro CRNP 21 [place] [address] PCP - General Nurse Practitioner 02/19/23 documented as of this encounter
--- OUTSIDE RECORDS SUMMARY | 2024-11-14 06:31 | External Medical Summary ---
Author Name Unknown Address Unknown Organization K01:[facility] [place] [address] [place] [address] Laboratory Report Ordering Provider Test Date Status TRISTIANEMELINA 08/15/2024 15:32:00 Final Deficient: <20 ng/mL
Ins ufficient: 20-29 ng/mL
Recommended/Optimum:30-50 ng/mL

Vitamin D intoxication is rare. If suspicious of Vitamin D toxicity, evaluation of serum Calcium and PTH is recommended. Observation Date Value Abnormality Reference (Units ) Status 25-OH Vitamin D total 08/15/2024 15:32:00 23 >19 (ng/mL) Final Performing Location [facility] [place] [facility] [address] [place] [address]
--- OUTSIDE RECORDS SUMMARY | 2024-11-14 06:31 | External Medical Summary | Summary of Care ---
Author Name Unknown Organization [facility] Address [address] [place] [address] Phone [phone] Care Team Providers Care Torch Shearer Name Role Phone Pippa Navarro Primary Care Provider Reason for Visit * Reason Comments Follow Up 6 month Encounter Details Date Type Department Care Team ([facility] st Contact Info) Description 08/14/2024 10:00 AM EST Office Visit [facility] [address] [place] [phone] Pippa Navarro CRNP [address] [place], [place] [phone] HTN, goal below 130/80*; Type 2 diabetes mellitus with hemoglobin A1c goal of less than 7.0% (HCC); Hyperlipidemia with target LDL less than 70; Need for COVID-19 vaccine Allergies Active Allergy Reactions Criticality Noted Date Comments Codeine Medium Other reaction(s): Hallucinations Apixaban Hives 09/23/2022 Empagliflozin Other (Please comment) 05/30/2022 migraines Metformin Abdominal pain,Nausea/vomiting Medium 09/02/2023 Consistent with ER formulation even when taken with meals. Soap 12/26/2016 Ivory soap, hives Sulfa Antibiotics Rash Low 03/10/2017 documented as of this encounter (statuses as of 08/14/2024) Medications Triamcinolone Acetonide (NASACORT AQ) 55 MCG/ACT [...] hemoglobin A1c goal of less than 7.0% ([facility]) Checking blood sugars four time [...] Use as directed every 14 days. Using [employer], [phone]. 4 Active FreeStyle Debbie 3 [place] DeviceIndications :DM type 2 with diabetic peripheral neuropathy (HCC) Use as directed. Using [employer],. Debbie 3 reader shipped 03/10/2024 4 Active [...] hemoglobin A1c goal of less than 7.0% ([facility]) Use up to 3 times daily to confirm sensor readings 300 Strip 3 4 Active Insulin Glargine Solostar 100 UNIT/ML Subcutaneous Solution Pen-injectorIndic ations:Type 2 diabetes, HbA1c goal < 7% ([facility]) Inject 26 Units under the skin daily. 30 mL 3 4 Active NovoLOG FlexPen 100 UNIT/ML Subcutaneous Solution Pen-injector (insulin aspart)Indication s:Type 2 diabetes, HbA1c goal < 7% ([facility]) Inject 15 units with breakfast, 16 units with lunch, 11 units with supper + CF 1:40 over 140 45 mL 3 4 Active Insulin Glargine Solostar 100 UNIT/ML Subcutaneous Solution Pen-injector (Lantus SoloStar)Indicati ons:Type 2 diabetes, HbA1c goal < 7% ([facility]) Inject 26 Units under the skin daily. Brand Lantus Solostar 30 mL 3 4 Active COVID-19 mRNA Vac-Toan([employer]) 30 MCG/0.3ML Intramuscular Suspension Prefilled Syringe (Unocoin)Indica tions:Need for COVID-19 vaccine Inject 0.3 mL into a large muscle once for 1 dose. 0.3 mL 4 08/14/20 24 Active documented as of this encounter (statuses as of 08/14/2024) Active Problems Problem Noted Date Diagnosed Date Encounter for long-term (current) insulin use Major depressive disorder, recurrent, in partial remission 11/22/2023 Generalized anxiety disorder 11/22/2023 Atherosclerosis of [place] co ronary artery without angina pectoris 11/22/2023 [...] as of this encounter (statuses as of 08/14/2024) Resolved Problems Problem Noted Date Diagnosed Date [...] clinical research program 05/28/2020 12/02/2021 Overview (12/30/2020): [employer]: A Randomized Controlled Trial (Project # [id number]). The Fresh [employer] program provides food-insecure diabetics with healthy food for their entire household (2 meals/ day X 5 days/week). The program also provides education on food preparation, healthy living, and diabetes self management. The research measures the effects of the program on patient health and wellbeing. Subject will begin the FFF program November 2020. Contact Information: Drum Sander Setter: Dr. Gilberto Nolan ([phone]) CRC: Chioma Dailey ([phone]) RA: Kimberlee Angulo ([phone]) Diagnosis changed due to Research Module. Go [...] as of this encounter (statuses as of 08/14/2024) Immunizations Name Administration Dates Next Due COVID-19 mRNA, LNP-s, No Pre serve, 2-Dose Series ([employer]) 02/01/2021,01/11/2021 COVID-19, LNP-s, No Preserve , Toan-sucrose, Ages 12+ ([employer]) 12/31/2021 COVID-19, MRNA-LNP, PF, 30 M CG/0.3 mL, 12 YRS AND ABOVE, IM ([facility]) 07/29/2023 Covid-19, Mrna, Lnp-s, Pf, B ivalent, 30 Mcg, IM, 12 yrs and above ([employer]) 05/28/2022 Pneumococcal Conjugate Vacci ne, 20-valent ([id number]) 01/15/2023 Pneumococcal Polysaccharide PPV23 (Pneumovax) 01/09/2017 Seasonal [...] Sign Reading Time Taken Comments Blood Pressure 128/76 08/14/2024 10:05 AM EST Pulse 86 08/14/2024 10:05 AM EST Temperature 36.3 C (97.4 F) 08/14/2024 1 0:05 AM EST Respiratory Rate 16 08/14/2024 10:0 5 AM EST Oxygen Saturation 96% 08/14/2024 10: 05 AM EST Inhaled Oxygen Concentration - - Weight 73.4 kg (161 lb 14.4 oz) 024 10:05 AM EST Height - - Body Mass Index 31.62 07/14/2024 1:15 PM EDT documented in this [...] Assessment Author No 05/30/2022 8:15 PM SHERWINT Graceila Reynolds RN documented as of this encounter Mental Status * Because of a physical, mental, or emotional condition, do you have serious difficulty concentrating, remembering, or making decisions? (5 years old or older) Answer Entry Date Author No 05/30/2022 8:15 PM Graciela Martins RN documented in this encounter Progress Notes * Pippa Navarro CRNP - 08/14/2024 10:18 AM EST Images from the original note were not included. History of Present Illness Vanna Acevedo is a 69 year old female that presents for Follow Up (6 month) Vanna presents to the clinic for a routine follow up. She is agreeable to diabetic foot exam. She is up to date on mammogram and dexa scan. She is up to date on flu vaccine. She notes her A1C is elevated and she is following with a hybrid technologist and working on eating a more balanced diet. She also follows with [facility] for diabetic management and fresh food farmacy. She also follows with [facility] for psychiatric care. Review of Systems Respiratory: Negative for chest tightness and shortness of breath. Cardiovascular: Negative for chest pain. Genitourinary: Negative for difficulty urinating. Musculoskeletal: Negative for arthralgias. Neurological: Negative for dizziness and syncope. Psychiatric/Behavioral: Positive for sleep disturbance. The patient is not nervous/anxious. Physical Exam BP 128/76 | Pulse 86 | Temp 97.4 F (36.3 C) (Tympanic) | Resp 16 | Wt 161 lb 14.4 oz (73.4 kg) | LMP (LMP Unknown) | SpO2 96% | BMI 31.62 kg/m | BSA 1.76 m Physical Exam Vitals and nursing note reviewed. Constitutional: Appearance: Normal appearance. HENT: Right Ear: External ear normal. Left Ear: External ear normal. Nose: Nose normal. Mouth/Throat: Mouth: Mucous membranes are moist. Eyes: Pupils: Pupils are equal, round, and reactive to light. Cardiovascular: Rate and Rhythm: Normal rate and regular rhythm. Heart sounds: Normal heart sounds, S1 normal and S2 normal. Pulmonary: Effort: Pulmonary effort is normal. Breath sounds: Normal breath sounds. Abdominal: Palpations: Abdomen is soft. Musculoskeletal: General: Normal range of motion. Right lower leg: No edema. Left lower leg: No edema. Skin: General: Skin is warm and dry. Neurological: General: No focal deficit present. Mental Status: She is alert and oriented to person, place, and time. GCS: GCS eye subscore is 4. GCS verbal subscore is 5. GCS motor subscore is 6. Psychiatric: Attention and Perception: Attention normal. Mood and Affect: Mood normal. Speech: Speech normal. Behavior: Behavior normal. Behavior is cooperative. Thought Content: Thought content normal. Cognition and Memory: Cognition normal. Judgment: Judgment normal. I have reviewed most recent labs CMP and Hemoglobin A1C Assessment and Plan HTN, goal below 130/80 (Primary) - COMPREHENSIVE METABOLIC PANEL; Future; Expected date: 02/12/2025 Type 2 diabetes mellitus with hemoglobin A1c goal of less than 7.0% (HCC) - HEMOGLOBIN A1C; Future; Expected date: 11/12/2024 - DIABETES FOOT EXAM - COMPREHENSIVE METABOLIC PANEL; Future; Expected date: 02/12/2025 Hyperlipidemia with target LDL less than 70 - LIPID PANEL WITH DIRECT LDL IF TG IS HIGH; Future; Expected date: 02/12/2025 Need for COVID-19 vaccine - COVID-19 mRNA Vac-Toan(YellowSchedule) 30 MCG/0.3ML Intramuscular Suspension Prefilled Syringe (Unocoin); Inject 0.3 mL into a large muscle once for 1 dose. Wrap-Up Time: I spent a total of 40-54 minutes (exact time 40 mins) on the date of service in preparation, delivery, and documentation of the care provided to Vanna Acevedo excluding any time spent in the performance of separately billed services. documented in this encounter Nursing Notes * Ruby Ortez LPN - 08/14/2024 10:03 AM EST Chief Complaint Patient presents with Follow Up 6 month documented in this encounter Plan of Treatment Upcoming Encounters Date Type Department Care Team (Late st Contact Info) Description 08/15/2024 2:30 PM EST Office Visit Rheumatology, [facility] [address] [facility] [place] [address] Hans Tian PATirsoC [address] [facility] [place] [address] 09/01/2024 11:00 AM EST Office [address] [address] [address] [facility] [place] [facility] [address] 11/13/2024 2:30 PM EST Nutrition Services Nutrition, [facility] 132 [facility] [place] [address] Edwina Ware RDN 132 [facility] [place] [address] 11/21/2024 1:30 PM EDT Office Visit Sleep Disorders Ctr [facility] [place] 132 [facility] [place] [phone] Victoria Mcintosh CRNP 132 [facility] [place] [address] 01/04/2025 11:00 AM EDT Office Visit Allergy/Immunology [facility] [place] [address] [place], [place] [address] Guerita Marin PA-C [address] [place], [place] [address] 02/09/2025 12:30 PM EDT Nurse Only Ancillary 1st Floor, [place] 21 [facility] [place] [address] [place], [facility] Wellness 2 21 [facility] [place] [id number] 06/29/2025 2:00 PM EDT Office Visit Ophthalmology, [place] [address] Ray Gonzalez DO [place] [address] Scheduled Orders Name Type Priority Associated Diagnoses Orde r Schedule HEMOGLOBIN A1C Lab Routine Type 2 diabetes mellitus with hemoglobin A1c goal of less than 7.0% (HCC) Expected: 11/12/2024 (Approximate), Expires: 08/14/2025 LIPID PANEL WITH DIRECT LDL IF TG IS HIGH Lab Routine Hyperlipidemia with target LDL less than 70 Expected: 02/12/2025, Expires: 08/14/2025 COMPREHENSIVE METABOLIC PANEL Lab Routine HTN, goal below 130/80 Type 2 diabetes mellitus with hemoglobin A1c goal of less than 7.0% (HCC) Expected: 02/12/2025 (Approximate), Expires: 08/14/2025 Scheduled Procedures Name Priority Associated Diagnoses Date/Ti me ESOPHAGOGASTRODUODENOSCOPY ( EGD), FLEXIBLE, TRANSORAL, DIAGNOSTIC Recall Velez esophagus COLONOSCOPY FLEXIBLE PROXIMAL DIAGNOSTIC Recall Encounter for screening colonoscopy Health Maintenance Due Date Last Done Comments Cologuard 2001 Fecal Occult Blood Test 2001 Sigmoidoscopy 2001 COVID-19 Vaccine ( season) 2024 07/29/2023, 05/28/2022, 12/31/2021, Additional history exists B-12 11/16/2024 11/17/2023, 02/02/2023, 07/09/2021, Additional history [...] D LEVEL ONCE IN A LIFETIME-USE SMARTSET# [id number] Completed 11/17/2023, 02/19/2023, 05/11/2019, Additional history exists [...] this encounter Medical Devices Implanted Type Area Shuttle Driver Device Identifier Shelf Expiration Date Model / Serial / Lot Lens 24.5 [place] - [id number] - [id number] Implanted:Qty: 1 on 09/21/2023 by Ray Gonzalez DO at OR [facility] Lens Left: Eye [employer] 03/28/2026 CNA0T0.245 / [id number] / Suture Steel 6 B&S19 M654g - [id number] Implanted:Qty: 7 on 05/07/2021 by Aba Desir MD at OR [facility] N/A: Sternum JNJ : [employer] 01/10/2026 [id number] / / [id number] Clareon Lens 24.5 Implanted:Qty: 1 on 08/10/2023 by Ray Gonzalez DO at OR [facility] Right: Eye [employer] 09/15/2025 CNA0T0 / [id number] / documented as of this encounter Visit Diagnoses Diagnosis HTN, goal below 130/80- Primary Unspecified essential hypertension Type 2 diabetes mellitus with hemoglobin A1c goal of less than 7.0% (HCC) Hyperlipidemia with target LDL less than 70 Other and unspecified hyperlipidemia Need for COVID-19 vaccine documented in this encounter Advance Directives * [...] Advance Directives occurred with: Patient Care Teams Torch Shearer Relationship Specialty Start Date End Date Pippa Navarro CRNP 21 [place] [phone] PCP - General Nurse Practitioner 02/19/23 documented as of this encounter"
--- OUTSIDE RECORDS SUMMARY | 2024-11-14 06:31 | External Medical Summary | Summary of Care ---
Author Name Unknown Organization [facility] Address [address] [place] [address] Phone [phone] Care Team Providers Care Procedures Rn Name Role Phone Pippa Navarro Primary Care Provider Reason for Visit * Reason Comments Follow Up 6 month Encounter Details Date Type Department Care Team ([facility] st Contact Info) Description 08/14/2024 10:00 AM EST Office Visit [facility] [address] [place] [phone] Pippa Navarro CRNP [address] [place], [place] [phone] HTN, goal below 130/80*; Type 2 diabetes [...] goal of less than 7.0% ([facility]) Checking blood sugars four time daily Dx: [...] Use as directed every 14 days. Using Codeoscopic, [phone]. 4 Active FreeStyle Debbie 3 [place] DeviceIndications :DM type 2 with diabetic peripheral neuropathy (HCC) Use as directed. Using Codeoscopic,. Debbie 3 reader shipped 03/10/2024 4 Active [...] goal of less than 7.0% ([facility]) Use up to 3 times daily to confirm sensor readings 300 Strip 3 4 Active Insulin Glargine Solostar 100 UNIT/ML Subcutaneous Solution Pen-injectorIndic ations:Type 2 diabetes, HbA1c goal < 7% ([facility]) Inject 26 Units under the skin daily. 30 mL 3 4 Active NovoLOG FlexPen 100 UNIT/ML Subcutaneous Solution Pen-injector (insulin aspart)Indication s:Type 2 diabetes, HbA1c goal < 7% ([facility]) Inject 15 units with breakfast, 16 units with lunch, 11 units with supper + CF 1:40 over 140 45 mL 3 4 Active Insulin Glargine Solostar 100 UNIT/ML Subcutaneous Solution Pen-injector (Lantus SoloStar)Indicati ons:Type 2 diabetes, HbA1c goal < 7% ([facility]) Inject 26 Units under the skin daily. Brand Lantus Solostar 30 mL 3 4 Active COVID-19 mRNA Vac-Toan(Vertical Point Solutions) 30 MCG/0.3ML Intramuscular Suspension Prefilled Syringe (Oddcast)Indica tions:Need for COVID-19 vaccine Inject 0.3 mL into a large muscle once for 1 dose. 0.3 mL 4 08/15/20 24 Active documented as of this encounter (statuses as of 08/14/2024) Active Problems Problem Noted Date Diagnosed Date Encounter for long-term (current) insulin use Major depressive disorder, recurrent, in partial remission 11/22/2023 Generalized anxiety disorder 11/22/2023 Atherosclerosis of [place] co ronary artery without angina pectoris 11/22/2023 [...] clinical research program 05/28/2020 12/02/2021 Overview (12/30/2020): PushSpring Food Girl Meets Dress: A Randomized Controlled Trial (Project # [id number]). The Fresh Food Girl Meets Dress program provides food-insecure diabetics with healthy food for their entire household (2 meals/ day X 5 days/week). The program also provides education on food preparation, healthy living, and diabetes self management. The research measures the effects of the program on patient health and wellbeing. Subject will begin the FFF program November 2020. Contact Information: Chief Transfer And Pumphouse Operator: Dr. Gilberto Nolan ([phone]) CRC: Chioma Dailey ([phone]) RA: Kimberlee Angulo ([phone]) Diagnosis changed due to Research Module. Go [...] mRNA, LNP-s, No Pre serve, 2-Dose Series ([employer] Point [employer]) 02/01/2021,01/11/2021 COVID-19, LNP-s, No Preserve , Toan-sucrose, Ages 12+ ([employer]) 12/31/2021 COVID-19, MRNA-LNP, PF, 30 M CG/0.3 mL, 12 YRS AND ABOVE, IM ([facility]) 07/29/2023 Covid-19, Mrna, Lnp-s, Pf, B ivalent, 30 Mcg, IM, 12 yrs and above ([employer]) 05/28/2022 Pneumococcal Conjugate Vacci ne, 20-valent ([id number]) 01/15/2023 Pneumococcal Polysaccharide PPV23 (Pneumovax) 01/09/2017 Seasonal [...] documented in this encounter Progress Notes * Ruby Ortez LPN - 08/14/2024 10:49 AM EST Socks and Shoes Removed for Annual Diabetic Foot Screening RIGHT FOOT: No Reddened, Cracking, Or Open Areas Noted. RIGHT Dorsalis Pedis Pulse: Palpable RIGHT Posterior Tibial Pulse: Palpable RIGHT Monofilament:Patient reports feeling monofilament pressure on plantar surface of foot LEFT FOOT: No Reddened, Cracking or Open Areas Noted. LEFT Dorsalis Pedis Pulse: Palpable LEFT Posterior Tibial Pulse: Palpable LEFT Monofilament:Patient reports feeling monofilament pressure on plantar surface of foot Do you need diabetic shoes: No * Pippa Navarro CRNP - 08/14/2024 10:18 [...] elevated and she is following with a temple marker and working on eating a more balanced diet. She also follows with [facility] for diabetic management and fresh food farmacy. She also follows with [facility] for psychiatric care. Review of Systems Respiratory: [...] goal of less than 7.0% ([facility]) - HEMOGLOBIN A1C; Future; Expected date: 11/12/2024 - DIABETES FOOT EXAM - COMPREHENSIVE METABOLIC PANEL; Future; Expected date: 02/12/2025 Hyperlipidemia with target LDL less than 70 - LIPID PANEL WITH DIRECT LDL IF TG IS HIGH; Future; Expected date: 02/12/2025 Need for COVID-19 vaccine - COVID-19 mRNA Vac-Toan(Pfizer) 30 MCG/0.3ML Intramuscular Suspension Prefilled Syringe (Oddcast); Inject 0.3 mL into a large muscle [...] Team (Late st Contact Info) Description 08/15/2024 12:45 PM EST Immunization [facility] [address] [place] [address] [place] [address] 08/15/2024 2:30 PM EST Office Visit Rheumatology, [address] [place], [place] [phone] Hans Tian PA-C [address] [place] [address], [place] [address] 09/01/2024 11:00 AM EST Office Visit Pharmacy, [address] [place] [address] Pharmacist1, [facility] 21 [place] [address] 11/13/2024 2:30 PM EST Nutrition Services Nutrition, [facility] 132 [facility] [place] [address] Edwina Ware, MICHAEL 132 [facility] [place] [address] 11/21/2024 1:30 PM EDT Office Visit Sleep Disorders Ctr [facility] 132 [facility] [place] [phone] Victoria Mcintosh CRNP 132 [facility] [place] [address] 01/04/2025 11:00 AM EDT Office Visit Allergy/Immunology [facility] [place] [address] Guerita Marin PA-C [facility] [place] [address] 02/09/2025 12:30 PM EDT Nurse Only Ancillary 1st Floor, [place] 21 [place] [address] [place], [facility] 2 21 [place] [address] 03/02/2025 12:20 PM EDT Office Visit Family Practice, [place] 21 [place] [phone] Pippa Navarro CRNP 21 [place] [address] 06/29/2025 2:00 PM EDT Office Visit Ophthalmology, [place] 21 [place] [address] Ray Gonzalez, DO 21 [facility] [place] [address] Scheduled Orders Name Type Priority Associated Diagnoses [...] 12/31/2021, Additional history exists B-12 11/16/2024 11/17/2023, 0202/2023, 07/09/2021, Additional history [...] D LEVEL ONCE IN A LIFETIME-USE SMARTSET# 75065 Completed 11/17/2023, 02/19/2023, 05/11/2019, Additional history exists [...] this encounter Medical Devices Implanted Type Area Spray Drier Operator Device Identifier Shelf Expiration Date Model / Serial / Lot Lens 24.5 [place] - [id number] - [id number] Implanted:Qty: 1 on 09/21/2023 by Ray Gonzalez DO at OR [facility] Lens Left: Eye [employer] 03/28/2026 CNA0T0.245 / [id number] / Suture Steel 6 B&S19 M654g - [id number] Implanted:Qty: 7 on 05/07/2021 by Aba Desir MD at [place] [facility] N/A: Sternum JNJ : [employer] 01/10/2026 M654G / / PAOLA [place] Lens 24.5 Implanted:Qty: 1 on 08/10/2023 by Ray Gonzalez DO at OR [facility] Right: Eye [employer] 09/15/2025 CNA0T0 / [id number] / documented as of this encounter [...] Advance Directives occurred with: Patient Care Teams Procedures Rn Relationship Specialty Start Date End Date Pippa Navarro CRNP 21 [place] [phone] PCP - General Nurse Practitioner 02/19/23 documented as of this encounter"
--- OUTSIDE RECORDS SUMMARY | 2024-11-14 06:31 | External Medical Summary | Summary of Care ---
Author Name Unknown Organization [facility] Address [address] [place] [address] Phone [phone] Care Team Providers Care Poultry Scalder Name Role Phone Pippa Navarro Primary Care Provider Reason for Visit * Reason Comments Follow Up 6 month Encounter Details Date Type Department Care Team ([facility] st Contact Info) Description 08/14/2024 10:00 AM EST Office Visit [facility] [address] [place] [phone] Pippa Navarro CRNP [address] [place], [place] [phone] HTN, goal below 130/80*; Type 2 diabetes [...] hemoglobin A1c goal of less than 7.0% ([facility]) Checking blood sugars four time daily [...] Use as directed every 14 days. Using Al[employer], [phone]. 4 Active FreeStyle Debbie 3 [place] DeviceIndications :DM type 2 with diabetic peripheral neuropathy (HCC) Use as directed. Using [employer],. Debbie 3 reader shipped 03/10/2024 4 Active [...] hemoglobin A1c goal of less than 7.0% ([facility]) Use up to 3 times daily to confirm sensor readings 300 Strip 3 4 Active Insulin Glargine Solostar 100 UNIT/ML Subcutaneous Solution Pen-injectorIndic ations:Type 2 diabetes, HbA1c goal < 7% ([facility]) Inject 26 Units under the skin daily. 30 mL 3 4 Active NovoLOG FlexPen 100 UNIT/ML Subcutaneous Solution Pen-injector (insulin aspart)Indication s:Type 2 diabetes, HbA1c goal < 7% ([facility]) Inject 15 units with breakfast, 16 units with lunch, 11 units with supper + CF 1:40 over 140 45 mL 3 4 Active Insulin Glargine Solostar 100 UNIT/ML Subcutaneous Solution Pen-injector (Lantus SoloStar)Indicati ons:Type 2 diabetes, HbA1c goal < 7% ([facility]) Inject 26 Units under the skin daily. Brand Lantus Solostar 30 mL 3 4 Active COVID-19 mRNA Vac-Toan(Cubicle) 30 MCG/0.3ML Intramuscular Suspension Prefilled Syringe (Lotame)Indica tions:Need for COVID-19 vaccine Inject 0.3 mL into a large muscle once for 1 dose. 0.3 mL 4 08/15/20 24 Active documented as of this encounter (statuses as of 08/14/2024) Active Problems Problem Noted Date Diagnosed Date Encounter for long-term (current) insulin use Major depressive disorder, recurrent, in partial remission 11/22/2023 Generalized anxiety disorder 11/22/2023 Atherosclerosis of [place] co ronary artery without angina pectoris 11/22/2023 [...] clinical research program 05/28/2020 12/02/2021 Overview (12/30/2020): Superpedestrian Food Peaberry Software: A Randomized Controlled Trial (Project # [id number]). The Fresh Food Peaberry Software program provides food-insecure diabetics with healthy food for their entire household (2 meals/ day X 5 days/week). The program also provides education on food preparation, healthy living, and diabetes self management. The research measures the effects of the program on patient health and wellbeing. Subject will begin the FFF program November 2020. Contact Information: Manager Corporate: Dr. Gilberto Nolan ([phone]) CRC: Chioma Dailey ([phone]) RA: Kimberlee Angulo ([phone]) Diagnosis changed due to Research Module. Go [...] mRNA, LNP-s, No Pre serve, 2-Dose Series (Cubicle) 02/01/2021,01/11/2021 COVID-19, LNP-s, No Preserve , Toan-sucrose, Ages 12+ (Cubicle) 12/31/2021 COVID-19, MRNA-LNP, PF, 30 M CG/0.3 mL, 12 YRS AND ABOVE, IM ([facility]) 07/29/2023 Covid-19, Mrna, Lnp-s, Pf, B ivalent, 30 Mcg, IM, 12 yrs and above (Cubicle) 05/28/2022 Pneumococcal Conjugate Vacci ne, 20-valent ([id number]) 01/15/2023 Pneumococcal Polysaccharide PPV23 (Pneumovax) 01/09/2017 Seasonal [...] elevated and she is following with a shop assistant and working on eating a more balanced [...] hemoglobin A1c goal of less than 7.0% ([facility]) - HEMOGLOBIN A1C; Future; Expected date: 11/12/2024 - DIABETES FOOT EXAM - COMPREHENSIVE METABOLIC PANEL; Future; Expected date: 02/12/2025 Hyperlipidemia with target LDL less than 70 - LIPID PANEL WITH DIRECT LDL IF TG IS HIGH; Future; Expected date: 02/12/2025 Need for COVID-19 vaccine - COVID-19 mRNA Vac-Toan(Pfizer) 30 MCG/0.3ML Intramuscular Suspension Prefilled Syringe (Lotame); Inject 0.3 mL into a large muscle [...] 08/15/2024 2:30 PM EST Office Visit Rheumatology, [address] [place] [address] Hans Tian PA-C [address] [place], [place] [address] [address] 09/01/2024 11:00 AM EST Office Visit Pharmacy, [address] [place] [address] Pharmacist1, [place] [address] [address]ATHERINE [place] [address] 11/13/2024 2:30 PM EST Nutrition Services Nutrition, [address] [place] [address] Edwina Ware, RDN [address] [place] [address] 11/21/2024 1:30 PM EDT Office Visit Sleep Disorders Ctr [facility] [address] [place] [phone] Victoria Mcintosh CRNP 132 [facility] [place] [address] 01/04/2025 11:00 AM EDT Office Visit Allergy/Immunology [facility] [address] [place] [address] Guerita Marin PA-C [address] [place] [address] 02/09/2025 12:30 PM EDT Nurse Only Ancillary 1st Floor, [place] 21 [facility] [address] [place], [facility] 2 21 [facility] [place] [address] 06/29/2025 2:00 PM EDT Office Visit Ophthalmology, [place] 21 [facility] [place] [address] Ray Gonzalez DO 21 [facility] [place] [address] Scheduled Orders Name Type Priority Associated Diagnoses [...] 12/31/2021, Additional history exists B-12 11/16/2024 11/17/2023, 02/0 [...] D LEVEL ONCE IN A LIFETIME-USE SMARTSET# [id number] Completed 11/17/2023, 02/19/2023, 05/11/2019, Additional history exists [...] this encounter Medical Devices Implanted Type Area Administrator Of Home Health Device Identifier Shelf Expiration Date Model / Serial / Lot Lens 24.5 [place] - [id number] - [id number] Implanted:Qty: 1 on 09/21/2023 by Ray Gonzalez DO at OR [facility] Lens Left: Eye [employer] 03/28/2026 CNA0T0.245 / [id number] / Suture Steel 6 B&S19 M654g - [id number] Implanted:Qty: 7 on 05/07/2021 by Aba Desir MD at [place] [facility] N/A: Sternum JNJ : [employer] 01/10/2026 M654G / / [id number] [place] Lens 24.5 Implanted:Qty: 1 on 08/10/2023 by Ray Gonzalez DO at OR [facility] Right: Eye [employer] 09/15/2025 CNA0T0 / [id number] / documented as of this encounter [...] 6:43 PM 06/01/2022 6:21 PM This order reflects the patients wishes and were consensually agreed upon. Question Answer Comments Discussion of Advance Directives occurred with: Patient Care Teams Poultry Scalder Relationship Specialty Start Date End Date Pippa Navarro CRNP 21 [place] [address] PCP - General Nurse Practitioner 02/19/23 documented as of this encounter"
--- OUTSIDE RECORDS SUMMARY | 2024-11-14 06:32 | External Medical Summary | Summary of Care ---
Author Name Unknown Organization [facility] Address [address] [place] [address] Phone [phone] Care Team Providers Care Asbestos Worker Name Role Phone Pippa Navarro Primary Care Provider Reason for Visit * Reason Comments Outpatient Testing Encounter Details Date Type Department Care Team ([facility] st Contact Info) Description 08/09/2024 7:00 AM EST Laboratory Laboratory, [place] [address] [place] [phone] [place], [facility] 21 [place], [place] [phone] Type 2 diabetes mellitus with hemoglobin A1c goal of less than 7.0% ([facility]) Allergies Active Allergy Reactions Criticality Noted Date [...] Use as directed every 14 days. Using Viki, [phone]. 4 Active FreeStyle Debbie 3 [place] DeviceIndications :DM type 2 with diabetic peripheral neuropathy (HCC) Use as directed. Using Viki,. Debbie 3 reader shipped 03/10/2024 4 Active [...] 11/22/2023 Generalized anxiety disorder 11/22/2023 Atherosclerosis of [place] co ronary artery without angina pectoris 11/22/2023 [...] clinical research program 05/28/2020 12/02/2021 Overview (12/30/2020): Silent Communication: A Randomized Controlled Trial (Project # [id number]). The Fresh Food mSpoke program provides food-insecure diabetics with healthy food for their entire household (2 meals/ day X 5 days/week). The program also provides education on food preparation, healthy living, and diabetes self management. The research measures the effects of the program on patient health and wellbeing. Subject will begin the FFF program November 2020. Contact Information: Mine Geologist: Dr. Gilberto Nolan ([phone]) CRC: Chioma Dailey ([phone]) RA: Kimberlee Angulo ([phone]) Diagnosis changed due to Research Module. Go [...] mRNA, LNP-s, No Pre serve, 2-Dose Series (Wolonge) 02/01/2021,01/11/2021 COVID-19, LNP-s, No Preserve , Toan-sucrose, Ages 12+ (Pfizer) 12/31/2021 COVID-19, MRNA-LNP, PF, 30 M CG/0.3 mL, 12 YRS AND ABOVE, IM ([facility] 07/29/2023 Covid-19, Mrna, Lnp-s, Pf, B ivalent, 30 Mcg, IM, 12 yrs and above (Wolonge) 05/28/2022 Pneumococcal Conjugate Vacci ne, 20-valent ([id number]) 01/15/2023 Pneumococcal Polysaccharide PPV23 (Pneumovax) 01/09/2017 Seasonal [...] [phone] Pippa Navarro CRNP 21 [place] [address] 09/01/2024 11:00 AM EST Office Visit Pharmacy, [place] 21 [place] [address] Pharmacist1, [facility] [place] 21 [place] [address] 09/26/2024 9:40 AM EST Office Visit Rheumatology [facility] [address] [facility] [place] [address] Napoleon Damon MD [address] [place] [address] [place] [address] 11/13/2024 2:30 PM EST Nutrition Services Nutrition, [facility] 132 [facility] [place] [address] Edwina Ware RDN 132 [facility] [place] [address] 11/21/2024 1:30 PM EDT Office Visit Sleep Disorders Ctr [facility] 132 [facility] [place] [phone] Victoria Mcintosh CRNP [address] [facility] [address] [address] 01/04/2025 11:00 AM EDT Office Visit Allergy/Immunology [facility] 200 [facility] [place] [address] Guerita Marin PA-C 200 [facility] [place] [address] 02/09/2025 12:30 PM EDT Nurse Only Ancillary 1st Floor, [place] 21 [place] [address] [place], [facility] Wellness 2 21 [place] [address] 06/29/2025 2:00 PM EDT Office Visit Ophthalmology, [place] 21 [place] [address] Ray Gonzalez, DO [address] [facility] [place] [address] Pending Results Name Type Priority Associated Diagnoses Date /Time HEMOGLOBIN A1C Lab Routine Type 2 diabetes mellitus with hemoglobin A1c goal of less than 7.0% ([facility]) 08/09/2024 7:04 AM EST COMPREHENSIVE METABOLIC PANEL Lab Routine Type 2 diabetes mellitus with hemoglobin A1c goal of less than 7.0% ([facility]) 08/09/2024 7:04 AM EST Scheduled Procedures Name Priority Associated Diagnoses Date/Ti az ESOPHAGOGASTRODUODENOSCOPY ( EGD), FLEXIBLE, TRANSORAL, DIAGNOSTIC Recall [...] D LEVEL ONCE IN A LIFETIME-USE SMARTSET# [id number] Completed 11/17/2023, 02/19/2023, 05/11/2019, Additional history exists [...] this encounter Medical Devices Implanted Type Area Tipping Machine Operator Device Identifier Shelf Expiration Date Model / Serial / Lot Lens 24.5 [place] - [id number] - [id number] Implanted:Qty: 1 on 09/21/2023 by Ray Gonzalez DO at OR [facility] Lens Left: Eye [employer] 03/28/2026 CNA0T0.245 / [id number] / Suture Steel 6 B&S19 M654g - [id number] Implanted:Qty: 7 on 05/07/2021 [place]ir [place] [facility] [place]A: Sternum JNJ : [employer] 01/10/2026 M654G / / [id number] [place] Lens 24.5 Implanted:Qty: 1 on 08/10/2023 by Ray Gonzalez, DO at OR [facility] Right: Eye [employer] 09/15/2025 CNA0T0 / [id number] / documented as of this encounter Visit Diagnoses Diagnosis Type 2 diabetes mellitus with hemoglobin A1c goal of less than 7.0% ([facility]) documented in this encounter Advance Directives * [...] Advance Directives occurred with: Patient Care Teams Asbestos Worker Relationship Specialty Start Date End Date Pippa Navarro CRNP 21 [place] [address] PCP - General Nurse Practitioner 02/19/23 documented as of this encounter
--- OUTSIDE RECORDS SUMMARY | 2024-11-14 06:32 | External Medical Summary | Summary of Care ---
Author Name Unknown Organization [facility] Address [address] [place] [address] Phone [phone] Care Team Providers Care Mirror Framer Name Role Phone Pippa Navarro Primary Care Provider Reason for Visit * Reason Comments DSMT INITIAL * Evaluate & Treat - Unlimited Visits (Within 10 days (routine)) - Authorized Specialty Diagnoses / Procedures Referred By Rasta nobles Referred To Contact Sub Plant Manager / Nutrition Services Diagnoses DM type 2 with diabetic peripheral neuropathy (HCC) Type 2 diabetes mellitus with hemoglobin A1c goal of less than 7.0% (HCC) Pippa Navarro CRNP [address] [place] [address] Referral ID Status Reason Start Date Expiration Date Visits Requested Visits Authorized [id number] Authorized Specialty Services Required [phone] Encounter Details Date Type Department Care Team (Latest Contact Info) Description 07/14/2024 1:00 PM EDT Nutrition Services [facility] [address] [place] [id number] Edwina Ware RDN [address] [facility] [place] [address] Type 2 diabetes mellitus with hemoglobin A1c goal of less than 7.0% (HCC)*; Hyperlipidemia with target LDL less than 70; HTN, goal below 130/80; Food insecurity; History of stroke; Obesity, Class I, BMI 30-34.9; DM type 2 with diabetic peripheral neuropathy (HCC) [E11.42] Allergies Active Allergy Reactions Criticality Noted Date Comments Kaushik Medium Other reaction(s): Hallucinations Apixaban Hives 09/23/2022 Empagliflozin Other (Please comment) 05/30/2022 migraines Metformin Abdominal pain,Nausea/vomiting Medium 09/02/2023 Consistent with ER formulation even when taken with meals. Soap 12/26/2016 Ivory soap, hives Sulfa Antibiotics Rash Low 03/10/2017 documented as of this encounter (statuses as of 07/14/2024) Medications Medication Sig Dispensed Refills Start Date End Date Status Triamcinolone Acetonide (NASACORT AQ) 55 MCG/ACT AEROIndications:Kaden rgic rhinitis, unspecified seasonality, unspecified trigger Administer 2 Sprays into each nostril daily. 1 Bottle 1 01/21/2018 Active Multiple Vitamin (MULTI VITAMIN DAILY) TABS Take 1 Dose(s) by mouth in the morning. Active Cholecalciferol 25 MCG (1000 UT) Oral Capsule Take 5 Capsules by mouth in the morning. 06/29/2019 Active OneTouch UltraSoft Lancets MISCIndications:Type 2 diabetes mellitus with hemoglobin A1c goal of less than 7.0% ([facility]) Checking blood sugars four time daily Dx: E11.9 150 Each 11 05/23/2020 Active Refresh 1.4-0.6 % Ophthalmic Solution (polyvinyl alcohol-povidone PF) Instill 1 Drop into both eyes in the morning and 1 Drop at noon and 1 Drop in the evening and 1 Drop before bedtime. Active Acetaminophen 325 MG Oral Tablet (Tylenol) Take 2 Tabs by mouth every 4 hours as needed for Pain, Moderate. 100 Tab 1 06/04/2021 Active buPROPion HCl ER (SR) 150 MG Oral Tablet Extended Release 12 Hour (Wellbutrin SR) 1 Tablet in the morning and 1 Tablet before bedtime. 07/30/2022 Active hydrOXYzine HCl 25 MG Oral Tablet TAKE 1 TABLET BY MOUTH ONCE DAILY NEEDED 07/02/2022 Active Topiramate 25 MG Oral Tablet (topAMAX) Take 1 Tablet by mouth in the morning and 1 Tablet before bedtime. 06/29/2022 Active Witch Marlys-Glycerin External Pad (Tucks)Indications:N on-obstetric vaginal laceration without foreign body or perineal laceration, initial encounter Use to soothe vagina for up to 15 minutes at a time. Can use up to 4 times per day. 50 Each 1 10/01/2022 Active Clobetasol Propionate 0.05 % External SolutionIndications: Seborrheic dermatitis Apply to rash on scalp twice a day as needed 50 mL 5 10/20/2022 Active Ketoconazole 2 % External Shampoo (Nizoral)Indications :Seborrheic dermatitis Apply to scalp daily as needed 120 mL 5 10/20/2022 Active Biotene Dry Mouth Mouth/Throat Liquid Apply to the mouth or throat as needed for Dry Mouth. 02/19/2023 Active Context LabsToContext Matters Ultra 2 w/Device Kit Check glucose up to four times daily. E11.9 1 Kit 06/30/2023 Active OcuSoft Baby Eyelid & Eyelash External Pad Apply 1 Pad topically to affected area every evening. Active Xarelto 20 MG Oral Tablet (Rivaroxaban) TAKE 1 TABLET BY MOUTH ONCE DAILY WITH SUPPER 30 Tablet 5 07/20/2023 Active Citalopram Hydrobromide 40 MG Oral Tablet (CeleXA) 07/02/2023 Acti ve Meclizine HCl 25 MG Oral Tablet (Antivert)Indication s:Dizziness Take 1 Tablet by mouth 3 times a day as needed for Dizziness. 90 Tablet 2 07/27/2023 Active Benzonatate 100 MG Oral Capsule (Tessalon Perles)Indications:A cute cough Take 1 Capsule by mouth 3 times a day as needed for Cough. Do not cut, crush, or chew. 30 Capsule 07/27/2023 Active Erythromycin 5 MG/GM Ophthalmic Ointment Instill 0.25 Inches into both eyes at bedtime. 3.5 g 6 10/01/2023 Active BD Pen Needle Mini U/F 31G X 5 MM (Insulin Pen Needle)Indications:T ype 2 diabetes mellitus with hemoglobin A1c goal of less than 7.0% ([facility]) USE TO INJECT INSULIN 4 TIMES DAILY 400 Each 3 10/06/2023 Active Ozempic (2 MG/DOSE) 8 MG/3ML Subcutaneous Solution Pen-injector (Semaglutide (2 MG/DOSE))Indications :Type 2 diabetes mellitus with hemoglobin A1c goal of less than 7.0% ([facility]) Inject 2mg under the skin once weekly 3 mL 3 11/22/2023 Active Omeprazole 40 MG Oral Capsule Delayed Release (PriLOSEC)Indication s:Gastroesophageal reflux disease without esophagitis Take 1 Capsule by mouth in the morning. 1 hour before the first meal of the day. 90 Capsule 3 11/22/2023 Active Loratadine 10 MG Oral Tablet (Claritin) Take 1 Tablet by mouth in the morning. 90 Tablet 3 11/22/2023 Active Famotidine 20 MG Oral Tablet (Pepcid)Indications: Heartburn Take 1 Tablet by mouth in the morning. 90 Tablet 3 11/22/2023 Active Ezetimibe 10 MG Oral Tablet (Zetia)Indications:H yperlipidemia with target LDL less than 70 Take 1 Tablet by mouth in the morning. 90 Tablet 3 11/22/2023 Active Atorvastatin Calcium 80 MG Oral Tablet (Lipitor) Take 1 Tablet by mouth in the morning. 90 Tablet 3 11/22/2023 Active Arnuity Ellipta 100 MCG/ACT Inhalation Aerosol Powder Breath Activated (fluticasone Furoate)Indications: Moderate persistent asthma without complication Inhale 1 Puff by mouth in the morning. 90 Each 3 11/22/2023 Active Albuterol Sulfate HFA 108 (90 Base) MCG/ACT Inhalation Aerosol SolutionIndications: Moderate persistent asthma without complication Inhale 2 Puffs by mouth every 6 hours as needed for Shortness of Breath or Wheezing. 18 g 02/25/2024 Active FreeStyle Debbie 3 SensorIndications:DM type 2 with diabetic peripheral neuropathy (HCC) Use as directed every 14 days. Using [employer], [phone]. 04/06/2024 Active FreeStyle Debbie 3 [place] DeviceIndications:DM type 2 with diabetic peripheral neuropathy (HCC) Use as directed. Using [employer],. Debbie 3 reader shipped 03/10/2024 04/06/2024 Active Ubrelvy 100 MG Oral Tablet (Ubrogepant)Indicati ons:Migraine without status migrainosus, not intractable, unspecified migraine type Take 100 mg by mouth as needed for Migraine. Take 1 tablets at onset of migraine and may repeat in 2 hours if needed. Do not exceed 2 tablets in 24 hours. 10 Tablet 1 06/02/2024 Active FreeStyle Precision Marko Test In Vitro StripIndications:Typ e 2 diabetes mellitus with hemoglobin A1c goal of less than 7.0% (HCC) Use up to 3 times daily to confirm sensor readings 300 Strip 3 06/30/2024 Active Insulin Glargine Solostar 100 UNIT/ML Subcutaneous Solution Pen-injectorIndicati ons:Type 2 diabetes, HbA1c goal < 7% (HCC) Inject 26 Units under the skin daily. 30 mL 3 06/30/2024 Active NovoLOG FlexPen 100 UNIT/ML Subcutaneous Solution Pen-injector (insulin aspart)Indications:T ype 2 diabetes, HbA1c goal < 7% (HCC) Inject 15 units with breakfast, 16 units with lunch, 11 units with supper + CF 1:40 over 140 45 mL 3 06/30/2024 Active Insulin Glargine Solostar 100 UNIT/ML Subcutaneous Solution Pen-injector (Lantus SoloStar)Indications :Type 2 diabetes, HbA1c goal < 7% (HCC) Inject 26 Units under the skin daily. Brand Lantus Solostar 30 mL 3 07/03/2024 Active documented as of this encounter (statuses as of 07/14/2024) Active Problems Problem Noted Date Diagnosed Date Encounter for long-term (current) insulin use Major depressive disorder, recurrent, in partial remission 11/22/2023 Generalized anxiety disorder 11/22/2023 Atherosclerosis of [place] co ronary artery without angina pectoris 11/22/2023 [...] osteoporosis wit hout current pathological fracture 04/24/2021 Overview: On Fosamax LGSIL on Pap smear of cervix 09/11/2020 Overview: Neg hpv Anxiety 08/14/2020 Type 2 diabetes mellitus wit h hemoglobin A1c goal of less than 7.0% 07/05/2020 History of stroke 05/10/2020 Bipolar I disorder, most recent episode depresse d 10/30/2019 DM type 2 with diabetic peripheral neuropathy Bilateral bunions 07/06/2018 Hyperlipidemia with target LDL less than 70 02/12 Gastroesophageal reflux disease without esophagi tis 03/10/2017 Moderate persistent asthma without complication 03/10/2017 Overview: 09/19/2021 uses fluticasone Furoate (ARNUITY ELLIPTA) 100 MCG/ACT AEPB inhaler and albuterol Recent covid 08/25/21 -resolved Rotator cuff tendinitis, left 06/13/2015 Biceps tendinitis on left 06/13/2015 Migraine HTN, goal below 130/80 documented as of this encounter (statuses as of 07/14/2024) Resolved Problems Problem Noted Date Diagnosed Date Resolved Date Occlusion of left subclavian artery 05/30/2022 06/15/2023 Vertigo 05/30/2022 06/05/2022 Uncomplicated asthma 05/28/2022 022 Hyperlipidemia 05/28/2022 05/28/2022 Atrial fibrillation 11/25/2021 12/03/19 22 Current use of insulin 11/11/202112/15 Personal history of atrial fibrillation 05/26/2021 12/15/2022 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 The [employer] [facility] program provides food-insecure diabetics with healthy food for their entire household (2 meals/ day X 5 days/week). The program also provides education on food preparation, healthy living, and diabetes self management. The research measures the effects of the program on patient health and wellbeing. Subject will begin the FFF program November 2020. Contact Information: Control Chemist: Dr. Gilberto Nolan ([phone]) CRC: Chioma Dailey ([phone]) RA: Kimberlee Angulo ([phone]) Diagnosis changed due to Research Module. Go [...] 12/26/2016 07/02/2020 Type 2 diabetes mellitus 03/11/2016 Overview: duplicate Leg cramping 09/09/2017 documented as of this encounter (statuses as of 07/14/2024) Immunizations Name Administration Dates Next Due COVID-19 mRNA, LNP-s, No Pre serve, 2-Dose Series ([email or web address]) 02/01/2021,01/11/2021 COVID-19, LNP-s, No Preserve , Toan-sucrose, Ages 12+ (Pfizer) 12/31/2021 COVID-19, MRNA-LNP, PF, 30 M CG/0.3 mL, 12 YRS AND ABOVE, IM ([facility]) 07/29/2023 Covid-19, Mrna, Lnp-s, Pf, B ivalent, 30 Mcg, IM, 12 yrs and above ([email or web address]) 05/28/2022 Pneumococcal Conjugate Vacci ne, 20-valent ([id number]) 01/15/2023 Pneumococcal Polysaccharide PPV23 (Pneumovax) 01/09/2017 Seasonal [...] ages 0-17 years) Not on file 12/08/2023 Sex and Gender Information Value Date Recorded Sex Assigned at Female 08/22/2019 11:57 AM EST Gender Identity Female 08/22/2019 11:57 AM EST Sexual Orientation Straight 08/22/2019 11 :57 AM EST Job Start Date Occupation Industry Not on file Not on file Not on file documented as of this encounter Last Filed Vital Signs Vital Sign Reading Time Taken Comments Blood Pressure - - Pulse - - Temperature - - Respiratory Rate - - Oxygen Saturation - - Inhaled Oxygen Concentration - - Weight 72.8 kg (160 lb 6.4 oz) 07/14/2024 1:15 P M EDT Height 152.4 cm (5') 07/14/2024 1:15 PM EDT Body Mass Index 31.33 07/14/2024 1:15 PM EDT documented in this encounter Functional Status Functional Status Response Date of Assess ment Are you deaf or do you have serious difficulty h earing? No 05/30/2022 Are you blind or do you have serious difficulty seeing, even when wearing glasses? No 05/30/2022 Do you have serious difficul ty walking or climbing stairs? (5 years old or older) No 05/30/2022 Do you have difficulty dress ing or bathing? (5 years old or older) Yes 05/30/2022 Because of a physical, menta l, or emotional condition, do you have difficulty doing errands alone such as visiting a doctor s office or shopping? (15 years old or older) No 05/30/20 Cognitive Status Response Date of Assessm ent Because of a physical, menta l, or emotional condition, do you have serious difficulty concentrating, remembering, or making decisions? (5 years old or older) No 05/30/2022 documented as of this encounter Patient Instructions * Patient Instructions* Edwina Ware RDN - 07/14/2024 2:13 PM EDT Participant will try eating small, frequent meals throughout the day. Try to eat something every 4-5 hours when you are awake. Include a high-protein food and a high-carb food with most meals and snacks. Continue to include a low-carb vegetable daily. documented in this encounter Progress Notes * Edwina Ware RDN - 07/14/2024 1:16 PM EDT DIABETES SELF-MANAGEMENT TRAINING/FOLLOW UP NOTE Name: Vanna Acevedo Date: 07/14/2024 Participant was seen face to face in the clinic. Last order of DIABETES MANAGEMENT EDUCATION (ADA) REFERRAL was found on 07/07/2024 from Patient Message on 07/06/2024 Last order of CLINICAL NUTRITION AND DIABETES EDUCATION ANNUAL RENEWAL was found on 10/15/2023 from Telephone on 10/15/2023 No order of PEDIATRIC DIABETES MANAGEMENT EDUCATION (ADA) REFERRAL OP is found. ADA referral in place? Yes Participant scheduled for 1:1 training due to lack of classes scheduled within 2 months of appointment. What diabetes concerns and/or barriers to care would you like to discuss in your appointment: what sweetener can I use? Participant want to lose weight; concerned about SOB and going up stairs Topics from last visit to attempt to cover today: none Was behavior objective from last visit met at least 80% of the time: Nutrition: Yes Psychosocial Screening: Lately have you been feeling down, depressed or hopeless most of the day? No How do you manage stress: Prescribed medication Seeing a therapist/counselor from [facility] Food Insecurity: Within the past 12 months, I worried whether our food would run out before we got money to buy more. No Within the past 12 months, the food we bought just did not last and we did not have money to buy more. No Sleep Health: Addressed - How many hours are you sleeping during the night? 4-5 hours Do you have difficulty falling or staying asleep? Yes, both Do you snore? Does not know Are you waking up during the night with symptoms of low glucose levels (shaky, sweaty, nightmares)?No Are you waking up during the night to urinate frequently? Yes Diabetes Medications: Glargine 26 units daily Novolog 15 units with breakfast, 16 units with lunch 11 units with supper + 1:40 over 140 Ozempic 2 mg weekly on Monitoring blood glucose, interpreting and using results Results for orders placed or performed in visit on 04/29/24 HEMOGLOBIN A1C Result Value Ref Range Hemoglobin A1C 8.0 (H) 4.0 - 5.6 % Estimated Average Glucose 183 (H) <126 mg/dL Results for orders placed or performed in visit on 11/17/23 HEMOGLOBIN A1C Result Value Ref Range Hemoglobin A1C 7.4 (H) 4.0 - 5.6 % Estimated Average Glucose 166 (H) <126 mg/dL Results for orders placed or performed in visit on 06/15/23 HEMOGLOBIN A1C Result Value Ref Range Hemoglobin A1C 8.9 (H) 4.0 - 5.6 % Estimated Average Glucose 209 (H) <126 mg/dL Results for orders placed or performed in visit on 11/25/21 HEMOGLOBIN A1C, POINT OF CARE Result Value Ref Range Hemoglobin A1c 11.3 (H) 4.0 - 5.6 % Results for orders placed or performed in visit on 01/15/21 HEMOGLOBIN A1C, POINT OF CARE Result Value Ref Range Hemoglobin A1c 10.3 (H) 4.0 - 5.6 % *Note: Due to a large number of results and/or encounters for the requested time period, some results have not been displayed. A complete set of results can be found in Results Review. Out of target Self-Monitoring Blood Glucose Source of Information: Participant brought meter/CGM Average glucose last 7 days 192-247 with an average 223 Recent range of glucose levels 137-269 Hypoglycemia?: No Diet: 2 AM: tea with Stevia, cranberry white cheese ball Breakfast: 9 AM-noon 4 pieces felipe toast and cheese, or egg sandwich sometimes Tristanian cheese andsausage links on an Slovenian muffin, tea with Stevia Snacks: none Lunch: sometimes skips or snacks throughout the day, lunch meat sandwich or onion sandwich with steele or butter or mustard or ketchup on thin-sliced bread, fruit cup, tea or Gatorade or 2% milk Snacks: none Dinner: 4-6 PM beef a camila or chicken in a crock pot, green beans or broccoli, sometimes a slice ofbread or pot pie noodles, low sugar iced tea or diet soda Snacks: sometimes slice of toast with country crock butter Drinks: diet edd librado or low sugar iced tea or milk-48 ounces daily Restaurant meals: couple times a week Alcohol: None Tobacco Use: No Weight management review: Wt Readings from Last 6 Encounters: 07/14/24 72.8 kg (160 lb 6.4 oz) 07/06/24 72.8 kg (160 lb 8 oz) 06/02/24 71.8 kg (158 lb 3.2 oz) 05/23/24 71.4 kg (157 lb 6.4 oz) 04/25/24 69.4 kg (153 lb) 02/25/24 69.4 kg (153 lb) Weight changes since last visit: increased 7 lbs in past 5 months per EPIC review Physical Activity: Walking twice a week, 15-30 minutes ADA STANDARDS OF CARE/BUNDLE MEASURES Diabetes Bundle / Standards of Care: Needs annual foot exam and COVID vaccine Therapy Management Plan: Hypertension: BP Readings from Last 3 Encounters: 07/06/24 104/70 06/02/24 147/85 05/23/24 106/70 At goal/target Taking zetia Dyslipidemia: Lab Results Component Value Date/Time LDL (CALCULATED)-OUTSIDE LAB 103.5 05/27/2015 12:00 AM LDL CHOLESTEROL (CALCULATED) - [facility] 115 06/15/2023 01:40 PM LDL CHOLESTEROL (CALCULATED) - [facility] 23 09/03/2020 01:44 PM LDL CHOLESTEROL (DIRECT MEASURE) - [facility] 103 11/17/2023 12:08 PM LDL CHOLESTEROL (DIRECT MEASURE) - [facility] NOT APPLICABLE 09/03/2020 01:44 PM No components found for: "[id number]" At goal/target Taking statin Kidney function review: Lab Results Component Value Date/Time ESTIMATED GLOMERULAR FILTRATION RATE - [facility] 73 11/17/2023 12:08 PM ESTIMATED GLOMERULAR FILTRATION RATE - [facility] >60.0 10/02/2020 05:54 AM Lab Results Component Value Date/Time ALBUMIN / CREATININE RATIO, URINE - [facility] <9 11/19/2023 10:01 AM ALBUMIN / CREATININE RATIO, URINE - [facility] <14 05/23/2020 09:25 AM No results found for: "PROTEIN/ CREATININE RATIO", "PROTEIN/ CREATININE RATIO, URINE - [facility]" At goal/target DSMT Follow-up Assessment of Content Areas: Choose the answer that represents the participant's competency in ONLY topics assessed from previous visit and addressed today. Areas taught today must correlate with intervention. If content area not assessed and/or intervened today, it will be deferred to future session. Incorporating nutrition management into lifestyle: Needs review (2) Incorporating physical activity into lifestyle: Needs review (2) Monitoring blood glucose, interpreting and using results: Comprehends galdamez points (3) Prevention, detection, and treatment of acute complications: Needs review (2) Prevention, detection, and treatment of chronic complications: Needs review (2) DSMT/ Diabetes MNT intervention: Nutrition: Encouraged participant to eat more regular meals, suggested small, frequent meals eatingat least every 4-5 hours when awake. Currently oral intake varies and meal times and snack times vary greatly. Encouraged her to decrease overall fat in diet, choosing lean meat and low-fat dairy, and decreasing intake of high-fat condiments. Participant notes she often gives high-carb foods from [employer], [employer] meals and other distribution programs to others, saying that she is gettingtoo many high-carb foods from them. Discussed benefit of fiber on glucose management and weight management; states she cannot chew hard foods such as skins from fruits and vegetables due to no dentition. Discussed choosing an artificial sweetener without added fillers such as dextrose. (States she cannot tolerate Sweet & Low or aspartame or sucralose.) Encouraged her to continue including low-carb vegetables with her meals, included pickled vegetables. Physical Activity: Discussed benefit of light activity on glucose control, especially post prandiallevels. Monitoring: Participant still going to [facility] clinic for diabetes management. Discussed that last CGM data reveals time in range was 59%; discussed that goal for most people with diabetes is 70%. Tez tends to get headaches when her glucose level is high. Acute Complications: Participant denies recent hypoglycemic episodes, but admits to not always experiencing symptoms. Encouraged her to try with simple carb's- suggestions given (not milk). Chronic Complications: Participant notes she has a lab appointment coming up; states she will have basic labs and Hgb A1c level checked. Discussed having latest COVID booster; she is agreeable. Also,encouraged her to ask PCP staff about doing a foot exam if this has not been done in past year. Participant Selected Behavioral Objective: Nutrition: To improve blood glucose control I will try eating small, frequent meals throughout the day. Try to eat something every 4-5 hours when you are awake. Include a high-protein food and a high-carb food with most meals and snacks. Continue to include a low-carb vegetable daily. Recommended Medication Changes: No changes. Education materials given to participant/caregiver and reviewed during today's visit: Weight Management: Healthy Eating Diabetes: Meal Planning Diabetes Self-Management Support: Medication Assistance Programs: Food [place], Supplemental community programs (unknown name per participant) Tourist Home Keeper: Local buddhism/community food jimenez Possible Future Topics: Content areas that were not assessed in prior visits: All content areas have been assessed. Time Spent With Patient: Time in: 1:15 PM Time out: 2:18 PM Billing: DSMT: 1 Hour Plan for Return: 11/13/2024 Participant provided with contact information for Diabetes Care and Rotary Furnace Operator. All [facility] providers within the system are able to see [place] [employer] education and outcomes within the participant's electronic medical record. Edwina Ware RDN, NUTRITION SERVICES [facility] Diabetes Care and Rotary Furnace Operator documented in this encounter Miscellaneous Notes * Pt Handout (on AVS) - Edwina Ware RDN - 07/14/2024 2:10 PM EDT Images from the original note were not included. [id number] Diabetes: Meal Planning You can help keep your blood sugar level in your target range by eating healthy foods. Your healthcare team can help you create a nutritious meal plan. Take an active role in your diabetes management. Follow your meal plan and work with your healthcare team. Make your meal plan A meal plan gives guidelines for the types and amounts of food you should eat. The goal is to balance food and insulin (or other diabetes medicines). That way, your blood sugars will be in your target range. Your dietitian will help you make a flexible meal plan that includes many foods that you like. Watch serving sizes Your meal plan will group foods by servings. To learn how much a serving is, start by measuring food portions at each meal. Soon you?ll know what a serving looks like on your plate. Ask your healthcare provider about how to balance servings of different foods. Eat from all the food groups The basis of a healthy meal plan is eating lots of different foods. Choose whole fruits, non-starchy vegetables, legumes, nuts and seeds, whole grains, and low- fat or nonfat dairy products. Minimize meat, sugar-sweetened beverages, sweets, refined grains, and ultra-processed foods. Eating a wide variety of foods gives your body the nutrients it needs. It can also keep you from getting bored with y our meal plan. Learn about carbohydrates, fats, and protein Carbohydrates (carbs). These are starches, sugars, and fiber. They're found in many foods. Theseinclude fruit, bread, pasta, milk, and sweets. Of all the foods you eat, carbs have the most effecton your blood sugar. Your dietitian may teach you about carb counting. This is a way to figure out the number of carbohydrates in a meal. Healthier carbs are absorbed more slowly. They don't raise your blood sugar as much. Fats. These have the most calories. They also have the most effect on your weight and your risk of heart disease. When you have diabetes, it?s important to control your weight and protect your heart. Foods that are high in fat include whole milk, cheese, snack foods, and desserts. You can eat more of the heart- healthy fats such as avocados, salmon, tuna, nuts and seeds, and olive oil. Protein. This is important for building and repairing muscles and bones. Choose low-fat protein sources such as fish, egg whites, and skinless chicken. You may be instructed to weigh or measure your protein sources. Reduce liquid sugars Extra calories from sodas, sports drinks, and fruit drinks make it hard to keep blood sugar in range. Cut as many liquid sugars from your meal plan as you can. This includes most fruit juices. They are often high in natural or added sugar. Instead, have plenty of water and other sugar-free drinks. Eat less fat If you need to lose weight, try to reduce the amount of fat in your diet. This can also help lower your cholesterol level to keep blood vessels healthier. Cut fat by using only small amounts of liquid oil for cooking. Read food labels carefully. Stay away from foods with unhealthy trans fats. Time your meals right When it comes to blood sugar control, when you eat is as important as what you eat. You may need toeat several small meals spaced evenly throughout the day to stay in your target range. So don?t skip breakfast or wait until late in the day to get most of your calories. Doing so can cause your blood sugar to rise too high or fall too low. Last Reviewed Date: 2023 00:00:00 [id number] The [employer]. All rights reserved. This information is not intended as a substitute for professional medical care. Always follow your healthcare professional's instructions. * Pt Handout (on AVS) - Edwina Ware RDN - 07/14/2024 2:09 PM EDT Images from the original note were not included. [id number] Weight Management: Healthy Eating Food is your body?s fuel. You can?t live without it. The galdamez is to give your body enough nutrients and energy without eating too much. Reading food labels can help you make healthy choices. Also, learn new eating habits to manage your weight. Nutrition labels are being redesigned by the FDA to emphasize the number of calories being consumed as well as the amount of more nutrients. These include added sugars, vitamin D, and potassium. All the values on the label are based on one serving. The serving size is the average portion. Remember to multiply the values on the label by the number of servings you eat. Eat less fat A gram of fat has almost 2.5 times the calories of a gram of protein or carbohydrates. Try to balance your food choices so that only 20% to 35% of your calories comes from total fat. This means an average of 2 to 3 grams of fat for each 100 calories you eat. Eat more fiber High-fiber foods are digested more slowly than low-fiber foods. This helps you feel full longer. Try to get at least 25 grams of fiber each day for a 2000 calorie diet. Foods high in fiber include: Vegetables and fruits Whole-grain or bran breads, pastas, and cereals Legumes (beans) and peas As you start to eat more fiber, be sure to drink plenty of water. It will help keep your digestive system working smoothly. Tips Do's and don'ts include: Eat a variety of foods, not just a few favorites. If you find yourself eating when you?re not hungry, ask yourself why. Many of us eat when we?re bored, stressed, or just to be polite. Listen to your body. If you?re not hungry, get busy doing something else instead of eating. Eat slower, shooting for 20 to 30 minutes for each meal. It takes 20 minutes for your stomach totell your brain that it?s full. Slow eaters tend to eat less and are still satisfied, while fast eaters may tend to over eat. Pay attention to what you eat. Don?t read or watch TV during your meal. If you are already overweight, ask your healthcare provider for a referral to a dietitian who can help you make better choices regarding all types of foods. Last Reviewed Date: 2022 00:00:00 [id number] The [employer]. All rights reserved. This information is not intended as a substitute for professional medical care. Always follow your healthcare professional's instructions. documented in this encounter Plan of Treatment Upcoming Encounters Date Type Department Care Team (Late st Contact Info) Description 08/09/2024 7:00 AM EST Laboratory Laboratory, [address] [place] [id number] [place], Lab [facility] [place] Page [phone] 08/14/2024 10:00 AM EST Office Visit Family Practice, [address] [place] [phone] Pipp[facility] Navarro [facility] [address] 09/01/2024 11:00 AM EST Office Visit Pharmacy, [address] [place], [place] [id number] Pharmacist1, [facility] [address] [place] [phone] 11/13/2024 2:30 PM EST Nutrition Services Nutrition, [facility] [address] [facility] [address] Edwina Ware RDN 132 [facility] [place] [address] 11/21/2024 1:30 PM EDT Office Visit Sleep Disorders [facility]tr [facility] [address] [facility] [place] [phone] Victoria Mcintosh CRNP 132 [facility] [place] [address] 01/04/2025 11:00 AM EDT Office Visit Allergy/Immunology [facility] [place] [address] [place] [address] Guerita Mairn PA-C [address] [place] [address] 02/09/2025 12:30 PM EDT Nurse Only Ancillary 1st Floor, [place] [address] [place] [address] [place], Annual Wellness 2 [address] [place] [address] 06/29/2025 2:00 PM EDT Office Visit Ophthalmology, [place] [address] [place] [address] Ray Gonzalez DO [address] [place] [address] Scheduled Procedures Name Priority Associated Diagnoses Date/Ti me ESOPHAGOGASTRODUODENOSCOPY ( EGD), FLEXIBLE, TRANSORAL, DIAGNOSTIC Recall Velez esophagus COLONOSCOPY FLEXIBLE PROXIMAL DIAGNOSTIC Recall Encounter for screening colonoscopy Scheduled Referrals Name Type Priority Associated Diagnoses Orde r Schedule DIABETES MANAGEMENT EDUCATION (ADA) REFERRAL Referral Within 10 days (routine) DM type 2 with diabetic peripheral neuropathy (HCC) Type 2 diabetes mellitus with hemoglobin A1c goal of less than 7.0% (HCC) Ordered: 07/07/2024 Health Maintenance Due Date Last Done Comments Cologuard 2001 Fecal Occult Blood Test 2001 Sigmoidoscopy 2001 COVID-19 Vaccine ( season) 2024 07/29/2023, 05/28/2022, 12/31/2021, Additional history exists HbA1c 10/30/2024 04/29/2024, 03/0 02/2024, 06/15/2023, Additional history exists B-12 11/16/2024 11/17/2023, 02/0 02/2023, 07/09/2021, Additional history exists GFR 11/16/2024 11/17/2023, 06/0 05/2023, 12/15/2022, Additional history exists Albumin/Creatinine Ratio 11/18/20242 024, 06/15/2023, 07/31/2022, Additional history exists Diabetic Foot Exam 01/05/2025 01/06/2024, 0 10/19/2022, 09/19/2021, Additional history exists Adult Wellness Visit 02/03/2025 02/04/2024 Depression Monitoring 02/03/2025 02/04/2024, 024 Mammogram 02/03/2025 02/04/2024, 01/11, 12/24/2021, Additional history exists DXA Scan 04/23/2025 [...] D LEVEL ONCE IN A LIFETIME-USE SMARTSET# [id number] Completed 11/17/2023, 02/19/2023, 05/11/2019, Additional history exists [...] this encounter Medical Devices Implanted Type Area Senior Accounting Clerk Device Identifier Shelf Expiration Date Model / Serial / Lot Lens 24.5 [place] - [id number] - [id number] Implanted:Qty: 1 on 09/21/2023 by Ray Gonzalez DO at OR [facility] Lens Left: Eye [employer] 03/28/2026 CNA0T0.245 / [id number] / Suture Steel 6 B&S19 M654g - [id number] Implanted:Qty: 7 on 05/07/2021 by Aba Desir MD at OR [facility] N/A: Sternum JN[place] : [employer] 01/10/2026 M654G / / PAOLA [place] Lens 24.5 Implanted:Qty: 1 on 08/10/2023 by Ray Gonzalez DO at OR [facility] Right: Eye [employer] 09/15/2025 CNA0T0 / [id number] / documented as of this encounter Visit Diagnoses Diagnosis Type 2 diabetes mellitus with hemoglobin A1c goal of less than 7.0% (HCC)- Primary Hyperlipidemia with target LDL less than 70 Other and unspecified hyperlipidemia HTN, goal below 130/80 Unspecified essential hypertension Food insecurity History of stroke Transient ischemic attack (TIA), and cerebral infarction without residual deficits Obesity, Class I, BMI 30-34.9 Obesity, unspecified DM type 2 with diabetic peripheral neuropathy (HCC) [E11.42] Type II or unspecified type diabetes mellitus with neurological manifestations, not stated as uncontrolled documented in this encounter Advance Directives * [...] Advance Directives occurred with: Patient Care Teams Mirror Framer Relationship Specialty Start Date End Date Pippa Navarro CRNP [address] [place] [address] PCP - General Nurse Practitioner 02/19/23 documented as of this encounter
--- OUTSIDE RECORDS SUMMARY | 2024-11-14 06:32 | External Medical Summary | Summary of Care ---
Author Name Unknown Organization [facility] Address [address] [place] [address] Phone [phone] Care Team Providers Care Communications Assistant Name Role Phone Pippa Navarro Primary Care Provider Reason for Visit * Reason Comments Allergy Return Encounter Details Date Type Department Care Team ([facility] st Contact Info) Description 07/06/2024 11:30 AM EDT Office Visit Allergy/Immunology [facility] [place] [address] [facility] [place] [address] Guerita Marin PA-C [address] [facility] [place] [address] Urticaria*; Nonallergic rhinitis; Eczema, unspecified type Allergies Active Allergy Reactions Criticality Noted Date Comments Codeine Medium Other reaction(s): Hallucinations Apixaban Hives 09/23/2022 Empagliflozin Other (Please comment) 05/30/2022 migraines Metformin Abdominal pain,Nausea/vomiting Medium 09/02/2023 Consistent with ER formulation even when taken with meals. Soap 12/26/2016 Ivory soap, hives Sulfa Antibiotics Rash Low 03/10/2017 documented as of this encounter (statuses as of 07/06/2024) Medications Medication Sig Dispensed Refills Start Date [...] than 7.0% ([facility]) Checking blood sugars four time daily Dx: [...] as needed for Dry Mouth. 02/19/2023 Active OneTouch Ultra 2 w/Device Kit Check [...] than 7.0% (FORM[facility]LY [facility]) USE TO INJECT INSULIN 4 TIMES DAILY 400 Each 3 10/06/2023 Active Ozempic (2 MG/DOSE) 8 MG/3ML Subcutaneous Solution Pen-injector (Semaglutide (2 MG/DOSE))Indications :Type 2 diabetes mellitus with hemoglobin A1c goal of less than 7.0% ([facility]) Inject 2mg under the skin once [...] Use as directed every 14 days. Using Filmmortal, [phone]. 04/06/2024 Active FreeStyle Debbie 3 Clymer DeviceIndications:DM type 2 with diabetic peripheral neuropathy (HCC) Use as directed. Using Filmmortal,. Debbie 3 reader shipped 03/10/2024 04/06/2024 Active [...] than 7.0% ([facility]) Use up to 3 times daily to [...] :Type 2 diabetes, HbA1c goal < 7% ([facility]) Inject 26 Units under the skin daily. Brand Lantus Solostar 30 mL 3 07/03/2024 Active documented as of this encounter (statuses as of 07/06/2024) Active Problems Problem Noted Date Diagnosed Date Encounter for long-term (current) insulin use Major depressive disorder, recurrent, in partial remission 11/22/2023 Generalized anxiety disorder 11/22/2023 Atherosclerosis of [place] ronary artery without angina pectoris 11/22/2023 [...] as of this encounter (statuses as of 07/06/2024) Resolved Problems Problem Noted Date Diagnosed Date [...] in clinical research program 05/28/2020 12/02/2021 Overview: [employer]: A Randomized Controlled Trial (Project # [id number]). The [employer] program provides food-insecure diabetics with healthy food for their entire household (2 meals/ day X 5 days/week). The program also provides education on food preparation, healthy living, and diabetes self management. The research measures the effects of the program on patient health and wellbeing. Subject will begin the FFF program November 2020. Contact Information: Avionics Engineer: Dr. Gilberto Nolan ([phone]) CRC: Chioma Dailey ([phone]) RA: Kimberlee Angulo ([phone]) Diagnosis changed due to Research Module. Go [...] as of this encounter (statuses as of 07/06/2024) Immunizations Name Administration Dates Next Due COVID-19 mRNA, LNP-s, No Pre serve, 2-Dose Series (Loladex) 02/01/2021,01/11/2021 COVID-19, LNP-s, No Preserve , Toan-sucrose, Ages 12+ (Loladex) 12/31/2021 COVID-19, MRNA-LNP, 23-24, P F, 30 MCG/0.3 mL, 12 YRS AND ABOVE, IM (treadalong-[facility]) 07/29/2023 Covid-19, Mrna, Lnp-s, Pf, B ivalent, 30 Mcg, IM, 12 yrs and above (Loladex) 05/28/2022 Pneumococcal Conjugate Vacci ne, 20-valent ([id number]) 01/15/2023 Pneumococcal Polysaccharide PPV23 (Pneumovax) 01/09/2017 Seasonal [...] Sign Reading Time Taken Comments Blood Pressure 104/70 07/06/2024 11:39 AM EDT Pulse 82 07/06/2024 11:39 AM EDT Temperature - - Respiratory Rate 16 07/06/2024 11:39 AM EDT Oxygen Saturation 98% 07/06/2024 11:39 AM EDT Inhaled Oxygen Concentration - - Weight 72.8 kg (160 lb 8 oz) 07/06/2024 11:39 AM EDT Height - - Body Mass Index 31.35 05/23/2024 9:22 AM EDT documented in this encounter Functional Status [...] No 05/30/2022 documented as of this encounter Progress Notes * Guerita Marin PA-C - 07/06/2024 11:48 AM EDT CHIEF COMPLAINT: Allergy Follow up HISTORY OF PRESENT ILLNESS: Vanna Acevedo is a pleasant 68 year old female who presents today for follow up of chronic hives and nonallergic rhinitis. Overall she's doing well. She is still taking Claritin 10 mg once daily and Pepcid 20 mg once daily. She denies any ongoing hives. She hasn't had any hives in over a year. She did stop taking her Claritin briefly over the winter but then restarted it when the pollen started to come out in the spring. She does have nonallergic rhinitis but notes the Claritin helps with rhinitis symptoms. She additionally uses Nasacort which is helpful. She didn't have any hives while off of the Claritin. She wasinitially prescribed Pepcid for reflux, but then was switched to omeprazole. She was restarted on Pepcid when she began getting hives. She does continue on omeprazole and notes that reflux symptoms are controlled. She had a cold a few weeks ago with more nasal congestion and sinus pressure. She increased the Nasacort to twice daily and this helped. She also took over the counter cold medication with relief of symptoms. She's feeling better today. She has a history of eczema which is primarily on her scalp and the back of her neck.. She used topical emollients and hydrocortisone cream with relief of symptoms. Past Medical History: Diagnosis Date Anxiety Asthma Bipolar disorder ([facility]) Cataract incipient, senile Cupping of optic disc 0.6 OU (05/30); FH+;steroid use;VF/HRT 07/30 Diabetes mellitus type 2, uncomplicated ([facility]) 1998 DM type 2 with diabetic peripheral neuropathy ([facility]) 07/06/2018 Fibromyalgia syndrome GERD (gastroesophageal reflux disease) Habit chorea HTN (hypertension) HTN, goal below 130/80 Hyperlipidemia Hyperlipidemia with target LDL less than 70 03/10/2017 Leg cramping Migraine Moderate persistent asthma without complication 03/10/2017 09/19/2021 uses fluticasone Furoate (ARNUITY ELLIPTA) 100 MCG/ACT AEPB inhaler and albuterol Recent covid 08/25/21 -resolved Motion sickness Paroxysmal atrial fibrillation ([facility]) 09/18/2022 Subclavian artery stenosis, left ([facility]) 10/01/2022 Type 2 diabetes mellitus with hemoglobin A1c goal of less than 7.0% ([facility]) 07/05/2020 Social History Socioeconomic History Marital status: Tobacco Use Smoking status: Never Smokeless tobacco: Never Vaping Use Vaping status: Never Used Substance and Sexual Activity Alcohol use: No Drug use: No Sexual activity: Not Currently Social History Narrative Works for [employer] 04/07/2017 Social Determinants of Health Financial Resource Strain: Low Risk (12/08/2023) Financial Resource Strain Do you have any trouble paying for your medications, or do you think you might in the future? (Adult - for ages 18 years and over): No Food Insecurity: Food Insecurity Present (12/08/2023) Food Insecurity Do you need food for this week? (Adult - for ages 18 years and over): Yes Transportation Needs: No Transportation Needs (12/08/2023) Transportation Needs Do you have trouble getting a ride to medical visits or work? (Adult - for ages 18 years and over):Never True Social Connections: Socially Integrated (12/08/2023) Social Connections How often do you feel lonely or isolated from those around you? (Adult - for ages 18 years and over): Rarely Housing Stability: Low Risk (12/08/2023) Housing Stability Do you currently live in a residential or have no steady place to sleep at night? (Adult - for ages 18 years and over): No Do you think you are at risk of becoming homeless? (Adult - for ages 18 years and over): No I reviewed her past medical history, social history, family history, and environmental history and no significant changes have been reported from previous visit on 02/11/2023. CURRENT MEDICATIONS: Current Outpatient Medications Medication Sig Dispense Refill Triamcinolone Acetonide (NASACORT AQ) 55 MCG/ACT AERO Administer 2 Sprays into each nostril daily. 1 Bottle 1 Multiple Vitamin (MULTI VITAMIN DAILY) TABS Take 1 Dose(s) by mouth in the morning. Cholecalciferol 25 MCG (1000 UT) Oral Capsule Take 5 Capsules by mouth in the morning. Refresh 1.4-0.6 % Ophthalmic Solution (polyvinyl alcohol-povidone [...] the morning and 1 Tablet before bedtime. Clobetasol Propionate 0.05 % External Solution Apply to rash on scalp twice a day as needed 50 mL 5 Ketoconazole 2 % External Shampoo (Nizoral) Apply to scalp daily as needed 120 mL 5 Biotene Dry Mouth Mouth/Throat Liquid Apply to the mouth or throat as needed for Dry Mouth. OcuSoft Baby Eyelid & Eyelash External Pad [...] both eyes at bedtime. 3.5 g 6 Ozempic (2 MG/DOSE) 8 MG/3ML Subcutaneous Solution [...] of Breath or Wheezing. 18 g 0 Ubrelvy 100 MG Oral Tablet (Ubrogepant) Take 100 mg by mouth as needed for Migraine. Take 1 tabletsat onset of migraine and may repeat in 2 hours if needed. Do not exceed 2 tablets in 24 hours. 10 Tablet 1 OneTouch UltraSoft Lancets [facility] Checking blood sugars four time daily Dx: E11.9 150 Each 11 Witch Marlys-Glycerin External Pad (Tucks) Use to soothe vagina for up to 15 minutes at a time. Can use up to 4 times per day. 50 Each 1 OneTouch Ultra 2 w/Device Kit Check glucose up to four times daily. E11.9 1 Kit 0 BD Pen Needle Mini U/F 31G X 5 MM (Insulin Pen Needle) USE TO INJECT INSULIN 4 TIMES DAILY 400 Each3 FreeStyle Debbie 3 Sensor Use as directed every 14 days. Using Filmmortal, . FreeStyle Debbie 3 Clymer Device Use as directed. Using Filmmortal, . Debbie 3 reader shipped 03/10/2024 FreeStyle Precision Marko Test In Vitro Strip Use [...] daily. Brand Lantus Solostar 30 mL 3 No current facility-administered medications for this visit. ALLERGIES: Codeine, Metformin, Eliquis [apixaban], Jardiance [empagliflozin], Soap, and Sulfa antibiotics OBJECTIVE: BP 104/70 | Pulse 82 | Resp 16 | Wt 72.8 kg (160 lb 8 oz) | LMP (LMP Unknown) | SpO2 98% | BMI 31.35 kg/m | BSA 1.76 m PHYSICAL EXAM: GENERAL: No acute distress. EYES: Conjunctiva- normal; Eyelids - normal EARS: TM's - clear NOSE:Pale mucosa; moderate Inferior turbinate edema; no nasal polyps or mucopus; Septum - normal OROPHARYNX: Teeth and gums - normal; Mild erythema, mild cobblestoning; No lesions, exudates NECK: Supple; No thyroid enlargment or cervical adenopathy RESPIRATORY: Clear to A and P; No wheezes; Good air movement bilaterally; No intercostal retractions or accessory muscle use CARDIOVASCULAR: RRR; No gallops, rubs, clicks, or murmurs. LYMPHATIC: No significant adenopathy noted SKIN: No significant rashes or lesions seen, no urticarial or vesicular lesions noted. Small eczematous lesions posterior neck Previous notes and tests were reviewed. LABORATORY: Latest Reference Range & Units 01/06/23 10:40 Bermuda Grass IgE <0.10 kUa/L <0.10 Lavelle Grass IgE <0.10 kUa/L <0.10 Mite Farinae IgE <0.10 kUa/L <0.10 Mite Pteronyssinus IgE <0.10 kUa/L <0.10 Acremonium Kiliense IgE <0.10 kUa/L <0.10 Alternaria IgE <0.10 kUa/L <0.10 Aspergillus IgE <0.10 kUa/L <0.10 Cladosporium IgE <0.10 kUa/L <0.10 Helminthosporium IgE <0.10 kUa/L <0.10 Penicillium Notatum IgE <0.10 kUa/L <0.10 Pullularia IgE <0.10 kUa/L <0.10 Cat Dander IgE <0.10 kUa/L <0.10 Dog Dander IgE <0.10 kUa/L <0.10 Birch IgE <0.10 kUa/L <0.10 Mason Maple IgE <0.10 kUa/L <0.10 Louviers IgE <0.10 kUa/L <0.10 Elm IgE <0.10 kUa/L <0.10 Rose Bud IgE <0.10 kUa/L <0.10 Pecan Birdseye IgE <0.10 kUa/L <0.10 [place] Tree IgE <0.10 kUa/L <0.10 White Singh IgE <0.10 kUa/L <0.10 Cocklebur IgE <0.10 kUa/L <0.10 Common Ragweed IgE <0.10 kUa/L <0.10 Chinese Plantain IgE <0.10 kUa/L <0.10 Strickland's Quarter IgE <0.10 kUa/L <0.10 Mugwort IgE <0.10 kUa/L <0.10 Pigweed IgE <0.10 kUa/L <0.10 Sheep Coalfield IgE <0.10 kUa/L <0.10 IMPRESSION: Urticaria (Primary) Nonallergic rhinitis Eczema, unspecified type Follow Up: Return in about 6 months (around 01/04/2025) for Clinic Visit. | For: Clinic Visit PLAN: She has a history of chronic hives, nonallergic rhinitis, and eczema. She has been doing well with Claritin 10 mg once daily and Pepcid 20 mg once daily. She has not hadany hives for over a year. She may do a trial off of Pepcid for 1-2 weeks, and if no hives, discontinue it completely. She prefers to stay on Claritin given spring pollen, she notes it's beneficial for treating rhinitis symptoms. She will additionally continue Nasacort to 1 spray each nostril once daily for nonallergic rhinitis, may increase to twice daily as needed. She has a small patch of eczema on the back of her neck, she will continue hydrocortisone twice daily for 1-2 weeks as needed, and discontinue. She will additionally continue to moisturize her skin with topical emollients on a daily basis. It was our pleasure to see Vanna today and participate in her care. Please feel free to contact theoffice with questions or concerns. Guerita Marin PA-C Allergy and Immunology [facility] Supervising Physician: Shawn Moran MD Type of Supervision: Direct I spent a total of 20-29 minutes (exact time 25 mins) on the date of service in preparation, delivery, and documentation of the care provided to Vanna Acevedo excluding any time spent in the performance of separately billed services. documented in this encounter Nursing Notes * Adamaris Lyn LPN - 07/06/2024 11:34 AM EDT The pt has been properly identified by confirmation of name and date of . Pt here for return visit. documented in this encounter Plan of Treatment Upcoming Encounters Date Type Department Care Team (Late st Contact Info) Description 09/01/2024 11:00 AM EST Office Visit Pharmacy, [address] [id number] Pharmacist1, [facility] [address] [address] 11/21/2024 1:30 PM EDT Office Visit Sleep Disorders Ctr [facility] [address] [phone] Victoria Mcintosh CRNP [address] [facility] [place] [address] 01/04/2025 11:00 AM EDT Office Visit Allergy/Immunology [facility] [address] [place] [address] Guerita Marin PA-C [address] [facility] [place] [address] 02/09/2025 12:30 PM EDT Nurse Only Ancillary 1st Floor, [address] [address] [address], [facility] [address] [address] 06/29/2025 2:00 PM EDT Office Visit Ophthalmology, [address] [id number] Ray Gonzalez DO [address] [id number] Scheduled Procedures Name Priority Associated Diagnoses Date/Ti [...] D LEVEL ONCE IN A LIFETIME-USE SMARTSET# [id number] Completed 11/17/2023, 02/19/2023, 05/11/2019, Additional history exists [...] this encounter Medical Devices Implanted Type Area Fence Rider Device Identifier Shelf Expiration Date Model / Serial / Lot Lens 24.5 Clareon - [id number] - [id number] Implanted:Qty: 1 on 09/21/2023 by Ray Gonzalez DO at OR [facility] Lens Left: Eye [employer] 03/28/2026 CNA0T0.245 / [id number] / Suture Steel 6 B&S19 M654g - [id number] Implanted:Qty: 7 on 05/07/2021 by Aba Desir MD at OR [facility] N/A: Sternum JNJ : [employer] 01/10/2026 M654G / / [id number] Clareon Lens 24.5 Implanted:Qty: 1 on 08/10/2023 by Ray Gonzalez DO at OR [facility] Right: Eye [employer] 09/15/2025 CNA0T0 / [id number] / documented as of this encounter Visit Diagnoses Diagnosis Urticaria- Primary Urticaria, unspecified Nonallergic rhinitis Chronic rhinitis Eczema, unspecified type documented in this encounter Advance Directives * [...] Advance Directives occurred with: Patient Care Teams Communications Assistant Relationship Specialty Start Date End Date Pippa Navarro CRNP [address] [id number] PCP - General Nurse Practitioner 02/19/23 documented as of this encounter"
--- OUTSIDE RECORDS SUMMARY | 2024-11-14 06:32 | External Medical Summary ---
Author Name Unknown Address Unknown Organization [id number]:LABORATORY [facility] - [address] [facility] [address] Laboratory Report Ordering Provider Test Date Status TONYA RANKIN 08/09/2024 07:04:59 Final Observation Date Value Abnormality Reference (Units ) Status HbA1C 08/09/2024 07:04:59 9.3 Above high normal 4. 0-5.6 (%) Final The use of HbA1c to monitor glycemic status is based on normal hemoglobin and HbA composition. This test should not be used in patients with abnormal hemoglobin that affects the half life of the red blood cell or the in vivo glycation rates. Glucose, estimated average 08/09/2024 07:04:59 220 Above high normal <126 (mg/dL) Bryan moreno Performing Location LABORATORY [facility] - [address] [facility] [address]
--- OUTSIDE RECORDS SUMMARY | 2024-11-14 06:32 | External Medical Summary ---
Author Name Unknown Address Unknown Organization [id number]:LABORATORY [facility] - [address] [facility] [address] [place] [address] Laboratory Report Ordering Provider Test Date Status TONYA RANKIN 08/09/2024 07:04:59 Final Observation Date Value Abnormality Reference (Units ) Status BUN 08/09/2024 07:04:59 15 6-20 (mg/dL) Final Creatinine 08/09/2024 07:04:59 0.8 0.5-1.0 (mg/dL) Final Glomerular filtration rate/1.73 sq M.predicted [Volume Rate/Area] in Serum, Plasma or Blood by Creatinine-based formula (CKD-EPI) 08/09/2024 07:04:59 81 >=60 (mL/min) Final eGFR is calculated based on the CKD-EPI 2020 equation. Sodium 08/09/2024 07:04:59 140 135-146 (m mol/L) Final Potassium 08/09/2024 07:04:59 4.6 3.5-5.1 (m mol/L) Final Cl 08/09/2024 07:04:59 103 98-107 (mm ol/L) Final CO2 08/09/2024 07:04:59 22 22-32 (mmo l/L) Final Anion gap 08/09/2024 07:04:59 15 7-15 (mmol /L) Final Glucose 08/09/2024 07:04:59 146 Above high normal 70 -120 (mg/dL) Final Albumin 08/09/2024 07:04:59 4.2 3.8-5.0 (g /dL) Final AST (Aspartate aminotransferase) 08/09/2024 07:04:59 29 10-35 (U/L) Fin al Alk Phos 08/09/2024 07:04:59 80 35-130 (U/ L) Final Bilirubin, Total 08/09/2024 07:04:59 0.3 <=1 .2 (mg/dL) Final Calcium 08/09/2024 07:04:59 9.6 8.4-10.2 ( mg/dL) Final Protein 08/09/2024 07:04:59 6.6 6.0-8.3 (g /dL) Final ALT (Alanine aminotransferase) 08/09/2024 07:04:59 32 10-35 (U/L) Bryan moreno Performing Location LABORATORY [facility] - [address] [facility] [address]
--- OUTSIDE RECORDS SUMMARY | 2024-11-14 06:32 | External Medical Summary | Summary of Care ---
Author Name Unknown Organization [facility] Address [address] [place] [address] Phone [phone] Care Team Providers Care Hand Method Lasting Machine Operator Name Role Phone Pippa Navarro Primary Care Provider Reason for Visit * Reason Onset Date Comments Order Request 07/03/2024 Encounter Details Date Type Department Care Team ([facility] Contact Info) Description 07/03/2024 Telephone [facility] [address] [facility] [place] [phone] Pippa Navarro CRNP [address] [place], [place] [id number] Order Request Allergies Active Allergy Reactions Criticality Noted Date Comments Codeine Medium Other reaction(s): Hallucinations Apixaban Hives 09/23/2022 Empagliflozin Other (Please comment) 05/30/2022 migraines Metformin Abdominal pain,Nausea/vomiting Medium 09/02/2023 Consistent with ER formulation even when taken with meals. Soap 12/26/2016 Ivory soap, hives Sulfa Antibiotics Rash Low 03/10/2017 documented as of this encounter (statuses as of 07/03/2024) Medications Medication Sig Dispensed Refills Start Date [...] goal of less than 7.0% ([facility]) Checking blood sugars four time [...] goal of less than 7.0% ([facility]) USE TO INJECT INSULIN 4 TIMES DAILY 400 Each 3 10/06/2023 Active Ozempic (2 MG/DOSE) 8 MG/3ML Subcutaneous Solution Pen-injector (Semaglutide (2 MG/DOSE))Indications :Type 2 diabetes mellitus with hemoglobin A1c goal of less than 7.0% ([facility]) Inject 2mg under the skin [...] Use as directed every 14 days. Using Catapult, [phone]. 04/06/2024 Active FreeStyle Debbie 3 Calpine DeviceIndications:DM type 2 with diabetic peripheral neuropathy (HCC) Use as directed. Using Catapult,. Debbie 3 reader shipped 03/10/2024 04/06/2024 Active [...] goal of less than 7.0% ([facility]) Use up to 3 times daily to confirm sensor readings 300 Strip 3 06/30/2024 Active Insulin Glargine Solostar 100 UNIT/ML Subcutaneous Solution Pen-injectorIndicati ons:Type 2 diabetes, HbA1c goal < 7% ([facility]) Inject 26 Units under the skin daily. 30 mL 3 06/30/2024 Active NovoLOG FlexPen 100 UNIT/ML Subcutaneous Solution Pen-injector (insulin aspart)Indications:T ype 2 diabetes, HbA1c goal < 7% ([facility]) Inject 15 units with breakfast, 16 units with lunch, 11 units with supper + CF 1:40 over 140 45 mL 3 06/30/2024 Active Insulin Glargine Solostar 100 UNIT/ML Subcutaneous Solution Pen-injector (Lantus SoloStar)Indications :Type 2 diabetes, HbA1c goal < 7% ([facility]) Inject 26 Units under the skin daily. 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 The [employer] program provides food-insecure diabetics with healthy food for their entire household (2 meals/ day X 5 days/week). The program also provides education on food preparation, healthy living, and diabetes self management. The research measures the effects of the program on patient health and wellbeing. Subject will begin the FFF program November 2020. Contact Information: Attending Psychiatrist: Dr. Gilberto Nolan ([phone]) CRC: Chioma Dailey ([phone]) RA: Kimberlee Angulo ([phone]) Diagnosis changed due to Research Module. Go [...] as of this encounter (statuses as of 07/03/2024) Immunizations Name Administration Dates Next Due COVID-19 mRNA, LNP-s, No Pre serve, 2-Dose Series ([employer]) 02/01/2021,01/11/2021 COVID-19, LNP-s, No Preserve , Toan-sucrose, Ages 12+ ([employer]) 12/31/2021 COVID-19, MRNA-LNP, 23-24, P F, 30 MCG/0.3 mL, 12 YRS AND ABOVE, IM ([facility]) 07/29/2023 Covid-19, Mrna, Lnp-s, Pf, B ivalent, 30 Mcg, IM, 12 yrs and above ([employer]) 05/28/2022 Pneumococcal Conjugate Vacci ne, 20-valent ([id number]) 01/15/2023 Pneumococcal Polysaccharide PPV23 (Pneumovax) 01/09/2017 Seasonal [...] on file documented as of this encounter Functional Status Functional Status Response [...] No 05/30/2022 documented as of this encounter Miscellaneous Notes * Telephone Encounter - Melba Cuevas CMA - 07/03/2024 1:37 PM EDT Received fax from pharmacy that pt's insurance prefers brand Lantus Solostar. They are not able to run as brand w/o a new script. New script pended for approval. documented in this encounter Plan of Treatment Upcoming Encounters Date Type Department Care Team (Late st Contact Info) Description 07/06/2024 11:30 AM EDT Office Visit Allergy/Immunology [facility] [place] [address] [place], [place] [address] Guerita Marin PA-C [address] [place] [address] 09/01/2024 11:00 AM EST Office Visit Pharmacy, [place] [address] Pharmacist1, [facility] [place] [address] 11/21/2024 1:30 PM EDT Office Visit Sleep Disorders Ctr [facility] [address] [place] [phone] Victoria Mcintosh CRNP [address] [place] [address] 02/09/2025 12:30 PM EDT Nurse Only Ancillary 1st Floor, [place] [address] [facility] [place] [address] [place], [facility] [address] [place] [address] 06/29/2025 2:00 PM EDT Office Visit Ophthalmology, [place] [address] [place] [address] Ray Gonzalez DO [address] [place] [address] Scheduled Procedures Name Priority Associated Diagnoses Date/Ti me ESOPHAGOGASTRODUODENOSCOPY ( EGD), FLEXIBLE, TRANSORAL, DIAGNOSTIC Recall Velez esophagus COLONOSCOPY FLEXIBLE PROXIMAL DIAGNOSTIC Recall Encounter for screening colonoscopy Health Maintenance Due Date Last Done Comments Cologuard 2001 Fecal Occult Blood Test 2001 Sigmoidoscopy 2001 COVID-19 Vaccine ( season) 2024 07/29/2023, 05/28/2022, 12/31/2021, Additional history exists HbA1c 10/30/2024 04/29/2024, 030 02/2024, 06/15/2023, Additional history exists B-12 11/16/2024 11/17/2023, 02/0 02/2023, 07/09/2021, Additional history exists GFR 11/16/2024 11/17/2023, 0605/2023, 12/15/2022, Additional history exists Albumin/Creatinine Ratio 11/18/20242 [...] D LEVEL ONCE IN A LIFETIME-USE SMARTSET# [id number] Completed 11/17/2023, 02/19/2023, 05/11/2019, Additional history exists [...] this encounter Medical Devices Implanted Type Area Semiconductor Package Symbol Stamper Device Identifier Shelf Expiration Date Model / Serial / Lot Lens 24.5 Paloma - [id number] - [id number] Implanted:Qty: 1 on 09/21/2023 by Ray Gonzalez DO at OR [facility] Lens Left: Eye [employer] 03/28/2026 CNA0T0.245 / [id number] / Suture Steel 6 B&S19 M654g - [id number] Implanted:Qty: 7 on 05/07/2021 by Aba Desir MD at OR [facility] N/A: Sternum JNJ : [employer] 01/10/2026 [id number] / / [id number] Clareon Lens 24.5 Implanted:Qty: 1 on 08/10/2023 by Ray Gonzalez DO at OR [facility] Right: Eye [employer] 09/15/2025 CNA0T0 / [id number] / documented as of this encounter Visit Diagnoses Diagnosis Type 2 diabetes, HbA1c goal < 7% ([facility]) Type II or unspecified type diabetes mellitus without mention of complication, not stated as uncontrolled documented in this [...] Advance Directives occurred with: Patient Care Teams Hand Method Lasting Machine Operator Relationship Specialty Start Date End Date Pippa Navarro CRNP [address] [place] [address] PCP - General Nurse Practitioner 02/19/23 documented as of this encounter
--- OUTSIDE RECORDS SUMMARY | 2024-11-14 06:32 | External Medical Summary | Summary of Care ---
Author Name Unknown Organization [facility] Address [address] [place] [address] Phone [phone] Care Team Providers Care Lav Crewman Name Role Phone Pippa Navarro Primary Care Provider Reason for Visit * Reason Onset Date Comments Health Maintenance 06/27/2024 Encounter Details Date Type Department Care Team ([facility] Contact Info) Description 06/27/2024 Telephone [facility] [address] [facility] [place] [phone] Pippa Navarro CRNP [address] [place] [address] Health Maintenance Allergies Active Allergy Reactions Criticality Noted Date [...] Status Triamcinolone Acetonide (NASACORT AQ) 55 MCG/ACT AEROIndications:Al lergic rhinitis, unspecified seasonality, unspecified trigger Administer 2 Sprays into each nostril daily. 1 Bottle 1 01/21/2018 Active Multiple Vitamin (MULTI VITAMIN DAILY) TABS Take 1 Dose(s) by mouth in the morning. Active Cholecalciferol 25 MCG (1000 UT) Oral Capsule Take 5 Capsules by mouth in the morning. 06/29/2019 Active OneTouch UltraSoft Lancets MISCIndications:Ty pe 2 diabetes mellitus with hemoglobin A1c goal of less than 7.0% ([facility]) Checking blood sugars four time [...] bedtime. 06/29/2022 Active Witch Marlys-Glycerin External Pad (Jeffreycks)Indications :Non-obstetric vaginal laceration without foreign body or perineal laceration, initial encounter Use to soothe vagina for up to 15 minutes at a time. Can use up to 4 times per day. 50 Each 1 10/01/2022 Active Clobetasol Propionate 0.05 % External SolutionIndication s:Seborrheic dermatitis Apply to rash on scalp twice a day as needed 50 mL 5 10/20/2022 Active Ketoconazole 2 % External Shampoo (Nizoral)Indicatio ns:Seborrheic dermatitis Apply to scalp daily as needed [...] Hydrobromide 40 MG Oral Tablet (CeleXA) 07/02/2023 Active Meclizine HCl 25 MG Oral Tablet (Antivert)Indicati ons:Dizziness Take 1 Tablet by mouth 3 times a day as needed for Dizziness. 90 Tablet 2 07/27/2023 Active Benzonatate 100 MG Oral Capsule (Tessalon Perles)Indications :Acute cough Take 1 Capsule by mouth 3 times a day as needed for Cough. Do not cut, crush, or chew. 30 Capsule 07/27/2023 Active Additional Information Patient not taking.Reported on 01/06/2024 Erythromycin 5 MG/GM Ophthalmic Ointment Instill 0.25 Inches into both eyes at bedtime. 3.5 g 6 10/01/2023 Active Additional Information Patient not taking.Reported on 06/23/2024 BD Pen Needle Mini U/F 31G X 5 MM (Insulin Pen Needle)Indications :Type 2 diabetes mellitus with hemoglobin A1c goal of less than 7.0% (HCC) USE TO INJECT INSULIN 4 TIMES DAILY 400 Each 3 10/06/2023 Active Ozempic (2 MG/DOSE) 8 MG/3ML Subcutaneous Solution Pen-injector (Semaglutide (2 MG/DOSE))Indicatio ns:Type 2 diabetes mellitus with hemoglobin A1c goal of less than 7.0% (HCC) Inject 2mg under the skin once weekly 3 mL 3 11/22/2023 Active Omeprazole 40 MG Oral Capsule Delayed Release (PriLOSEC)Indicati ons:Gastroesophage al reflux disease without esophagitis Take 1 Capsule by mouth in the morning. 1 hour before the first meal of the day. 90 Capsule 3 11/22/2023 Active Loratadine 10 MG Oral Tablet (Claritin) Take 1 Tablet by mouth in the morning. 90 Tablet 3 11/22/2023 Active Famotidine 20 MG Oral Tablet (Pepcid)Indication s:Heartburn Take 1 Tablet by mouth in the morning. 90 Tablet 3 11/22/2023 Active Ezetimibe 10 MG Oral Tablet (Zetia)Indications :Hyperlipidemia with target LDL less than 70 Take 1 Tablet by mouth in the morning. 90 Tablet 3 11/22/2023 Active Atorvastatin Calcium 80 MG Oral Tablet (Lipitor) Take 1 Tablet by mouth in the morning. 90 Tablet 3 11/22/2023 Active Arnuity Ellipta 100 MCG/ACT Inhalation Aerosol Powder Breath Activated (fluticasone Furoate)Indication s:Moderate persistent asthma without complication Inhale 1 Puff by mouth in the morning. 90 Each 3 11/22/2023 Active Albuterol Sulfate HFA 108 (90 Base) MCG/ACT Inhalation Aerosol SolutionIndication s:Moderate persistent asthma without complication Inhale 2 Puffs by mouth every 6 hours as needed for Shortness of Breath or Wheezing. 18 g 02/25/2024 Active FreeStyle Debbie 3 SensorIndications: DM type 2 with diabetic peripheral neuropathy (HCC) Use as directed every 14 days. Using Simalaya, [phone]. 04/06/2024 Active FreeStyle Debbie 3 [place] DeviceIndications: DM type 2 with diabetic peripheral neuropathy (HCC) Use as directed. Using Simalaya,[phone] . Debbie 3 reader shipped 03/10/2024 04/06/2024 Active Ubrelvy 100 MG Oral Tablet (Ubrogepant)Indica tions:Migraine without status migrainosus, not intractable, unspecified migraine type Take 100 mg by mouth as needed for Migraine. Take 1 tablets at onset of migraine and may repeat in 2 hours if needed. Do not exceed 2 tablets in 24 hours. 10 Tablet 1 06/02/2024 Active Insulin Glargine Solostar 100 UNIT/ML Subcutaneous Solution Pen-injectorIndica tions:Type 2 diabetes, HbA1c goal < 7% (HCC) Inject 23 Units under the skin in the morning. Once daily.. 11/22/2023 4 Discontinue d(Refill) NovoLOG FlexPen 100 UNIT/ML Subcutaneous Solution Pen-injector (insulin aspart)Indications :Type 2 diabetes, HbA1c goal < 7% (HCC) Inject 12 units with breakfast, 12 units with lunch, 8 units with supper + CF 1:35 over 120 (max 45 units daily) 45 mL 3 11/23/2023 4 Discontinue d(Refill) OxyBand TechnologiesStyle Precision Marko Test In Vitro StripIndications:T ype 2 diabetes mellitus with hemoglobin A1c goal of less than 7.0% (HCC) FOR USE IN THE DEBBIE CGM WHEN THE SENSOR IS INOPERATIVE OR TO VERIFY SENSOR READINGS 50 Strip 3 12/05/2023 4 Discontinue d(Refill) documented as of this encounter (statuses as of 07/03/2024) Active Problems Problem Noted Date Diagnosed Date Encounter for long-term (current) insulin use Major depressive disorder, recurrent, in partial remission 11/22/2023 Generalized anxiety disorder 11/22/2023 Atherosclerosis of [place] co ronary artery without angina pectoris 11/22/2023 [...] research program 05/28/2020 12/02/2021 Overview: Fresh Food [employer]: A Randomized Controlled Trial (Project # [id number]). The [employer] program provides food-insecure diabetics with healthy food for their entire household (2 meals/ day X 5 days/week). The program also provides education on food preparation, healthy living, and diabetes self management. The research measures the effects of the program on patient health and wellbeing. Subject will begin the FFF program November 2020. Contact Information: Sales Agent Food Vending Service: Dr. Gilberto Nolan ([phone]) CRC: Chioma Dailey ([phone]) RA: Kimberlee Angulo ([phone]) Diagnosis changed due to Research Module. Go [...] mRNA, LNP-s, No Pre serve, 2-Dose Series ([employer]) 02/01/2021,01/11/2021 COVID-19, LNP-s, No Preserve , Toan-sucrose, Ages 12+ ([employer]) 12/31/2021 COVID-19, MRNA-LNP, 23-24, P F, 30 MCG/0.3 mL, 12 YRS AND ABOVE, IM ([facility] 07/29/2023 Covid-19, Mrna, Lnp-s, Pf, B ivalent, 30 Mcg, IM, 12 yrs and above ([employer]) 05/28/2022 Pneumococcal Conjugate Vacci ne, 20-valent ([id number]) 01/15/2023 Pneumococcal Polysaccharide PPV23 (Pneumovax) 01/09/2017 Seasonal [...] encounter Miscellaneous Notes * Telephone Encounter - Adamaris Cheng LPN - 06/27/2024 2:01 PM EDT Care Gaps Comprehensive Care Outreach Last Office/Telemedicine Visit: 06/02/2024 (in office), 10/09/2020 (telemedicine) Next Office Visit: Visit date not found Hemoglobin AIC Results: Lab Results Component Value Date/Time HEMOGLOBIN A1C - [facility] 8.0 (H) 04/29/2024 09:50 AM HEMOGLOBIN A1C - [facility] 7.4 (H) 11/17/2023 12:08 PM HEMOGLOBIN A1C - [facility] 8.9 (H) 06/15/2023 01:40 PM HEMOGLOBIN A1C - [facility] 7.5 (H) 09/03/2020 01:44 PM HEMOGLOBIN A1C - [facility] 11.9 (H) 04/29/2020 09:49 AM HEMOGLOBIN A1C - [facility] 12.3 (H) 10/14/2019 09:40 AM HEMOGLOBIN A1C POCT - [facility] 11.3 (H) 11/25/2021 02:04 PM HEMOGLOBIN A1C POCT - [facility] 10.3 (H) 01/15/2021 12:19 PM BP Readings from Last 1 Encounters: 06/02/24 147/85 Reviewed Health Maintenance below: Health Maintenance Topic Date Due HbA1c 10/30/2024 GFR 11/16/2024 B-12 11/16/2024 Albumin/Creatinine Ratio 11/18/2024 Diabetic Foot Exam 01/05/2025 Mammogram 02/03/2025 Adult Wellness Visit 02/03/2025 DXA Scan 04/23/2025 Diabetic Eye Exam 06/23/2025 Care Gap Outreach Action Taken: Outreach not indicated documented in this encounter Plan of Treatment Upcoming Encounters Date Type Department Care Team (Late st Contact Info) Description 07/06/2024 11:30 AM EDT Office Visit Allergy/Immunology [facility] [place] [address] [facility] [place] [address] Guerita Marin PA-C [address] [facility] [place] [address] 09/01/2024 11:00 AM EST Office Visit Pharmacy, [place] [address] [place] [address] Pharmacist1, [facility] [place] [address] [place] [address] 11/21/2024 1:30 PM EDT Office Visit Sleep Disorders Ctr [facility] [address] [place] [phone] Victoria Mcintosh CRNP [address] [place] [address] 02/09/2025 12:30 PM EDT Nurse Only Ancillary 1st Floor, [place] [address] [place] [address] [place], [facility] Wellness 2 [address] [place] [address] 06/29/2025 2:00 PM EDT Office Visit Ophthalmology, [place] [address] [place] [address] Ray Gonzalez, DO [address] [facility] [address] [place] [address] Scheduled Procedures Name Priority Associated Diagnoses Date/Ti [...] D LEVEL ONCE IN A LIFETIME-USE SMARTSET# [id number] Completed 11/17/2023, 02/19/2023, 05/11/2019, Additional history exists [...] this encounter Medical Devices Implanted Type Area Human Resources Manager Device Identifier Shelf Expiration Date Model / Serial / Lot Lens 24.5 Clareon - [id number] - [id number] Implanted:Qty: 1 on 09/21/2023 by Ray Gonzalez DO at OR [facility] Lens Left: Eye [employer] 03/28/2026 CNA0T0.245 / [id number] / Suture Steel 6 B&S19 M654g - [id number] Implanted:Qty: 7 on 05/07/2021 by Aba Desir MD at [place] [facility] N/A: Sternum JNJ : [employer] 01/10/2026 [id number] / / [id number] Clareon Lens 24.5 Implanted:Qty: 1 on 08/10/2023 by Ray Gonzalez DO at OR [facility] Right: Eye [employer] 09/15/2025 CNA0T0 / [id number] / documented as of this encounter [...] Advance Directives occurred with: Patient Care Teams Lav Crewman Relationship Specialty Start Date End Date Pippa Navarro CRNP [address] [place] [phone] PCP - General Nurse Practitioner 02/19/23 documented as of this encounter
--- OUTSIDE RECORDS SUMMARY | 2024-11-14 06:32 | External Medical Summary | Summary of Care ---
Author Name Unknown Organization [facility] Address [address] [place] [address] Phone [phone] Care Team Providers Care Undergraduate Advisor Name Role Phone Pippa Navarro Primary Care Provider Encounter Details Date Type Department Care Team ([facility] st Contact Info) Description 07/20/2024 Population Health External Data Unspecified Department Allergies Active Allergy Reactions Criticality Noted Date Comments Codeine Medium Other reaction(s): Hallucinations Apixaban Hives 09/23/2022 Empagliflozin Other (Please comment) 05/30/2022 migraines Metformin Abdominal pain,Nausea/vomiting Medium 09/02/2023 Consistent with ER formulation even when taken with meals. Soap 12/26/2016 Ivory soap, hives Sulfa Antibiotics Rash Low 03/10/2017 documented as of this encounter (statuses as of 07/27/2024) Medications Triamcinolone Acetonide (NASACORT AQ) 55 MCG/ACT [...] directed every 14 days. Using [facility] The Invisible Armor, [phone]. 4 Active FreeStyle Debbie 3 [place] DeviceIndications :DM type 2 with diabetic peripheral neuropathy (HCC) Use as directed. Using XipLink,. Debbie 3 reader shipped 03/10/2024 4 Active [...] as of this encounter (statuses as of 07/27/2024) Active Problems Problem Noted Date Diagnosed Date Encounter for long-term (current) insulin use Major depressive disorder, recurrent, in partial remission 11/22/2023 Generalized anxiety disorder 11/22/2023 Atherosclerosis of [place] co ronary artery without angina pectoris 11/22/2023 [...] as of this encounter (statuses as of 07/27/2024) Resolved Problems Problem Noted Date Diagnosed Date Resolved Date Occlusion of left subclavian artery 05/30/2022 06/15/2023 Vertigo 05/30/2022 06/05/2022 Uncomplicated asthma 05/28/2022 022 Hyperlipidemia 05/28/2022 05/28/2022 Atrial fibrillation 11/25/2021 12/03/19 Current use of insulin 11/11/202112/15 Personal history of atrial fibrillation 05/26/2021 12/15/2022 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 The Fresh Food AlpineReplay program provides food-insecure diabetics with healthy food for their entire household (2 meals/ day X 5 days/week). The program also provides education on food preparation, healthy living, and diabetes self management. The research measures the effects of the program on patient health and wellbeing. Subject will begin the FFF program November 2020. Contact Information: Tugboat Operator: Dr. Gilberto Nolan ([phone]) CRC: Chioma Dailey ([phone]) RA: Kimberlee Angulo ([phone]) Diagnosis changed due to Research Module. Go [...] as of this encounter (statuses as of 07/27/2024) Immunizations Name Administration Dates Next Due COVID-19 mRNA, LNP-s, No Pre serve, 2-Dose Series (The News Lens) 02/01/2021,01/11/2021 COVID-19, LNP-s, No Preserve , Toan-sucrose, Ages 12+ (Pfizer) 12/31/2021 COVID-19, MRNA-LNP, PF, 30 M CG/0.3 mL, 12 YRS AND ABOVE, IM (Hardide Coatings-Comirnaty) 07/29/2023 Covid-19, Mrna, Lnp-s, Pf, B ivalent, 30 Mcg, IM, 12 yrs and above (Pfizer) 05/28/2022 Pneumococcal Conjugate Vacci ne, 20-valent ([id number]) 01/15/2023 Pneumococcal Polysaccharide PPV23 (Pneumovax) 01/09/2017 Seasonal [...] No 12/08/2023 Does the household have a [facility] source of income? (Household - for [...] Description 08/09/2024 7:00 AM EST Laboratory Laboratory, [place] [address] [phone] Helen Tavera [address] [address] 08/14/2024 10:00 AM EST Office Visit Family Practice, [place] [address] [phone] Pippa Navarro CRNP [address] [address] 09/01/2024 11:00 AM EST Office [place] [address] Pharmacist1, [facility] [place] [address] [address] 11/13/2024 2:30 PM EST Nutrition Services Nutrition, [facility] [address] [facility] [address] [address] Edwina Ware, JESENIAN [address] [facility] [address] [address] 11/21/2024 1:30 PM EDT Office Visit Sleep Disorders Ctr [facility] [address] [facility] [address] [phone] Victoria Mcintosh CRNP [address] [facility] [address] [place] [address] 01/04/2025 11:00 AM EDT Office Visit Allergy/Immunology [facility] [address] [facility] [place] [address] Guerita Marin PA-C [address] [facility] [place] [address] 02/09/2025 12:30 PM EDT Nurse Only Ancillary 1st Floor, [place] [address] [address] [place], [facility]ness 2 [address] [address] 06/29/2025 2:00 PM EDT Office Visit Ophthalmology, [place] [address] [address] Ray Gonzalez DO [address] [address] Scheduled Procedures Name Priority Associated Diagnoses Date/Ti [...] D LEVEL ONCE IN A LIFETIME-USE SMARTSET# [id number] Completed 11/17/2023, 02/19/2023, 05/11/2019, Additional history exists [...] this encounter Medical Devices Implanted Type Area Desktop Manager Device Identifier Shelf Expiration Date Model / Serial / Lot Lens 24.5 Clareon - [id number] - [id number] Implanted:Qty: 1 on 09/21/2023 by Ray Gonzalez DO at OR [facility] Lens Left: Eye [employer] 03/28/2026 CNA0T0.245 / [id number] / Suture Steel 6 B&S19 M654g - [id number] Implanted:Qty: 7 on 05/07/2021 by Aba Desir MD at OR [facility] N/A: Sternum JNJ : [employer] 01/10/2026 M654G / / [id number] Clareon Lens 24.5 Implanted:Qty: 1 on 08/10/2023 by Ray Gonzalez DO at OR [facility] Right: Eye [employer] 09/15/2025 CNA0T0 / [id number] / documented as of this encounter [...] Advance Directives occurred with: Patient Care Teams Undergraduate Advisor Relationship Specialty Start Date End Date Pippa Navarro CRNP [address] [address] PCP - General Nurse Practitioner 02/19/23 documented as of this encounter
--- OUTSIDE RECORDS SUMMARY | 2024-11-14 06:32 | External Medical Summary | Summary of Care ---
Author Name Unknown Organization [facility] Address [address] [place] [address] Phone [phone] Care Team Providers Care Equipment Engineer Name Role Phone Pippa Navarro Primary Care Provider Reason for Visit * Reason Comments Medication Discussion Encounter Details Date Type Department Care Team ([facility] st Contact Info) Description 06/30/2024 2:00 PM EDT Pharmacy Pharmacy, [address] [address] Pharmacist1, [facility] [address] [address] Encounter for medication review* Allergies Active Allergy Reactions Criticality Noted Date Comments Codeine Medium Other reaction(s): Hallucinations Apixaban Hives 09/23/2022 Empagliflozin Other (Please comment) 05/30/2022 migraines Metformin Abdominal pain,Nausea/vomiting Medium 09/02/2023 Consistent with ER formulation even when taken with meals. Soap 12/26/2016 Ivory soap, hives Sulfa Antibiotics Rash Low 03/10/2017 documented as of this encounter (statuses as of 06/30/2024) Medications Medication Sig Dispensed Refills Start Date [...] A1c goal of less than 7.0% ([facility]) Checking blood sugars four time daily [...] A1c goal of less than 7.0% ([facility]) USE TO INJECT INSULIN 4 TIMES DAILY 400 Each 3 10/06/2023 Active Ozempic (2 MG/DOSE) 8 MG/3ML Subcutaneous Solution Pen-injector (Semaglutide (2 MG/DOSE))Indications :Type 2 diabetes mellitus with hemoglobin A1c goal of less than 7.0% ([facility]) Inject 2mg under the skin once [...] Use as directed every 14 days. Using Net[employer]ices, [phone]. 04/06/2024 Active FreeStyle Debbie 3 [place] DeviceIndications:DM type 2 with diabetic peripheral neuropathy (HCC) Use as directed. Using NetDevices,. Debbie 3 reader shipped 03/10/2024 04/06/2024 Active Ubrelvy 100 MG Oral Tablet (Ubrogepant)Indicati ons:Migraine without status migrainosus, not intractable, unspecified migraine type Take 100 mg by mouth as needed for Migraine. Take 1 tablets at onset of migraine and may repeat in 2 hours if needed. Do not exceed 2 tablets in 24 hours. 10 Tablet 1 06/02/2024 Active documented as of this encounter (statuses as of 06/30/2024) Active Problems Problem Noted Date Diagnosed Date Encounter for long-term (current) insulin use Major depressive disorder, recurrent, in partial remission 11/22/2023 Generalized anxiety disorder 11/22/2023 Atherosclerosis of [place] ronary artery without angina pectoris 11/22/2023 Food insecurity 11/22/2023 Overview: Per [facility] Protocol Velez's esophagus 07/27/2023 Atypical [...] as of this encounter (statuses as of 06/30/2024) Resolved Problems Problem Noted Date Diagnosed Date [...] in clinical research program 05/28/2020 12/02/2021 Overview: Onit: A Randomized Controlled Trial (Project # [id number]). The Fresh Food [employer] program provides food-insecure diabetics with healthy food for their entire household (2 meals/ day X 5 days/week). The program also provides education on food preparation, healthy living, and diabetes self management. The research measures the effects of the program on patient health and wellbeing. Subject will begin the FFF program November 2020. Contact Information: Binder Layer: Dr. Gilberto Nolan ([phone]) CRC: Chioma Dailey ([phone]) RA: Kimberlee Angulo ([phone]) Diagnosis changed due to Research Module. Go [...] as of this encounter (statuses as of 06/30/2024) Immunizations Name Administration Dates Next Due COVID-19 mRNA, LNP-s, No Pre serve, 2-Dose Series (Brain Sentry) 02/01/2021,01/11/2021 COVID-19, LNP-s, No Preserve , Toan-sucrose, Ages 12+ (Pfizer) 12/31/2021 COVID-19, MRNA-LNP, 23-24, P F, 30 MCG/0.3 mL, 12 YRS AND ABOVE, IM (Meetrics-Comirnat) 07/29/2023 Covid-19, Mrna, Lnp-s, Pf, B ivalent, 30 Mcg, IM, 12 yrs and above (Brain Sentry) 05/28/2022 Pneumococcal Conjugate Vacci ne, 20-valent ([id number]) 01/15/2023 Pneumococcal Polysaccharide PPV23 (Pneumovax) 01/09/2017 Seasonal [...] No 12/08/2023 Does the household have a [facility] source of income? (Household - [...] as of this encounter Progress Notes * Adina Scott, [facility] - 06/30/2024 3:46 PM EDT CMR completed today in Medication Management encounter (06/30/24). Adina Scott, PharmD, [facility] Clinical Pharmacist 06/30/2024, 3:46 PM documented in this encounter Plan of Treatment Upcoming Encounters Date Type Department Care Team (Late st Contact Info) Description 07/06/2024 11:30 AM EDT Office Visit Allergy/Immunology [facility] [address] [facility] [place] [address] Guerita Marin PA-C [address] [facility] [place] [address] 09/01/2024 11:00 AM EST Office Visit Pharmacy, [place] [address] [address] Pharmacist1, [facility] [place] [address] [address] 11/21/2024 1:30 PM EDT Office Visit Sleep Disorders Ctr [facility] [address] [facility] [address] [phone] Victoria Mcintosh CRNP [address] [facility] [address] [address] 02/09/2025 12:30 PM EDT Nurse Only Ancillary 1st Floor, [place] [address] [address] [place], [facility] Wellness 2 [address] [address] 06/29/2025 2:00 PM EDT Office Visit Ophthalmology, [place] [address] [address] Ray Gonzalez DO [address] [address] Scheduled Procedures Name Priority Associated Diagnoses Date/Ti [...] D LEVEL ONCE IN A LIFETIME-USE SMARTSET# [id number] Completed 11/17/2023, 02/19/2023, 05/11/2019, Additional history exists [...] this encounter Medical Devices Implanted Type Area Director Instructional Material Device Identifier Shelf Expiration Date Model / Serial / Lot Lens 24.5 Clareon - [id number] - [id number] Implanted:Qty: 1 on 09/21/2023 by Ray Gonzalez DO at OR [facility] Lens Left: Eye [employer] 03/28/2026 CNA0T0.245 / [id number] / Suture Steel 6 B&S19 M654g - [id number] Implanted:Qty: 7 on 05/07/2021 by Aba Desir MD at OR [facility] N/A: Sternum JNJ : [employer] 01/10/2026 M654G / / [id number] Clareon Lens 24.5 Implanted:Qty: 1 on 08/10/2023 by Ray Gonzalez DO at OR [facility] Right: Eye [employer] 09/15/2025 CNA0T0 / [id number] / documented as of this encounter Visit Diagnoses Diagnosis Encounter for medication review- Primary Encounter for long-term (current) use of other medications documented in this encounter Advance Directives * [...] Advance Directives occurred with: Patient Care Teams Equipment Engineer Relationship Specialty Start Date End Date Pippa Navarro CRNP [address] [phone] PCP - General Nurse Practitioner 02/19/23 documented as of this encounter
--- OUTSIDE RECORDS SUMMARY | 2024-11-14 06:33 | External Medical Summary | Summary of Care ---
Author Name Unknown Organization [facility] Address [address] [place] [address] Phone [phone] Care Team Providers Care Manager Security And Safety Name Role Phone Pippa Navarro Primary Care Provider Reason for Visit * Reason Comments Dosage Adjustment In Person (Anticoag Cl inic) Diabetes Follow-Up Encounter Details Date Type Department Care Team ([facility] Contact Info) Description 06/30/2024 1:30 PM EDT Office Visit Pharmacy, [address] [address] Pharmacist1, [facility] [address] [address] Type 2 diabetes mellitus with hemoglobin A1c goal of less than 7.0% ([facility])*; Type 2 diabetes, HbA1c goal < 7% (HCC) Allergies Active Allergy Reactions Criticality Noted Date [...] bedtime. 06/29/2022 Active Witch Marlys-Glycerin External Pad (Tucks)Indications :Non-obstetric vaginal laceration without foreign body or [...] less than 7.0% ([facility]) USE TO INJECT INSULIN 4 TIMES DAILY 400 Each 3 10/06/2023 Active Ozempic (2 MG/DOSE) 8 MG/3ML Subcutaneous Solution Pen-injector (Semaglutide (2 MG/DOSE))Indicatio ns:Type 2 diabetes mellitus with hemoglobin A1c goal of less than 7.0% ([facility]) Inject 2mg under the skin once [...] Use as directed every 14 days. Using Wiser (formerly WisePricer), [phone]. 04/06/2024 Active [place]on Debbie 3 [place] DeviceIndications: DM type 2 with diabetic peripheral neuropathy (HCC) Use as directed. Using Wiser (formerly WisePricer),. Debbie 3 reader shipped 03/10/2024 04/06/2024 Active Ubrelvy 100 MG Oral Tablet (Ubrogepant)Indica tions:Migraine without status migrainosus, not intractable, unspecified migraine type Take 100 mg by mouth as needed for Migraine. Take 1 tablets at onset of migraine and may repeat in 2 hours if needed. Do not exceed 2 tablets in 24 hours. 10 Tablet 1 06/02/2024 Active Foldeesyle Precision Marko Test In Vitro StripIndications:T ype 2 diabetes mellitus with hemoglobin A1c goal of less than 7.0% ([facility]) Use up to 3 times daily to confirm sensor readings 300 Strip 3 06/30/2024 Active Insulin Glargine Solostar 100 UNIT/ML Subcutaneous Solution Pen-injectorIndica tions:Type 2 diabetes, HbA1c goal < 7% ([facility]LY [...] 45 mL 3 11/23/2023 4 Discontinue d(Refill) FreeStyle Precision Marko Test In Vitro StripIndications:T ype [...] 11/22/2023 Generalized anxiety disorder 11/22/2023 Atherosclerosis of [place] co ronary artery without angina pectoris 11/22/2023 [...] research program 05/28/2020 12/02/2021 Overview: Fresh Food FarmBunch: A Randomized Controlled Trial (Project # [id number]). The Fresh Food Farmacy program provides food-insecure diabetics with healthy food for their entire household (2 meals/ day X 5 days/week). The program also provides education on food preparation, healthy living, and diabetes self management. The research measures the effects of the program on patient health and wellbeing. Subject will begin the FFF program November 2020. Contact Information: Gill Tender: Dr. Gilberto Nolan ([phone]) CRC: Chioma Dailey ([phone]) RA: Kimberlee Angulo ([phone]) Diagnosis changed due to Research Module. Go [...] mRNA, LNP-s, No Pre serve, 2-Dose Series (Olive Media) 02/01/2021,01/11/2021 COVID-19, LNP-s, No Preserve , Toan-sucrose, Ages 12+ (Olive Media) 12/31/2021 COVID-19, MRNA-LNP, 23-24, P F, 30 MCG/0.3 mL, 12 YRS AND ABOVE, IM (Reunion.com-Comirnaty) 07/29/2023 Covid-19, Mrna, Lnp-s, Pf, B ivalent, 30 Mcg, IM, 12 yrs and above (Olive Media) 05/28/2022 Pneumococcal Conjugate Vacci ne, 20-valent ([id number]) 01/15/2023 Pneumococcal Polysaccharide PPV23 (Pneumovax) 01/09/2017 Seasonal [...] this encounter Progress Notes * Adina Scott, [facility] - 06/30/2024 1:28 PM EDT Images from the original note were not included. Medication Therapy Disease Management Clinic - Diabetes Management Progress Note Vanna Acevedo, identified by name and date of , is a 69 year old female being seen for diabetes management/education. Patient presents for return diabetic visit. DIABETES: Current diabetic medications: Ozempic: inject 2mg weekly on Lantus: inject 26 units daily in the morning INC: Novolog: inject 15 units with breakfast, 16 units with lunch, 11 units with supper + CF 1:40 over 140 with meals GFR 73 on 11/17/23 Medication Injection Site: Abdomen Lifestyle: Diet: unchanged Glucose Review/SMBG: Readings obtained from patient device Hypoglycemia: Does your blood sugar go below 70 mg/dL? Per Debbie, yes, fingerstick BG tests contradict this Hyperglycemia symptoms present: none Recent Labs Units 04/29/24 0950 11/17/23 1208 06/15/23 1340 HEMOGLOBIN A1C - [facility] % 8.0* 7.4* 8.9* Recent Labs Units 11/17/23 1208 02/19/23 1018 12/15/22 1657 ESTIMATED GLOMERULAR FILTRATION RATE - [facility] mL/min 73 77 74 CREATININE - [facility] mg/dL 0.9 0.8 0.9 HYPERTENSION: Patient on ACEi/ARB: no, UAC < 9 on 11/19/23 BP Readings from Last 3 Encounters: 06/02/24 147/85 05/23/24 106/70 02/25/24 118/68 Blood pressure at goal: yes HYPERLIPIDEMIA: Recent Labs Units 11/17/23 1208 06/15/23 1340 12/15/22 1657 LDL CHOLESTEROL (CALCULATED) - [facility] mg/dL -- 115 -- LDL CHOLESTEROL (DIRECT MEASURE) - [facility] mg/dL 103 -- 55 Does patient have clinical ASCVD? Yes, is patient LDL less than 55 mg/dL? No: on atorvastatin 80mg and Zetia 10mg HEALTH MAINTENANCE REVIEW: Health Maintenance Due Topic Date Due COVID-19 Vaccine ( season) 2024 ASSESSMENT & PLAN: ICD-10-CM 1. Type 2 diabetes mellitus with hemoglobin A1c goal of less than 7.0% (HCC) E11.9 2. Type 2 diabetes, HbA1c goal < 7% (HCC) E11.9 BG Readings - Blood sugars currently difficult to interpret. Patient has been using Debbie 3, but getting sensor readings that are very far off fingerstick readings. Patient has been getting alarms for lows fairly often, but when she checks her fingerstick, readings are good, or even high (sensor 59, FS 179; sensor 53, FS 212). Patient has been in contact with Debbie about these inaccuracies and they have been sending replacements. Patient recalls only 1 or 2 actual lows since last seen by MTM. Medications - Reviewed current regimen, patient is adherent to regimen. Reluctant to change medications until more accurate results can be seen. Patient did not currently want to change her CGM system, but may benefit from change to Dexcom. Diet, Exercise, Lifestyle - No significant lifestyle changes since last visit. Patient is agreeable to continue Debbie use. Patient aware to contact clinic if any hypoglycemia before next visit. MEDICATION CHANGES: no change Diabetic Medications: Ozempic: inject 2mg weekly on Lantus: inject 26 units daily in the morning Novolog: inject 15 units with breakfast, 16 units with lunch, 11 units with supper + CF 1:40 over 140 with meals GFR 73 on 11/17/23 HEALTH MAINTENANCE INTERVENTIONS: Labs: Up to Date Immunizations: Up to Date Foot Exam: Up to Date Eye Exam: Up to Date Annual Wellness Visit: Up to Date FOLLOW UP: Return to clinic in 9 weeks 06/30/2024 I spent a total of 20-29 minutes (exact time 24 mins) on the date of service in preparation, delivery, and documentation of the care provided to Vanna Acevedo excluding any time spent in the performance of separately billed services. Adina Scott RPh Clinical Pharmacist - Supervisor Covering And Lining Medication Therapy Management Clinic 06/30/2024, 1:28 PM documented in this encounter Plan of Treatment Upcoming Encounters Date Type Department Care Team (Late st Contact Info) Description 07/06/2024 11:30 AM EDT Office Visit Allergy/Immunology [place] [facility] [place] [address] [place] [address] Guerita Marin PA-C [address] [place] [address] [address] 09/01/2024 11:00 AM EST Office Visit Ayse Amin [address] [place] [address] [address] [address] Pharmacist1, [facility] [place] [address] [address] 11/21/2024 1:30 PM EDT [facility] [address] [phone] Victoria Mcintosh CRNP 132 [facility] [place] [address] 02/09/2025 12:30 PM EDT Nurse Only Ancillary 1st Floor, [place] [address] [address] [place], [facility] Wellness 2 [address] [address] 06/29/2025 2:00 PM EDT Office Visit Ophthalmology, [place] [address] [address] Ray Gonzalez DO [address] [address] Scheduled Procedures Name Priority Associated Diagnoses Date/Ti me ESOPHAGOGASTRODUODENOSCOPY ( EGD), FLEXIBLE, TRANSORAL, DIAGNOSTIC Recall Velez esophagus COLONOSCOPY FLEXIBLE PROXIMAL DIAGNOSTIC Recall Encounter for screening colonoscopy Health Maintenance Due Date Last Done Comments Cologuard 2001 Fecal Occult Blood Test 2001 Sigmoidoscopy 2001 COVID-19 Vaccine ( season) 2024 07/29/2023, 05/28/2022, 12/31/2021, Additional history exists HbA1c 10/30/2024 04/29/2024, 02/2024, 06/15/2023, Additional history exists B-12 11/16/2024 11/17/2023, 02/2023, 07/09/2021, Additional history exists GFR 11/16/2024 11/17/2023, 05/2023, 12/15/2022, Additional history exists Albumin/Creatinine Ratio [...] D LEVEL ONCE IN A LIFETIME-USE SMARTSET# [id number] Completed 11/17/2023, 02/19/2023, 05/11/2019, Additional history exists [...] this encounter Medical Devices Implanted Type Area Farm Crew Member Device Identifier Shelf Expiration Date Model / Serial / Lot Lens 24.5 Clareon - [id number] - [id number] Implanted:Qty: 1 on 09/21/2023 by Ray Gonzalez DO at OR [facility] Lens Left: Eye [employer] 03/28/2026 CNA0T0.245 / [id number] / Suture Steel 6 B&S19 M654g - [id number] Implanted:Qty: 7 on 05/07/2021 by Aba Desir MD at OR [facility] N/A: Sternum JNJ : [employer] 01/10/2026 M654G / / [id number] [place] Lens 24.5 Implanted:Qty: 1 on 08/10/2023 by Ray Gonzalez DO at OR [facility] Right: Eye [employer] 09/15/2025 CNA0T0 / [id number] / documented as of this encounter Visit Diagnoses Diagnosis Type 2 diabetes mellitus with hemoglobin A1c goal of less than 7.0% ([facility])- Primary Type 2 diabetes, HbA1c goal < 7% ([facility]) Type II or unspecified type diabetes mellitus [...] Directives occurred with: Patient Care Teams Manager Security And Safety Relationship Specialty Start Date End Date Pippa Navarro CRNP [address] [address] PCP - General Nurse Practitioner 02/19/23 documented as of this encounter
--- OUTSIDE RECORDS SUMMARY | 2024-11-14 06:33 | External Medical Summary | Summary of Care ---
Author Name Unknown Organization [facility] Address [address] [place] [address] Phone [phone] Care Team Providers Care Facilities Maintenance Engineer Name Role Phone Pippa Navarro Primary Care Provider Encounter Details Date Type Department Care Team ([facility] st Contact Info) Description 06/30/2024 Medication Management [facility] [address] [place] [address] [facility] [address] [place] [address] Referred for management of medication therapy* Allergies Active Allergy Reactions Criticality Noted Date [...] hemoglobin A1c goal of less than 7.0% ([facility]) Checking blood sugars four time daily Dx: [...] Use as directed every [address], [phone]. 04/06/2024 Active FreeStyle Debbie 3 [place] DeviceIndications:DM type 2 with diabetic peripheral neuropathy (HCC) Use as directed. Using [address],. Debbie 3 reader shipped 03/10/2024 04/06/2024 Active Ubrelvy 100 MG Oral Tablet (Ubrogepant)Indicati ons:Migraine without status migrainosus, not intractable, unspecified migraine type Take 100 mg by mouth as needed for Migraine. Take 1 tablets at onset of migraine and may repeat in 2 hours if needed. Do not exceed 2 tablets in 24 hours. 10 Tablet 1 06/02/2024 Active [employer] - SHVyle Precision Marko Test In Vitro StripIndications:Typ e 2 diabetes mellitus with hemoglobin A1c goal of less than 7.0% ([facility]) Use up to 3 times daily to confirm sensor readings 300 Strip 3 06/30/2024 Active Insulin Glargine Solostar 100 UNIT/ML Subcutaneous Solution Pen-injectorIndicati ons:Type 2 diabetes, HbA1c goal < 7% ([facility]) Inject 26 Units under the skin daily. 30 mL 3 06/30/2024 Active NovoLOG FlexPen 100 UNIT/ML Subcutaneous Solution Pen-injector (insulin aspart)Indications:T ype 2 diabetes, HbA1c goal < 7% ([facility]) Inject 15 units with breakfast, 16 units with lunch, 11 units with supper + CF 1:40 over 140 45 mL 3 06/30/2024 Active documented as of this encounter (statuses [...] 11/27/2021 Food insecurity 04/21/2021 09/25/2021 Overview: Per [facility] Protocol Vertigo 07/05/2020 12/26/2021 Nausea and vomiting 07/05/2020 07/10/20 Encounter for examination fo r normal comparison and control in clinical research program 05/28/2020 12/02/2021 Overview: [employer]: A Randomized Controlled Trial (Project # [id number]). The [employer] program provides food-insecure diabetics with healthy food for their entire household (2 meals/ day X 5 days/week). The program also provides education on food preparation, healthy living, and diabetes self management. The research measures the effects of the program on patient health and wellbeing. Subject will begin the FFF program November 2020. Contact Information: Traffic Controller Cable: Dr. Gilberto Nolan ([phone]) CRC: Chioma Dailey ([phone]) RA: Kimberlee Angulo ([phone]) Diagnosis changed due to Research Module. Go to Snapshot for study details. Type 2 diabetes mellitus with pressure callus 07/06/2007/02/2020 Bipolar affective disorder, currently active 7 12/26/2021 [...] mRNA, LNP-s, No Pre serve, 2-Dose Series (LookIt) 02/01/2021,01/11/2021 COVID-19, LNP-s, No Preserve , Toan-sucrose, Ages 12+ (Pfizer) 12/31/2021 COVID-19, MRNA-LNP, 23-24, P F, 30 MCG/0.3 mL, 12 YRS AND ABOVE, IM (PFIZER-Comirnat) 07/29/2023 Covid-19, Mrna, Lnp-s, Pf, B ivalent, 30 Mcg, IM, 12 yrs and above (Pfizer) 05/28/2022 Pneumococcal Conjugate Vacci ne, 20-valent ([id number]) 01/15/2023 Pneumococcal Polysaccharide PPV23 (Pneumovax) 01/09/2017 Seasonal [...] money to buy more. Often true 12/08/19 Within the past 12 months, t he [...] No 12/08/2023 Does the household have a [facility] income? (Household - for ages [...] (15 years old or older) No 05/30/20 22 Cognitive Status Response Date of Assessm ent Because of a physical, menta l, or emotional condition, do you have serious difficulty concentrating, remembering, or making decisions? (5 years old or older) No 05/30/2022 documented as of this encounter Progress Notes * Adina Scott, [facility] - 06/30/2024 3:45 PM EDT Vanna Acevedo is a 69 year old female. Objective: Review of patient's allergies indicates: Allergen Reactions Codeine Other reaction(s): Hallucinations Metformin Abdominal pain and Nausea/vomiting Consistent with ER formulation even when taken with meals. Eliquis [Apixaban] Hives Jardiance [Empagliflozin] Other (Please comment) migraines Soap Ivory soap, hives Sulfa Antibiotics Rash Current Outpatient Medications - WARNING: List may be incomplete due to filtering Medication Sig Dispense Refill MultiPON NetworksStyle Precision Marko Test In Vitro Strip Use [...] CF 1:40 over 140 45 mL 3 Ubrelvy 100 MG Oral Tablet (Ubrogepant) Take 100 mg by mouth as needed for Migraine. Take 1 tabletsat onset of migraine and may repeat in 2 hours if needed. Do not exceed 2 tablets in 24 hours. 10 Tablet 1 FreeStyle Debbie 3 [place] Device Use as directed. Using [address], . Debbie 3 reader shipped 03/10/2024 FreeStyle Debbie 3 Sensor Use as directed every [address], . Albuterol Sulfate HFA 108 (90 Base) MCG/ACT Inhalation Aerosol Solution Inhale 2 Puffs by mouth every 6 hours as needed for Shortness of Breath or Wheezing. 18 g 0 Arnuity Ellipta 100 MCG/ACT Inhalation Aerosol Powder Breath Activated (fluticasone Furoate) Inhale1 Puff by mouth in the morning. 90 Each 3 Atorvastatin Calcium 80 MG Oral Tablet (Lipitor) Take 1 Tablet by mouth in the morning. 90 Tablet 3 Ezetimibe 10 MG Oral Tablet (Zetia) Take 1 Tablet by mouth in the morning. 90 Tablet 3 Famotidine 20 MG Oral Tablet (Pepcid) Take 1 Tablet by mouth in the morning. 90 Tablet 3 Loratadine 10 MG Oral Tablet (Claritin) Take 1 Tablet by mouth in the morning. 90 Tablet 3 Omeprazole 40 MG Oral Capsule Delayed Release (PriLOSEC) Take 1 Capsule by mouth in the morning. 1 hour before the first meal of the day. 90 Capsule 3 Ozempic (2 MG/DOSE) 8 MG/3ML Subcutaneous Solution Pen-injector (Semaglutide (2 MG/DOSE)) Inject 2mg under the skin once weekly 3 mL 3 BD Pen Needle Mini U/F 31G X 5 MM (Insulin Pen Needle) USE TO INJECT INSULIN 4 TIMES DAILY 400 Each3 Erythromycin 5 MG/GM Ophthalmic Ointment Instill 0.25 Inches into both eyes at bedtime. 3.5 g 6 Benzonatate 100 MG Oral Capsule (Tessalon Perles) Take 1 Capsule by mouth 3 times a day as needed for Cough. Do not cut, crush, or chew. 30 Capsule 0 Citalopram Hydrobromide 40 MG Oral Tablet (CeleXA) Meclizine HCl 25 MG Oral Tablet (Antivert) Take 1 Tablet by mouth 3 times a day as needed for Dizziness. 90 Tablet 2 Xarelto 20 MG Oral Tablet (Rivaroxaban) TAKE 1 TABLET BY MOUTH ONCE DAILY WITH SUPPER 30 Tablet 5 OcuSoft Baby Eyelid & Eyelash External Pad Apply 1 Pad topically to affected area every evening. MyCadbox 2 w/Device Kit Check glucose up to four times daily. E11.9 1 Kit 0 Biotene Dry Mouth Mouth/Throat Liquid Apply to the mouth or throat as needed for Dry Mouth. Clobetasol Propionate 0.05 % External Solution Apply to rash on scalp twice a day as needed 50 mL 5 Ketoconazole 2 % External Shampoo (Nizoral) Apply to scalp daily as needed 120 mL 5 Witch Marlys-Glycerin External Pad (Tucks) Use to soothe vagina for up to 15 minutes at a time. Can use up to 4 times per day. 50 Each 1 Topiramate 25 MG Oral Tablet (topAMAX) Take 1 Tablet by mouth in the morning and 1 Tablet before bedtime. buPROPion HCl ER (SR) 150 MG Oral Tablet Extended Release 12 Hour (Wellbutrin SR) 1 Tablet in the morning and 1 Tablet before bedtime. hydrOXYzine HCl 25 MG Oral Tablet TAKE 1 TABLET BY MOUTH ONCE DAILY NEEDED Acetaminophen 325 MG Oral Tablet (Tylenol) Take 2 Tabs by mouth every 4 hours as needed for Pain, Moderate. 100 Tab 1 Refresh 1.4-0.6 % Ophthalmic Solution (polyvinyl alcohol-povidone PF) Instill 1 Drop into both eyesin the morning and 1 Drop at noon and 1 Drop in the evening and 1 Drop before bedtime. OneTouch UltraSoft Lancets [facility] Checking blood sugars four time daily Dx: E11.9 150 Each 11 Cholecalciferol 25 MCG (1000 UT) Oral Capsule Take 5 Capsules by mouth in the morning. Multiple Vitamin (MULTI VITAMIN DAILY) TABS Take 1 Dose(s) by mouth in the morning. Triamcinolone Acetonide (NASACORT AQ) 55 MCG/ACT AERO Administer 2 Sprays into each nostril daily. 1 Bottle 1 Immunization History Administered Date(s) Administered COVID-19 mRNA, LNP-s, No Preserve, 2-Dose Series (LookIt) 01/11/2021, 02/01/2021 COVID-19, LNP-s, No Preserve, Toan-sucrose, Ages 12+ (Pfizer) 12/31/2021 COVID-19, MRNA-LNP, 23-24, PF, 30 MCG/0.3 mL, 12 YRS AND ABOVE, IM (PFIZER- Comirnaty) 07/29/2023 Covid-19, Mrna, Lnp-s, Pf, Bivalent, 30 Mcg, IM, 12 yrs and above (Pfizer) 05/28/2022 Pneumococcal Conjugate Vaccine, 20-valent ([id number]) 01/15/2023 Pneumococcal Polysaccharide PPV23 (Pneumovax) 01/09/2017 Seasonal Influenza Virus Vaccine, Unspecified Formulation 06/24/2015 Seasonal Influenza, High Dose, Trivalent, PF, IM (Fluzone HD) 05/23/2024 Seasonal Influenza, PF, 6 M & above, IM , (FluLaval or Fluzone) 07/05/2017, 07/06/2018, 06/29/2019, 05/23/2020 Seasonal Influenza, Quadrivalent Hd (Fluzone Hd) 06/19/2021, 05/28/2022, 05/18/2023 Seasonal Influenza, Trivalent, (IIV3), PF, (Fluzone) 07/22/2012, 07/20/2013, 05/31/2014 TDAP (age 10 and older)(Boostrix) 07/16/2017 Varicella Zoster Vaccine (Adult) 01/07/2017 Zoster Vaccine Recombinant (Shingrix) 01/29/2022, 04/07/2022 TMR Interventions Incomplete Encounter MTPs No medication therapy recommendations to display Complete Encounter MTPs Generalized anxiety disorder Current Medication: Citalopram Hydrobromide 40 MG Oral Tablet (CeleXA) Rationale: Dose too high - Dosage too high - Safety Recommendation: Provide Education Status: Declined per Provider Note: Dose adjustment has been discussed with PCP in past - patient tolerating medication well and provided education. Moderate persistent asthma without complication Current Medication: Arnuity Ellipta 100 MCG/ACT Inhalation Aerosol Powder Breath Activated (fluticasone Furoate) Rationale: Patient Education - Adherence - Adherence Recommendation: Provide Education Status: Patient Agreed Assessment & Plan Indication, effectiveness, safety and convenience of her medications were reviewed today. The patient's medical conditions were assessed, evaluated, and deemed meeting goals of drug therapy, with thefollowing exceptions. Additional Notes: N/A Summary Time Spent: 16-30 min Supervising pharmacist who provided the service: Malinda Kwon Information Who was the recipient of the CMR service: beneficiary Language Template for the Patient Takeaway: Welsh I attest that I have reviewed and updated the patient's conditions, allergies, and medications to the best of my ability. Adina Scott RPh 06/30/2024, 3:45 PM documented in this encounter Miscellaneous Notes * MTM To-Do-List - Adina Scott RPh - 06/30/2024 3:44 PM EDT Images from the original note were not included. What we talked about: What I should do: The importance of taking your medication as prescribed Your medicine works best when taken as prescribed. It can be hard to remember to take daily medications. Consider making it a part of your daily routine. Pair taking your medication with something you do every day, like brushing your teeth or eating a meal. Consider setting daily alarms to help remind yourself when it is time to take your medicine. Using a pill box can also help you organize your medicines. Pill boxes allow you to fill each day slot with your daily medicine and help you track when your next dose is due. What we talked about: What I should do: Monitor for low blood sugar When your blood sugar is 70 mg/dl or below, it is important to increaseblood sugar immediately. Low blood sugar could lead to coma and even . When you notice your sugar is low, eat a small snack containing sugar. Some examples include: drink a small amount of orange juice (4 ounces), 4 ounces of regular soda or milk, taking glucose tablets (15 grams), or eat 1 tablespoonful of sugar. Wait 15 minutes, and recheck your blood sugar. If your sugar is still low, tryto increase it again by eating a small amount of sugar. Recheck your blood sugar in 15 minutes. If after two attempts to raise it, and your blood sugar is still low-call your doctor immediately. * [facility] Personal Medication List - Adina Scott RPh - 06/30/2024 3:24 PM EDT Medication How I take it Why I use it Prescriber Acetaminophen 325 MG Oral Tablet (Tylenol) Take 2 Tabs by mouth every 4 hours as needed for Pain, Moderate. Pain SAHIL Owen Albuterol Sulfate HFA 108 (90 Base) MCG/ACT Inhalation Aerosol Solution Inhale 2 Puffs by mouth every 6 hours as needed for Shortness of Breath or Wheezing. Asthma SAHIL Owen Arnuity Ellipta 100 MCG/ACT Inhalation Aerosol Powder Breath Activated (fluticasone Furoate) Inhale1 Puff by mouth in the morning. Asthma Luz Alexandrovna Ackah, MD Atorvastatin Calcium 80 MG Oral Tablet (Lipitor) Take 1 Tablet by mouth in the morning. CholesterolAlejandraa Edin Cobb MD Benzonatate 100 MG Oral Capsule (Tessalon Perles) Take 1 Capsule by mouth 3 times a day as needed for Cough. Do not cut, crush, or chew. Cough KAPIL Petit Dry Mouth Mouth/Throat Liquid Apply to the mouth or throat as needed for Dry Mouth. Dry mouth Self buPROPion HCl ER (SR) 150 MG Oral Tablet Extended Release 12 Hour (Wellbutrin SR) Take 1 Tablet by mouth in the morning and 1 Tablet before bedtime. Mood SAHIL Owen Cholecalciferol 25 MCG (1000 UT) Oral Capsule Take 5 Capsules by mouth in the morning. Supplement SAHIL Owen Citalopram Hydrobromide 40 MG Oral Tablet (CeleXA) Take 1 tablet by mouth daily Mood SAHIL Owen Clobetasol Propionate 0.05 % External Solution Apply to rash on scalp twice a day as needed Dry scalp SAHIL Owen Erythromycin 5 MG/GM Ophthalmic Ointment Instill 0.25 Inches into both eyes at bedtime. Eye infection Ray Gonzalez, Ezetimibe 10 MG Oral Tablet (Zetia) Take 1 Tablet by mouth in the morning. Cholesterol Luz Cobb MD Famotidine 20 MG Oral Tablet (Pepcid) Take 1 Tablet by mouth in the morning. Heartburn Luz Cobb MD hydrOXYzine HCl 25 MG Oral Tablet TAKE 1 TABLET BY MOUTH ONCE DAILY NEEDED Itching SAHIL Owen Insulin Glargine Solostar 100 UNIT/ML Subcutaneous Solution Pen-injector Inject 26 Units under the skin daily. Diabetes SAHIL Owen Ketoconazole 2 % External Shampoo (Nizoral) Apply to scalp daily as needed Dry scalp SAHIL Owen Loratadine 10 MG Oral Tablet (Claritin) Take 1 Tablet by mouth in the morning. Allergies Luz Cobb MD Meclizine HCl 25 MG Oral Tablet (Antivert) Take 1 Tablet by mouth 3 times a day as needed for Dizziness. Dizziness Florinda Joy PA-C Multiple Vitamin (MULTI VITAMIN DAILY) TABS Take 1 tablet by mouth in the morning. Supplement Self NovoLOG FlexPen 100 UNIT/ML Subcutaneous Solution Pen-injector (insulin aspart) Inject under the skin 15 units with breakfast, 16 units with lunch, 11 units with supper + correction as directed Diabetes SAHIL Owen Omeprazole 40 MG Oral Capsule Delayed Release (PriLOSEC) Take 1 Capsule by mouth in the morning. 1 hour before the first meal of the day. Heartburn Luz Cobb MD Ozempic (2 MG/DOSE) 8 MG/3ML Subcutaneous Solution Pen-injector (Semaglutide (2 MG/DOSE)) Inject 2mg under the skin once weekly Diabetes Luz Cobb MD Refresh 1.4-0.6 % Ophthalmic Solution (polyvinyl alcohol-povidone PF) Instill 1 Drop into both eyesin the morning and 1 Drop at noon and 1 Drop in the evening and 1 Drop before bedtime. Dry eyes Self Topiramate 25 MG Oral Tablet (topAMAX) Take 1 Tablet by mouth in the morning and 1 Tablet before bedtime. Migraine SAHIL Owen Triamcinolone Acetonide (NASACORT AQ) 55 MCG/ACT AERO Administer 2 Sprays into each nostril daily. Allergies SAHIL Owen Ubrelvy 100 MG Oral Tablet (Ubrogepant) Take 1 tablet by mouth as needed for Migraine. Take 1 tablets at onset of migraine and may repeat in 2 hours if needed. Do not exceed 2 tablets in 24 hours. Migraine SAHIL Owen Xarelto 20 MG Oral Tablet (Rivaroxaban) TAKE 1 TABLET BY MOUTH ONCE DAILY WITH SUPPER Blood thinnerMallori SAHIL Gutierrez documented in this encounter Plan of Treatment Upcoming Encounters Date Type Department Care Team (Late st Contact Info) Description 07/06/2024 11:30 AM EDT Office Visit Allergy/Immunology Mitchel Mcdonough [place] [address] [place] [address] Guerita Marin PA-C [address] [place] [id number] 09/01/2024 11:00 AM EST Office Visit Pharmacy, [place] [address] [place] [address] Pharmacist1, [facility] [place] [address] [place] [id number] 11/21/2024 1:30 PM EDT Office Visit Sleep Disorders Ctr Chela Kaur [place] [address] [facility] [place] [phone] Victoria Mcintosh CRNP [address] [facility] [place] [address] 02/09/2025 12:30 PM EDT Nurse Only Ancillary 1st Floor, [place] [address] [facility] [place] [address] [place], [facility] [address] [place] [address] [phone] 06/29/2025 2:00 PM EDT Office Visit Ophthalmology, [place] [address] [place] [address] [phone] Ray Gonzalez, [address] [facility] [place] [address] Scheduled Procedures Name Priority Associated Diagnoses Date/Ti [...] D LEVEL ONCE IN A LIFETIME-USE SMARTSET# [id number] Completed 11/17/2023, 02/19/2023, 05/11/2019, Additional history exists [...] this encounter Medical Devices Implanted Type Area Patrol Conductor Device Identifier Shelf Expiration Date Model / Serial / Lot Lens 24.5 [place] - [id number] - [id number] Implanted:Qty: 1 on 09/21/2023 by Ray Gonzalez DO at OR [facility] Lens Left: Eye [employer] 03/28/2026 CNA0T0.245 / [id number] / Suture Steel 6 B&S19 M654g - [id number] Implanted:Qty: 7 on 05/07/2021 by Aba Desir MD at [place] [facility] N/A: Sternum JNJ : [employer] 01/10/2026 [id number] / / [id number] [place] Lens 24.5 Implanted:Qty: 1 on 08/10/2023 by Ray Gonzalez DO at OR [facility] Right: Eye [employer] 09/15/2025 CNA0T0 / [id number] / documented as of this encounter Visit Diagnoses Diagnosis Referred for management of medication therapy- Primary Encounter for long-term (current) use of [...] Advance Directives occurred with: Patient Care Teams Facilities Maintenance Engineer Relationship Specialty Start Date End Date Pippa Navarro CRNP [address] [place] [id number] PCP - General Nurse Practitioner 02/19/23 documented as of this encounter
--- OUTSIDE RECORDS SUMMARY | 2024-11-14 06:33 | External Medical Summary | Summary of Care ---
Author Name Unknown Organization [facility] Address [address] [place] [address] Phone [phone] Care Team Providers Care Animal Trainer Name Role Phone Pippa Navarro Primary Care Provider Encounter Details Date Type Department Care Team ([facility] st Contact Info) Description 06/27/2024 Population Health External Data Unspecified Department Allergies Active Allergy Reactions Criticality Noted Date Comments Codeine Medium Other reaction(s): Hallucinations Apixaban Hives 09/23/2022 Empagliflozin Other (Please comment) 05/30/2022 migraines Metformin Abdominal pain,Nausea/vomiting Medium 09/02/2023 Consistent with ER formulation even when taken with meals. Soap 12/26/2016 Ivory soap, hives Sulfa Antibiotics Rash Low 03/10/2017 documented as of this encounter (statuses as of 06/28/2024) Medications Medication Sig Dispensed Refills Start Date End Date Status Triamcinolone Acetonide (NASACORT AQ) 55 MCG/ACT AEROIndications:All ergic rhinitis, unspecified seasonality, unspecified trigger Administer 2 Sprays into each nostril daily. 1 Bottle 1 01/21/2018 Active Multiple Vitamin (MULTI VITAMIN DAILY) TABS Take 1 Dose(s) by mouth in the morning. Active Cholecalciferol 25 MCG (1000 UT) Oral Capsule Take 5 Capsules by mouth in the morning. 06/29/2019 Active OneTouch UltraSoft Lancets MISCIndications:Typ e 2 diabetes mellitus with hemoglobin A1c goal of less than 7.0% ([facility]) Checking blood sugars four time daily Dx: [...] bedtime. 06/29/2022 Active Witch Marlys-Glycerin External Pad (Tucks)Indications: Non-obstetric vaginal laceration without foreign body or perineal laceration, initial encounter Use to soothe vagina for up to 15 minutes at a time. Can use up to 4 times per day. 50 Each 1 10/01/2022 Active Clobetasol Propionate 0.05 % External SolutionIndications :Seborrheic dermatitis Apply to rash on scalp twice a day as needed 50 mL 5 10/20/2022 Active Ketoconazole 2 % External Shampoo (Nizoral)Indication s:Seborrheic dermatitis Apply to scalp daily as needed 120 mL 5 10/20/2022 Active Biotene Dry Mouth Mouth/Throat Liquid Apply to the mouth or throat as needed for Dry Mouth. 02/19/2023 Active ZawattTouch Ultra 2 w/Device Kit Check glucose up [...] Active Meclizine HCl 25 MG Oral Tablet (Antivert)Indicatio ns:Dizziness Take 1 Tablet by mouth 3 times a day as needed for Dizziness. 90 Tablet 2 07/27/2023 Active Benzonatate 100 MG Oral Capsule (Tessalon Perles)Indications: Acute cough Take 1 Capsule by mouth 3 [...] U/F 31G X 5 MM (Insulin Pen Needle)Indications: Type 2 diabetes mellitus with hemoglobin A1c goal of less than 7.0% (HCC) USE TO INJECT INSULIN 4 TIMES DAILY 400 Each 3 10/06/2023 Active Ozempic (2 MG/DOSE) 8 MG/3ML Subcutaneous Solution Pen-injector (Semaglutide (2 MG/DOSE))Indication s:Type 2 diabetes mellitus with hemoglobin A1c goal of less than 7.0% (HCC) Inject 2mg under the skin once weekly 3 mL 3 11/22/2023 Active Omeprazole 40 MG Oral Capsule Delayed Release (PriLOSEC)Indicatio ns:Gastroesophageal reflux disease without esophagitis Take 1 Capsule by mouth in the morning. 1 hour before the first meal of the day. 90 Capsule 3 11/22/2023 Active Loratadine 10 MG Oral Tablet (Claritin) Take 1 Tablet by mouth in the morning. 90 Tablet 3 11/22/2023 Active Insulin Glargine Solostar 100 UNIT/ML Subcutaneous Solution Pen-injectorIndicat ions:Type 2 diabetes, HbA1c goal < 7% ([facility]) Inject 23 Units under the skin in the morning. Once daily.. 11/22/2023 Active Famotidine 20 MG Oral Tablet (Pepcid)Indications :Heartburn Take 1 Tablet by mouth in the morning. 90 Tablet 3 11/22/2023 Active Ezetimibe 10 MG Oral Tablet (Zetia)Indications: Hyperlipidemia with target LDL less than 70 Take 1 Tablet by mouth in the morning. 90 Tablet 3 11/22/2023 Active Atorvastatin Calcium 80 MG Oral Tablet (Lipitor) Take 1 Tablet by mouth in the morning. 90 Tablet 3 11/22/2023 Active Arnuity Ellipta 100 MCG/ACT Inhalation Aerosol Powder Breath Activated (fluticasone Furoate)Indications :Moderate persistent asthma without complication Inhale 1 Puff by mouth in the morning. 90 Each 3 11/22/2023 Active NovoLOG FlexPen 100 UNIT/ML Subcutaneous Solution Pen-injector (insulin aspart)Indications: Type 2 diabetes, HbA1c goal < 7% ([facility]) Inject 12 units with breakfast, 12 units with lunch, 8 units with supper + CF 1:35 over 120 (max 45 units daily) 45 mL 3 11/23/2023 Active JobpartnersStyle Precision Marko Test In Vitro StripIndications:Ty pe 2 diabetes mellitus with hemoglobin A1c goal of less than 7.0% ([facility]) FOR USE IN THE DEBBIE CGM WHEN THE SENSOR IS INOPERATIVE OR TO VERIFY SENSOR READINGS 50 Strip 3 12/05/2023 Active Albuterol Sulfate HFA 108 (90 Base) MCG/ACT Inhalation Aerosol SolutionIndications :Moderate persistent asthma without complication Inhale 2 Puffs by mouth every 6 hours as needed for Shortness of Breath or Wheezing. 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 Using [email or web address], [phone]. 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 Using [email or web address],. Debbie 3 reader shipped 03/10/2024 04/06/2024 Active Ubrelvy 100 MG Oral Tablet (Ubrogepant)Indicat ions:Migraine without status migrainosus, not intractable, unspecified migraine type Take 100 mg by mouth as needed for Migraine. Take 1 tablets at onset of migraine and may repeat in 2 hours if needed. Do not exceed 2 tablets in 24 hours. 10 Tablet 1 06/02/2024 Active documented as of this encounter (statuses as of 06/28/2024) Active Problems Problem Noted Date Diagnosed Date Encounter for long-term (current) insulin use Major depressive disorder, recurrent, in partial remission 11/22/2023 Generalized anxiety disorder 11/22/2023 Atherosclerosis of [place] co ronary artery without angina pectoris 11/22/2023 [...] as of this encounter (statuses as of 06/28/2024) Resolved Problems Problem Noted Date Diagnosed Date Resolved Date Occlusion of left subclavian artery 05/30/2022 06/15/2023 Vertigo 05/30/2022 06/05/2022 Uncomplicated asthma 05/28/2022 022 Hyperlipidemia 05/28/2022 05/28/2022 Atrial fibrillation 11/25/2021 12/03/19 Current use of insulin 11/11/202112/15 Personal history of atrial fibrillation 05/26/2021 12/15/2022 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 The Needle program provides food-insecure diabetics with healthy food for their entire household (2 meals/ day X 5 days/week). The program also provides education on food preparation, healthy living, and diabetes self management. The research measures the effects of the program on patient health and wellbeing. Subject will begin the FFF program November 2020. Contact Information: Payroll Representative: Dr. Gilberto Nolan ([phone]) CRC: Chioma Dailey ([phone]) RA: Kimberlee Angulo ([phone]) Diagnosis changed due to Research Module. Go [...] as of this encounter (statuses as of 06/28/2024) Immunizations Name Administration Dates Next Due COVID-19 mRNA, LNP-s, No Pre serve, 2-Dose Series ([employer]) 02/01/2021,01/11/2021 COVID-19, LNP-s, No Preserve , Toan-sucrose, Ages 12+ (Pfizer) 12/31/2021 COVID-19, MRNA-LNP, 23-24, P F, 30 MCG/0.3 mL, 12 YRS AND ABOVE, IM ([employer]case [employer]-Comirnat) 07/29/2023 Covid-19, Mrna, Lnp-s, Pf, B ivalent, 30 Mcg, IM, 12 yrs and above (Pfizer) 05/28/2022 Pneumococcal Conjugate Vacci ne, 20-valent ([id number]) 01/15/2023 Pneumococcal Polysaccharide PPV23 (Pneumovax) 01/09/2017 Seasonal [...] No 12/08/2023 Does the household have a peak behavioral health serviceslar source of income? (Household - for ages [...] No 05/30/2022 documented as of this encounter Plan of Treatment Upcoming Encounters Date Type Department Care Team (Late st Contact Info) Description 06/30/2024 1:30 PM EDT Office Visit Pharmacy, [address] [place] [address] Pharmacist1, [place] [address] [address] [place] [address] 06/30/2024 2:00 PM EDT Pharmacy Pharmacy, [place] [address] [place] [address] Pharmacist1, [address] [place] [address] 07/06/2024 11:30 AM EDT Office Visit Allergy/Immunology [facility] [address] [address] Guerita Marin PA-C [address] [address] 11/21/2024 1:30 PM EDT Office Visit Sleep Disorders Ctr [facility] [address] [address] [phone] Victoria Mcintosh CRNP [address] [place] [address] 02/09/2025 12:30 PM EDT Nurse Only Ancillary 1st Floor, [place] [address] [place] [address] [place], [facility] [address] [place] [address] 06/29/2025 2:00 PM EDT Office Visit Ophthalmology, [place] [address] [place] [address] Ray Gonzalez DO [address] [place] [address] Scheduled Procedures Name Priority Associated Diagnoses Date/Ti [...] D LEVEL ONCE IN A LIFETIME-USE SMARTSET# 95520 Completed 11/17/2023, 02/19/2023, 05/11/2019, Additional history exists [...] this encounter Medical Devices Implanted Type Area Ob/Gyn Nurse Device Identifier Shelf Expiration Date Model / Serial / Lot Lens 24.5 Clareon - [id number] - [id number] Implanted:Qty: 1 on 09/21/2023 by Ray Gonzalez DO at OR [facility] Lens Left: Eye [employer] 03/28/2026 CNA0T0.245 / [id number] / Suture Steel 6 B&S19 M654g - [id number] Implanted:Qty: 7 on 05/07/2021 by Aba Desir MD at OR [facility] N/A: Sternum JNJ : [employer] 01/10/2026 [id number] / / [id number] Clareon Lens 24.5 Implanted:Qty: 1 on 08/10/2023 by Ray Gonzalez DO at OR [facility] Right: Eye [employer] 09/15/2025 CNA0T0 / [id number] / documented as of this encounter [...] Advance Directives occurred with: Patient Care Teams Animal Trainer Relationship Specialty Start Date End Date Pippa Navarro CRNP [address] [place] [address] PCP - General Nurse Practitioner 02/19/23 documented as of this encounter
--- OUTSIDE RECORDS SUMMARY | 2024-11-14 06:34 | External Medical Summary ---
Author Name Unknown Address Unknown Organization K01:[facility] [place] [address] [place] [address] Laboratory Report Ordering Provider Test Date Status TRACE LANTIGUA 05/23/2024 13:20:17 Final Observation Date Value Abnormality Reference (Units ) Status Iron 05/23/2024 13:20:17 68 33-151 (ug /dL) Final Iron-binding capacity 05/23/2024 13:20:17 412 250-425 (ug/dL) Final Transferrin Sat % 05/23/2024 13:20:17 17 15 -55 (%) Final Performing Location [facility] [place] [address] [place] [address]
--- OUTSIDE RECORDS SUMMARY | 2024-11-14 06:34 | External Medical Summary ---
Author Name Unknown Address Unknown Organization K01:[facility] [place] [address] [facility] [address] Laboratory Report Ordering Provider Test Date Status GRZEGORZYOLISASHOK 05/23/2024 13:20:17 Final Observation Date Value Abnormality Reference (Units ) Status Ferritin 05/23/2024 13:20:17 104 13-150 (ng /mL) Final Postmenopausal women have hi gher ferritin levels than pre-menopausal women. The above reference interval is based on pre-menopausal women. Performing Location [facility] [place] [address] [facility] [address]
--- OUTSIDE RECORDS SUMMARY | 2024-11-14 06:34 | External Medical Summary | Summary of Care ---
Author Name Unknown Organization [facility] Address [address] [place] [address] Phone [phone] Care Team Providers Care Feed Preparation Operator Name Role Phone Pippa Navarro Primary Care Provider Reason for Visit * Reason Comments Dosage Adjustment In Person (Anticoag Cl inic) Diabetes Follow-Up Encounter Details Date Type Department Care Team ([facility] Contact Info) Description 05/19/2024 1:10 PM EDT Office Visit Pharmacy, [address] [address] Pharmacist1, [facility] [address] [address] Type 2 diabetes mellitus with hemoglobin A1c goal of less than 7.0% ([facility])* Allergies Active Allergy Reactions Criticality Noted Date Comments Codeine Medium Other reaction(s): Hallucinations Apixaban Hives 09/23/2022 Empagliflozin Other (Please comment) 05/30/2022 migraines Metformin Abdominal pain,Nausea/vomiting Medium 09/02/2023 Consistent with ER formulation even when taken with meals. Soap 12/26/2016 Ivory soap, hives Sulfa Antibiotics Rash Low 03/10/2017 documented as of this encounter (statuses as of 05/19/2024) Medications Medication Sig Dispensed Refills Start Date [...] hemoglobin A1c goal of less than 7.0% ([facility]) Checking blood sugars four time daily Dx: [...] Pain, Moderate. 100 Tab 1 06/04/2021 Active Ubrelvy 100 MG Oral Tablet (Ubrogepant) Take by mouth 100 mg as needed for Migraine. Take 1 tablets at onset of migraine and may repeat in 2 hours if needed. Do not exceed 2 tablets in 24 hours. 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 Using [employer], [phone]. 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 Using [employer],. Debbie 3 reader shipped 03/10/2024 04/06/2024 Active documented as of this encounter (statuses as of 05/19/2024) Active Problems Problem Noted Date Diagnosed Date Encounter for long-term (current) insulin use Major depressive disorder, recurrent, in partial remission 11/22/2023 Generalized anxiety disorder 11/22/2023 Atherosclerosis of [place] co ronary artery without angina pectoris 11/22/2023 [...] as of this encounter (statuses as of 05/19/2024) Resolved Problems Problem Noted Date Diagnosed Date [...] research program 05/28/2020 12/02/2021 Overview: Fresh [employer]: A Randomized Controlled Trial (Project # [id number]). The Fresh [employer] program provides food-insecure diabetics with healthy food for their entire household (2 meals/ day X 5 days/week). The program also provides education on food preparation, healthy living, and diabetes self management. The research measures the effects of the program on patient health and wellbeing. Subject will begin the FFF program November 2020. Contact Information: Chief Hospital Administrator: Dr. Gilberto Nolan ([phone]) CRC: Chioma Dailey ([phone]) RA: Kimberlee Angulo ([phone]) Diagnosis changed due to Research Module. Go [...] as of this encounter (statuses as of 05/19/2024) Immunizations Name Administration Dates Next Due COVID-19 mRNA, LNP-s, No Pre serve, 2-Dose Series (Swipe[employer]to) 02/01/2021,01/11/2021 COVID-19, LNP-s, No Preserve , Toan-sucrose, Ages 12+ (Swipe[employer]to) 12/31/2021 COVID-19, MRNA-LNP, 23-24, P F, 30 MCG/0.3 mL, 12 YRS AND ABOVE, IM ([employer]-Comirnaty) 07/29/2023 Covid-19, Mrna, Lnp-s, Pf, B ivalent, 30 Mcg, IM, 12 yrs and above (Swipe.to) 05/28/2022 Pneumococcal Conjugate Vacci ne, 20-valent ([id number]) 01/15/2023 Pneumococcal Polysaccharide PPV23 (Pneumovax) 01/09/2017 Seasonal Influenza Virus Vac cine, Unspecified Formulation 06/24/2015 Seasonal Influenza, PF, 6 M & above, [...] this encounter Progress Notes * Adina Scott, [facility] - 05/19/2024 1:08 PM EDT Images from the original note [...] daily in the morning INC: Novolog: inject 14 units with breakfast, 14 units with lunch, 9 units with supper + CF 1:40 over 140 with meals GFR 77 mL/min on 02/19/23 Medication Injection Site: Abdomen Lifestyle: Diet: has been snacking on carbs Glucose Review/SMBG: Readings obtained from patient device Hypoglycemia: Does your blood sugar go below 70 mg/dL? No Hyperglycemia symptoms present: fatigue Recent Labs Units 04/29/24 0950 11/17/23 1208 06/15/23 1340 HEMOGLOBIN A1C - [facility] % 8.0* 7.4* 8.9* Recent Labs Units 11/17/23 1208 02/19/23 1018 12/15/22 1657 ESTIMATED GLOMERULAR FILTRATION RATE - [facility] mL/min 73 77 74 CREATININE - [facility] mg/dL 0.9 0.8 0.9 HYPERTENSION: Patient on ACEi/ARB: no, UAC < 9 on 11/19/23 BP Readings from Last 3 Encounters: 02/25/24 118/68 02/24/24 102/78 02/04/24 118/72 Blood pressure at goal: yes HYPERLIPIDEMIA: Lab Results Component Value Date/Time LDL (CALCULATED)-OUTSIDE LAB 103.5 05/27/2015 12:00 AM LDL CHOLESTEROL (CALCULATED) - [facility] 115 06/15/2023 01:40 PM LDL CHOLESTEROL (CALCULATED) - [facility] 23 09/03/2020 01:44 PM LDL CHOLESTEROL (DIRECT MEASURE) - [facility] 103 11/17/2023 12:08 PM LDL CHOLESTEROL (DIRECT MEASURE) - [facility] NOT APPLICABLE 09/03/2020 01:44 PM Does patient have clinical ASCVD? Yes, is patient LDL less than 55 mg/dL? No: statin restarted after most recent lipid panel HEALTH MAINTENANCE REVIEW: Health Maintenance Due Topic Date Due *BISPHONATE OR OTHER ACCEPTABLE MEDICATION NEEDED FOR OSTEOPOROSIS (REFER TO SMARTSET #1146) Never done Influenza Vaccine (FLU shot) (1) 05/14/2024 COVID-19 Vaccine (2022- season) 2024 ASSESSMENT & PLAN: ICD-10-CM 1. Type 2 diabetes mellitus with hemoglobin A1c goal of less than 7.0% (HCC) E11.9 BG Readings - Blood sugars uncontrolled. Reviewed Debbie download with patient. Patient feels Debbie 3 is less accurate than Debbie 2. Per patient, difference between FS and CGM readings can be 10-50 points. Reviewed that this is a normal variation, does not mean CGM is inaccurate. No hypoglycemia. BGaverage is up significantly since last appointment. Patient stated that she has been struggling to sleep properly and may be somewhat less active. Medications - Reviewed current regimen, patient is adherent to regimen. Increasing Novolog doses with each meal - larger increase for lunch and supper. Diet, Exercise, Lifestyle - Patient has been snacking on mostly carbs lately. Eating toast or hummus with crackers, drinking milk. Reviewed importance of snacking on low-carb foods: proteins, non-starchy veggies. Discussed options for snacks. Patient will try to make these changes. Patient is agreeable to continue Libre3. Patient aware to contact clinic if any [...] Date FOLLOW UP: Return to clinic in 6 weeks 06/30/2024 I spent a total of 30-39 minutes (exact time 32 mins) on the date of service in preparation, delivery, and documentation of the care provided to Vanna Acevedo excluding any time spent in the performance of separately billed services. Adina Scott [facility] Clinical Pharmacist - Demurrage Agent [facility] 05/19/2024, 1:08 PM Novolog Doses 05/19/2024 Blood Sugar levels Breakfast Lunch Dinner No Food 70 to 99 14 15 10 0 100 to 139 15 16 11 0 140 to 179 15 16 11 0 180 to 219 16 17 12 1 220 to 259 17 18 13 2 260 to 299 18 19 14 3 300 to 339 19 20 15 4 340 to 379 20 21 16 5 380 to 419 21 22 17 6 420 to 459 22 23 18 7 460 to 499 23 24 19 8 500 to 539 24 25 20 9 540 to 579 25 26 21 10 580 to 619 26 27 22 11 620 to 659 27 28 23 12 660 to 699 28 29 24 13 documented in this encounter Plan of Treatment Upcoming Encounters Date Type Department Care Team (Late st Contact Info) Description 05/23/2024 9:30 AM EDT Office Visit Sleep Disorders Ctr [facility] [address] [phone] Victoria Mcintosh CRNP [address] [place] [address] 06/02/2024 2:20 PM EDT Office Visit [facility] [place] [address] [place] [phone] Pippa Navarro CRNP [address] [place] [address] 06/23/2024 1:30 PM EDT Office Visit Ophthalmology, [place] [address] [facility] [place] [place] [address] Ray Gonzalez DO [address] [facility] [place] [place] [address] 06/30/2024 1:30 PM EDT Office Visit Pharmacy, [address] [place] [address] Pharmacist1, [facility] [address] [facility] [address] 06/30/2024 2:00 PM EDT Pharmacy Pharmacy, [address] [place] [address] Pharmacist1, [address] [facility] [address] 07/06/2024 11:30 AM EDT Office Visit Allergy/Immunology [facility] [place] [address] [facility] [place] [address] Guerita Marin PA-C [address] [place] [address] 02/09/2025 12:30 PM EDT Nurse Only Ancillary 1st Floor, [place] [address] [facility] [place] [address] [place] [address] [address] [facility] [place] [address] Scheduled Procedures Name Priority Associated Diagnoses Date/Ti me ESOPHAGOGASTRODUODENOSCOPY ( EGD), FLEXIBLE, TRANSORAL, DIAGNOSTIC Recall Velez esophagus COLONOSCOPY FLEXIBLE PROXIMAL DIAGNOSTIC Recall Encounter for screening colonoscopy Health Maintenance Due Date Last Done Comments Cologuard 2001 Fecal Occult Blood Test 2001 Sigmoidoscopy 2001 *BISPHONATE OR OTHER ACCEPTABLE MEDICATION NEEDED FOR OSTEOPOROSIS (REFER TO SMARTSET #1146) 03/04/2024 COVID-19 Vaccine ( season) 2024 07/29/2023, 05/28/2022, 12/31/2021, Additional history exists Influenza Vaccine (FLU shot) (#1) 2024 05/18/2023, 05/28/2022, 06/19/2021, Additional history exists Diabetic Eye Exam 07/27/2024 07/27/2023, , 06/05/2022, Additional history exists HbA1c 10/30/2024 04/29/2024, 03/0 [...] history exists DXA Scan 04/23/2025 04/23/2023, 04/21/2021 Velez's Esophagus Surveilance 12/22/2025 12/22/2022, 12/22/2022, 08/04/2022, Additional history exists DTap/Tdap Vaccines (2 - Td or Tdap) 07/16/2027 07/16/2017 Colonoscopy 08/13/2027 08/13/2017, 08/13/2017 Colorectal Cancer Screening 08/13/2027 Zoster Vaccines Completed 04/07/2022, 01/11, 01/07/2017 Pneumococcal Vaccine: 65+ Years Completed 01/15/2023, 01/09/2017 Pap Smear Discontinued 05/05/2023, 08/13, 04/07/2017, Additional history exists VITAMIN D LEVEL ONCE IN A LIFETIME-USE SMARTSET# 21989 Completed 11/17/2023, 02/19/2023, 05/11/2019, Additional history exists HPV (Gardasil) Vaccine Aged Out No lo nger eligible based on patient's age to complete this topic Hepatitis B Vaccine Aged Out No longe r eligible based on patient's age to complete this topic MENINGOCOCCAL (MENACTRA/MENVEO) Aged Out No longer eligible based on patient's age to complete this topic documented as of this encounter Medical Devices Implanted Type Area Mushroom Spawn Maker Device Identifier Shelf Expiration Date Model / Serial / Lot Lens 24.5 Clareon - [id number] - [id number] Implanted:Qty: 1 on 09/21/2023 by Ray Gonzalez DO at OR [facility] Lens Left: Eye [employer] 03/28/2026 CNA0T0.245 / [id number] / Suture Steel 6 B&S19 M654g - [id number] Implanted:Qty: 7 on 05/07/2021 by Aba Desir MD at OR [facility] N/A: Sternum JNJ : [employer] 01/10/2026 [id number] / / [id number] [place] Lens 24.5 Implanted:Qty: 1 on 08/10/2023 by Ray Gonzalez DO at OR [facility] Right: Eye [employer] 09/15/2025 CNA0T0 / [id number] / documented as of this encounter Visit Diagnoses Diagnosis Type 2 diabetes mellitus with hemoglobin A1c goal of less than 7.0% (HCC)- Primary documented in this encounter Advance Directives [...] Advance Directives occurred with: Patient Care Teams Feed Preparation Operator Relationship Specialty Start Date End Date Pippa Navarro CRNP [address] [address] PCP - General Nurse Practitioner 02/19/23 documented as of this encounter
--- OUTSIDE RECORDS SUMMARY | 2024-11-14 06:34 | External Medical Summary | Summary of Care ---
Author Name Unknown Organization [facility] Address [address] [place] [address] Phone [phone] Care Team Providers Care House Piping Inspector Name Role Phone Pippa Navarro Primary Care Provider Reason for Visit * Reason Comments Follow Up 3 month Encounter Details Date Type Department Care Team ([facility] st Contact Info) Description 06/02/2024 2:20 PM EDT Office Visit [facility] [address] [place] [id number] Pippa Navarro CRNP [address], [place] [id number] DM type 2 with diabetic peripheral neuropathy (HCC)*; Risk and functional assessment; Migraine without status migrainosus, not intractable, unspecified migraine type Allergies Active Allergy Reactions Criticality Noted Date Comments Codeine Medium Other reaction(s): Hallucinations Apixaban Hives 09/23/2022 Empagliflozin Other (Please comment) 05/30/2022 migraines Metformin Abdominal pain,Nausea/vomiting Medium 09/02/2023 Consistent with ER formulation even when taken with meals. Soap 12/26/2016 Ivory soap, hives Sulfa Antibiotics Rash Low 03/10/2017 documented as of this encounter (statuses as of 06/02/2024) Medications Medication Sig Dispensed Refills Start Date [...] hemoglobin A1c goal of less than 7.0% ([facility]) Checking blood sugars four time [...] :Type 2 diabetes, HbA1c goal < 7% ([facility]) Inject 12 units with breakfast, 12 units with lunch, 8 units with supper + CF 1:35 over 120 (max 45 units daily) 45 mL 3 11/23/2023 Active Keaton Rowyle Precision Marko Test In Vitro StripIndications:T ype 2 diabetes mellitus with hemoglobin A1c goal of less than 7.0% ([facility]) FOR USE IN THE DEBBIE CGM WHEN [...] Use as directed every 14 days. Using Netlogon, [phone]. 04/06/2024 Active FreeStyle Debbie 3 [place] DeviceIndications: DM type 2 with diabetic peripheral neuropathy (HCC) Use as directed. Using Netlogon,[phone] . Debbie 3 reader shipped 03/10/2024 04/06/2024 Active Ubrelvy 100 MG Oral Tablet (Ubrogepant)Indica tions:Migraine without status migrainosus, not intractable, unspecified migraine type Take 100 mg by mouth as needed for Migraine. Take 1 tablets at onset of migraine and may repeat in 2 hours if needed. Do not exceed 2 tablets in 24 hours. 10 Tablet 1 06/02/2024 Active Ubrelvy 100 MG Oral Tablet (Ubrogepant) Take by mouth 100 mg as needed for Migraine. Take 1 tablets at onset of migraine and may repeat in 2 hours if needed. Do not exceed 2 tablets in 24 hours. 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 The [facility] [employer] [facility] - Financial Reconciliation program provides food-insecure diabetics with healthy food for their entire household (2 meals/ day X 5 days/week). The program also provides education on food preparation, healthy living, and diabetes self management. The research measures the effects of the program on patient health and wellbeing. Subject will begin the FFF program November 2020. Contact Information: Detonator Assembler: Dr. Gilberto Nolan ([phone]) CRC: Chioma Dailey ([phone]) RA: Kimberlee Angulo ([phone]) Diagnosis changed due to Research Module. Go [...] as of this encounter (statuses as of 06/02/2024) Immunizations Name Administration Dates Next Due COVID-19 mRNA, LNP-s, No Pre serve, 2-Dose Series ([employer]) 02/01/2021,01/11/2021 COVID-19, LNP-s, No Preserve , Toan-sucrose, Ages 12+ (vidCoin) 12/31/2021 COVID-19, MRNA-LNP, 23-24, P F, 30 MCG/0.3 mL, 12 YRS AND ABOVE, IM ([facility] 07/29/2023 Covid-19, Mrna, Lnp-s, Pf, B ivalent, 30 Mcg, IM, 12 yrs and above ([employer]Coin) 05/28/2022 Pneumococcal Conjugate Vacci ne, 20-valent ([id number]) 01/15/2023 Pneumococcal Polysaccharide PPV23 (Pneumovax) 01/09/2017 Seasonal [...] Sign Reading Time Taken Comments Blood Pressure 147/85 06/02/2024 2:13 PM EDT Pulse 88 06/02/2024 2:13 PM EDT Temperature 37.3 C (99.2 F) 06/02/2024 2:13 PM ED T Respiratory Rate 18 06/02/2024 2:13 PM EDT Oxygen Saturation 96% 06/02/2024 2:13 PM EDT Inhaled Oxygen Concentration - - Weight 71.8 kg (158 lb 3.2 oz) 06/02/2024 2:13 P M EDT Height - - Body Mass Index 30.9 05/23/2024 9:22 AM EDT documented in this [...] this encounter Patient Instructions * Patient Instructions* Ruby Ortez LPN - 06/02/2024 2:12 PM EDT Patient Instructions - Fall Prevention (This education is for all patients over 65 regardless of symptoms) Remember to take your current medications as prescribed. In order to prevent falls, you are encouraged to: Exercise Utilize assistive/adaptive devices Avoid multifocal lenses when walking Avoid hazards in home Maintain a regular toileting schedule Any questions please contact our office. Preventing Falls in the Home (This education is for all patients over 65 regardless of symptoms) As you get older, falls are more likely. Thats because your reaction time slows. Your muscles and joints may also get stiffer, making them less flexible. Illness, medications, and vision changes can also affect your balance. A fall could leave you unable to live on your own. To make your home safer, follow these tips: Floors Put nonskid pads under area rugs Remove throw rugs Replace worn floor coverings Tack carpets firmly to each step on carpeted stairs. Put nonskid strips on the edges of uncarpeted stairs Keep floors and stairs free of clutter and cords Arrange furniture so there are clear pathways Clean up any spills right away Bathrooms Install grab bars in the tub or shower Apply nonskid strips or put a nonskid rubber mat in the tub or shower Sit on a bath chair to bathe Use bathmats with nonskid backing Lighting Keep a flashlight in each room Put a nightlight along the pathway between the bedroom and the bathroom Huy Patient Education Copyright 2008 - 2010 Huy except where otherwise noted Preventing Falls: Exercises to Improve Balance, Flexibility, Strength, and Staying Power (This education is for all patients over 65 regardless of symptoms) Certain types of exercises may help make you less likely to fall. Try the ones below. Or do other exercises that your healthcare provider suggests. Depending on your health, you may need to start slowly. Dont let that stop you. Even small amounts of exercise can help you. Be sure to talk to yourhealthcare provider before starting any exercise program. Improve Balance Many types of exercise can help improve balance. Cory chi and yoga are good examples. Heres another one to try. You can do it anytime and almost anywhere. Stand next to a counter or solid support. Push yourself up onto your tiptoes. Hold for 5 seconds. If you start to lose your balance, hold on to the counter. Rest and repeat 5 times. Work up to holding for 20 to 30 seconds, if you can. Increase Flexibility Being more flexible makes it easier for you to move around safely. Try exercises like the seated hamstring stretch. Sit in a chair and put one foot on a stool. Straighten your leg and reach with both hands down either side of your leg. Reach as far down your leg as you can. Hold for about 20 seconds. Go back to the starting position. Then repeat 5 times. Switch legs. Build Strength Resistance exercises help build strength. You can do them without equipment. Or you can use weights, elastic bands, or special machines. One such exercise is called the biceps curl. You can hold a 1 pound weight or even a can of soup. Do this exercise at least 3 times a week. Strive for everyday. Sit up straight in a chair. Keep your elbow close to your body and your wrist straight. Bend your arm, moving your hand up to your shoulder. Then slowly lower your arm. Repeat 5 times. Switch to the other arm. Build Your Staying Power Aerobic exercises make your heart and lungs stronger so you can keep moving longer. Walking and swimming are two of the best types of exercises you can do. Using a stationary bike is great, too. Find an aerobic exercise that you enjoy. Start slowly and build up. Even 5 minutes is helpful. Aimfor a goal of 30 minutes, at least 3 times a week. You dont have to do 30 minutes in one session. Break it up and walk a little throughout the day. More Helpful Tips Start easy. Slowly work up to doing more. Talk with your healthcare provider about the best exercises for you. Call senior centers or health clubs about exercise programs. If needed, have a family member watch you walk every so often to check your stability. Exercise with a friend. Choose an activity you both enjoy. Try exercises that you can do anytime, anywhere. Here are two examples. Have someone with you when you first try these: Practice walking by placing one foot right in front of the other. Stand up and sit down 10 times. Repeat this throughout the day. Huy Patient Education Copyright 2009 - 2010 Huy except where otherwise noted. Preventing Falls: Moving Safely Using a Cane or Walker (This education is for all patients over 65 regardless of symptoms) Keep the cane away from your feet so you dont trip. A walking aid, such as a cane or walker, can help you stay more independent and avoid falls. Remember to keep your walking aid within easy reach when youre in a chair or in bed. And learn how to use it safely so you dont injure yourself. Using a Cane If you have a stronger side, hold the cane on that side. Get your balance. Move the cane and your weaker leg forward. Support your weight on both the cane and your weaker side. Step with your stronger leg. Start again from step 1. If youre using a folding walker, be sure you know how to lock it open. Check that its locked open before each use. Using a Walker Roll the walker (or lift it, if youre using one without wheels) forward about 12 inches. Step forward with your weaker leg first. Use the walker to help keep your balance. Bring your other foot forward to the center of the walker. Start again from step 1. Helpful Tips Check with your healthcare provider about the right walking aid to use. Ask about a walker with a seat attached. Check the tips of your cane or walker to make sure they have nonskid covers. Move slowly from room to room. Dont rollins. Sit down to get dressed. Use a taty pack or backpack to keep your hands free. Get help for jobs that mean climbing, even on a stepstool. Huy Patient Education Copyright 2008 - 2010 Huy except where otherwise noted. Urinary Incontinence Plan of Care Documentation: (This education is for all patients over 65 regardless of symptoms) Current medications reconciled. Patient encouraged to: Practice kegal exercises Provide education materials Use the restroom every 2 hours throughout the day Limit caffeine, alcohol, spicy foods and acidic foods Keep a bladder diary Limit fluid intake 3-4 hours before bed Lose weight Prevent constipation Take fluid pills at a time when you can get to the bathroom quickly Control sugar better if diabetic Limit fluid intake to 60 oz. per day Wear support stockings (TEDs)if you have edema Ruby Ortez LPN 06/02/2024 Kegel Exercises Kegel exercises dont require special clothing or equipment. Theyre easy to learn and simple to do. And if you do them right, no one can tell youre doing them, so they can be done almost anywhere. Your doctor, nurse, or physical therapist can answer any questions you have and help you get started. A Weak Pelvic Floor The pelvic floor muscles may weaken due to aging, and vaginal childbirth, injury, surgery, chronic cough, or lack of exercise. If the pelvic floor is weak, your bladder and other pelvic organs may sag out of place. The urethra may also open too easily and allow urine to leak out. Kegel exercises can help you strengthen your pelvic floor muscles so they can better support the pelvic organs and control urine flow. How Kegel Exercises Are Done Try each of the Kegel exercises described below. When youre doing them, try not to move your leg, buttock, or stomach muscles. While youre urinating, try to stop the flow of urine. Start and stop it as often as you can. Contract as if you were stopping your urine stream, but do it when youre not urinating. Tighten your rectum as if trying not to pass gas. Contract your anus, but dont move your buttocks. Helpful Hints Do your Kegels as often as you can. The more you do them, the faster youll feel the results. Pick an activity you do often as a reminder. For instance, do your Kegels every time you sit down. Tighten your pelvic floor before you sneeze, get up from a chair, cough, laugh, or lift. This protects your pelvic floor from injury and can help prevent urine leakage. Try to hold each Kegel for a slow count to five. You probably wont be able to hold them for thatlong at first, but keep practicing. It will get easier as your pelvic floor gets stronger. Eventually, special weights that you place in your vagina may be recommended to help make your Kegels even more effective. Huy Patient Education Copyright 2008 - 2010 Huy except where otherwise noted. Here are some helpful tips for your urinary incontinence: (This education is for all patients over 65 regardless of symptoms) Practice Kegel exercises Use the restroom every 2 hours throughout the day Limit caffeine, alcohol, spicy foods, and acidic foods Keep a bladder diary Limit fluid intake 3-4 hours before bed Lose weight Prevent constipation Take fluid pills at a time when can get to the bathroom quickly Control sugar better if diabetic Limit fluid intake to 60 oz. per day Any questions, please feel free to contact our office. documented in this encounter Progress Notes * Pippa Navarro CRNP - 06/02/2024 2:38 PM EDT Images from the original note were not included. History of Present Illness Vanna Acevedo is a 69 year old female that presents for Follow Up (3 month/) Vanna presents to the clinic for a routine follow up. She notes that she developed a cough and congestion yesterday and has been running a low grade fever. She got her new diabetic sneakers. She is up to date on mammogram and colonoscopy. She has difficulty eating crunchy foods due to her dentures fitting poorly. She follows with [facility] for diabetes care. Review of Systems Constitutional: Positive for fever. HENT: Positive for congestion. Respiratory: Positive for cough. Gastrointestinal: Negative for constipation and diarrhea. Genitourinary: Negative for difficulty urinating. Neurological: Positive for light-headedness. Negative for dizziness and syncope. Psychiatric/Behavioral: Negative for sleep disturbance. Physical Exam BP 147/85 | Pulse 88 | Temp 37.3 C (99.2 F) (Tympanic) | Resp 18 | Wt 71.8 kg (158 lb 3.2 oz) |LMP (LMP Unknown) | SpO2 96% | BMI 30.90 kg/m | BSA 1.74 m Physical Exam Vitals and nursing note reviewed. Constitutional: Appearance: Normal appearance. HENT: Head: Normocephalic. Right Ear: External ear normal. Left Ear: External ear normal. Nose: Congestion present. Cardiovascular: Rate and Rhythm: Normal rate. Rhythm irregular. Pulses: Normal pulses. Heart sounds: Normal heart sounds, S1 normal and S2 normal. Pulmonary: Effort: Pulmonary effort is normal. Breath sounds: Normal breath sounds. Skin: General: Skin is warm and dry. Capillary Refill: Capillary refill takes less than 2 seconds. Neurological: Mental Status: She is alert and oriented to person, place, and time. Psychiatric: Attention and Perception: Attention normal. Mood and Affect: Mood normal. Speech: Speech normal. Behavior: Behavior normal. Thought Content: Thought content normal. Cognition and Memory: Cognition normal. Judgment: Judgment normal. I have reviewed most recent labs None Assessment and Plan DM type 2 with diabetic peripheral neuropathy (HCC) (Primary) -follows with [facility]; compliant with insulin Risk and functional assessment Migraine without status migrainosus, not intractable, unspecified migraine type - Ubrelvy 100 MG Oral Tablet (Ubrogepant); Take 100 mg by mouth as needed for Migraine. Take 1 tablets at onset of migraine and may repeat in 2 hours if needed. Do not exceed 2 tablets in 24 hours. Wrap-Up Time: I spent a total of 30-39 minutes (exact time 30 mins) on the date of service in preparation, delivery, and documentation of the care provided to Vanna Acevedo excluding any time spent in the performance of separately billed services. * Ruby Ortez LPN - 06/02/2024 2:12 PM EDT Fall Risk Plan of Care Documentation: - Current medications reconciled Patient encouraged to: - Exercise - Provide education materials for Core strengthening - Utilize assistive/adaptive devices - Provide education materials - Avoid multifocal lenses when walking - Avoid hazards in home - Provide education materials - Maintain a regular toileting schedule Ruby Ortez LPN 06/02/2024 Urinary Incontinence Plan of Care Documentation: (This education is for all patients over 65 regardless of symptoms) Current medications reconciled. Patient encouraged to: Practice kegal exercises Provide education materials Use the restroom every 2 hours throughout the day Limit caffeine, alcohol, spicy foods and acidic foods Keep a bladder diary Limit fluid intake 3-4 hours before bed Lose weight Prevent constipation Take fluid pills at a time when you can get to the bathroom quickly Control sugar better if diabetic Limit fluid intake to 60 oz. per day Wear support stockings (TEDs)if you have edema Ruby Ortez LPN 06/02/2024 documented in this encounter Nursing Notes * Ruby Ortez LPN - 06/02/2024 2:08 PM EDT Chief Complaint Patient presents with Follow Up 3 month documented in this encounter Plan of Treatment Upcoming Encounters Date Type Department Care Team ([facility] st Contact Info) Description 06/23/2024 1:30 PM EDT Office Visit Ophthalmology, [place] [address] [facility] [place] [address] Ray Gonzalez DO [address] [facility] [place] [address] 06/30/2024 1:30 PM EDT Office Visit Pharmacy, [address] [place] [address] Pharmacist1, [address] [place] [address] 06/30/2024 2:00 PM EDT Pharmacy Pharmacy, [address] [place] [address] Pharmacist1, [address] [facility] [address] 07/06/2024 11:30 AM EDT Office Visit Allergy/Immunology [facility] [address] [place] [address] Guerita Marin PA-C [address] [place] [address] 11/21/2024 1:30 PM EDT Office Visit [facility] [phone] Victoria Mcintosh CRNP [address] [facility] [place] [address] 02/09/2025 12:30 PM EDT Nurse Only Ancillary 1st Floor, [place] [address] [facility] [place] [address] [facility] [address] [facility] [place] [address] Scheduled Procedures Name Priority Associated Diagnoses Date/Ti [...] 2024 07/29/2023, 05/28/2022, 12/31/2021, Additional history exists Diabetic Eye Exam 07/27/2024 [...] D LEVEL ONCE IN A LIFETIME-USE SMARTSET# [id number] Completed 11/17/2023, 02/19/2023, 05/11/2019, Additional history exists [...] this encounter Medical Devices Implanted Type Area Watershed Engineer Device Identifier Shelf Expiration Date Model / Serial / Lot Lens 24.5 Clareon - [id number] - [id number] Implanted:Qty: 1 on 09/21/2023 by Ray Gonzalez DO at OR [facility] Lens Left: Eye [employer] 03/28/2026 CNA0T0.245 / [id number] / Suture Steel 6 B&S19 M654g - [id number] Implanted:Qty: 7 on 05/07/2021 by Aba Desir MD at [place] [facility] N/A: Sternum JNJ : [employer] 01/10/2026 [id number] / / [id number] [place] Lens 24.5 Implanted:Qty: 1 on 08/10/2023 by Ray Gonzalez DO at OR [facility] Right: Eye [employer] 09/15/2025 CNA0T0 / [id number] / documented as of this encounter Visit Diagnoses Diagnosis DM type 2 with diabetic peripheral neuropathy (HCC)- Primary Type II or unspecified type diabetes mellitus with neurological manifestations, not stated as uncontrolled Risk and functional assessment Screening for unspecified condition Migraine without status migrainosus, not intractable, unspecified migraine type documented in this encounter Advance Directives [...] Advance Directives occurred with: Patient Care Teams House Piping Inspector Relationship Specialty Start Date End Date Pippa Navarro CRNP [address] [place] [id number] PCP - General Nurse Practitioner 02/19/23 documented as of this encounter"
--- OUTSIDE RECORDS SUMMARY | 2024-11-14 06:34 | External Medical Summary | Summary of Care ---
Author Name Unknown Organization [facility] Address [address] [place] [address] Phone [phone] Care Team Providers Care Specialized Developer Name Role Phone Pippa Navarro Primary Care Provider Reason for Visit * Reason Comments Outpatient Testing Encounter Details Date Type Department Care Team ([facility] st Contact Info) Description 05/23/2024 1:10 PM EDT Laboratory Laboratory, [place] [address] [place] [id number] [place], Lab [address] [place] [address] Restless legs syndrome (RLS); Disorder of iron metabolism, unspecified Allergies Active Allergy Reactions Criticality Noted Date Comments Codeine Medium Other reaction(s): Hallucinations Apixaban Hives 09/23/2022 Empagliflozin Other (Please comment) 05/30/2022 migraines Metformin Abdominal pain,Nausea/vomiting Medium 09/02/2023 Consistent with ER formulation even when taken with meals. Soap 12/26/2016 Ivory soap, hives Sulfa Antibiotics Rash Low 03/10/2017 documented as of this encounter (statuses as of 05/23/2024) Medications Medication Sig Dispensed Refills Start Date [...] hemoglobin A1c goal of less than 7.0% ([facility]) Checking blood sugars four time daily [...] twice a day as needed 50 mL 10/20/2022 Active Ketoconazole 2 % External Shampoo (Nizoral)Indication s:Seborrheic dermatitis Apply to scalp daily as needed 120 mL 10/20/2022 Active Biotene Dry Mouth Mouth/Throat Liquid [...] hemoglobin A1c goal of less than 7.0% ([facility]) USE TO INJECT INSULIN 4 TIMES DAILY 400 Each 3 10/06/2023 Active Ozempic (2 MG/DOSE) 8 MG/3ML Subcutaneous Solution Pen-injector (Semaglutide (2 MG/DOSE))Indication s:Type 2 diabetes mellitus with hemoglobin A1c goal of less than 7.0% ([facility]) Inject 2mg under the skin once [...] units daily) 45 mL 3 11/23/2023 Active InsyncStyle Precision Marko Test In Vitro StripIndications:Ty pe [...] Use as directed every 14 days. Using [employer], [phone]. 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 Using [employer],. Debbie 3 reader shipped 03/10/2024 04/06/2024 Active documented as of this encounter (statuses as of 05/23/2024) Active Problems Problem Noted Date Diagnosed Date Encounter for long-term (current) insulin use Major depressive disorder, recurrent, in partial remission 11/22/2023 Generalized anxiety disorder 11/22/2023 Atherosclerosis of [place] ronary artery without angina pectoris 11/22/2023 [...] as of this encounter (statuses as of 05/23/2024) Resolved Problems Problem Noted Date Diagnosed Date Resolved Date Occlusion of left subclavian artery 05/30/2022 06/15/2023 Vertigo 05/30/2022 06/05/2022 Uncomplicated asthma 05/28/2022 022 Hyperlipidemia 05/28/2022 05/28/2022 Atrial fibrillation 11/25/2021 12/03/19 Current use of insulin 11/11/202112/15 Personal history of atrial fibrillation 05/26/2021 12/15/2022 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 The [employer] Lim[employer] program provides food-insecure diabetics with healthy food for their entire household (2 meals/ day X 5 days/week). The program also provides education on food preparation, healthy living, and diabetes self management. The research measures the effects of the program on patient health and wellbeing. Subject will begin the FFF program November 2020. Contact Information: Director Of Regional Sales: Dr. Gilberto Nolan ([phone]) CRC: Chioma Dailey ([phone]) RA: Kimberlee Angulo ([phone]) Diagnosis changed due to Research Module. Go [...] as of this encounter (statuses as of 05/23/2024) Immunizations Name Administration Dates Next Due COVID-19 mRNA, LNP-s, No Pre serve, 2-Dose Series ([place]) 02/01/2021,01/11/2021 COVID-19, LNP-s, No Preserve , Toan-sucrose, Ages 12+ (Pfizer) 12/31/2021 COVID-19, MRNA-LNP, 23-24, P F, 30 MCG/0.3 mL, 12 YRS AND ABOVE, IM ([facility]) 07/29/2023 Covid-19, Mrna, Lnp-s, Pf, B ivalent, 30 Mcg, IM, 12 yrs and above ([place]osmos) 05/28/2022 Pneumococcal Conjugate Vacci ne, 20-valent ([id number]) 01/15/2023 Pneumococcal Polysaccharide PPV23 (Pneumovax) 01/09/2017 Seasonal [...] Care Team (Late st Contact Info) Description 06/02/2024 2:20 PM EDT Office Visit [facility], [place] [address] [facility] [place] [phone] Pippa Navarro CRNP 21 [facility] [place] [address] 06/23/2024 1:30 PM EDT Office Visit Ophthalmology, [place] [address] [place] [address] Ray Gonzalez DO [address] [place] [address] 06/30/2024 1:30 PM EDT Office Visit Pharmacy, [place] [address] Pharmacist1, [address] [place] [phone] 06/30/2024 2:00 PM EDT Pharmacy Pharmacy, [place] [address] Pharmacist1, [address] [place] [phone] 07/06/2024 11:30 AM EDT Office Visit Allergy/Immunology Mitchel Mcdonough [place] [address] [place] [address] Guerita Marin PA-C [address] [place] [address] 11/21/2024 1:30 PM EDT Office Visit Sleep Disorders Ctr Chela Kaur, [place] [address] [facility] [place] [phone] Victoria Mcintosh CRNP 132 [facility] [place] [address] 02/09/2025 12:30 PM EDT Nurse Only Ancillary 1st Floor, [place] 21 [facility] [place] [phone] [place], [facility] Wellness 2 21 [facility] [place] [phone] Pending Results Name Type Priority Associated Diagnoses Date /Time FERRITIN Lab Routine Restless legs syndrome (RLS) Disorder of iron metabolism, unspecified 05/23/2024 1:20 PM EDT IRON SCREEN, INCLUDING TIBC Lab Routine Restless legs syndrome (RLS) Disorder of iron metabolism, unspecified 05/23/2024 1:20 PM EDT Scheduled Procedures Name Priority Associated Diagnoses Date/Ti nm ESOPHAGOGASTRODUODENOSCOPY ( EGD), FLEXIBLE, TRANSORAL, DIAGNOSTIC Recall [...] 07/09/2021, Additional history exists GFR 11/16/2024 11/17/2023, 060 05/2023, 12/15/2022, Additional history exists Albumin/Creatinine Ratio [...] D LEVEL ONCE IN A LIFETIME-USE SMARTSET# 63902 Completed 11/17/2023, 02/19/2023, 05/11/2019, Additional history exists [...] this encounter Medical Devices Implanted Type Area Turbine Room Attendant Device Identifier Shelf Expiration Date Model / Serial / Lot Lens 24.5 [place]omaon - [id number] - [id number] Implanted:Qty: 1 on 09/21/2023 by Ray Gonzalez DO at OR [facility] Lens Left: Eye [employer] 03/28/2026 CNA0T0.245 / [id number] / Suture Steel 6 B&S19 M654g - [id number] Implanted:Qty: 7 on 05/07/2021 by Aba Desir MD at OR [facility] N/A: Sternum JNJ : [employer] 01/10/2026 [id number] / / [id number] [place] Lens 24.5 Implanted:Qty: 1 on 08/10/2023 by Ray Gonzalez DO at OR [facility] Right: Eye [employer] 09/15/2025 CNA0T0 / [id number] / documented as of this encounter Visit Diagnoses Diagnosis Restless legs syndrome (RLS) Disorder of iron metabolism, unspecified documented in this encounter Advance Directives * [...] Advance Directives occurred with: Patient Care Teams Specialized Developer Relationship Specialty Start Date End Date Pippa Navarro CRNP [place] [address] PCP - General Nurse Practitioner 02/19/23 documented as of this encounter
--- OUTSIDE RECORDS SUMMARY | 2024-11-14 06:34 | External Medical Summary | Summary of Care ---
Author Name Unknown Organization [facility] Address [address] [place] [address] Phone [phone] Care Team Providers Care Unit Coordinator Name Role Phone Pippa Navarro Primary Care Provider Reason for Visit * Reason Comments Eye Exam Yearly Exam Encounter Details Date Type Department Care Team ([facility] st Contact Info) Description 06/23/2024 1:30 PM EDT Office Visit Ophthalmology, [place] [address] [place] [address] [place] [address] Type 2 diabetes mellitus with hemoglobin A1c goal of less than 7.0% ([facility])*; Diabetic eye exam (HCC); Pseudophakia; Dry eyes, bilateral Allergies Active Allergy Reactions Criticality Noted Date Comments Codeine Medium Other reaction(s): Hallucinations Apixaban Hives 09/23/2022 Empagliflozin Other (Please comment) 05/30/2022 migraines Metformin Abdominal pain,Nausea/vomiting Medium 09/02/2023 Consistent with ER formulation even when taken with meals. Soap 12/26/2016 Ivory soap, hives Sulfa Antibiotics Rash Low 03/10/2017 documented as of this encounter (statuses as of 06/23/2024) Medications Medication Sig Dispensed Refills Start Date [...] goal of less than 7.0% ([facility]) Checking blood sugars four time daily Dx: [...] goal of less than 7.0% ([facility]) USE TO INJECT INSULIN 4 TIMES DAILY [...] diabetes, HbA1c goal < 7% ([facility]) Inject 12 units with breakfast, 12 units with lunch, 8 units with supper + CF 1:35 over 120 (max 45 units daily) 45 mL 3 11/23/2023 Active FreeStyle Precision Marko Test In Vitro StripIndications:Ty pe 2 diabetes mellitus with hemoglobin A1c goal of less than 7.0% ([facility]) FOR USE IN THE DEBBIE CGM WHEN [...] Use as directed every 14 days. Using [employer], [phone]. 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 Using [employer],. Debbie 3 reader shipped 03/10/2024 04/06/2024 Active [...] as of this encounter (statuses as of 06/23/2024) Active Problems Problem Noted Date Diagnosed Date Encounter for long-term (current) insulin use Major depressive disorder, recurrent, in partial remission 11/22/2023 Generalized anxiety disorder 11/22/2023 Atherosclerosis of [place] co ronary artery without angina pectoris 11/22/2023 [...] as of this encounter (statuses as of 06/23/2024) Resolved Problems Problem Noted Date Diagnosed Date [...] research program 05/28/2020 12/02/2021 Overview: [employer]r: A Randomized Controlled Trial (Project # [id number]). The [employer] program provides food-insecure diabetics with healthy food for their entire household (2 meals/ day X 5 days/week). The program also provides education on food preparation, healthy living, and diabetes self management. The research measures the effects of the program on patient health and wellbeing. Subject will begin the FFF program November 2020. Contact Information: Steno Pool Supervisor: Dr. Gilberto Nolan ([phone]) CRC: Chioma Dailey ([phone]) RA: Kimberlee Angulo ([phone]) Diagnosis changed due to Research Module. Go [...] as of this encounter (statuses as of 06/23/2024) Immunizations Name Administration Dates Next Due COVID-19 mRNA, LNP-s, No Pre serve, 2-Dose Series ([place]) 02/01/2021,01/11/2021 COVID-19, LNP-s, No Preserve , Toan-sucrose, Ages 12+ ([place]) 12/31/2021 COVID-19, MRNA-LNP, 23-24, P F, 30 MCG/0.3 mL, 12 YRS AND ABOVE, IM ([facility]) 07/29/2023 Covid-19, Mrna, Lnp-s, Pf, B ivalent, 30 Mcg, IM, 12 yrs and above ([place]) 05/28/2022 Pneumococcal Conjugate Vacci ne, 20-valent ([id number]) 01/15/2023 Pneumococcal Polysaccharide PPV23 (Pneumovax) 01/09/2017 Seasonal [...] as of this encounter Progress Notes * Ray Gonzalez, - 06/23/2024 1:30 PM EDT 06/23/24 [facility] Ophthalmology Clinic Note HPI: Vanna Acevedo is a 69 year old pt who presents to the eye clinic today as a return. Location: OU Severity: Mild Quality: No complaints Exacerbating/Remitting Factors: Denies Associated Sx: Denies Past Ocular History: Pseudophakia OU OS (Ensor TCC CNA0T0 24.50 (Near target) 09/21/2023) OD (Ensor TCC CNA0T0 24.50 (Near target) 08/10/2023) T2DM without history of retinopathy Physiologic optic nerve cupping Allergic conjunctivitis ZOYA, blepharitis Eye Medications: Artificial tears QID (Refresh) Lid scrubs PRN Erythromycin ophth ointment QHS OU Family Ocular History: Grandmother - glaucoma ROS: Pt denies acute vision changes Pt denies new onset double vision Pt denies new KING Pt denies new issues surrounding eyes Pt admits to above Please see below for full exam details. Base Eye Exam Visual Acuity (Snellen - Linear) Right Left Dist cc 20/40 -1 20/25 -1 Dist ph cc 20/25 -1 Correction: Glasses Tonometry (Tonopen, 1:41 PM) Right Left Pressure 19 21 Pupils Light Shape React APD Right 3 Round Brisk None Left 3 Round Brisk None Visual De Jesus (Counting fingers) Right Left Full Full Extraocular Movement Right Left Full Full Neuro/Psych Oriented x3: Yes Mood/Affect: Normal Dilation Both eyes: 0.5% Proparacaine, 2.5% Phenylephrine, 1.0% Mydriacyl @ 1:42 PM Additional Tests Keratometry K1 [place] K2 [place] Right 44.50 113 45.25 023 Left 44.25 037 45.25 127 Slit Lamp and Fundus Exam External Exam Right Left External Normal Normal Slit Lamp Exam Right Left Lids/Lashes DCL, blepharitis, MGD DCL, blepharitis, MGD Conjunctiva/Sclera White and quiet White and quiet Cornea PEK, Decreased TBUT, low-normal tear alvarez PEK, Decreased TBUT, low-normal tear alvarez Anterior Chamber Narrow temporal Narrow temporal Iris Round and reactive Round and reactive Lens PCIOL PCIOL Fundus Exam Right Left Vitreous PVD PVD Disc Normal Normal C/D Ratio 0.4 0.45 Macula Normal Normal Vessels Normal Normal Periphery Normal Normal Refraction Wearing Rx Sphere Cylinder [place] Add Right -3.25 +1.50 005 +2.50 Left -2.50 +1.50 165 +2.50 Manifest Refraction (Auto) Sphere Cylinder [place] Right -2.25 +0.50 022 Left -2.25 +0.75 150 Refraction 10/22/23 Right eye: -2.00 +0.75 x 010 20/20 Left eye: -2.25 +0.75 x 155 20/20 Add: +2.25 OU A/P: Dry Eyes, blepharitis, MGD OU -Recommend artificial tears up to 4 times daily -Brand names given - Refresh or Systane -Ocusoft lid scrubs -Warm compresses daily -Cont erythromycin ophth ointment QHS OU All stable today - no need to elevate therapy Normal vitamin A level, sjogren Ab negative, thyroid level stable Next steps: Punctal plugs vs. restasis (patient would like to avoid topical steroids c/o glucose levels) Pseudophakia OU Stable Diabetic Eye Exam -No evidence of Diabetic changes on anterior or posterior exam -Cont blood glucose control and HTN control -Explained pathophysiology of how diabetes affects eyes -RTC in 1 year for routine f/u Last performed 06/2024 Due next 06/2025 Glaucoma suspect OU -Cont to monitor RTC 1 year or sooner prn. Ray Gonzalez DO 06/23/24 I spent a total of 10-19 minutes (exact time 15 mins) on the date of service in preparation, delivery, and documentation of the care provided to Vanna Acevedo excluding any time spent in the performance of separately billed services or time spent by another provider/QHP. documented in this encounter Nursing Notes * Juanis Turpin COA - 06/23/2024 1:31 PM EDT Pt states "No changes" DM for 1998 Last FBS: 240 Hemoglobin AIC Results: Lab Results Component Value [...] - [facility] 10.3 (H) 01/15/2021 12:19 PM documented in this encounter Plan of Treatment Upcoming Encounters Date Type Department Care Team (Late st Contact Info) Description 06/30/2024 1:30 PM EDT Office [address] [address] Pharmac[address]1, [facility] [place] [address] [place] [address] 06/30/2024 2:00 PM EDT Pharmacy Pharmacy, [place] [address] [place] [address] Pharmacist1, [facility] [place] [address] [place] [address] 07/06/2024 11:30 AM EDT [facility] [address] [place] [address] Guerita Marin PA-C 200 [facility] [place] [address] 11/21/2024 1:30 PM EDT [facility] [address] [facility] [place] [phone] Victoria Mcintosh CRNP 132 [facility] [place] [address] 02/09/2025 12:30 PM EDT Nurse Only Ancillary 1st Floor, [place] [address] [place] [address] Jonathan Tavera [facility] 2 [address] [place] [address] 06/29/2025 2:00 PM EDT Office Visit Ophthalmology, [place] [address] [place] [address] Ray Gonzalez DO [address] [place] [address] Scheduled Procedures Name Priority Associated Diagnoses Date/Ti [...] D LEVEL ONCE IN A LIFETIME-USE SMARTSET# [id number] Completed 11/17/2023, 02/19/2023, 05/11/2019, Additional history exists [...] this encounter Medical Devices Implanted Type Area Metal Tile Lather Device Identifier Shelf Expiration Date Model / Serial / Lot Lens 24.5 [place] - [id number] - [id number] Implanted:Qty: 1 on 09/21/2023 by Ray Gonzalez DO at OR [facility] Lens Left: Eye [employer] 03/28/2026 CNA0T0.245 / [id number] / Suture Steel 6 B&S19 M654g - [id number] Implanted:Qty: 7 on 05/07/2021 by Aba Desir MD at [place] [facility] N/A: Sternum JNJ : [employer] 01/10/2026 [id number] / / [id number] [place] Lens 24.5 Implanted:Qty: 1 on 08/10/2023 by Ray Gonzalez DO at OR [facility] Right: Eye [employer] 09/15/2025 CNA0T0 / [id number] / documented as of this encounter Visit Diagnoses Diagnosis Type 2 diabetes mellitus with hemoglobin A1c goal of less than 7.0% (HCC)- Primary Diabetic eye exam (HCC) Type II or unspecified type diabetes mellitus without mention of complication, not stated as uncontrolled Pseudophakia Lens replaced by other means Dry eyes, bilateral Tear film insufficiency, unspecified documented in this encounter Advance Directives [...] Advance Directives occurred with: Patient Care Teams Unit Coordinator Relationship Specialty Start Date End Date Pippa Navarro CRNP [address] [place] [address] PCP - General Nurse Practitioner 02/19/23 documented as of this encounter
--- OUTSIDE RECORDS SUMMARY | 2024-11-14 06:34 | External Medical Summary | Summary of Care ---
Author Name Unknown Organization [facility] Address [address] [place] [address] Phone [phone] Care Team Providers Care Epic Beacon Analyst Name Role Phone Pippa Navarro Primary Care Provider Reason for Visit * Reason Onset Date Comments Follow Up Medication Administration 05/23/2024 Flu an d/or Pneumo Inj Encounter Details Date Type Department Care Team (Latest Contact Info) Description 05/23/2024 9:30 AM EDT Office [facility] [address] [facility] [phone] Victoria Mcintosh CRNP [address] [place] [address] Mild obstructive sleep apnea*; Sleep related gastroesophageal reflux disease; Hypersomnolence; Snoring; Sleep related headaches; Restless legs syndrome (RLS); Non-restorative sleep; Need for prophylactic vaccination and inoculation against influenza; Disorder of iron metabolism, unspecified Allergies Active [...] A1c goal of less than 7.0% ([facility]) Checking blood sugars four time [...] A1c goal of less than 7.0% ([facility]) USE TO INJECT INSULIN 4 TIMES DAILY 400 Each 3 10/06/2023 Active Ozempic (2 MG/DOSE) 8 MG/3ML Subcutaneous Solution Pen-injector (Semaglutide (2 MG/DOSE))Indication s:Type 2 diabetes mellitus with hemoglobin A1c goal of less than 7.0% ([facility]) Inject 2mg under the skin [...] A1c goal of less than 7.0% ([facility]) FOR USE IN THE DEBBIE [...] Use as directed every 14 days. Using [facility] SeeFuture, [phone]. 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 Using [facility] Medical,. Debbie 3 reader shipped 03/10/2024 04/06/2024 Active documented as of this encounter (statuses as of 05/23/2024) Active Problems Problem Noted Date Diagnosed Date Encounter for long-term (current) insulin use Major depressive disorder, recurrent, in partial remission 11/22/2023 Generalized anxiety disorder 11/22/2023 Atherosclerosis of [place] co ronary artery without angina pectoris 11/22/2023 [...] in clinical research program 05/28/2020 12/02/2021 Overview: [employer]: A Randomized Controlled Trial (Project # [id number]). The Fresh Food [employer] program provides food-insecure diabetics with healthy food for their entire household (2 meals/ day X 5 days/week). The program also provides education on food preparation, healthy living, and diabetes self management. The research measures the effects of the program on patient health and wellbeing. Subject will begin the FFF program November 2020. Contact Information: Charge Aide: Dr. Gilberto Nolan ([phone]) CRC: Chioma Dailey ([phone]) RA: Kimberlee Angulo ([phone]) Diagnosis changed due to Research Module. Go [...] mRNA, LNP-s, No Pre serve, 2-Dose Series ([employer] 02/01/2021,01/11/2021 COVID-19, LNP-s, No Preserve , Toan-sucrose, Ages 12+ ([employer].) 12/31/2021 COVID-19, MRNA-LNP, 23-24, P F, 30 MCG/0.3 mL, 12 YRS AND ABOVE, IM ([facility]) 07/29/2023 Covid-19, Mrna, Lnp-s, Pf, B ivalent, 30 Mcg, IM, 12 yrs and above ([employer] 05/28/2022 Pneumococcal Conjugate Vacci ne, 20-valent ([id number]) 01/15/2023 Pneumococcal Polysaccharide PPV23 (Pneumovax) 01/09/2017 Seasonal [...] Sign Reading Time Taken Comments Blood Pressure 106/70 05/23/2024 9:22 AM EDT Pulse 97 05/23/2024 9:22 AM EDT Temperature 36.7 C (98.1 F) 05/23/2024 9:22 AM ED T Respiratory Rate 20 05/23/2024 9:22 AM EDT Oxygen Saturation 97% 05/23/2024 9:22 AM EDT ra, rest Inhaled Oxygen Concentration - - Weight 71.4 kg (157 lb 6.4 oz) 05/23/2024 9:22 A M EDT Height 152.4 cm (5') 05/23/2024 9:22 AM EDT Body Mass Index 30.74 05/23/2024 9:22 AM EDT documented in this [...] as of this encounter Progress Notes * Victoria Mcintosh CRNP - 05/23/2024 9:42 AM EDT SLEEP MEDICINE Name: Vanna Acevedo [facility] MR #: [id number] Date: 05/23/2024 History: Vanna Acevedo is a 69 year old female with history of hypertension, type II diabetes, stroke, depression, anxiety, Bipolar I, asthma, BMI 29.6 who presents with snoring, gasping arousals, nocturnal LYNN, nocturia, non refreshing sleep, sleep related headaches, excessive daytime sleepiness, symptoms of RLS, and difficulty with memory and concentration. . she returns to clinic to discuss results of recent sleep testing. -PSG 04/25/2024 (wt 153 lb): AHI/RDI 3% 10 (supine AHI 14.9, non-supine AHI 6.7, 47 hypopnea, 1 central apnea), AHI/RDI 4% 2.7, SE 69%, no N3, 122 minutes REM or 42%, SpO2 kelly 89%, no PLMS recorded-tech noted them, snoring rated 1 on 0-5 scale with 5 being heard through closed door, tech noted arousals with leg or back pain and LYNN symptoms Waking up several times a night with indigestion/LYNN. Eats and drinks up to bedtime and during the night. Sleeping up on pillows. Omeprazole 40 mg every morning 1 hour prior to eating. Using tums andsips of milk. Takes famotidine nightly to prevent hives. Weight is going up. Waiting for dietitian to contact her. Blood sugars have been up causing sleepiness during the day. Waking with migraines. Problem List: Patient Active Problem List Diagnosis Hyperlipidemia with target LDL less than 70 Gastroesophageal reflux disease without esophagitis Migraine HTN, goal below 130/80 Moderate persistent asthma without complication DM type 2 with diabetic peripheral neuropathy (HCC) Bilateral bunions Bipolar I disorder, most recent episode depressed (HCC) History of stroke Type 2 diabetes mellitus with hemoglobin A1c goal of less than 7.0% (HCC) Anxiety LGSIL on Pap smear of cervix Age-related osteoporosis without current pathological fracture Intracardiac thrombus Vertigo Paroxysmal atrial fibrillation (HCC) Subclavian artery stenosis, left (HCC) Rotator cuff tendinitis, left Biceps tendinitis on left Atypical squamous cells of undetermined significance (ASCUS) on Papanicolaou smear of cervix Cervical high risk human papillomavirus (HPV) DNA test positive Velez's esophagus Major depressive disorder, recurrent, in partial remission (HCC) Generalized anxiety disorder Atherosclerosis of [place] coronary artery without angina pectoris Food insecurity Encounter for long-term (current) insulin use (HCC) Current Medications: Current Outpatient Medications Medication Sig Dispense Refill SendHube 3 [place] Device Use as directed. Using [employer], . Debbie 3 reader shipped 03/10/2024 FreeStyle Debbie 3 Sensor Use as directed every 14 days. Using [facility] Medical, . Albuterol Sulfate HFA 108 (90 Base) MCG/ACT Inhalation Aerosol Solution Inhale 2 Puffs by mouth every 6 hours as needed for Shortness of Breath or Wheezing. 18 g 0 FreeStyle Precision Marko Test In Vitro Strip FOR USE IN THE DEBBIE CGM WHEN THE SENSOR IS INOPERATIVEOR TO VERIFY SENSOR READINGS 50 Strip 3 NovoLOG FlexPen 100 UNIT/ML Subcutaneous Solution Pen-injector (insulin aspart) Inject 12 units with breakfast, 12 units with lunch, 8 units with supper + CF 1:35 over 120 (max 45 units daily) 45 mL 3 Arnuity Ellipta 100 MCG/ACT Inhalation Aerosol [...] mouth in the morning. 90 Tablet 3 Insulin Glargine Solostar 100 UNIT/ML Subcutaneous Solution Pen-injector Inject 23 Units under the skin in the morning. Once daily.. Loratadine 10 MG Oral Tablet (Claritin) Take [...] both eyes at bedtime. 3.5 g 6 Citalopram Hydrobromide 40 MG Oral Tablet (CeleXA) [...] Pad topically to affected area every evening. OneTouch Ultra 2 w/Device Kit Check glucose [...] 1 TABLET BY MOUTH ONCE DAILY NEEDED Ubrelvy 100 MG Oral Tablet (Ubrogepant) Take by mouth 100 mg as needed for Migraine. Take 1 tabletsat onset of migraine and may repeat in 2 hours if needed. Do not exceed 2 tablets in 24 hours. 10 Tablet 1 Acetaminophen 325 MG Oral Tablet (Tylenol) Take 2 Tabs by mouth every 4 hours as needed for Pain, Moderate. 100 Tab 1 Refresh 1.4-0.6 % Ophthalmic Solution (polyvinyl alcohol-povidone PF) Instill 1 Drop into both eyesin the morning and 1 Drop at noon and 1 Drop in the evening and 1 Drop before bedtime. OneTouch UltraSoft Lancets [facility] Checking blood sugars four time daily Dx: E11.9 150 Each 11 Cholecalciferol 25 MCG (1000 UT) Oral Capsule Take 5 Capsules by mouth in the morning. Multiple Vitamin (MULTI VITAMIN DAILY) TABS Take 1 Dose(s) by mouth in the morning. Triamcinolone Acetonide (NASACORT AQ) 55 MCG/ACT AERO Administer 2 Sprays into each nostril daily. 1 Bottle 1 Benzonatate 100 MG Oral Capsule (Tessalken Perlchristiano) Take 1 Capsule by mouth 3 times a day as needed for Cough. Do not cut, crush, or chew. (Patient not taking: Reported on 01/06/2024) 30 Capsule 0 No current facility-administered medications for this visit. Physical Exam: BP 106/70 | Pulse 97 | Temp 36.7 C (98.1 F) (Tympanic) | Resp 20 | Ht 1.524 m (5') | Wt 71.4 kg(157 lb 6.4 oz) | LMP (LMP Unknown) | SpO2 97% Comment: ra, rest | BMI 30.74 kg/m | BSA 1.74 m Constitutional: Alert, oriented and in no acute distress Oral: edentulous Chest: Normal respiratory effort at rest Neuro: Fluent speech, gait steady. Psych: Appropriate mood and affect. Assessment & Plan: Encounter Diagnoses Name Primary? Mild obstructive sleep apnea Yes Sleep related gastroesophageal reflux disease Hypersomnolence Snoring Sleep related headaches Restless legs syndrome (RLS) Non-restorative sleep Need for prophylactic vaccination and inoculation against influenza Disorder of iron metabolism, unspecified Mild POLO based on AHI 3% criteria. CPAP likely not covered by insurance as AHI 4% was <5. Work on weight loss. Start food log. Awaiting re-establishing with replanter. Avoid eating or drinking more than sips 3 hours prior to bed. Continue with head elevated during sleep. Work with PCP on LYNN management. Labs to reassess iron and ferritin in the setting of RLS and reported leg movements of sleep. Avoid engaging in any activity that requires full alertness if feeling sleepy, drowsy or otherwise impaired. Consider repeat in lab or home sleep testing due to night to night variance. Reassess in 6 months. [facility] I spent a total of 30-39 minutes (exact time 36 mins) on the date of service in preparation, delivery, and documentation of the care provided to Vanna Acevedo excluding any time spent in the performance of separately billed services. * Caprice Mejia LPN - 05/23/2024 9:18 AM EDT PRE - ADMINISTRATION DOCUMENTATION Are you experiencing any cold symptoms or fever? No Have you had Guillain-[place] Syndrome (an illness that causes paralysis) within the last 6 weeks? No Have you had the flu shot in the past? YES Have you ever had a reaction to the flu shot? No Caprice Mejia LPN, 05/23/2024 9:18 AM Immunization Administration Documentation Time Out Procedure Performed: Yes Patient Identified (Ask Name/Date of ): Yes Does the patient have a fever greater than 101 degrees today? No Patient allergic to latex? No VFC Stock: No Immunization(s) verified: Yes, Immunization Name: Flu, VIS Sheet(s) given: Yes Verified Side and Site: Yes Verified Shot(s) with Parent(s)/Patient: Yes documented in this encounter Nursing Notes * Caprice Mejia LPN - 05/23/2024 9:12 AM EDT Pt is here to review results of sleep study. Pre-Administration Time Out Procedure Performed: Yes Patient Identified (Ask Name/Date of ): Yes Does the patient have a fever greater than 101 degrees today? No Patient allergic to latex? No Has the patient ever fainted after receiving an injection? No VFC Stock: No Immunization(s) verified: Yes, Immunization Name: Flu, VIS Sheet(s) given: Yes Verified Side and Site: Yes Verified Shot(s) with Parent(s)/Patient: Yes documented in this encounter Plan of Treatment Upcoming Encounters Date Type Department Care Team (Late st Contact Info) Description 06/02/2024 2:20 PM EDT Office Visit [facility] [place] [address] [phone] Pippa Navarro CRNP [address] [phone] 06/23/2024 1:30 PM EDT Office Visit Ophthalmology, [place] [address] [phone] Ray Gonzalez DO [address] [phone] 06/30/2024 1:30 PM EDT Office Visit Pharmacy, [address] [place] [address] Pharmacist1, [place] [phone] [facility] [place] [address] 06/30/2024 2:00 PM EDT Pharmacy Pharmacy, [place] 21 [facility] [place] page [phone] Pharmacist1, [address] [place] [phone] 07/06/2024 11:30 AM EDT [facility] Visit [facility] [place] [address] [place] [address] Guerita Marin PA-C [address] [place] [address] 11/21/2024 1:30 PM EDT Office Visit Sleep Disorders Ctr [facility] 132 [facility] [place] [phone] Victoria Mcintosh CRNP 132 [facility] [place] [address] 02/09/2025 12:30 PM EDT Nurse Only Ancillary 1st Floor, [place] 21 [facility] [place] page [phone] [facility] 2 21 [facility] [place] [phone] Scheduled Orders Name Type Priority Associated Diagnoses Orde r Schedule FERRITIN Lab Routine Restless legs syndrome (RLS) Disorder of iron metabolism, unspecified Expected: 05/23/2024 (Approximate), Expires: 05/23/2025 IRON SCREEN, INCLUDING TIBC Lab Routine Restless legs syndrome (RLS) Disorder of iron metabolism, unspecified Expected: 05/23/2024 (Approximate), Expires: 05/23/2025 Scheduled Procedures Name Priority Associated Diagnoses Date/Ti [...] D LEVEL ONCE IN A LIFETIME-USE SMARTSET# [id number] Completed 11/17/2023, 02/19/2023, 05/11/2019, Additional history exists [...] this encounter Medical Devices Implanted Type Area Safety Administrator Device Identifier Shelf Expiration Date Model / Serial / Lot Lens 24.5 Clareon - [id number] - [id number] Implanted:Qty: 1 on 09/21/2023 by Ray Gonzalez DO at OR [facility] Lens Left: Eye [employer] 03/28/2026 CNA0T0.245 / [id number] / Suture Steel 6 B&S19 M654g - [id number] Implanted:Qty: 7 on 05/07/2021 by Aba Desir MD at [place] [facility] [place] N/A: Sternum JNJ : [employer] 01/10/2026 [id number] / / [id number] Clareon Lens 24.5 Implanted:Qty: 1 on 08/10/2023 by Ray Gonzalez DO at OR [facility] Right: Eye [employer] 09/15/2025 CNA0T0 / [id number] / documented as of this encounter Visit Diagnoses Diagnosis Mild obstructive sleep apnea- Primary Obstructive sleep apnea (adult) (pediatric) Sleep related gastroesophageal reflux disease Esophageal reflux Hypersomnolence Hypersomnia, unspecified Snoring Other dyspnea and respiratory abnormality Sleep related headaches Headache Restless legs syndrome (RLS) Non-restorative sleep Other sleep disturbances Need for prophylactic vaccination and inoculation against influenza Disorder of iron metabolism, unspecified documented in [...] Advance Directives occurred with: Patient Care Teams Epic Beacon Analyst Relationship Specialty Start Date End Date Pippa Navarro CRNP [address] [address] PCP - General Nurse Practitioner 02/19/23 documented as of this encounter"
--- OUTSIDE RECORDS SUMMARY | 2024-11-14 06:34 | External Medical Summary | Summary of Care ---
Author Name Unknown Organization [facility] Address [address] [place] [address] Phone [phone] Care Team Providers Care Unit Clerk Name Role Phone Pippa Navarro Primary Care Provider Reason for Visit * Reason Onset Date Comments Health Maintenance 06/27/2024 Encounter Details Date Type Department Care Team ([facility] st Contact Info) Description 06/27/2024 Telephone [facility] 21 [place] [phone] Pippa Navarro CRNP 21 [place] [address] Health Maintenance Allergies Active Allergy Reactions Criticality Noted Date Comments Codeine Medium Other reaction(s): Hallucinations Apixaban Hives 09/23/2022 Empagliflozin Other (Please comment) 05/30/2022 migraines Metformin Abdominal pain,Nausea/vomiting Medium 09/02/2023 Consistent with ER formulation even when taken with meals. Soap 12/26/2016 Ivory soap, hives Sulfa Antibiotics Rash Low 03/10/2017 documented as of this encounter (statuses as of 06/27/2024) Medications Medication Sig Dispensed Refills Start Date [...] goal of less than 7.0% ([facility]) Checking blood sugars four time [...] Type 2 diabetes, HbA1c goal < 7% ([facility]) Inject 12 units with breakfast, 12 units with lunch, 8 units with supper + CF 1:35 over 120 (max 45 units daily) 45 mL 3 11/23/2023 Active [employer] Precision Marko Test In Vitro StripIndications:Ty pe 2 diabetes mellitus with hemoglobin A1c goal of less than 7.0% ([facility]) FOR USE IN THE DEBBIE CGM WHEN THE SENSOR IS INOPERATIVE OR TO VERIFY SENSOR READINGS 50 Strip 3 12/05/2023 Active Albuterol Sulfate HFA 108 (90 Base) MCG/ACT Inhalation Aerosol SolutionIndications :Moderate persistent asthma without complication Inhale 2 Puffs by mouth every 6 hours as needed for Shortness of Breath or Wheezing. 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 Using [employer], [phone]. 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 Using [employer],. Debbie 3 reader shipped 03/10/2024 04/06/2024 Active [...] as of this encounter (statuses as of 06/27/2024) Active Problems Problem Noted Date Diagnosed Date Encounter for long-term (current) insulin use Major depressive disorder, recurrent, in partial remission 11/22/2023 Generalized anxiety disorder 11/22/2023 Atherosclerosis of [place] co ronary artery without angina pectoris 11/22/2023 [...] as of this encounter (statuses as of 06/27/2024) Resolved Problems Problem Noted Date Diagnosed Date [...] research program 05/28/2020 12/02/2021 Overview: [employer] Food [employer]: A Randomized Controlled Trial (Project # [id number]). The Fresh Food [employer] program provides food-insecure diabetics with healthy food for their entire household (2 meals/ day X 5 days/week). The program also provides education on food preparation, healthy living, and diabetes self management. The research measures the effects of the program on patient health and wellbeing. Subject will begin the FFF program November 2020. Contact Information: Transportation Engineer: Dr. Gilberto Nolan ([phone]) CRC: Chioma Dailey ([phone]) RA: Kimberlee Angulo ([phone]) Diagnosis changed due to Research Module. Go [...] as of this encounter (statuses as of 06/27/2024) Immunizations Name Administration Dates Next Due COVID-19 mRNA, LNP-s, No Pre serve, 2-Dose Series ([employer]) 02/01/2021,01/11/2021 COVID-19, LNP-s, No Preserve , Toan-sucrose, Ages 12+ ([employer]) 12/31/2021 COVID-19, MRNA-LNP, 23-24, P F, 30 MCG/0.3 mL, 12 YRS AND ABOVE, IM ([employer] [facility]) 07/29/2023 Covid-19, Mrna, Lnp-s, Pf, B ivalent, 30 Mcg, IM, 12 yrs and above ([employer]) 05/28/2022 Pneumococcal Conjugate Vacci ne, 20-valent ([id number]) 01/15/2023 Pneumococcal Polysaccharide PPV23 (Pneumovax) 01/09/2017 Seasonal [...] No 12/08/2023 Does the household have a unm cancer centerlar source of income? (Household - for [...] 06/30/2024 1:30 PM EDT Office Visit Pharmacy, [place] [address] [address] [place] [address] [address] Pharmacist1, [facility] [place] [address] [address] [address] 06/30/2024 2:00 PM EDT Pharmacy Pharmacy, [place] [address] [address] [address] [address] Pharmacist1, [place] [address] [facility] [place] [address] 07/06/2024 11:30 AM EDT Office Visit Allergy/Immunology [facility] [place] [address] [place] [address] Guerita Marin PA-C 200 [facility] [place] [address] 11/21/2024 1:30 PM EDT [facility] [address] [place] [phone] Victoria Mcintosh CRNP [address] [place] [address] 02/09/2025 12:30 PM EDT Nurse Only Ancillary 1st Floor, [place] [address] [address] [place], [facility] 2 [address] [place] [address] 06/29/2025 2:00 PM EDT Office Visit Ophthalmology, [place] [address] [address] Ray Gonzalez DO [address] [address] Scheduled Procedures Name Priority Associated Diagnoses Date/Ti [...] D LEVEL ONCE IN A LIFETIME-USE SMARTSET# [id number] Completed 11/17/2023, 02/19/2023, 05/11/2019, Additional history exists [...] this encounter Medical Devices Implanted Type Area Turn Out Worker Device Identifier Shelf Expiration Date Model / Serial / Lot Lens 24.5 Clareon - [id number] - [id number] Implanted:Qty: 1 on 09/21/2023 by Ray Gonzalez DO at OR [facility] Lens Left: Eye [employer] 03/28/2026 CNA0T0.245 / [id number] / Suture Steel 6 B&S19 M654g - [id number] Implanted:Qty: 7 on 05/07/2021 by Aba Desir [place] [facility] N/A: Vale ORDOÑEZ : [employer] 01/10/2026 M654G / / PAOLA [place] Lens 24.5 Implanted:Qty: 1 on 08/10/2023 by Ray Gonzalez DO at OR [facility] Right: Eye [employer] 09/15/2025 CNA0T0 / [id number] / documented as of this encounter [...] Directives occurred with: Patient Care Teams Unit Clerk Relationship Specialty Start Date End Date Pippa Navarro CRNP [address] [address] PCP - General Nurse Practitioner 02/19/23 documented as of this encounter
--- OUTSIDE RECORDS SUMMARY | 2024-11-14 06:34 | External Medical Summary | Summary of Care ---
Author Name Unknown Organization [facility] Address [address] [place] [address] Phone [phone] Care Team Providers Care Client Support Manager Name Role Phone Pippa Navarro Primary Care Provider Encounter Details Date Type Department Care Team ([facility] st Contact Info) Description 06/01/2024 Population Health External Data Unspecified Department Allergies Active Allergy Reactions Criticality Noted Date Comments Codeine Medium Other reaction(s): Hallucinations Apixaban Hives 09/23/2022 Empagliflozin Other (Please comment) 05/30/2022 migraines Metformin Abdominal pain,Nausea/vomiting Medium 09/02/2023 Consistent with ER formulation even when taken with meals. Soap 12/26/2016 Ivory soap, hives Sulfa Antibiotics Rash Low 03/10/2017 documented as of this encounter (statuses as of 06/05/2024) Medications Medication Sig Dispensed Refills Start Date [...] as needed for Dry Mouth. 02/19/2023 Active CapsearchTouch Ultra 2 w/Device Kit Check glucose up [...] of less than 7.0% ([facility]) USE TO INJECT INSULIN 4 TIMES DAILY 400 Each 3 10/06/2023 Active Ozempic (2 MG/DOSE) 8 MG/3ML Subcutaneous Solution Pen-injector (Semaglutide (2 MG/DOSE))Indication s:Type 2 diabetes mellitus with hemoglobin A1c goal of less than 7.0% ([facility]) Inject 2mg under the skin [...] ions:Type 2 diabetes, HbA1c goal < 7% ([facility]) Inject 23 Units under the skin in [...] of less than 7.0% ([facility]) FOR USE IN THE DEBBIE CGM WHEN THE SENSOR IS INOPERATIVE OR TO VERIFY SENSOR READINGS 50 Strip 3 12/05/2023 Active Albuterol Sulfate HFA 108 (90 Base) MCG/ACT Inhalation Aerosol SolutionIndications :Moderate persistent asthma without complication Inhale 2 Puffs by mouth every 6 hours as needed for Shortness of Breath or Wheezing. 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 Using [employer], [phone]. 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 Using [employer],. Debbie 3 reader shipped 03/10/2024 04/06/2024 Active documented as of this encounter (statuses as of 06/05/2024) Active Problems Problem Noted Date Diagnosed Date Encounter for long-term (current) insulin use Major depressive disorder, recurrent, in partial remission 11/22/2023 Generalized anxiety disorder 11/22/2023 Atherosclerosis of [place] co ronary artery without angina pectoris 11/22/2023 Food insecurity 11/22/2023 Overview: Per [facility] Protocol Velez's esophagus 07/27/2023 Atypical [...] as of this encounter (statuses as of 06/05/2024) Resolved Problems Problem Noted Date Diagnosed Date [...] in clinical research program 05/28/2020 12/02/2021 Overview: [employer]: A Randomized Controlled Trial (Project # [id number]). The [employer] program provides food-insecure diabetics with healthy food for their entire household (2 meals/ day X 5 days/week). The program also provides education on food preparation, healthy living, and diabetes self management. The research measures the effects of the program on patient health and wellbeing. Subject will begin the FFF program November 2020. Contact Information: Services Manager: Dr. Gilberto Nolan ([phone]) CRC: Chioma Dailey ([phone]) RA: Kimberlee Angulo ([phone]) Diagnosis changed due to Research Module. Go [...] as of this encounter (statuses as of 06/05/2024) Immunizations Name Administration Dates Next Due COVID-19 mRNA, LNP-s, No Pre serve, 2-Dose Series ([employer]) 02/01/2021,01/11/2021 COVID-19, LNP-s, No Preserve , Toan-sucrose, Ages 12+ (Pfizer) 12/31/2021 COVID-19, MRNA-LNP, 23-24, P F, 30 MCG/0.3 mL, 12 YRS AND ABOVE, IM (PFIZER-Comirnaty) 07/29/2023 Covid-19, Mrna, Lnp-s, Pf, B ivalent, 30 Mcg, IM, 12 yrs and above ([employer]) 05/28/2022 Pneumococcal Conjugate Vacci ne, 20-valent ([id number]) 01/15/2023 Pneumococcal Polysaccharide PPV23 (Pneumovax) 01/09/2017 Seasonal [...] 12/08/2023 Does the household have a re lar [...] Care Team (Late st Contact Info) Description 06/23/2024 1:30 PM EDT Office Visit Ophthalmology, [place] [address] [facility] [place] [address] Ray Gonzalez DO 21 [facility] [address] [place] [address] 06/30/2024 1:30 PM EDT Office Visit Pharmacy, [place] 21 [facility] [place] [address] Pharmacist1, [facility] [address] [place] [address] 06/30/2024 2:00 PM EDT Pharmacy Pharmacy, [address] [place] [address] Pharmacist1, [facility] [address] [place] [address] 07/06/2024 11:30 AM EDT Office Visit Allergy/Immunology [facility] [address] [facility] [place] [address] Guerita Marin PA-C 200 [facility] [place] [address] 11/21/2024 1:30 PM EDT Office Visit Sleep Disorders Ctr [facility] [address] [facility] [place] [phone] Victoria Mcintosh CRNP 132 [facility] [place] [address] 02/09/2025 12:30 PM EDT Nurse Only Ancillary 1st Floor, [place] [address] [place] [address] [place], [facility] [address] [place] [address] Scheduled Procedures Name Priority Associated Diagnoses Date/Ti [...] D LEVEL ONCE IN A LIFETIME-USE SMARTSET# [id number] Completed 11/17/2023, 02/19/2023, 05/11/2019, Additional history exists [...] this encounter Medical Devices Implanted Type Area Substitute Nurse Device Identifier Shelf Expiration Date Model / Serial / Lot Lens 24.5 [place] - [id number] - [id number] Implanted:Qty: 1 on 09/21/2023 by Ray Gonzalez DO at OR [facility] Lens Left: Eye [employer] 03/28/2026 CNA0T0.245 / [id number] / Suture Steel 6 B&S19 M654g - [id number] Implanted:Qty: 7 on 05/07/2021 by Aba Desir MD [place] [facility] [place]A: Sternum JNJ : [employer] 01/10/2026 [id number] / / [id number] Clareon Lens 24.5 Implanted:Qty: 1 on 08/10/2023 by Ray Gonzalez DO at OR [facility] Right: Eye [employer] 09/15/2025 CNA0T0 / [id number] / documented as of this encounter [...] Advance Directives occurred with: Patient Care Teams Client Support Manager Relationship Specialty Start Date End Date Pippa Navarro CRNP [address] [place] [address] PCP - General Nurse Practitioner 02/19/23 documented as of this encounter
--- OUTSIDE RECORDS SUMMARY | 2024-11-14 06:35 | External Medical Summary | Summary of Care ---
Author Name Unknown Organization [facility] Address [address] [place] [address] Phone [phone] Care Team Providers Care Fashion Intern Name Role Phone Pippa Navarro Primary Care Provider Reason for Visit * Reason Comments Dosage Adjustment In Person (Anticoag Cl inic) Diabetes Follow-Up Encounter Details Date Type Department Care Team ([facility] Contact Info) Description 05/19/2024 1:10 PM EDT Office Visit Pharmacy, [address] [address] Pharmacist1, [facility] [address] [address] Type 2 diabetes mellitus with hemoglobin A1c goal of less than 7.0% ([facility])* Allergies Active Allergy Reactions Criticality Noted Date [...] A1c goal of less than 7.0% ([facility]) Checking blood sugars four time [...] units daily) 45 mL 3 11/23/2023 Active nkf-pharmaStyle Precision Marko Test In Vitro StripIndications:Ty pe [...] Use as directed every 14 days. Using [employer], [phone]. 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 Using [employer],. Debbie 3 reader shipped 03/10/2024 04/06/2024 Active documented as of this encounter (statuses as of 05/19/2024) Active Problems Problem Noted Date Diagnosed Date Encounter for long-term (current) insulin use Major depressive disorder, recurrent, in partial remission 11/22/2023 Generalized anxiety disorder 11/22/2023 Atherosclerosis of [place] co ronary artery without angina pectoris 11/22/2023 [...] research program 05/28/2020 12/02/2021 Overview: [employer]): A Randomized Controlled Trial (Project # [id number]). The [employer] program provides food-insecure diabetics with healthy food for their entire household (2 meals/ day X 5 days/week). The program also provides education on food preparation, healthy living, and diabetes self management. The research measures the effects of the program on patient health and wellbeing. Subject will begin the FFF program November 2020. Contact Information: Rehabilitation Nurse: Dr. Giblerto Nolan ([phone]) CRC: Chioma Dailey ([phone]) RA: Kimberlee Angulo ([phone]) Diagnosis changed due to Research Module. Go [...] mRNA, LNP-s, No Pre serve, 2-Dose Series ([employer]) 02/01/2021,01/11/2021 COVID-19, LNP-s, No Preserve , Toan-sucrose, Ages 12+ ([employer]) 12/31/2021 COVID-19, MRNA-LNP, 23-24, P F, 30 MCG/0.3 mL, 12 YRS AND ABOVE, IM (MDconnectME-Comirnaty) 07/29/2023 Covid-19, Mrna, Lnp-s, Pf, B ivalent, 30 Mcg, IM, 12 yrs and above ([employer]) 05/28/2022 Pneumococcal Conjugate Vacci ne, 20-valent ([id number]) 01/15/2023 Pneumococcal Polysaccharide PPV23 (Pneumovax) 01/09/2017 Seasonal [...] encounter Progress Notes * Adina Scott, [facility] - 05/19/2024 1:08 PM EDT Images from [...] 05/27/2015 12:00 AM LDL CHOLESTEROL (CALCULATED) - [facility] 115 06/15/2023 01:40 PM LDL CHOLESTEROL (CALCULATED) - [facility] 23 09/03/2020 01:44 PM LDL CHOLESTEROL (DIRECT MEASURE) - [facility] 103 11/17/2023 12:08 PM LDL CHOLESTEROL (DIRECT MEASURE) - [facility] NOT APPLICABLE 09/03/2020 01:44 PM Does patient [...] performance of separately billed services. Adina Scott [facility] Clinical Pharmacist - Examiner Rating Clerk Medication Therapy [facility] 05/19/2024, 1:08 PM [...] AM EDT Office Visit Sleep Disorders Ctr [facility] [address] [place] [phone] Victoria Mcintosh CRNP [address] [place] [address] 06/02/2024 2:20 PM EDT Office Visit [facility] [place] [address] [place] [phone] Pippa Navarro CRNP 21 [place] [address] 06/23/2024 1:30 PM EDT Office Visit Ophthalmology, [place] 21 [facility] [place] [address] Ray Gonzalez DO 21 [facility] [place] [address] 06/30/2024 1:30 PM EDT Office Visit Pharmacy, [address] [place] [address] Pharmacist1, [facility] [address] [facility] [address] 06/30/2024 2:00 PM EDT Pharmacy Pharmacy, [address] [place] [address] Pharmacist1, [address] [facility] [address] 07/06/2024 11:30 AM EDT Office Visit Allergy/Immunology [facility] [place] [facility] [place] [address] Guerita Marin PA-C [address] [facility] [place] [address] 02/09/2025 12:30 PM EDT Nurse Only Ancillary 1st Floor, [place] 21 [facility] [place] [address] [place] [address] 21 [facility] [place] [address] Scheduled Procedures Name Priority Associated Diagnoses Date/Ti [...] D LEVEL ONCE IN A LIFETIME-USE SMARTSET# [id number] Completed 11/17/2023, 02/19/2023, 05/11/2019, Additional history exists [...] this encounter Medical Devices Implanted Type Area Silk Top Hat Body Maker Device Identifier Shelf Expiration Date Model / Serial / Lot Lens 24.5 Clareon - [id number] - [id number] Implanted:Qty: 1 on 09/21/2023 by Ray Gonzalez DO at OR [facility] Lens Left: Eye [employer] 03/28/2026 CNA0T0.245 / [id number] / Suture Steel 6 B&S19 M654g - [id number] Implanted:Qty: 7 on 05/07/2021 by Aba Desir MD [place] [facility] N/A: Sternum JNJ : [employer] 01/10/2026 M654G / / [id number] Clare[place] Lens 24.5 Implanted:Qty: 1 on 08/10/2023 by Ray Gonzalez DO at OR [facility] Right: Eye [employer] 09/15/2025 CNA0T0 / [id number] / documented as of this encounter [...] Advance Directives occurred with: Patient Care Teams Fashion Intern Relationship Specialty Start Date End Date Pippa Navarro CRNP [address] [place] [address] PCP - General Nurse Practitioner 02/19/23 documented as of this encounter
[2024-11-14] MEDS: LANTUS PER UNIT CHARGE SQ SCH (08:50)
[2024-11-14] MEDS: LORATADINE 10 MG TAB PO SCH (08:51)
[2024-11-14] MEDS: FLUTICASONE FUROATE 200MCG 14 PUFFS/INHALER INH SCH (08:51)
[2024-11-14] MEDS: PANTOprazole 40 MG TAB PO SCH (08:52)
[2024-11-14] MEDS: ATORVASTATIN 40 MG TAB PO SCH (08:52)
[2024-11-14] MEDS: CITALOPRAM 20 MG TAB PO SCH (08:53)
[2024-11-14 08:58] LABS: BUN Creatinine Ratio 15.3 (10-20); Calcium 8.1 mg/dl (8.6-10.3); Creatinine Clr Calc Pharmacy 79.8 ml/min; Potassium 3.3 mmol/L (3.5-5.1)
[2024-11-14] MEDS ORDERED: LANTUS PER UNIT CHARGE SQ SCH (09:00)
--- NOTE | 2024-11-14 09:05 | Hospitalist Progress Note ---
Date of Service November 14, 2024 Assessment & Plan (1) Hyperglycemia due to type 2 diabetes mellitus: (2) Noncompliance with medication treatment due to difficulty with dosing: (3) Pseudohyponatremia: (4) Insulin-requiring or dependent type II diabetes mellitus: (5) Moderate persistent asthma: (6) Paroxysmal atrial fibrillation: (7) Bipolar 1 disorder: (8) Depression: Plan Ms. Acevedo is a 69-year-old female with known insulin dependent diabetes mellitus type 2, PAFm depression who is admitted for uncontrolled hyperglycemia. Patient unable to take her insulin given acute URI and progressive confusion at home after antibiotics and steroids #Acute Hyperglycemia #DMTII Started on IV insulin drip for immediate glucose control, no on basal bolus regimen Resume her usual 26 units daily Glycemic pharmacy following replace electrolytes hyponatremia resolved, low iso hyperglycemia likely dispo tomorrow #Depression Resume Celexa and bupropion at half dose prior to admission given recent discontinuation #PAF continue xarelto NSR at this time DVT xarelto likely dispo tomorrow Admission and Anticipated Discharge Date Admission Date: November 13, 2024 Subjective NAEO Patient reports that she was feeling so poorly she was unable to "think clearly" to adjust her insulin at home She was sitting upright and eating breakfast and denies any acute concerns She states she feels remarkably better and without acute concerns Physical Exam Constitutional: WD/WN, vitals as above Respiratory: normal respiratory effort, lungs clear to auscultation Cardiovascular: RRR, no murmur, no edema Gastrointestinal (Abdomen): normal bowel sounds, soft, nontender, no hepatosplenomegaly Results & Data Results & Data Vital Signs (Past 12 Hours) Vital Signs Temp Pulse Resp BP Pulse Ox O2 Del Method 11/14/24 07:32 37.1 C 77 18 128/77 95 Room Air 11/14/24 03:30 37.2 C 78 18 121/75 96 Room Air 11/13/24 21:34 37.7 C H 89 18 147/80 H 96 Room Air Laboratory Results Short CBC 11/13/24 Range/Units 16:25 WBC 8.80 (4.8-10.8) K/ul Hgb 13.3 (12.0-16.0) g/dl Hct 38.4 (37.0-47.0) % Plt Count 347 (130-400) K/uL BMP 11/13/24 11/14/24 16:25 07:58 Sodium 128 L 139 D Potassium 4.4 3.3 L D Chloride 96 L 108 H Carbon Dioxide 21 22 BUN 16 9 Creatinine 0.76 0.59 L Glucose 629 H* 133 H Calcium 9.5 8.1 L Liver Function 11/13/24 Range/Units 16:25 Total Bilirubin 0.4 (0.2-1.0) mg/dl AST 22 (13-39) U/L ALT 22 (7-52) U/L Alkaline Phosphatase 154 H (34-104) U/L Albumin 3.7 (3.4-5.0) gm/dl Urine 11/13/24 Range/Units 16:25 Urine Color Yellow Urine Appearance Clear (Clear) Urine pH 5.0 (4.5-7.5) Ur Specific [place] 1.034 H (1.000-1.030) Urine Protein Negative (Negative) Urine Glucose (UA) 3+ H (Negative) Medications Administered Home Medications Medication Instructions Recorded Confirmed Last Taken atorvastatin 80 mg tablet 80 mg PO DAILY 11/13/24 11/13/24 Unknown bupropion HCl 150 mg tablet,12 hr 150 mg PO BID 11/13/24 11/13/24 Unknown sustained-release citalopram 40 mg tablet (Celexa) 40 mg PO QAM 11/13/24 11/13/24 Unknown ergocalciferol (vitamin D2) 1,250 50,000 unit PO WK 11/13/24 11/13/24 Unknown mcg (50,000 unit) capsule ezetimibe 10 mg tablet 10 mg PO DAILY 11/13/24 11/13/24 Unknown famotidine 20 mg tablet 20 mg PO DAILY 11/13/24 11/13/24 Unknown fluticasone furoate 100 1 inh inhalation DIRECTED 11/13/24 11/13/24 Unknown mcg/actuation blister powder for inhalation (Arnuity Ellipta) hydroxyzine HCl 25 mg tablet 25 mg PO DAILY PRN Other 11/13/24 11/13/24 Unknown insulin degludec 100 unit/mL (3 0 unit subcut DIRECTED 11/13/24 11/13/24 Unknown mL) subcutaneous pen (Tresiba FlexTouch U-100 insulin) loratadine 10 mg tablet 10 mg PO DAILY 11/13/24 11/13/24 Unknown omeprazole 40 mg capsule,delayed 40 mg PO DAILY 11/13/24 11/13/24 Unknown release semaglutide 2 mg/dose (8 mg/3 mL) 2 mg subcut WK 11/13/24 11/13/24 Unknown subcutaneous pen injector (Ozempic) Active Medications Generic Name Dose Route Start Last Admin Trade Name Brittanie PRN Reason Stop Dose Admin Atorvastatin Calcium 80 mg 11/14/24 09:00 11/14/24 08:52 Atorvastatin 40 Mg Tab PO 12/14/24 08:59 80 mg QAM LESLIE Administration Benzonatate 100 mg 11/13/24 21:34 11/14/24 08:52 Benzonatate 100 Mg Capsule PO 12/13/24 21:33 100 mg TID LESLIE Administration Bupropion HCl 75 mg 11/13/24 21:34 11/14/24 08:51 Bupropion Hcl 75 Mg Tablet PO 12/13/24 21:33 75 mg BID LESLIE Administration Citalopram Hydrobromide 20 mg 11/14/24 09:00 11/14/24 08:53 Citalopram 20 Mg Tab PO 12/14/24 08:59 20 mg QAM LESLIE Administration Fluticasone Furoate 1 puffs 11/14/24 09:00 11/14/24 08:51 Fluticasone Furoate 200mcg 14 Puffs/Inhaler INH 12/14/24 08:59 1 puffs DAILY LESLIE Administration Guaifenesin 600 mg 11/13/24 21:34 11/14/24 08:51 Guaifenesin 600 Mg Tabcr PO 12/13/24 21:33 600 mg Q12 LESLIE Administration Sodium Chloride 1,000 mls @ 100 mls/hr 11/13/24 21:45 11/14/24 08:01 Nss IV 11/15/24 03:44 100 mls/hr .Q10H LESLIE Administration Insulin Aspart 0 units 11/14/24 07:30 11/14/24 08:50 Insulin Aspart Per Unit Charge SC 12/14/24 07:29 8 units ACHS LESLIE Administration Insulin Glargine 22 units 11/14/24 09:00 11/14/24 08:50 Lantus Per Unit Charge SQ 12/14/24 08:59 22 units DAILY LESLIE Administration Loratadine 10 mg 11/14/24 09:00 11/14/24 08:51 Loratadine 10 Mg Tab PO 12/14/24 08:59 10 mg QAM LESLIE Administration Pantoprazole Sodium 40 mg 11/14/24 09:00 11/14/24 08:52 Pantoprazole 40 Mg Tab PO 12/14/24 08:59 40 mg DAILY LESLIE Administration
[2024-11-14] MEDS: POTASSIUM CHLORIDE CRTAB 20 MEQ TABCR PO SCH (09:10)
--- NOTE | 2024-11-14 09:10 | Pharmacy Report ---
Pharmacy Glycemic Short Note 2 - Date of Service November 14, 2024 - Glycemic Short BSG Results (Last 24 hours): 11/13/24 11/13/24 11/13/24 15:53 16:12 16:14 Glucose POC Glucose > 600 H* > 600 H* > 600 H* POC Glucose (other) 11/13/24 11/13/24 11/13/24 16:25 16:39 18:20 Glucose 629 H* POC Glucose 406 H* POC Glucose (other) 615 H* 11/13/24 11/13/24 11/13/24 18:22 19:17 19:45 Glucose POC Glucose 396 H* 367 H* 368 H* POC Glucose (other) 11/13/24 11/13/24 11/13/24 19:46 21:13 22:18 Glucose POC Glucose 344 H* 288 H 239 H POC Glucose (other) 11/14/24 11/14/24 11/14/24 02:02 07:49 07:58 Glucose 133 H POC Glucose 255 H 131 H POC Glucose (other) OUTPATIENT ANTIDIABETIC REGIMEN: * Tresiba 26 units SC daily * Ozempic 2 mg SC weekly HbA1c: * 14.1% (11/14/24) ASSESSMENT: * 69 yo F admitted on 11/13/24 secondary to hyperglycemia. Pharmacy has been consulted to assist with inpatient glycemic management. Patient is a Type 2 diabetic as an outpatient. Please refer to outpatient regimen and most recent HbA1c above. Patient reports not taking insulin for over 3 weeks now. * BSGs were > 600 mg/dL upon presentation. Patient was not in DKA/HHS. Insulin drip was start and only ran ~ 3 hours. BSGs trended down into the lower 200s overnight. * Patient did receive 20 units of basal + 13 units of bolus overnight. Ordered and tolerating a T2DM diet. * BSG this AM is 131 mg/dL. Will increase basal very slightly this AM. Novolog order based upon weight/stress of 3. No changes necessary. PLAN FOR INPATIENT GLYCEMIC CONTROL: * Basal insulin * Lantus 22 units SC daily * Bolus insulin * NovoLog per scale ACHS or Q6hrs while NPO * Goal Range: Low 110 mg/dL - High 140 mg/dL * Correction Factor: 20 mg/dL/unit * Nutritional / Prandial insulin per carb ratio of 1 unit per 7 grams CHO consumed
[2024-11-14 09:33] LABS: Estimated Average Glucose 358 mg/dl; Hemoglobin A1C 14.1 % (4.5-5.6)
[2024-11-14] MEDS: FLUTICASONE PROPIONATE NA SPR 16 GM BTL SCH (14:47)
[2024-11-14] MEDS: RIVAROXABAN 20 MG TAB PO SCH (18:22)
[2024-11-15 06:21] LABS: Hematocrit (blood only) 35.9 % (37.0-47.0); Hemoglobin 12.4 g/dl (12.0-16.0); Mean Corpuscular Hemoglobin 31.6 pg (25.0-34.0); Mean Corpuscular Hgb Conc 34.5 g/dL (32.0-36.0); Mean Corpuscular Volume 91.6 fL (80.0-100.0); Mean Platelet Volume 9.5 fL (9.4-12.4); Platelet Count 331 K/uL (130-400); RDW Coefficient of Variation 13.1 % (11.5-14.5); RDW Standard Deviation 43.4 fL (36.4-46.3); Red Blood Count 3.92 M/uL (4.20-5.40); White Blood Count 8.34 K/ul (4.8-10.8)
[2024-11-15 06:40] LABS: BUN Creatinine Ratio 11.9 (10-20); Calcium 8.3 mg/dl (8.6-10.3); Creatinine Clr Calc Pharmacy 70.3 ml/min; Magnesium 1.9 mg/dl (1.7-2.4); Potassium 4.3 mmol/L (3.5-5.1)
[2024-11-15 07:38] VITALS: O2SAT 96
[2024-11-15] MEDS: LANTUS PER UNIT CHARGE SQ SCH (08:48)
--- NOTE | 2024-11-15 09:29 | Pharmacy Report ---
Pharmacy Glycemic Short Note 2 - Date of Service November 15, 2024 - Glycemic Short BSG Results (Last 24 hours): 11/14/24 11/14/24 11/14/24 11:55 16:51 20:26 Glucose POC Glucose 303 H* 237 H 199 H 11/15/24 11/15/24 06:06 07:39 Glucose 197 H POC Glucose 201 H OUTPATIENT ANTIDIABETIC REGIMEN: * Tresiba 26 units SC daily * Ozempic 2 mg SC weekly HbA1c: * 14.1% (11/14/24) ASSESSMENT: 11/15: * Vanna received 71 units of insulin yesterday, 22 of which were basal. BSGs were: 281-669-380-199 mg/dL. * Fasting BSG this AM elevated at 201 mg/dL. Will increase basal to home dose today. * Significant postprandial BSG elevations yesterday. Will tighten both correction factor and carb ratio this AM. 11/14: * 69 yo F admitted on 11/13/24 secondary to hyperglycemia. Pharmacy has been consulted to assist with inpatient glycemic management. Patient is a Type 2 diabetic as an outpatient. Please refer to outpatient regimen and most recent HbA1c above. Patient reports not taking insulin for over 3 weeks now. * BSGs were > 600 mg/dL upon presentation. Patient was not in DKA/HHS. Insulin drip was start and only ran ~ 3 hours. BSGs trended down into the lower 200s overnight. * Patient did receive 20 units of basal + 13 units of bolus overnight. Ordered and tolerating a T2DM diet. * BSG this AM is 131 mg/dL. Will increase basal very slightly this AM. Novolog order based upon weight/stress of 3. No changes necessary. PLAN FOR INPATIENT GLYCEMIC CONTROL: * Basal insulin * Lantus 26 units SC daily * Bolus insulin * NovoLog per scale ACHS or Q6hrs while NPO * Goal Range: Low 110 mg/dL - High 140 mg/dL * Correction Factor: 15 mg/dL/unit * Nutritional / Prandial insulin per carb ratio of 1 unit per 5 grams CHO consumed
[2024-11-15 15:45] VITALS: BP 133/71; PULSE 87; TEMP 97.9
--- NOTE | 2024-11-15 16:31 | Discharge Summary ---
Discharge Summary Date of Service November 15, 2024 Principal Dx & Hospital Course #1 = Principal Diagnosis (1) Hyperglycemia due to type 2 diabetes mellitus: (2) Noncompliance with medication treatment due to difficulty with dosing: (3) Pseudohyponatremia: (4) Insulin-requiring or dependent type II diabetes mellitus: (5) Moderate persistent asthma: (6) Paroxysmal atrial fibrillation: (7) Bipolar 1 disorder: (8) Depression: Plan Ms. Acevedo is a 69-year-old female with known insulin dependent diabetes mellitus type 2, PAFm depression who is admitted for uncontrolled hyperglycemia. Patient unable to take her insulin given acute URI and progressive confusion at home after antibiotics and steroids Patient follows [facility] clinic closely and wishes to follow up with her pharmacist. She reports taking 26 tresiba in the morning, and 15 aspart--as well as large amounts of sliding scale. Reviewed her sugars at home and noted that she often runs 200-300s. Disucssed increasing basal to 30U and meal times to 18 U with planned close follow up with [facility] Patient verbalized understanding #Acute Hyperglycemia #DMTII Started on IV insulin drip for immediate glucose control, no on basal bolus regimen Resume her usual 26 units daily Increased to 30U on discharge #Depression Resume Celexa and bupropion #PAF continue xarelto Notes For Next Care Provider Medication Changes From Visit Increased tresiba to 30U daily Increased meal time to 18 U Admission HPI Per Admitting Provider Patient is a 69-year-old female with known insulin dependent diabetes mellitus type 2. Approximately 4 weeks ago had an upper respiratory infection and was treated with antibiotics and 2 courses of prednisone in the setting of an exacerbation of her asthma. When she started the antibiotics and prednisone, reportedly patient stopped all of her other medications including her insulin. She was being seen by outpatient nutrition counseling today and sent her to the emergency room for evaluation what is learned that she had stopped all her medications. In the emergency room was noted to be quite hyperglycemic with expected hyponatremia. There is no evidence of DKA. She was referred to our service for further evaluation. Time my evaluation patient states she is feeling better. She readily admits that she has not taking really any of her medications for at least 3 weeks. The only medication she took was the prednisone and antibiotics. This includes all of her antidepressants and anticoagulation medications. She was concerned about restarting her antidepressants at her usual dose. She states that she still has a bit of a cough but her mucus production is now clear. She does not feel tight in her chest or wheezy. She has had no nausea or vomiting. Been is eating and drinking adequately. No new problems with the bowels or bladder. Admission Exam Per Admitting Provider Constitutional: Alert, ill in appearance, nontoxic HEENT: Mucous membranes moist. Sclera clear Neck: Soft, no adenopathy Lungs: Clear to auscultation, decreased, no wheezes rales or rhonchi CV: S1-S2, regular Abdomen: Soft, nontender, nondistended Extremities: No significant edema Musculoskeletal: No significant joint tenderness Neuro: No focal deficits Psych: Cooperative, normal mood Discharge Exam Constitutional WD/WN, vitals as above Respiratory normal respiratory effort, lungs clear to auscultation Cardiovascular RRR, no murmur, no edema Gastrointestinal (Abdomen) normal bowel sounds, soft, nontender, no hepatosplenomegaly Updated Medication List Medication Instructions Recorded Confirmed Type atorvastatin 80 mg tablet 80 mg PO DAILY 11/13/24 11/13/24 History bupropion HCl 150 mg tablet,12 hr 150 mg PO BID 11/13/24 11/13/24 History sustained-release citalopram 40 mg tablet (Celexa) 40 mg PO QAM 11/13/24 11/13/24 History ergocalciferol (vitamin D2) 1,250 50,000 unit PO WK 11/13/24 11/13/24 History mcg (50,000 unit) capsule ezetimibe 10 mg tablet 10 mg PO DAILY 11/13/24 11/13/24 History famotidine 20 mg tablet 20 mg PO DAILY 11/13/24 11/13/24 History fluticasone furoate 100 1 inh inhalation DIRECTED 11/13/24 11/13/24 History mcg/actuation blister powder for inhalation (Arnuity Ellipta) hydroxyzine HCl 25 mg tablet 25 mg PO DAILY PRN Other 11/13/24 11/13/24 History loratadine 10 mg tablet 10 mg PO DAILY 11/13/24 11/13/24 History omeprazole 40 mg capsule,delayed 40 mg PO DAILY 11/13/24 11/13/24 History release semaglutide 2 mg/dose (8 mg/3 mL) 2 mg subcut WK 11/13/24 11/13/24 History subcutaneous pen injector (Ozempic) insulin degludec 100 unit/mL (3 30 unit (0.3 mL) subcut 11/15/24 11/13/24 Rx mL) subcutaneous pen (Tresiba DIRECTED #0 mL FlexTouch U-100 insulin) Hospital Stay Data Consultations 11/13/24 18:23 ED Decision to Admit Stat Pending Results Patient Have Any Pending Studies at Discharge: No Discharge Instructions Given to Patient (Per Discharging Provider) You were admitted for hyperglycemia given recent steroid treatment You improved with insulin and IV fluids Please increase your long acting insulin to 30 U daily. Please increase your meal time insulin to 18 U and continue your sliding scale. Please follow up with you MTM Total Time Total Time Spent Total Time Spent (In Minutes): 35
--- NOTE | 2024-11-15 20:20 | Electrocardiogram Report ---
Test Reason : Blood Pressure : */* mmHG Vent. Rate : 95 BPM Atrial Rate : 95 BPM P-R Int : 150 ms QRS Dur : 80 ms QT Int : 354 ms P-R-T Axes : 40 -39 73 degrees QTcB Int : 444 ms Normal sinus rhythm Left axis deviation Moderate voltage criteria for LVH, may be normal variant ( R in aVL , [employer]orest product ) Anterolateral infarct , age undetermined Abnormal ECG No previous ECGs available Confirmed by Juan Diego Mccrary ([id number]) on 11/15/2024 8:20:37 PM Referred By: Kalpana Fernandez Confirmed By: Juan Diego Mccrary
== END 2024-11-15 18:00 | disposition home or self-care (01) | DRG 638 ==
LOC: ED 15:41 → 4W 18:54 → SUATTDRO 18:54 → 4W 20:36